=== PATIENT | male | born 1975 | race Caucasian/White ===

== ENCOUNTER 2017-12-11 18:09 | Emergency (ER) | payer MEDICAID, SELFPAY ==
[2017-12-11 18:10] VITALS: BP 136/102; PULSE 92; RESP 16; TEMP 36.3; O2SAT 98; BMI 28.3
--- NOTE | 2017-12-11 19:34 | ED.DCSUM_ITS ---
- ER Visit Summary Date of Service: 12/11/17 Chief Complaint: Back pain History of Present Illness: The patient is a 42 M with a history of chronic back pain. He has spinal stenosis. Patient states his pain is been well controlled at the last 3 days when it is flared up again. He was seen by his primary care physician yesterday and given a prescription for Percocet and an MRI was ordered. Patient states he was walking today and a spasm hit him. He complains of pain in the lower back that radiates down the back of his legs and around to the groin. He has no urinary symptoms. He denies any new back injury or fall. His last dose of Percocet was approximate 6 hours ago. Physical Examination: Vital signs are unremarkable. Patient is lying in the bed no acute distress. Heart is regular rate and rhythm. No lung sounds are clear. Abdomen is soft nontender. Back examination reveals tenderness to palpation in the bilateral lower lumbar paraspinal muscles. There is no midline tenderness. There is no overlying abrasion or ecchymosis. Lower external examination reveals strong distal pulses with good strength and sensation on testing. Test Results: [] Emergency Department Course and Treatment: Patient be given oxycodone, prednisone, and Flexeril here. He is given prescriptions for prednisone and Flexeril. He is to call his PCPs office tomorrow to ensure his MRI is being scheduled. Treatment Plan: [] Disposition: Discharge Impression: Acute on chronic back pain This note was generated with [employer] dictation software. It may contain incorrect words, spelling, and punctuation that were not noted in review of the chart prior to signing ED Disposition - Plan for ED Patient: Chief Complaint: Back Referrals: Jimbo Hill DO [Primary Care Provider] -
--- NOTE | 2017-12-11 19:34 | ED.DEP ---
ED Disposition - Plan for ED Patient: Disposition: Home or Assisted Living Chief Complaint: Back Instructions: ED Neck Back Pain General Prescriptions: Prednisone 10 mg PO DAILY #63 tablet Cyclobenzaprine [Flexeril] 10 mg PO TID PRN #20 tablet PRN Reason: Muscle Spasm Referrals: Jimbo Hill DO [Primary Care Provider] - As soon as possible Additional Instructions: Call tomorrow to ensure MRI is being scheduled.
[2017-12-11 19:48] VITALS: PULSE 88; RESP 16; O2SAT 98
[2017-12-11] MEDS: oxyCODONE 5 MG Tablet 10 MG PO (19:50)
[2017-12-11] MEDS: predniSONE 20 MG Tablet 60 MG PO (19:51)
== END 2017-12-11 19:54 | disposition home or self-care (01) ==
PROVIDERS: Emergency Provider Emergency Medicine; Family Provider Family Medicine; PCP Family Medicine
DX: M54.5 Low back pain (principal); G89.29 Other chronic pain; I10 Essential (primary) hypertension; J44.9 Chronic obstructive pulmonary disease, unspecified; K21.9 Gastro-esophageal reflux disease without esophagitis; Z79.891 Long term (current) use of opiate analgesic; Z79.899 Other long term (current) drug therapy; Z72.0 Tobacco use
CPT/HCPCS: 99283

== ENCOUNTER → 2019-09-29 10:18 | Outpatient (CLI) | payer MEDICAID, SELFPAY ==
[2019-09-29 12:38] LABS: Absolute Lymphocyte Count 2.87 X10^3/uL (0.83-4.51); Absolute Neutrophil Count 3.4 X10^3/uL (2.0-7.7); Basophil# 0.05 X10^3/uL; Basophil% 0.6 % (0-1); Hematocrit 44.2 % (40-54); Hemoglobin 14.8 g/dL (13.0-16.5); Lymphocyte # 2.87 X10^3/ul (4.0); Lymphocyte % 36.7 % (19-41); Mean Corp Hgb Conc 33.5 g/dL (32-36); Mean Corpuscular Hgb 31.2 pg (27.0-32.0); Mean Corpuscular Volume 93.1 fL (80-94); Mean Platelet Vol. 9.3 fl (6.2-12.0); Monocyte# 0.73 X10^3/uL; Monocyte% 9.3 % (0-10); NRBC Flagged by Analyzer 0 % (0-5); Neutrophil # 3.43 X10^3/uL (2.7-7.7); Platelet Count 587 K/mm3 (150-450); RBC Distribution Width CV 13.5 % (11.6-14.6); RBC Distribution Width SD 45.8 fl (35.1-43.9); Red Blood Count 4.75 M/mm3 (4.6-6.2); White Blood Count 7.8 K/mm3 (4.4-11.0)
[2019-09-29 13:16] LABS: ALB/GLOB Ratio 1.1 RATIO (0.9-2.4); AST(SGOT) 18 U/L (15-37); Alanine Aminotransfer ALT/SGPT 33 U/L (16-61); Albumin, Serum 3.9 g/dL (3.2-5.0); Alkaline Phosphatase 78 U/L (45-117); Anion Gap 7 (5-15); BUN 15 mg/dL (7-18); BUN/Creat Ratio 19.7 RATIO (10-20); Calcium,Total 9.2 mg/dL (8.5-10.1); Chloride 106 mmol/L (98-107); Cholesterol 186 mg/dL (200); Creatinine, Serum 0.76 mg/dL (0.70-1.30); EST Glomerular Filtration Rate 118 mL/min (>60); Est Glom Filt Rate - Afr Amer 142 mL/min (>60); Globulin 3.6 g/dL (2.2-4.2); Glucose 78 mg/dL (74-106); High Density Lipoprotein 37 mg/dL; Potassium 4.1 mmol/L (3.5-5.1); Protein, Total 7.5 g/dL (6.4-8.2); Sodium Level 138 mmol/L (136-145); Triglycerides 181 mg/dL; Very Low Density Lipoprotein 36 mg/dL (5-40)
[2019-09-29 13:58] LABS: HIV - WCH Non-Reactive (Nonreactive); Hepatitis C Antibody Non-Reactive (Nonreactive)
[2019-09-29 15:06] LABS: Chlamydia Trachomatis by PCR Negative (Negative); Neisserai gonorrhoeae by PCR Negative (Negative); Probe Check PASS; Sample Adequacy Control PASS; Specimen Processing Control PASS
[2019-10-01 02:00] LABS: Rapid Plasmin Reagin (RPR) NONREACTIVE (NONREACTIVE)
== END ==
PROVIDERS: PCP Family Medicine; Visit Provider Family Medicine
DX: Z00.00 Encounter for general adult medical examination without abnormal findings (principal); Z20.9 Contact with and (suspected) exposure to unspecified communicable disease; F19.10 Other psychoactive substance abuse, uncomplicated
CPT/HCPCS: 36415; 80053; 80061; 85025; 86592; 86703; 86803; 87491; 87591

== ENCOUNTER → 2019-10-13 07:36 | Outpatient (CLI) | payer MEDICAID, SELFPAY ==
--- NOTE | 2019-10-13 07:45 | MRI_ITS ---
STUDY: MRI LUMBAR SPINE WITHOUT CONTRAST REASON FOR EXAM: Male, 44 years old. LBP, left radiculopathy TECHNIQUE: Standardized fat and water weighted pulse sequences were obtained in the sagittal and axial planes. COMPARISON: 01/01/2014, x-ray 12/20/2014 FINDINGS: T12-L1: Normal endplates. Normal disc height, hydration and morphology. Normal bilateral facet joints. Normal central canal and bilateral lateral recesses. Normal bilateral intervertebral neural foramina. Normal lumbar lordosis. There is no substantial scoliosis. Normal conus medullaris that terminates at the L1. L1-2: Normal endplates. Normal disc height, hydration and morphology. Normal bilateral facet joints. Normal central canal and bilateral lateral recesses. Normal bilateral intervertebral neural foramina. L2-3: Normal endplates. Normal disc height, hydration and morphology. Normal bilateral facet joints. Normal central canal and bilateral lateral recesses. Normal bilateral intervertebral neural foramina. L3-4: Moderate-sized right foraminal protrusion produces moderate right neural foraminal stenosis with abutment of the right L3 nerve root laterally. No central spinal stenosis. L4-5: Moderate bilateral facet hypertrophy with fluid in the facet joints consistent with instability and moderate ligament flavum hypertrophy. No change in the 5 mm retrolisthesis of L4 and L5 with a moderate broad disc protrusion which produces moderate spinal stenosis with moderate bilateral lateral recess stenosis with abutment of the L5 nerve roots, mild left neural foraminal stenosis and moderate right neural foraminal stenosis with abutment of the right L4 nerve root laterally. L5-S1: Mild bilateral facet hypertrophy. Enlarging broad disc protrusion which is now moderate in size produces mild spinal stenosis but moderate bilateral neural foraminal stenosis with abutment of the exiting L5 nerve roots bilaterally. Normal visualized sacral ala. Normal visualized paraspinous soft tissue structures. MRI/Spine Lumbar (Routine) IMPRESSION: Worsening degenerative disc disease at L5/S1. Electronically Signed: Nathan Feldman MD at 8:58 EDT Tel , Service support ,
== END ==
PROVIDERS: PCP Family Medicine; Referring Provider Family Medicine; Visit Provider Family Medicine
DX: M51.17 Intervertebral disc disorders with radiculopathy, lumbosacral region (principal)
CPT/HCPCS: 72148

== ENCOUNTER → 2019-11-09 11:59 | Outpatient (CLI) | payer MEDICAID, SELFPAY ==
[2019-11-09 15:35] LABS: Amphetamine Urine VISTA NEGATIVE (<1000 ng/mL); Barbiturate Urine VISTA NEGATIVE (< 200 ng/mL); Benzodiazepine Urine VISTA NEGATIVE (< 200 ng/mL); Cocaine Urine VISTA NEGATIVE (< 300 ng/mL); Ecstacy Urine VISTA NEGATIVE (< 500 ng/mL); Methadone Urine VISTA NEGATIVE (< 300 ng/mL); PCP Urine VISTA NEGATIVE (< 25 ng/mL); THC Urine VISTA NEGATIVE (< 50 ng/mL); Vista UDS pH Range 6
== END ==
PROVIDERS: PCP Family Medicine; Visit Provider Family Medicine
DX: F19.11 Other psychoactive substance abuse, in remission (principal)
CPT/HCPCS: 80307

== ENCOUNTER → 2019-11-13 10:11 | Outpatient (CLI) | payer MEDICAID, SELFPAY ==
[2019-11-13 13:13] LABS: OXY Internal Control LINE = VALID (VALID); Oxycodone Drug Screen Positive (<100 ng/mL)
[2019-11-13 13:14] LABS: Amphetamine Urine VISTA NEGATIVE (<1000 ng/mL); Barbiturate Urine VISTA NEGATIVE (< 200 ng/mL); Benzodiazepine Urine VISTA NEGATIVE (< 200 ng/mL); Cocaine Urine VISTA NEGATIVE (< 300 ng/mL); Ecstacy Urine VISTA NEGATIVE (< 500 ng/mL); Methadone Urine VISTA NEGATIVE (< 300 ng/mL); PCP Urine VISTA NEGATIVE (< 25 ng/mL); THC Urine VISTA NEGATIVE (< 50 ng/mL); Vista UDS pH Range 7
== END ==
PROVIDERS: PCP Family Medicine; Visit Provider Family Medicine
DX: Z79.899 Other long term (current) drug therapy (principal)
CPT/HCPCS: 80307; 80320; 80365; G0431; G0480

== ENCOUNTER → 2019-11-20 09:52 | Outpatient (CLI) | payer MEDICAID, SELFPAY | PROVIDERS: PCP Family Medicine; Referring Provider Family Medicine; Visit Provider Family Medicine | DX: Z79.899 Other long term (current) drug therapy (principal) ==

== ENCOUNTER → 2019-11-26 11:04 | Outpatient (CLI) | payer MEDICAID, SELFPAY ==
[2019-11-26 13:20] LABS: OXY Internal Control LINE = VALID (VALID)
[2019-11-26 13:21] LABS: Oxycodone Drug Screen Positive (<100 ng/mL)
[2019-11-26 13:25] LABS: Amphetamine Urine VISTA NEGATIVE (<1000 ng/mL); Barbiturate Urine VISTA NEGATIVE (< 200 ng/mL); Benzodiazepine Urine VISTA NEGATIVE (< 200 ng/mL); Cocaine Urine VISTA NEGATIVE (< 300 ng/mL); Ecstacy Urine VISTA NEGATIVE (< 500 ng/mL); Methadone Urine VISTA NEGATIVE (< 300 ng/mL); PCP Urine VISTA NEGATIVE (< 25 ng/mL); THC Urine VISTA NEGATIVE (< 50 ng/mL); Vista UDS pH Range 6
== END ==
PROVIDERS: PCP Family Medicine; Visit Provider Family Medicine
DX: Z79.899 Other long term (current) drug therapy (principal)
CPT/HCPCS: 80307; 80365; G0480

== ENCOUNTER → 2019-12-03 09:25 | Outpatient (CLI) | payer MEDICAID, SELFPAY ==
[2019-12-03 12:42] LABS: Amphetamine Urine VISTA NEGATIVE (<1000 ng/mL); Barbiturate Urine VISTA NEGATIVE (< 200 ng/mL); Benzodiazepine Urine VISTA NEGATIVE (< 200 ng/mL); Cocaine Urine VISTA NEGATIVE (< 300 ng/mL); Ecstacy Urine VISTA NEGATIVE (< 500 ng/mL); Methadone Urine VISTA NEGATIVE (< 300 ng/mL); PCP Urine VISTA NEGATIVE (< 25 ng/mL); THC Urine VISTA NEGATIVE (< 50 ng/mL); Vista UDS pH Range 6
[2019-12-03 12:59] LABS: OXY Internal Control LINE = VALID (VALID); Oxycodone Drug Screen Positive (<100 ng/mL)
== END ==
PROVIDERS: PCP Family Medicine; Visit Provider Family Medicine
DX: Z79.899 Other long term (current) drug therapy (principal)
CPT/HCPCS: 80307; 80365; G0480

== ENCOUNTER → 2019-12-18 08:43 | Outpatient (CLI) | payer MEDICAID, SELFPAY ==
[2019-12-18 13:16] LABS: Amphetamine Urine VISTA NEGATIVE (<1000 ng/mL); Barbiturate Urine VISTA NEGATIVE (< 200 ng/mL); Benzodiazepine Urine VISTA NEGATIVE (< 200 ng/mL); Cocaine Urine VISTA NEGATIVE (< 300 ng/mL); Ecstacy Urine VISTA NEGATIVE (< 500 ng/mL); Methadone Urine VISTA NEGATIVE (< 300 ng/mL); PCP Urine VISTA NEGATIVE (< 25 ng/mL); THC Urine VISTA NEGATIVE (< 50 ng/mL); Vista UDS pH Range 7
== END ==
PROVIDERS: PCP Family Medicine; Visit Provider Family Medicine
DX: Z79.899 Other long term (current) drug therapy (principal)
CPT/HCPCS: 80307; 80365; G0480

== ENCOUNTER → 2020-01-01 09:38 | Outpatient (CLI) | payer MEDICAID, SELFPAY ==
[2020-01-01 12:25] LABS: Hemoglobin A1c 5.5 % (3.8-5.6)
[2020-01-01 12:27] LABS: Amphetamine Urine VISTA NEGATIVE (<1000 ng/mL); Barbiturate Urine VISTA NEGATIVE (< 200 ng/mL); Benzodiazepine Urine VISTA NEGATIVE (< 200 ng/mL); Cocaine Urine VISTA NEGATIVE (< 300 ng/mL); Ecstacy Urine VISTA NEGATIVE (< 500 ng/mL); Methadone Urine VISTA NEGATIVE (< 300 ng/mL); PCP Urine VISTA NEGATIVE (< 25 ng/mL); THC Urine VISTA NEGATIVE (< 50 ng/mL); Vista UDS pH Range 7
[2020-01-01 12:31] LABS: T4 Free Direct 0.94 ng/dL (0.76-1.46); Thyroid Stim Hormone (TSH) 2.96 uIU/mL (0.358-3.74)
== END ==
PROVIDERS: PCP Family Medicine; Visit Provider Family Medicine
DX: Z51.81 Encounter for therapeutic drug level monitoring (principal); Z79.899 Other long term (current) drug therapy; R53.83 Other fatigue; R73.01 Impaired fasting glucose
CPT/HCPCS: 36415; 80307; 83036; 84439; 84443

== ENCOUNTER → 2020-01-15 09:37 | Outpatient (CLI) | payer MEDICAID, SELFPAY ==
[2020-01-15 13:54] LABS: OXY Internal Control LINE = VALID (VALID); Oxycodone Drug Screen Positive (<100 ng/mL)
[2020-01-15 13:55] LABS: Amphetamine Urine VISTA NEGATIVE (<1000 ng/mL); Barbiturate Urine VISTA NEGATIVE (< 200 ng/mL); Benzodiazepine Urine VISTA NEGATIVE (< 200 ng/mL); Cocaine Urine VISTA NEGATIVE (< 300 ng/mL); Ecstacy Urine VISTA NEGATIVE (< 500 ng/mL); Methadone Urine VISTA NEGATIVE (< 300 ng/mL); PCP Urine VISTA NEGATIVE (< 25 ng/mL); THC Urine VISTA NEGATIVE (< 50 ng/mL); Vista UDS pH Range 7
== END ==
PROVIDERS: PCP Family Medicine; Visit Provider Family Medicine
DX: Z51.81 Encounter for therapeutic drug level monitoring (principal)
CPT/HCPCS: 80307; 80365; G0480

== ENCOUNTER 2020-01-18 17:02 | Emergency (ER) | payer MEDICAID, SELFPAY ==
[2020-01-18] VITALS (11 sets, daily range): BP systolic 105–157; BP diastolic 61–89; PULSE 76–91; RESP 18–25; TEMP 36.3–37.2; O2SAT 93–100; BMI 37.3
[2020-01-18] MEDS: Albuterol 2.5 MG/3 ML VIAL.NEB. INHALATION ×3 (17:51)
[2020-01-18] MEDS: Ipratropium/Albuterol Sulfate 3 ML AMPUL.NEB INHALATION (17:51)
[2020-01-18] MEDS: MethylPREDNISolone 125 MG/2 ML Vial IV (18:12)
--- NOTE | 2020-01-18 18:15 | RAD_ITS ---
STUDY: X-RAY CHEST REASON FOR EXAM: Male, 45 years old. Shortness of breath, Hx COPD TECHNIQUE: Single AP portable view of the chest. COMPARISON: 2016 FINDINGS: EKG leads overlie the chest There are interstitial changes of the lungs. There is no demonstrated pleural abnormality. Normal size heart. Normal mediastinum and iris. Normal visualized pulmonary arteries. Normal visualized aortic arch and descending thoracic aorta. Normal visualized thoracic spine. Normal visualized ribs, clavicles, and shoulders. There is no demonstrated abnormality of the visualized soft tissue structures of the upper abdomen. RAD/Chest 1 View (Portable) IMPRESSION: Chronic interstitial changes, no superimposed acute pulmonary process Electronically Signed: Franklyn Kaufman MD at 18:33 EDT , Service support ,
--- NOTE | 2020-01-18 18:17 | ED.DCSUM_ITS ---
History of Present Illness Chief Complaint: Shortness of Breath Onset: Weeks - Nick states he has been ill for weeks. He was placed on antibiotics for sinus infection. He states yesterday he had documented fever, cough, wheezing. States he does not feel well. Does complain of body aches. Context: Sudden Onset Timing: Continuous Quality: Upper respiratory Location: Upper respiratory and pulmonary Current Severity: Mild Maximum Severity: Severe Worsened by: Dyspnea on exertion Relieved by: Nothing Associated Symptoms: Upper respiratory symptoms, cough, wheezing, dyspnea on exertion Narrative: Patient is a 45-year-old male who presents with documented fever last evening and upper respiratory symptoms started several weeks ago. He was placed on antibiotic for sinus infection. He contacted his primary care physician because he is not improved. Since he had audible wheezing he was instructed to come to the emergency department. He does have history of COPD. He denies history of coronary disease. Denies history of PE or DVT. He does report stephanie sea without vomiting diarrhea. Denies urologic symptoms. He does complain of mild headache. He denies photophobia, neck pain or neck stiffness. He does report throat discomfort. Prior similar symptoms: Yes Recent Illness/Hospitalization: Yes - Past Medical History (1) COPD exacerbation Status: Acute (2) Alcohol abuse, in remission Status: Chronic (3) Chronic low back pain Status: Chronic (4) GERD (gastroesophageal reflux disease) Status: Chronic (5) History of diverticulitis of colon Status: Chronic (6) Hypertension Status: Chronic (7) Obesity (BMI 30-39.9) Status: Chronic (8) Tobacco abuse Status: Chronic Past Medical History - Allergies and Home Meds Allergies/Adverse Reactions: Allergies sulfamethoxazole [From Bactrim] Allergy (Verified 01/18/20 17:05) Other trimethoprim [From Bactrim] Allergy (Verified 01/18/20 17:05) Other Metronidazole HCl [From Flagyl] Adverse Reaction (Verified 01/18/20 17:05) Unknown taste buds got sore and hurt on PO Abx Primary Care Physician: Jimbo Hill DO [Primary Care Provider] - Prior records reviewed: Yes Surgical History: - - Right knee surgery, polyp removal. Lives: - - Patient is and lives alone. Smoking Status: Current every day smoker Alcohol: Rare Drugs: None - Family History Maternal Family History: Family History (Last Updated 04/13/17 @ 07:08 by Chacha Ibrahim) Mother CAD (coronary artery disease) Uncle CAD (coronary artery disease) Family History: Reports: - - Mother diagnosed with coronary artery disease and valvular heart disease at age 70. He had an uncle who was diagnosed with coronary artery disease at 47. No sudden in the family. Paternal Family History: Family History (Last Updated 04/13/17 @ 07:08 by Chacha Ibrahim) Mother CAD (coronary artery disease) Uncle CAD (coronary artery disease) Family History: Reports: Cancer, No pertinent history Review of Systems General: Reports: Chills, Fever, Malaise, Sweats. Denies: Subjective Eyes: Denies: Visual changes - bilaterally, Blurred Vision - bilaterally ENT: Reports: Rhinorrhea, Sore throat Cardiovascular: Reports: Chest pain, Palpitations. Denies: Heart racing Respiratory: Reports: Dyspnea, Cough, Sputum, Dyspnea on exertion. Denies: Orthopnea, Paroxysmal nocturnal dyspnea Gastrointestinal: Reports: Nausea. Denies: Abdominal pain, Vomiting, Diarrhea Genitourinary: Denies: Dysuria, Hematuria, Frequency Musculoskeletal: Reports: Myalgias, Arthralgias. Denies: Neck pain, Back pain, Swelling, Extremity Pain, -, - Skin: Denies: Rash, Wounds Neurological: Reports: Headache, Weakness. Denies: Parasthesia Endocrine: Denies: Polyuria, Polydipsia Hematologic: Denies: Easy bruising Physical Exam Vital Signs/Narrative: Vital Signs Temp Pulse Resp BP Pulse Ox 01/18/20 17:53 84 18 01/18/20 17:04 97.8 F 91 20 H 157/89 H 97 01/18/20 17:02 97.8 F 91 20 H 157/89 H 97 Inital Vital Signs reviewed: Yes General: Well nourished, Well developed, - - Does not appear well and appears in mild respiratory distress. Head: Normocephalic, Atraumatic Eyes: Perrl, EOMI. Negative for: Pale conjunctiva, Scleral icterus ENT: Moist mucous membranes, TM's clear, Nasal congestion, Sinus tenderness. Negative for: No rhinorrhea Neck: Supple, Nontender, No lymphadenopathy, No JVD Cardiovascular: Regular rate, Regular rhythm, No murmurs, Normal S1, Normal S2 Respiratory: Chest nontender, Wheezing, Diminished, Decreased Air Movement, - - Normal use of accessory muscles.. Negative for: No distress, CTA bilaterally Abdomen: Soft, Nontender, Nondistended, Normal bowel sounds, No masses Rectal: Deferred Back: Nontender, Normal Inspection Extremities: Nontender, No edema Skin: Normal color, No rash, No Trauma. Negative for: Cyanosis, Diaphoresis, Jaundice Neurological: Alert, Oriented x3, Cranial nerves II-XII grossly intact, Normal Strength, Normal Sensation Psychological: Normal affect, Normal Mood Diagnostic/Tx/Re-eval Chest X-Ray - ED: 1 View, Read by Radiologist, - - X-rays compared to March 02, 2017. The loop recorder is no longer present. There is no acute findings. Agree with radiology read. Impressions Chest X-Ray 01/18/20 18:15 IMPRESSION: Chronic interstitial changes, no superimposed acute pulmonary process Electronically Signed: Franklyn Kaufman MD at 18:33 EDT , Service support , 01/18/20 18:15 Chest 1 View (Portable) [RAD] Stat Laboratory Results 01/18/20 01/18/20 01/18/20 18:05 18:05 18:05 WBC 9.9 RBC 4.47 L Hgb 13.5 Hct 41.2 MCV 92.2 MCH 30.2 MCHC 32.8 RDW Std Deviation 49.1 H RDW Coeff of Rudolph 14.6 Plt Count 489 H MPV 9.0 Immature Gran % (Auto) 0.300 Neut % (Auto) 64.1 Lymph % (Auto) 22.8 [place] % (Auto) 7.1 Eos % (Auto) 5.0 Baso % (Auto) 0.7 Absolute Neuts (auto) 6.3 Absolute Lymphs (auto) 2.25 Nucleated RBC % 0 Sodium 139 Potassium 3.7 Chloride 111 H Carbon Dioxide 23.0 Anion Gap 5 BUN 12 Creatinine 0.82 Estim Creat Clear Calc 121.16 Est GFR (MDRD) Af Amer 131 Est GFR (MDRD) Non-Af 108 BUN/Creatinine Ratio 14.7 Glucose 107 H Lactic Acid 0.9 Calcium 8.5 Total Bilirubin 0.30 AST 19 ALT 26 Alkaline Phosphatase 73 Total Protein 6.8 Albumin 3.4 Globulin 3.4 Albumin/Globulin Ratio 1.0 COVID-19 test negative. Respiratory panel positive for rhinovirus. This would explain why he has not gotten better with antibiotics. Patient was informed he should stop smoking. - Medical Decision Making Diagnosis includes COPD, viral upper restaurant infection, pneumonia, COVID-19 infection. Chest x-ray, appropriate blood work and viral culture was obtained. He was treated with 125 million Solu-Medrol, DuoNeb and albuterol. Patient's oxygen level did not desaturate with activity. ED Disposition - Plan for ED Patient: Disposition: Home or Assisted Living Diagnosis: Asthma exacerbation in COPD, Disease due to rhinovirus Instructions: ED COPD Flare Prescriptions: Prednisone [Deltasone] 40 mg PO DAILY #10 tab Transmission Status: Pending to [facility]30 Referrals: Jimbo Hill DO [Primary Care Provider] - 1 Week if not improving
[2020-01-18 18:25] LABS: Absolute Lymphocyte Count 2.25 X10^3/uL (0.83-4.51); Absolute Neutrophil Count 6.3 X10^3/uL (2.0-7.7); Basophil# 0.07 X10^3/uL; Basophil% 0.7 % (0-1); Eosinophil# 0.49 X10^3/uL; Hematocrit 41.2 % (40-54); Hemoglobin 13.5 g/dL (13.0-16.5); Lymphocyte # 2.25 X10^3/ul (4.0); Lymphocyte % 22.8 % (19-41); Mean Corp Hgb Conc 32.8 g/dL (32-36); Mean Corpuscular Hgb 30.2 pg (27.0-32.0); Mean Corpuscular Volume 92.2 fL (80-94); Monocyte% 7.1 % (0-10); NRBC Flagged by Analyzer 0 % (0-5); Neutrophil # 6.33 X10^3/uL (2.7-7.7); Neutrophil % 64.1 % (47-70); Platelet Count 489 K/mm3 (150-450); RBC Distribution Width CV 14.6 % (11.6-14.6); RBC Distribution Width SD 49.1 fl (35.1-43.9); Red Blood Count 4.47 M/mm3 (4.6-6.2); White Blood Count 9.9 K/mm3 (4.4-11.0)
[2020-01-18 18:40] LABS: AST(SGOT) 19 U/L (15-37); Alanine Aminotransfer ALT/SGPT 26 U/L (16-61); Albumin, Serum 3.4 g/dL (3.2-5.0); Alkaline Phosphatase 73 U/L (45-117); Anion Gap 5 (5-15); BUN 12 mg/dL (7-18); BUN/Creat Ratio 14.7 RATIO (10-20); Calcium,Total 8.5 mg/dL (8.5-10.1); Chloride 111 mmol/L (98-107); Creatinine, Serum 0.82 mg/dL (0.70-1.30); EST Glomerular Filtration Rate 108 mL/min (>60); Est Glom Filt Rate - Afr Amer 131 mL/min (>60); Estimated Creatinine Clearance 121.16 ml/min; Globulin 3.4 g/dL (2.2-4.2); Glucose 107 mg/dL (74-106); Potassium 3.7 mmol/L (3.5-5.1); Protein, Total 6.8 g/dL (6.4-8.2); Sodium Level 139 mmol/L (136-145)
[2020-01-18 19:00] LABS: Lactic Acid 0.9 mmol/L (0.4-1.9)
== END 2020-01-18 21:29 | disposition home or self-care (01) ==
PROVIDERS: Emergency Provider Emergency Medicine; PCP Family Medicine
DX: J44.1 Chronic obstructive pulmonary disease with (acute) exacerbation (principal); B34.8 Other viral infections of unspecified site; I10 Essential (primary) hypertension; K21.9 Gastro-esophageal reflux disease without esophagitis; E66.9 Obesity, unspecified; F17.200 Nicotine dependence, unspecified, uncomplicated; Z88.1 Allergy status to other antibiotic agents; Z88.2 Allergy status to sulfonamides
CPT/HCPCS: 71045; 80053; 83605; 85025; 87040; 87633; 87635; 94640; 96374; 99251; 99281; 99285; A4216; G0463; U0003

== ENCOUNTER → 2020-01-29 09:23 | Outpatient (CLI) | payer MEDICAID, SELFPAY ==
[2020-01-18 17:02] VITALS: BMI 37.3
[2020-01-29 12:46] LABS: Amphetamine Urine VISTA NEGATIVE (<1000 ng/mL); Barbiturate Urine VISTA NEGATIVE (< 200 ng/mL); Benzodiazepine Urine VISTA NEGATIVE (< 200 ng/mL); Cocaine Urine VISTA NEGATIVE (< 300 ng/mL); Ecstacy Urine VISTA NEGATIVE (< 500 ng/mL); Methadone Urine VISTA NEGATIVE (< 300 ng/mL); PCP Urine VISTA NEGATIVE (< 25 ng/mL); THC Urine VISTA NEGATIVE (< 50 ng/mL); Vista UDS pH Range 7
== END ==
PROVIDERS: PCP Family Medicine; Visit Provider Family Medicine
DX: Z51.81 Encounter for therapeutic drug level monitoring (principal)
CPT/HCPCS: 80307

== ENCOUNTER 2020-03-01 10:16 | Day surgery (SDC) | payer MEDICAID, SELFPAY ==
[2020-02-05 13:48] VITALS: BMI 36.9
[2020-02-17 08:25] VITALS: BMI 36.9
--- NOTE | 2020-03-01 10:00 | HP_ITS ---
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 Is patient in pain?: No Allergies sulfamethoxazole [From Bactrim] Allergy (Verified 02/05/20 13:50) Other trimethoprim [From Bactrim] Allergy (Verified 02/05/20 13:50) Other Metronidazole HCl [From Flagyl] Adverse Reaction (Verified 02/05/20 13:50) Unknown Medications Lansoprazole [Prevacid] 30 mg PO DAILY 12/05/16 [History Confirmed 04/13/17] Aclidinium [place] [Tudorza Pressair] 400 mcg IH 03/02/17 [History Confirmed 04/13/17] Albuterol IH (ProAir) [Proair Hfa] 1 - 2 puff INHALATION Q4H PRN PRN 03/02/17 [History Confirmed 04/13/17] Fluticasone/Salmeterol [Advair 250-50 Diskus] 1 ea IH 03/02/17 [History Confirmed 04/13/17] Acetaminophen 500 mg PO Q4H #1 tab 03/04/17 [Rx Confirmed 04/13/17] Guaifenesin [Mucinex] 1,200 mg PO BID #10 tab 03/04/17 [Rx Confirmed 04/13/17] Ibuprofen [Motrin] 800 mg PO Q8H PRN PRN tab 03/04/17 [Rx Confirmed 04/13/17] Prednisone 10 mg PO DAILY #63 tab 12/11/17 [Rx] cycloBENZAPRine HCl [Flexeril] 10 mg PO TID PRN #20 tab 12/11/17 [Rx] ondansetron HCl 4 mg tablet 4 mg PO Q8H 02/05/20 [History Confirmed 02/05/20] oxycodone-acetaminophen 5 mg-325 mg tablet 1 tab PO Q8H PRN 02/05/20 [History Confirmed 02/05/20] topiramate 50 mg tablet 50 mg PO BID 02/05/20 [History Confirmed 02/05/20] PFSH Medical History Wheezing (Acute) Cough (Acute) Acute bronchitis (Acute) Chronic low back pain (Chronic) GERD (gastroesophageal reflux disease) (Chronic) Alcohol abuse, in remission (Chronic) Tobacco abuse (Chronic) History of diverticulitis of colon (Chronic) Obesity (BMI 30-39.9) (Chronic) Hypertension (Chronic) COPD (chronic obstructive pulmonary disease) (Chronic) COPD exacerbation (Acute) Chest pain (Acute) Surgical History History of right knee surgery (Resolved) Family History Mother CAD (coronary artery disease) Uncle CAD (coronary artery disease) Social History (Updated 02/05/20 @ 14:[address] Kg Correa MD) Smoking Status: Current every day smoker second hand exposure: Yes alcohol intake: current alcohol intake frequency: a few times a month substance use type: marijuana HPI HPI HPI: RAJAT FITCH, is a 45 M who presents to the office today for HPI HPI Surgical H&P: Yes HPI: RAJAT FITCH, is a 45 M who presents to the office today for Colonoscopy. The patient had his last colonoscopy about 6 years ago. The patient had a large 2 cm adenomatous polyp. He is not having any abdominal pain or blood in the stool. He was recommended to repeat in 5 years. ROS General General: No weight change or fatigue Cardio Cardiovascular: No murmur, pacemaker, heart disease, atrial fibrillation, high blood pressure, heart attack, heart stent, palpitations, shortness of breat with exertion or chest pain Psych Psychiatric: No depression or anxiety Resp Respiratory: No shortness of breath, No sleep apnea, No cough, No COPD, No asthma, No emphysema, No wheezing Gastro Gastrointestinal: No abdominal pain, No nausea or vomiting, No diarrhea, No constipation, No blood in stool, No acid reflux, No hemorrhoids, No ulcers, No gallbladder problem, No black,tarry stools John Hematologic: No blood thinners Exam Const General: cooperative Orientation: alert, oriented x3 Resp Effort & Inspection: normal respiratory effort Auscultation: clear to auscultation bilaterally Cardio Rate: regular rate Rhythm: regular rhythm Heart Sounds: no murmurs GI Inspection: non-distended Palpation: soft, nontender Assessment & Plan Problems 1. History of colon polyps Z86.010 Plan Patient has a history of a large adenomatous polyp of the colon found in 2013. The patient requires repeat colonoscopy for surveillance. He denies any blood in his stool or abdominal pain. I explained endoscopy in detail to the patient. I explained the risks including but not limited to stroke or heart attack with anesthesia, perforation of the GI tract, bleeding, infection. I explained that any of these could necessitate further emergency surgery. The patient understands and all questions were answered sufficiently. The patient wishes to proceed with procedure. We discussed the current risks associated with COVID-19. While it is understood that there is a community spread of COVID-19, the risk of molly COVID-19 while at [facility] ([facility]) is very low; however, the risk cannot be completely mitigated because of the community spread of the disease. We discussed in detail the risk of exposure to and/or potential harm posed by the COVID-19 virus with having a surgery/procedure at this time versus the risk of delaying the surgery/procedure. It is not possible to know either the risk of delaying the surgery or procedure or chance of getting an infection with perfect accuracy, but a joint decision was made to proceed at this time with the scheduled surgery/procedure as indicated on the consent form. Patient was notified that we will need to comply with any screening or testing [facility] wishes to perform or that surgery may be delayed for any positive results. Kg Correa MD Pager: [facility] [address] [place] [address], [address] [place] [address] Office: Orders Orders: Colonoscopy Today Z86.010 Coding Level of Care Code Off vis,new,level 3 Diagnoses History of colon polyps Z86.010 I have re-examined the patient. There are no clinical changes since date of exam.
[2020-03-01 10:39] VITALS: BP 127/87; PULSE 78; RESP 16; TEMP 36.6; O2SAT 96; BMI 36.7
[2020-03-01] MEDS: Lactated Ringers 1,000 ML 100 ML IV (10:53)
--- NOTE | 2020-03-01 12:06 | OP.COLON_ITS ---
Patient Name: Nick Barnes Procedure Date: 03/01/2020 11:41 AM Date of : 1975 Age: 45 Procedure: Colonoscopy Indications: High risk colon cancer surveillance: Personal history of adenoma (10 mm or greater in size) Providers: Kg Correa MD Referring MD: Jimbo Hill Medicines: Monitored Anesthesia Care Patient Profile: This is a 45 year old male. Refer to note in patient chart for documentation of history and physical. Last Colonoscopy: several years ago. Complications: No immediate complications. Procedure: Pre-Anesthesia Assessment: - Prior to the procedure, a History and Physical was performed, and patient medications and allergies were reviewed. The patient's tolerance of previous anesthesia was also reviewed. The risks and benefits of the procedure and the sedation options and risks were discussed with the patient. All questions were answered, and informed consent was obtained. Prior Anticoagulants: The patient has taken no previous anticoagulant or antiplatelet agents. After reviewing the risks and benefits, the patient was deemed in satisfactory condition to undergo the procedure. After I obtained informed consent, the scope was passed under direct vision. Throughout the procedure, the patient's blood pressure, pulse, and oxygen saturations were monitored continuously. The pediatric colonoscope was introduced through the anus and advanced to the cecum, identified by appendiceal orifice and ileocecal valve. The colonoscopy was performed without difficulty. The patient tolerated the procedure well. The quality of the bowel preparation was good. Scope In: 11:53:45 AM Scope Withdrawal Time 0 hours 6 minutes 2 seconds Scope Out: 12:04:02 PM Total Procedure Duration Time 0 hours 10 minutes 17 seconds Findings: The entire examined colon appeared normal on direct and retroflexion views. Impression: - The entire examined colon is normal on direct and retroflexion views. - No specimens collected. Recommendation: - Discharge patient to home. - Resume previous diet. - Continue present medications. - Repeat colonoscopy in 5 years for surveillance. Procedure Code(s): --- Professional --- 91834, Colonoscopy, flexible; diagnostic, including collection of specimen(s) by brushing or washing, when performed (separate procedure) Diagnosis Code(s): --- Professional --- Z86.010, Personal history of colonic polyps CPT copyright 2017 [employer]. All rights reserved. The codes documented in this report are preliminary and upon baker second review may be revised to meet current compliance requirements. Kg Correa MD 03/01/2020 12:05:56 PM This report has been signed electronically. Number of Addenda: 0 Note Initiated On: 03/01/2020 11:41 AM
--- NOTE | 2020-03-01 12:06 | OP.CCLET_ITS ---
03/01/2020 Jimbo Hill [address] [place] [address] Re : Colonoscopy procedure for Nick Barnes Dear Dr. Hill This procedure was performed on Sunday, March 01, 2020. My impressions and recommendations are as follows: Impressions : - The entire examined colon is normal on direct and retroflexion views. - No specimens collected. Recommendations : - Discharge patient to home. - Resume previous diet. - Continue present medications. - Repeat colonoscopy in 5 years for surveillance. My findings are described in the full procedure note, which is enclosed. If I can be of further assistance, please feel free to contact me at Doctor phone number(s): , Work: . Sincerely, Kg Correa MD 03/01/2020 12:05:56 PM This report has been signed electronically.
[2020-03-01 12:10] VITALS: BP 122/53; BP 127/87; PULSE 72; RESP 18; TEMP 36.6; O2SAT 98
[2020-03-01 12:15] VITALS: BP 104/76; BP 127/87; PULSE 72; RESP 16; O2SAT 96
[2020-03-01 12:20] VITALS: BP 109/80; BP 127/87; PULSE 68; RESP 14; O2SAT 98
[2020-03-01 12:25] VITALS: BP 116/81; BP 127/87; PULSE 65; RESP 14; TEMP 36.2; O2SAT 96
[2020-03-01 12:37] VITALS: BP 127/87
== END 2020-03-01 12:50 | disposition home or self-care (01) ==
LOC: EN 10:17 → AC 10:21
PROVIDERS: PCP Family Medicine; Referring Provider Family Medicine; Visit Provider Surgery
PROC: 0DJD8ZZ Inspection of Lower Intestinal Tract, Via Natural or Artificial Opening Endoscopic (ICD-10-PCS; CPT 45378; principal; 2020-03-01 11:25)
DX: Z86.010 Personal history of colon polyps (principal); F17.210 Nicotine dependence, cigarettes, uncomplicated; I10 Essential (primary) hypertension; J44.9 Chronic obstructive pulmonary disease, unspecified; M54.5 Low back pain; G89.29 Other chronic pain; E66.9 Obesity, unspecified; F12.90 Cannabis use, unspecified, uncomplicated; F10.11 Alcohol abuse, in remission; Z79.899 Other long term (current) drug therapy; Z20.828 Contact with and (suspected) exposure to other viral communicable diseases; Z79.1 Long term (current) use of non-steroidal anti-inflammatories (NSAID); Z79.51 Long term (current) use of inhaled steroids; Z87.19 Personal history of other diseases of the digestive system
CPT/HCPCS: 45378; 87426; C9803; J7120; J2405

== ENCOUNTER → 2020-03-02 09:40 | Outpatient (CLI) | payer MEDICAID, SELFPAY ==
[2020-03-01 10:39] VITALS: BMI 36.7
[2020-03-02 13:04] LABS: Amphetamine Urine VISTA NEGATIVE (<1000 ng/mL); Barbiturate Urine VISTA NEGATIVE (< 200 ng/mL); Benzodiazepine Urine VISTA POSITIVE (< 200 ng/mL); Cocaine Urine VISTA NEGATIVE (< 300 ng/mL); Ecstacy Urine VISTA NEGATIVE (< 500 ng/mL); Methadone Urine VISTA NEGATIVE (< 300 ng/mL); PCP Urine VISTA NEGATIVE (< 25 ng/mL); THC Urine VISTA NEGATIVE (< 50 ng/mL); Vista UDS pH Range 6
[2020-03-02 13:14] LABS: OXY Internal Control LINE = VALID (VALID); Oxycodone Drug Screen Positive (<100 ng/mL)
== END ==
PROVIDERS: PCP Family Medicine; Visit Provider Family Medicine
DX: Z51.81 Encounter for therapeutic drug level monitoring (principal)
CPT/HCPCS: 80307; 80365; G0480

== ENCOUNTER → 2020-03-24 09:36 | Outpatient (CLI) | payer MEDICAID, SELFPAY ==
[2020-03-24 09:36] VITALS: BMI 36.9
[2020-03-24 12:44] LABS: Amphetamine Urine VISTA NEGATIVE (<1000 ng/mL); Barbiturate Urine VISTA NEGATIVE (< 200 ng/mL); Benzodiazepine Urine VISTA NEGATIVE (< 200 ng/mL); Cocaine Urine VISTA NEGATIVE (< 300 ng/mL); Ecstacy Urine VISTA NEGATIVE (< 500 ng/mL); Methadone Urine VISTA NEGATIVE (< 300 ng/mL); PCP Urine VISTA NEGATIVE (< 25 ng/mL); THC Urine VISTA NEGATIVE (< 50 ng/mL); Vista UDS pH Range 6
[2020-03-24 12:55] LABS: OXY Internal Control LINE = VALID (VALID); Oxycodone Drug Screen Positive (<100 ng/mL)
== END ==
PROVIDERS: PCP Family Medicine; Visit Provider Family Medicine
DX: Z51.81 Encounter for therapeutic drug level monitoring (principal)
CPT/HCPCS: 80307; 80365; G0480

== ENCOUNTER → 2020-04-06 09:15 | Outpatient (CLI) | payer MEDICAID, SELFPAY ==
[2020-03-24 09:36] VITALS: BMI 36.9
[2020-04-06 13:15] LABS: ALB/GLOB Ratio 1.2 RATIO (0.9-2.4); AST(SGOT) 17 U/L (15-37); Alanine Aminotransfer ALT/SGPT 30 U/L (16-61); Albumin, Serum 3.8 g/dL (3.2-5.0); Alkaline Phosphatase 77 U/L (45-117); Anion Gap 5 (5-15); BUN 14 mg/dL (7-18); BUN/Creat Ratio 14.3 RATIO (10-20); Calcium,Total 9.1 mg/dL (8.5-10.1); Chloride 110 mmol/L (98-107); Creatinine, Serum 0.98 mg/dL (0.70-1.30); EST Glomerular Filtration Rate 88 mL/min (>60); Est Glom Filt Rate - Afr Amer 106 mL/min (>60); Globulin 3.2 g/dL (2.2-4.2); Glucose 94 mg/dL (74-106); Potassium 4.1 mmol/L (3.5-5.1); Sodium Level 137 mmol/L (136-145)
[2020-04-06 13:48] LABS: Basophil# 0.08 X10^3/uL; Basophil% 1.1 % (0-1); Eosinophil# 0.83 X10^3/uL; Eosinophils% 11.1 % (0-5); Hematocrit 44.4 % (40-54); Hemoglobin 14.4 g/dL (13.0-16.5); Lymphocyte % 40.2 % (19-41); Mean Corp Hgb Conc 32.4 g/dL (32-36); Mean Corpuscular Hgb 30.2 pg (27.0-32.0); Mean Corpuscular Volume 93.1 fL (80-94); Mean Platelet Vol. 9.9 fl (6.2-12.0); Monocyte# 0.56 X10^3/uL; Monocyte% 7.5 % (0-10); NRBC Flagged by Analyzer 0 % (0-5); Neutrophil # 2.97 X10^3/uL (2.7-7.7); Neutrophil % 39.8 % (47-70); Platelet Count 526 K/mm3 (150-450); RBC Distribution Width CV 14.1 % (11.6-14.6); Red Blood Count 4.77 M/mm3 (4.6-6.2); White Blood Count 7.5 K/mm3 (4.4-11.0)
== END ==
PROVIDERS: PCP Family Medicine; Visit Provider Family Medicine
DX: Z01.812 Encounter for preprocedural laboratory examination (principal)
CPT/HCPCS: 36415; 80053; 85025

== ENCOUNTER 2020-04-09 22:07 | Emergency (ER) | payer MEDICAID, SELFPAY ==
[2020-03-24 09:36] VITALS: BMI 36.9
[2020-04-09 22:08] VITALS: BP 158/94; PULSE 88; RESP 16; TEMP 36.4; O2SAT 98; BMI 36.9
--- NOTE | 2020-04-09 22:12 | ED.RN ---
Addendum entered by Mely Parekh 04/09/20 22:13: wifes name is dar Addendum entered by Mely Parekh 04/09/20 22:13: wifes phone number for updates Original Note: [id number]
--- NOTE | 2020-04-09 22:49 | EKG12_ITS ---
Test Reason : CP Blood Pressure : / mmHG Vent. Rate : 082 BPM Atrial Rate : 082 BPM P-R Int : 160 ms QRS Dur : 112 ms QT Int : 388 ms P-R-T Axes : 034 -04 056 degrees QTc Int : 453 ms Normal sinus rhythm Incomplete right bundle branch block Borderline ECG Confirmed by DONNIE LYNCH, NICOLE ([id number]), photo editor APOLINAR BOWIE ([id number]) on 04/11/2020 8:50:03 AM Referred By: LAVELLE Confirmed By:NICOLE FIELDS MD
--- NOTE | 2020-04-09 22:50 | RAD_ITS ---
HISTORY: CHEST PAIN WORSE WITH DEEP BREATHING EXAM: XR Chest 1 View: COMPARISON: January 18, 2020 FINDINGS: # of images incl. paperwork: 1 Lungs are clear. Heart is not enlarged. No acute osseous pathology perceived. Pulmonary vascularity is distinct. No effusions. RAD/Chest 1 View (Portable) IMPRESSION: No acute cardiopulmonary disease perceived. at [id number] Reported and signed by: Matt Chavez MD Electronically Signed: Matt Chavez MD at 23:08 EST Tel , Service support ,
--- NOTE | 2020-04-09 22:50 | ED.DCSUM_ITS ---
History of Present Illness Chief Complaint: Chest Pain Informant: Patient Onset: Hours - 1 Activity at onset: Rest - Lying on couch watching TV Timing: Continuous Quality: Pain, Sharp Location: Left Chest - Without radiation Current Severity: Severe Maximum Severity: Severe Worsened By: Nothing - No changes with exertion, lying supine versus sitting up, movement, palpation Relieved By: Nothing Associated Symptoms: Cough - Chronic nonproductive smoker's cough. Negative for: Nausea, Vomiting, Diaphoresis, Dyspnea, Fever, Lightheadedness, Acid Reflux, Palpitations Narrative: Patient has never had this pain before. It is sharp left-sided chest pain without radiation, started while he was lying down. No recent immobilization, hospitalization, surgery. No history of DVT or PE. No leg pain or swelling. He does not smoke marijuana and has never had a spontaneous pneumothorax. - Past Medical History (1) Spinal stenosis of lumbar region Status: Chronic (2) GERD (gastroesophageal reflux disease) Status: Chronic (3) Hypertension Status: Chronic (4) COPD (chronic obstructive pulmonary disease) Status: Chronic Past Medical History - Allergies and Home Meds Allergies/Adverse Reactions: Allergies sulfamethoxazole [From Bactrim] Allergy (Verified 02/25/20 14:17) Other trimethoprim [From Bactrim] Allergy (Verified 02/25/20 14:17) Other Metronidazole HCl [From Flagyl] Adverse Reaction (Verified 02/25/20 14:17) Unknown taste buds got sore and hurt on PO Abx Primary Care Physician: Jimbo Hill DO [Primary Care Provider] - 3-5 Days if not improving Surgical History: - - Right knee surgery, polyp removal. Lives: With Family Smoking Status: Current every day smoker - Family History Maternal Family History: Family History (Last Updated 02/17/20 @ 08:32 by Jennifer Mccarthy) Mother CAD (coronary artery disease) Uncle CAD (coronary artery disease) Father Cancer Family History: Reports: - - Mother diagnosed with coronary artery disease and valvular heart disease at age 70. He had an uncle who was diagnosed with coronary artery disease at 47. No sudden in the family. Paternal Family History: Family History (Last Updated 02/17/20 @ 08:32 by Jennifer Mccarthy) Mother CAD (coronary artery disease) Uncle CAD (coronary artery disease) Father Cancer Family History: Reports: Cancer, No pertinent history Review of Systems General: Denies: Chills, Fever, Sweats Eyes: Denies: Visual changes - bilaterally, Diplopia ENT: Denies: Rhinorrhea, Sore throat Cardiovascular: Reports: Chest pain. Denies: Palpitations Respiratory: Denies: Dyspnea, Cough, Dyspnea on exertion Gastrointestinal: Denies: Abdominal pain, Nausea, Vomiting, Diarrhea, Melena, Hematochezia Genitourinary: Denies: Dysuria, Hematuria, Frequency Musculoskeletal: Reports: Back pain - low, chronic, unchanged. Denies: Neck pain, Swelling, Extremity Pain Skin: Denies: Rash, Wounds Neurological: Denies: Headache, Weakness, Numbness Physical Exam Vital Signs/Narrative: Vital Signs Temp Pulse Resp BP Pulse Ox 04/09/20 22:08 97.6 F L 88 16 158/94 H 98 Inital Vital Signs reviewed: Yes General: Well nourished, Well developed, No Acute Distress Head: Normocephalic, Atraumatic Eyes: Perrl, EOMI ENT: Moist mucous membranes, No rhinorrhea Neck: Supple, Nontender, No lymphadenopathy, No JVD Cardiovascular: Regular rate, Regular rhythm, No murmurs, Normal S1, Normal S2. Negative for: Tachycardia Respiratory: No distress, Chest nontender - Area of left inframammary area is nontender, normal inspection, pain is not reproducible., Wheezing - slight end- expiratory bilat. Negative for: Rales, Rhonchi Abdomen: Soft, Nontender, Nondistended, Normal bowel sounds Back: Nontender, Normal Inspection Extremities: Nontender, No edema. Negative for: Calf Tenderness Skin: Normal color, No rash, No Trauma Neurological: Alert, Oriented x3, Cranial nerves II-XII grossly intact, Normal Strength, Normal Sensation Psychological: Normal affect, Normal Mood Diagnostic/Tx/Re-eval Clinical Impression(s) from Imaging Studies Chest X-Ray 04/09/20 22:50 IMPRESSION: No acute cardiopulmonary disease perceived. at 2309 Reported and signed by: Matt Chavez MD Electronically Signed: Matt Chavez MD at 23:08 EST Tel , Service support , Chest CTA 04/10/20 00:42 IMPRESSION: No pulmonary embolism, aortic aneurysm, or aortic dissection. Normal Individualized dose optimization techniques were used for this CT. at 0133 Reported and signed by: Matt Chavez MD Electronically Signed: Matt Chavez MD at 1:32 EST Tel , Service support , Laboratory Results 04/09/20 04/09/20 22:17 22:17 WBC 11.6 H RBC 4.83 Hgb 15.1 Hct 44.7 MCV 92.5 MCH 31.3 MCHC 33.8 RDW Std Deviation 47.3 H RDW Coeff of Rudolph 13.8 Plt Count 543 H MPV 9.5 Immature Gran % (Auto) 0.300 Neut % (Auto) 46.1 L Lymph % (Auto) 37.5 [place] % (Auto) 8.1 Eos % (Auto) 7.2 H Baso % (Auto) 0.8 Absolute Neuts (auto) 5.4 Absolute Lymphs (auto) 4.35 Nucleated RBC % 0 Sodium 142 Potassium 3.6 Chloride 110 H Carbon Dioxide 26.0 Anion Gap 6 BUN 13 Creatinine 1.12 Estim Creat Clear Calc 88.71 Est GFR (MDRD) Af Amer 91 Est GFR (MDRD) Non-Af 75 BUN/Creatinine Ratio 11.6 Glucose 85 Calcium 8.9 - Rhythm Strip Rhythm Strip: Sinus Rhythm Rate: 82 Ectopy: None - EKG Initial EKG Interpretation: Sinus Rhythm, No Acute Injury Pattern, - - RSR' in V1 Prior: Unchanged Treatment: Toradol IV, GI Cocktail JHOANA Risk: No Positive JHOANA Elements Score: 0 - Medical Decision Making Patient has a 0 PERC score, ruling out pulmonary embolus for cause of for these acute symptoms. His is EKG is normal. The rest of his initial work-up including basic labs, troponin, chest x-ray are also normal. He was treated with Toradol and considering the possibility of pleurisy as well as a GI lily ktail considering the possibility of esophageal etiologies, neither 1 of these helped his discomfort at all and he seemed uncomfortable. He states it seems more pleuritic than it was earlier. The pain is otherwise unchanged and does not radiate to his jaw, teeth, neck, back. Given all this, he was given a dose of morphine and CT angiography of the chest was obtained to rule out both pulmonary embolus although given the 0 PERC score above I think that is unlikely, and more so aortic dissection. As above, that CT returned normal and negative for pulmonary embolus, dissection, or other emergent phenomena. Patient is feeling much better, we will discharge him home with close outpatient follow-up I do not think he needs to be admitted to rule out unstable angina here. The symptoms are atypical for that. Pleurisy is in the differential, he will be diagnosed with that until proven otherwise and I recommend anti- inflammatories as needed. ED Disposition - Plan for ED Patient: Disposition: Home or Assisted Living Diagnosis: Pleurisy Instructions: ED Pleurisy Referrals: Jimbo Hill DO [Primary Care Provider] - 3-5 Days if not improving
[2020-04-09 22:59] LABS: Absolute Lymphocyte Count 4.35 X10^3/uL (0.83-4.51); Absolute Neutrophil Count 5.4 X10^3/uL (2.0-7.7); Basophil# 0.09 X10^3/uL; Basophil% 0.8 % (0-1); Eosinophil# 0.83 X10^3/uL; Eosinophils% 7.2 % (0-5); Hematocrit 44.7 % (40-54); Hemoglobin 15.1 g/dL (13.0-16.5); Lymphocyte # 4.35 X10^3/ul (4.0); Lymphocyte % 37.5 % (19-41); Mean Corp Hgb Conc 33.8 g/dL (32-36); Mean Corpuscular Hgb 31.3 pg (27.0-32.0); Mean Corpuscular Volume 92.5 fL (80-94); Mean Platelet Vol. 9.5 fl (6.2-12.0); Monocyte# 0.94 X10^3/uL; Monocyte% 8.1 % (0-10); NRBC Flagged by Analyzer 0 % (0-5); Neutrophil # 5.36 X10^3/uL (2.7-7.7); Neutrophil % 46.1 % (47-70); Platelet Count 543 K/mm3 (150-450); RBC Distribution Width CV 13.8 % (11.6-14.6); RBC Distribution Width SD 47.3 fl (35.1-43.9); Red Blood Count 4.83 M/mm3 (4.6-6.2); White Blood Count 11.6 K/mm3 (4.4-11.0)
[2020-04-09] MEDS: Mag Hydrox/Al Hydrox/Simeth 30 ML UDC PO (23:02)
[2020-04-09] MEDS: Ketorolac 30 MG/ML Syringe IV (23:03)
[2020-04-09 23:05] LABS: Anion Gap 6 (5-15); BUN 13 mg/dL (7-18); BUN/Creat Ratio 11.6 RATIO (10-20); Calcium,Total 8.9 mg/dL (8.5-10.1); Chloride 110 mmol/L (98-107); Creatinine, Serum 1.12 mg/dL (0.70-1.30); EST Glomerular Filtration Rate 75 mL/min (>60); Est Glom Filt Rate - Afr Amer 91 mL/min (>60); Estimated Creatinine Clearance 88.71 ml/min; Glucose 85 mg/dL (74-106); Potassium 3.6 mmol/L (3.5-5.1); Sodium Level 142 mmol/L (136-145)
[2020-04-09 23:06] VITALS: BP 166/101; PULSE 81; RESP 24; O2SAT 96
[2020-04-10] MEDS: Morphine 4 MG/ML Syringe IV (00:19)
--- NOTE | 2020-04-10 00:42 | CT_ITS ---
HISTORY: CHEST PAIN WITH SOB. HX OF HTN TECHNIQUE: Helically acquired images were obtained of the chest following the intravenous administration of 100 ML of Isovue-370 Iodinated contrast. as per pulmonary angiogram protocol with 2D , without 3-D MIP reconstructions. A radiation dose optimization technique was used for this scan. COMPARISON: Of the patient's 46 previous radiologic exams at this institution most recent chest x-ray is available from less than 2 hours earlier. The most recent CTA of the chest is from February 05, 2017. CTA of the chest before that is from August 13, 2016. CTA of the chest before that is from May 24, 2015. FINDINGS: # of images incl. paperwork: 1341 Lungs are hyperexpanded Lungs are clear but for minimal scarring within the lingula. No effusions. Within the thoracic spinebony alignment is normal. Vertebral body height is normal. Facets are well aligned. No rib lesions are perceived. Heart is not enlarged. Thoracic aorta is normal. No aneurysms, stenoses, dissections, nor occlusions. No axillary or mediastinal adenopathy. No pulmonary emboli. Visualized portions of the upper abdomen are without identified acute pathology. CT/CTA Chest W/WO Contrast IMPRESSION: No pulmonary embolism, aortic aneurysm, or aortic dissection. Normal Individualized dose optimization techniques were used for this CT. at 0133 Reported and signed by: Matt Chavez MD Electronically Signed: Matt Chavez MD at 1:32 EST Tel , Service support ,
[2020-04-10 01:59] VITALS: BP 127/3; PULSE 82; RESP 16; TEMP 36.1
== END 2020-04-10 01:59 | disposition home or self-care (01) ==
PROVIDERS: Emergency Provider Emergency Medicine; PCP Family Medicine
DX: R09.1 Pleurisy (principal); I10 Essential (primary) hypertension; K21.9 Gastro-esophageal reflux disease without esophagitis; J44.9 Chronic obstructive pulmonary disease, unspecified; F17.200 Nicotine dependence, unspecified, uncomplicated; Z82.49 Family history of ischemic heart disease and other diseases of the circulatory system
CPT/HCPCS: 71045; 71275; 80048; 85025; 93005; 96361; 96374; 96375; 99285; J7030; Q9967; A4216

== ENCOUNTER → 2020-04-13 06:17 | Outpatient (CLI) | payer MEDICAID, SELFPAY ==
[2020-04-09 22:08] VITALS: BMI 36.9
--- NOTE | 2020-04-13 13:03 | STRESSREP ---
Stress Test Report Pharmacologic myocardial perfusion stress test. Preoperative cardiac evaluation. Resting EKG demonstrates normal sinus rhythm with a rate of 62 bpm normal intervals are noted resting blood pressure is 144/98 mmHg. 0.4 mg of regadenoson was infused per usual protocol followed by rapid venous saline flush injection continuous EKG monitoring was performed. At rest there were no ST or T wave changes noted to suggest abnormal flow reserve at peak infusion nonspecific ST-T wave changes were noted. No clinical angina was noted. The resting blood pressure was 144/98 with a final blood pressure of the same. 14.8 mCi of technetium 99m sestamibi was injected at rest. 0.4 mg of regadenoson was infused per usual protocol peak infusion 44.3 mCi of technetium 99m sestamibi was injected stress images were obtained stress and rest images were reconstructed and compared in the short axis vertical long horizontal long axis. Gated images were also obtained Perfusion SPECT analysis: Review of the stress images demonstrate normal uptake of tracer noted in all areas of myocardium the resting images similar demonstrate normal uptake of tracer noted in all areas of myocardium. No reversibility is noted suggest ischemia no previous infarct is noted. Gated SPECT analysis: The gated ejection fraction is noted to be 69%. Conclusion: Normal pharmacologic myocardial perfusion stress test. Preserved ejection fraction.
== END ==
PROVIDERS: PCP Family Medicine; Referring Provider Family Medicine; Visit Provider Family Medicine
DX: Z01.810 Encounter for preprocedural cardiovascular examination (principal); R94.31 Abnormal electrocardiogram [ECG] [EKG]; I10 Essential (primary) hypertension; I25.2 Old myocardial infarction; F17.200 Nicotine dependence, unspecified, uncomplicated
CPT/HCPCS: 78452; 93017; A9500; A4216; J2785

== ENCOUNTER 2020-04-26 05:22 | Inpatient (IN) | payer MEDICAID, SELFPAY ==
[2020-03-24 09:36] VITALS: BMI 36.9
--- NOTE | 2020-04-18 11:59 | EKG12_ITS ---
Test Reason : Blood Pressure : / mmHG Vent. Rate : 074 BPM Atrial Rate : 074 BPM P-R Int : 146 ms QRS Dur : 104 ms QT Int : 362 ms P-R-T Axes : 056 023 053 degrees QTc Int : 401 ms Normal sinus rhythm Normal ECG Confirmed by DONNIE LYNCH, NICOLE ([id number]), fan mail editor CAROL BRANCH ([id number]) on 04/21/2020 11:22:22 AM Referred By: HERB Confirmed By:NICOLE FIELDS MD
[2020-04-18 13:16] LABS: Magnesium 2.2 mg/dL (1.6-2.6)
[2020-04-18 13:51] LABS: HIV - WCH Non-Reactive (Nonreactive)
[2020-04-19 05:07] LABS: HEPATITIS B SURFACE AG Negative (Negative); Hepatitis A AB, Total Negative (Negative); Hepatitis A IgM Antibody Negative (Negative); Hepatitis B Core AB IgM Negative (Negative); Hepatitis B Core Ab Total Negative (Negative); Hepatitis C Ab <0.1 s/co ratio (0.0-0.9)
[2020-04-19 16:31] LABS: Hep B Surface Antibodies Non Reactive (.)
[2020-04-26] VITALS (16 sets, daily range): BP systolic 139–191; BP diastolic 78–126; PULSE 74–99; RESP 16–20; TEMP 36.1–37.1; O2SAT 95–100; BMI 38.7
--- NOTE | 2020-04-26 05:00 | HP_ITS ---
Intake Intake Visit Reasons: lumbar spine Accompanied by: Self Is patient in pain?: Yes Pain scale (1-10): 8 Allergies sulfamethoxazole [From Bactrim] Allergy (Verified 04/18/20 10:06) Other trimethoprim [From Bactrim] Allergy (Verified 04/18/20 10:06) Other Metronidazole HCl [From Flagyl] Adverse Reaction (Verified 04/18/20 10:06) Unknown Medications Lansoprazole [Prevacid] 30 mg PO DAILY 12/05/16 [History Confirmed 04/18/20] Aclidinium [place] [Tudorza Pressair] 2 puff IH DAILY 03/02/17 [History Confirmed 04/12/20] Albuterol IH (ProAir) [Proair Hfa] 1 - 2 puff INHALATION Q4H PRN PRN 03/02/17 [History Confirmed 04/18/20] ondansetron HCl 4 mg tablet 4 mg PO Q8H PRN 02/05/20 [History Confirmed 04/18/20] topiramate 50 mg tablet 50 mg PO BID 02/05/20 [History Confirmed 04/18/20] ibuprofen 800 mg tablet 800 mg PO TID tab 02/17/20 [History Confirmed 04/18/20] tizanidine 4 mg tablet 4 mg PO Q6H PRN tab 02/17/20 [History Confirmed 04/18/20] traZODone [Desyrel] 50 mg PO QHS 04/09/20 [History Confirmed 04/18/20] Albuterol Aerosols [Ventolin Aerosols] 2.5 mg INHALATION Q4H PRN PRN 04/12/20 [History Confirmed 04/18/20] Oxycodone HCl [Oxycodone HCl ER] 15 mg PO 4X/DAY 04/12/20 [History Confirmed 04/18/20] gabapentin 800 mg tablet 800 mg PO TID PRN tab 04/18/20 [History Confirmed 04/18/20] prednisone 20 mg tablet ea PO 04/18/20 [History Confirmed 04/18/20] PFS Medical History (Updated 04/11/20 @ 00:00 by Background Daemon) Wheezing (Acute) Cough (Acute) Acute bronchitis (Acute) Chronic low back pain (Chronic) GERD (gastroesophageal reflux disease) (Chronic) Alcohol abuse, in remission (Chronic) Tobacco abuse (Chronic) History of diverticulitis of colon (Chronic) Obesity (BMI 30-39.9) (Chronic) Hypertension (Chronic) COPD (chronic obstructive pulmonary disease) (Chronic) COPD exacerbation (Acute) Chest pain (Acute) Surgical History History of right knee surgery (Resolved) Family History (Updated 02/17/20 @ 08:32 by Jennifer Mccarthy) Mother CAD (coronary artery disease) Uncle CAD (coronary artery disease) Father Cancer Social History (Updated 04/18/20 @ 10:[address] Deyvi Cortez DO) household members: spouse housing: house Smoking Status: Current every day smoker Tobacco: How many years used: 30 second hand exposure: Yes alcohol intake: former substance use type: does not use, marijuana do you feel safe at home: Yes HPI lumbar spine: Surgical H&P: Yes Details: Parts of this documentation were recorded by a scribe, this documentation accurately reflects the service provided and the decisions made by me, Dr. Deyvi Cortez DO 04/18/20 0958. NICK FITCH is a 45 year old M here today for his pre-op. Needs to sign consent, lumbar spine, DOS scheduled for: 04/26/2020. Pain has been ongoing for ten years. Pain is lumbar spine. Patient has previously tried physical therapy, TENS unit, and injections. Pain is rated: 8/10 from the pain scale. Patient has been taking Percocet for pain relief, which has no longer been providing relief. Patient has now been taking gabapentin 800mg additional to his Percocet. Patient was prescribed prednisone as of 04/15/2020. Nick returns for follow-up for his preop. I answered all his questions and he signed the operative permit. We also spoke of possible risks and complications associate with the surgery including possibility of , paralysis infection meningitis failed to relieve the symptoms blood clot legs blood clot in the lungs microinfarction stroke dural uncontrollable bleeding loss of lower limb among others. He understood all possible risks and complications he voluntarily signed the operative permit. I went over his films again we will do a 360 degree fusion at L4-5 and L5-S1. All the decompression will be done from the front. I will internally fixate him and fuse him at the back. I will see him again at surgery in 8 days. Assessment & Plan Problems 1. HNP (herniated nucleus pulposus), lumbar M51.26 Coding Level of Care Code Off vis,est,level 2 Diagnoses HNP (herniated nucleus pulposus), lumbar M51.26 Time Spent (min) 20
[2020-04-26 06:11] LABS: Bedside Glucose 101 mg/dL (70-110)
[2020-04-26] MEDS: Lactated Ringers 1,000 ML 100 ML IV ×3 (06:19→17:11)
[2020-04-26] MEDS: Acetaminophen 500 MG Tablet 1000 MG PO (06:21)
[2020-04-26] MEDS: Cefazolin 2 GM in 0.9% Normal Saline 100 ML IV (07:30)
--- NOTE | 2020-04-26 09:20 | RAD_ITS ---
STUDY: X-RAY - LUMBAR SPINE REASON FOR EXAM: Male, 45 years old. IMAGE 1 FUSION IN OR TECHNIQUE: Single intraoperative view(s) of the lumbar spine were obtained. COMPARISON: None FINDINGS: The metallic markers are seen along the anterior aspect of the L3-L4 and L5-S1 disc space RAD/Spine 1 View Any Level IMPRESSION: Markers are seen along the anterior aspect of the L3-L4 and L5-S1 disc space levels. Electronically Signed: George Garcia MD at 13:59 EST , Service support ,
[2020-04-26] MEDS: THROMBIN (RECOMBINANT) 20,000 UNIT VIAL 20000 UNIT TOPICAL (09:45)
[2020-04-26] MEDS: Heparin 10,000 UNITS/10 ML Vial 10000 UNITS (09:46)
--- NOTE | 2020-04-26 10:55 | RAD_ITS ---
STUDY: X-RAY - LUMBAR SPINE REASON FOR EXAM: Male, 45 years old. IMAGE 2 FUSION TECHNIQUE: Single lateral intraoperative view(s) of the lumbar spine were obtained. COMPARISON: None FINDINGS: Status post anterior fusion at L4-L5 level with disc placement. RAD/Spine 1 View Any Level IMPRESSION: Status post anterior fusion at the L4-L5 level with prosthetic disc. Electronically Signed: George Garcia MD at 14:00 EST , Service support ,
--- NOTE | 2020-04-26 11:37 | RAD_ITS ---
STUDY: X-RAY - LUMBAR SPINE REASON FOR EXAM: Male, 45 years old. IMAGE 3 FUSION TECHNIQUE: Single lateral intraoperative view(s) of the lumbar spine were obtained. COMPARISON: None FINDINGS: Anterior fusion at the L3-L4 and L4-L5 levels with prosthetic disc placement. RAD/Spine 1 View Any Level IMPRESSION: Anterior fusion at the L3-L4 and L4-L5 levels with prosthetic disc placement. Electronically Signed: George Garcia MD at 14:01 EST , Service support ,
--- NOTE | 2020-04-26 12:03 | PCM.OPRPT ---
Report of Operation Description of Surgical Findings:: Operative diagnosis: Degenerative disc disease L4-5 and L5-S1 Postoperative diagnoses: The same The procedure: #1 lumbar interbody fusion L5-S1 #2 insertion of cage L5-S1 #3 application of plate anteriorly L5-S1 #4 anterior lumbar interbody fusion L4-5 #5 insertion of cage at L4-5 #6 application of anterior spine plate at L4-5 and #7 bone marrow aspirate left iliac crest Cosurgeons: Dr. Cortez and Dr. Monk Carton Making Machinist: Eric from surgery Anesthesia: General endotracheal anesthesia administered by [facility] Estimated blood loss less than 100 cc Drains: None Complications: None Patient was taken to the OR where he was placed under general endotracheal anesthesia neuro monitoring applied there needles and monitoring wires and a Lisa catheter was inserted this was once he was on the supine position on the operating table the abdomen was then prepped and draped in standard fashion. The approach is described in Dr. Monk's operative summary. Note that throughout the procedure Dr. Monk was instrumental in applying screws punching with the all aligning the plates etc. Once we had good exposure first the L5-S1 I then remove the anterior annulus with a 10 blade and removed your nucleus from within the disc space with pituitary rongeurs. Removed the cartilage off the endplates with both bowl curettes and ring curettes. Also used a bur to open both sides of the disc space that were a bit narrower than the middle as expected. On this I then elevated the anterior longitudinal ligament and periosteum off of the anterior lip of L5 and the upper lip of S1. This allowed for the plate later. Once we took her measurements we decided to use a 12 mm cage. Using both a 10 mm and then a 12 mm broach the space was broached and the endplates became bleeding bone. Thorough irrigation was then carried out note that earlier than this I punched a small hole over the left ASIS I then tamped a CALE needle into place and we were able to obtain 60 cc of the patient's BMA. Was then handed off to the loader technician in the room this was then spun down the plasma red cells and stem cells and the stem cells collected and concentrated 8-10 times. Then used spongy bone allograft we filled the middle of the 12 mm cage with it and then soaked in the patient's own stem cells that were concentrated. I then tamped the cage into place and countersunk it slightly. A 3 mm plate was then used. It was a spot the special L5-S1 plate that was a bit more curved than the others once it was centered we then were able to punch holes to into L5 and then to into the top of S1. These were done 1 at a time first using the awl and then inserting 30 mm screws this was done at all 4 corners. Then activated the locking mechanism for the plates. This was seen on the AP and the lateral projection on the x-ray was sent found to be excellent. We then moved up to the L4-5 space after a good exposure by Dr. Monk we were then able to remove the anterior annulus with a 10 blade and then used pituitary rongeurs to remove the disc from within the disc space all the way back to near the posterior longitudinal ligament. Use bowl curettes and ring curettes again to remove all cartilage off both endplates and used a bur to bur both sides to make room for the cage. Thorough irrigation was carried out elevated the anterior longitudinal ligament off the bottom of L4 and the top of L5 using cautery this was to make room for the plate. Again broach the space first with a 10 then with a 12 mm broach this was after measuring up to a 12 mm trial. Used the second 12mm high cage. We then filled the cage with the spongy allograft bone we then soaked in the patient's stem cells. Then tamped the cage into place and countersunk it perhaps 2 to 3 mm. Another 23 mm anterior plate was then used it was centered in the first of 4 holes was punched using the awl noted Dr. Monk was instrumental in this part of the procedure punching holes with the awl and entering with the 30 mm screws we did this at all 4 corners that is 2 into the bottom of L4 and 2 into the top of L5. The locking mechanisms were then activated. We then placed amniotic membrane grafts directly over each of the 2 plates to prevent adhesions to the surrounding vessels. Patient was then described in Dr. Monk's operative summary.
--- NOTE | 2020-04-26 13:19 | PCM.OPRPT ---
Report of Operation Date of Procedure: 04/26/20 Pre-Operative Diagnosis: Degenerative disc disease Post-Operative Diagnosis: The same Surgery/Procedure Performed:: 1. Anterior lumbar interbody fusion with placement of cage and anterior plate and 4 screws of L5-S1. 2. Anterior lumbar interbody fusion with placement of cage and an anterior plate with 4 screws of L4-L5. Type of Anesthesia:: General Description of Procedure: Surgeon: Dr. Cortez co-surgeon: Dr. Amilcar Monk Operation: Patient was brought to the operating room. And undergone the appropriate timeout and consent. Appropriate antibiotics were given. Was underwent general anesthesia. Appropriate lines were all placed. He was prepped and draped in a sterile fashion. Did a semioblique incision in the left lower quadrant. Dissected down onto the fascia. With incised the anterior fascia sending all the way just past midline and out past the rectus into the obliques. We raised up the flap of the rectus inferiorly and superiorly. Lateral to the rectus we got into the retroperitoneal plane onto the psoas. We then placed the Omni retractor. Then using blunt dissection were able to free up the plane just above the vessels pulling the retroperitoneum and where we could see the ureter medially to the right. We then got onto the L5-S1 space and freed this up with blunt dissection. Several branches of the middle sacral were crossing were divided between clips. Other venous branches on the lateral aspect were also divided between clips. We confirm with x-ray we are at L5-S1. Patient underwent then the discectomy. Was dilated up in 12 mm with cage was placed. Filling the cage also with the some of the bone aspirate that was spun down. This was in good position. A plate was placed with 2 screws in L5 and 2 into S1. There is good hemostasis. We then went lateral to the vessels up 1 level pulling these medially and freeing up the space. There were several lumbar branches that were divided between clips. Is a little bit bleeding up into the stairs. Her aspect but was able to clip this. We confirmed this was L4-L5. Patient then had the discectomy at this level as well. Dilated up and placed another 12 mm cage. Plates were placed on top with 2 screws into L4 and 2 and L5. There is good hemostasis. Completion x-ray confirmed good position. We covered the plates with a little membrane. We then closed the fascia with strata fix and then above this with 2-0 Vicryl and 3-0 Vicryl with subdermal 3-0 Vicryl. 4-0 Monocryl and Dermabond for the skin. Patient will then get flipped over and then will undergo just the posterior aspect only with Dr. Cortez.
--- NOTE | 2020-04-26 13:20 | RAD_ITS ---
STUDY: X-RAY - LUMBAR SPINE REASON FOR EXAM: Male, 45 years old. IMAGE 4 FUSION TECHNIQUE: Single lateral intraoperative view(s) of the lumbar spine were obtained. COMPARISON: None FINDINGS: Status post anterior fusion at the L3-L4 and L4-L5 levels with a prosthetic disc placement. RAD/Spine 1 View Any Level IMPRESSION: Status post anterior fusion at the L3-L4 and L4-L5 levels with prosthetic disc placement. Electronically Signed: George Garcia MD at 14:09 EST , Service support ,
--- NOTE | 2020-04-26 14:46 | OP.PCM_ITS ---
Report of Operation Description of Surgical Findings:: Preoperative diagnosis: Degenerative disc disease L4-5 and L5-S1 intractable low back pain Postoperative diagnosis: The same The procedure: Posterior fusion L4-5 and L5-S1 with internal fixation segmental in nature at L4-5 and L5-S1 Surgeon: Dr. Cortez fast food sales assistant Vivek BARNES Anesthesia: General endotracheal anesthesia administered by [facility] EBL: Less than 30 cc Drains: None Complications: None Patient was already in the OR after having completed the anterior fusion we then placed the patient on the in the prone position on the [place] frame. After appropriate positioning with care to protect his bony prominences as ulnar nerves of both elbows his genitalia his neck and facial features the back was prepped and draped in standard fashion I then made a longitudinal incision centered over L4-5 and L5-S1. Subcutaneous tissues were incised length of the s kin incision. Working from the patient's right side so first elevated the paravertebral muscles open the lumbar fascia and elevated paravertebral muscles off the lamina of L4-L5 and S1 on the right side this was then packed I did the same on the opposite side we then took an intraoperative x-ray with a marker at the L4-5 level to confirm that we were indeed at that level which we were. Put the super slide retractors in place to give us good access thorough irrigation was carried out I then cauterized all soft tissues off the lamina 4 on both sides lamina 5 and the lamina of S1 on both sides. This I removed the interspinous ligament between L4 and L5 and L5 and S1. No room for a bone graft specifically at L5-S1 but the age graft was used at L4-5. Removed the interspinous ligament using cautery I then prepped the lamina on both edges using a bur. This was done we took her measurements for the graft we found that we needed a 14 mm H graft. It was then tamped into place I also used the DBM all the laminar surfaces on both sides. We then applied a first the 40 mm Walker device between the spinous processes of 4 and 5 it was pressed down on the H graft and the locking mechanisms were then employed. Then put a subsequent 36 mm L5-S1 device from the S1 to the L5 spinous process the activating locking mechanisms were then done walking it in place. Irrigation was carried out. We then began closure there was no need for a drain as the dura was not exposed. I then approximated the lumbar fascia using [id number] suture with #1 Vicryl for closure of the subcutaneous tissues with 2-0 Vicryl in interrupted fashion in layers and skin was approximated using skin clips sterile dressings were then applied the patient was then recovered in the OR he was moved to his hospital bed and taken to recovery in satisfactory condition.
[2020-04-26] MEDS: Cefazolin 1 GM/50 ML BAG IV ×2 (17:22→22:32)
--- NOTE | 2020-04-26 18:48 | PN_ITS ---
Reason for Visit: Consult for post-op medical management Subjective: 45-year-old male with past medical history of chronic back pain who comes in for elective back surgery. Patient has had history of chronic back pain and has failed outpatient treatment. He had 360 degrees fusion at L4-L5 and L5-S1. At the time of being seen, patient complains of severe back pain. Denied any chest pain or dizziness or palpitations or fever or chills Vitals/I&O's: Vital Signs Temp Pulse Resp BP Pulse Ox 97.8 F 84 16 149/89 H 97 04/26/20 17:59 04/26/20 18:26 04/26/20 17:59 04/26/20 17:59 04/26/20 17:59 Oxygen Flow Rate (L/min) 6 Oxygen Delivery Method Room Air Weight: 126 kg Body Mass Index (BMI) 38.7 Intake and Output for Last 24 Hours 04/24/20 04/25/20 04/26/20 23:59 23:59 23:59 Intake Total 3267 / 3267 Output Total 1550 / 1550 Balance 1717 / 1717 General: Alert, Oriented x3, Cooperative, - - In pain, obese HEENT: Atraumatic, PERRLA, EOMI, Normocephalic Oral: Moist Mucosa Neck: Supple Lungs: Clear to auscultation, Normal air movement Cardiovascular: Regular rate, Regular Rhythm, Normal S1, Normal S2, No murmurs Abdomen: Soft, Non Tender, Non-Distended, No Hepato-splenomegaly, Hypoactive Bowel Sounds Extremities: No edema Skin: No rashes Musculoskeletal: No Tenderness to Palpation of Joints or Extremities Lymphatic: No Cervical, Supraclavicular, or Inguinal Adenopathy Neurological: Cranial nerves II-XII grossly intact, Neuro grossly intact Psych/Mental Status: Normal Affect, Appropriate Microbiology Past 72 Hours 04/25/20 09:23 Interface Orders SARS-CoV-2 Antigen (Rapid) - Final Laboratory Results 04/26/20 06:05: POC Glucose 101 Current Medications Diazepam (Diazepam 5 Mg Tablet) 10 mg PO Q6H PRN PRN PRN Reason: Muscle Spasms Enteral Nutritional Formula (Ensure Surgery 237 Ml Liquid) 237 ml PO TIDCM [facility] Last Admin: 04/26/20 18:18 Dose: Not Given Documented by: Famotidine (Famotidine 20 Mg Tablet) 20 mg PO BID [facility] Lactated Ringer's () 1,000 mls @ 100 mls/hr IV .Q10H [facility] Last Admin: 04/26/20 17:11 Dose: 100 mls/hr Documented by: Cefazolin Sodium () 1 gm in 50 mls @ 100 mls/hr IV Q8H [facility] Stop: 04/26/20 23:59 Last Infusion: 04/26/20 17:52 Dose: Infused Documented by: Sodium Chloride () 250 mls @ 15 mls/hr IV .[id number] PRN PRN Reason: Saline Flush Morphine Sulfate (Morphine 4 Mg/Ml Syringe) 2 - 4 mg IV Q2H PRN PRN PRN Reason: Pain Score 6-10 Morphine Sulfate (Morphine 2 Mg/Ml Syringe) 2 - 4 mg IV Q2H PRN PRN PRN Reason: Pain Score 6-10 Ondansetron HCl (Ondansetron 4 Mg/2 Ml Vial) 4 mg IV Q8H PRN PRN PRN Reason: NAUSEA Senna/Docusate Sodium (Senna/Docusate Sodium 1 Tablet) 2 tablet PO BID [facility] Sodium Chloride (0.9% Saline Lock 10 Ml Syringe) 10 - 40 ml IV UD PRN PRN Reason: SALINE FLUSH Tramadol HCl (Tramadol 50 Mg Tablet) 50 - 100 mg PO Q6H PRN PRN PRN Reason: Pain Score 4-5 Zolpidem Tartrate (Zolpidem Tartrate 5 Mg Tablet) 5 mg PO QHS PRN PRN PRN Reason: INSOMNIA STROKE Vital Signs/Narrative: Vital Signs Temp Pulse Resp BP Pulse Ox 04/26/20 18:26 84 04/26/20 17:59 97.8 F 85 16 149/89 H 97 04/26/20 17:15 97.4 F L 81 18 142/93 H 95 04/26/20 17:00 81 18 143/97 H 100 04/26/20 16:45 86 18 154/96 H 100 04/26/20 16:30 81 18 189/96 H 99 04/26/20 16:15 75 18 177/96 H 100 04/26/20 16:00 84 18 191/101 H 99 04/26/20 15:45 81 18 182/103 H 99 04/26/20 15:30 77 18 164/103 H 98 04/26/20 15:20 84 18 175/90 H 99 04/26/20 15:05 97.0 F L 89 18 186/126 H 96 Medical Necessity - Tobacco Use Smoking Status: Current every day smoker Tobacco Use: Cigarettes Assessment/Plan All Active Problems (Last Reviewed 02/17/20 @ 08:31 by Jennifer Mccarthy) History of right knee surgery (Resolved) Wheezing (Acute) Cough (Acute) Acute bronchitis (Acute) COPD exacerbation (Acute) Chest pain (Acute) 1. Postop day #0 status post 360 degrees fusion surgery of L4-L5, L5-S1 Continue with pain control and postsurgical recommendation by primary team PT/OT to evaluate and treat. 2. COPD, not in acute exacerbation, continue with as needed pain medications 3. GERD, continue PPI 4. Obesity, BMI 38.7, lifestyle modification recommended 5. [facility] E[facility]: 11752 Subs Hosp L2
[2020-04-26] MEDS: diazePAM 5 MG Tablet 10 MG PO (19:47)
[2020-04-26] MEDS: Morphine 4 MG/ML Syringe IV ×2 (19:47→22:12)
[2020-04-26] MEDS: Senna/Docusate Sodium 1 Tablet 2 TABLET PO (22:11)
[2020-04-26] MEDS: traZODone 50 MG Tablet PO (22:11)
[2020-04-26] MEDS: Famotidine 20 MG Tablet PO (22:11)
[2020-04-27] VITALS (9 sets, daily range): BP systolic 127–155; BP diastolic 68–92; PULSE 95–106; RESP 18–22; TEMP 36.9–38.1; O2SAT 93–97
[2020-04-27] MEDS: Morphine 4 MG/ML Syringe IV ×4 (02:25→20:51)
[2020-04-27] MEDS: diazePAM 5 MG Tablet 10 MG PO ×2 (02:25→10:03)
[2020-04-27] MEDS: traMADol 50 MG Tablet PO (03:33)
--- NOTE | 2020-04-27 06:48 | NURSING ---
Pt's called in to check on her . I got an update from Olimpia DOMINGO who was the pt's primary nurse and then conveyed the information to the . I explained that he has been quite painful and has been given several doses of morphine. The voiced concerns about the narcotic use. She states he has been addicted to drugs in the past but has been doing really well for about the past year. She further states that her has a very low pain tolerance. This information was conveyed to Olimpia DOMINGO.
[2020-04-27] MEDS: Ipratropium 0.5 MG/2.5 ML SOLUTION INHALATION ×2 (07:11→13:40)
[2020-04-27] MEDS: 0.9% Saline Lock 10 ML Syringe IV ×5 (08:06→20:50)
[2020-04-27] MEDS: Morphine 2 MG/ML Syringe IV ×3 (08:07→13:31)
[2020-04-27] MEDS: Ensure Surgery 237 ML LIQUID PO ×3 (08:16→17:57)
[2020-04-27] MEDS: Pantoprazole Sodium 40 MG Tablet PO (10:03)
[2020-04-27] MEDS: Famotidine 20 MG Tablet PO ×2 (10:03→20:56)
[2020-04-27] MEDS: Senna/Docusate Sodium 1 Tablet 2 TABLET PO ×2 (10:03→20:56)
--- NOTE | 2020-04-27 10:19 | PCM.PN.HOSP ---
Subjective: Still complaining of significant back pain that he thinks at this time is related surgery. Otherwise denies any chest pain shortness of breath Vitals/I&O's: Vital Signs Temp Pulse Resp BP Pulse Ox 98.5 F 95 18 134/76 H 96 04/27/20 08:05 04/27/20 08:05 04/27/20 08:05 04/27/20 08:05 04/27/20 08:05 Oxygen Flow Rate (L/min) 6 Oxygen Delivery Method Room Air Weight: 277 lb 12.519 oz Body Mass Index (BMI) 38.7 Intake and Output for Last 24 Hours 04/25/20 04/26/20 04/27/20 23:59 23:59 23:59 Intake Total 3852 / 3852 465 / 465 Output Total 5000 / 5000 1875 / 1875 Balance -1148 / -1148 -1410 / -1410 General: Alert, Oriented x3, Cooperative, - - And pain HEENT: Atraumatic, PERRLA, EOMI, Normocephalic Neck: Supple, No JVD Lungs: Clear to auscultation, Normal air movement, No rhonchi, No wheeze, No rales Cardiovascular: Regular rate, Regular Rhythm, Normal S1, Normal S2, No murmurs Abdomen: Soft, Non Tender, Non-Distended, No Hepato-splenomegaly, Obese Extremities: No edema, Capillary Refill Less than 3 Seconds Skin: No rashes, No breakdown Neurological: Neuro grossly intact, Sensory exam intact to light touch and pain Psych/Mental Status: Restless - From pain Microbiology Past 72 Hours 04/25/20 09:23 Interface Orders SARS-CoV-2 Antigen (Rapid) - Final Current Medications Albuterol Sulfate (Albuterol 2.5 Mg/3 Ml Vial.Neb.) 2.5 mg INHALATION Q4H PRN PRN PRN Reason: SOB &/OR WHEEZING Diazepam (Diazepam 5 Mg Tablet) 10 mg PO Q6H PRN PRN PRN Reason: Muscle Spasms Last Admin: 04/27/20 10:03 Dose: 10 mg Documented by: Enteral Nutritional Formula (Ensure Surgery 237 Ml Liquid) 237 ml PO TIDCM [facility] Last Admin: 04/27/20 08:16 Dose: 237 ml Documented by: Famotidine (Famotidine 20 Mg Tablet) 20 mg PO BID [facility] Last Admin: 04/27/20 10:03 Dose: 20 mg Documented by: Sodium Chloride () 250 mls @ 15 mls/hr IV .[id number] PRN PRN Reason: Saline Flush Ipratropium [place] (Ipratropium 0.5 Mg/2.5 Ml Solution) 0.5 mg INHALATION Q6HWA.RT [facility] Last Admin: 04/27/20 07:11 Dose: 0.5 mg Documented by: Morphine Sulfate (Morphine 4 Mg/Ml Syringe) 2 - 4 mg IV Q2H PRN PRN PRN Reason: Pain Score 6-10 Last Admin: 04/27/20 05:58 Dose: 4 mg Documented by: Morphine Sulfate (Morphine 2 Mg/Ml Syringe) 2 - 4 mg IV Q2H PRN PRN PRN Reason: Pain Score 6-10 Last Admin: 04/27/20 10:06 Dose: 4 mg Documented by: Ondansetron HCl (Ondansetron 4 Mg/2 Ml Vial) 4 mg IV Q8H PRN PRN PRN Reason: NAUSEA Pantoprazole Sodium (Pantoprazole Sodium 40 Mg Tablet) 40 mg PO DAILY [facility] Last Admin: 04/27/20 10:03 Dose: 40 mg Documented by: Senna/Docusate Sodium (Senna/Docusate Sodium 1 Tablet) 2 tablet PO BID [facility] Last Admin: 04/27/20 10:03 Dose: 2 tablet Documented by: Sodium Chloride (0.9% Saline Lock 10 Ml Syringe) 10 - 40 ml IV UD PRN PRN Reason: SALINE FLUSH Last Admin: 04/27/20 10:07 Dose: 10 ml Documented by: Tramadol HCl (Tramadol 50 Mg Tablet) 50 - 100 mg PO Q6H PRN PRN PRN Reason: Pain Score 4-5 Last Admin: 04/27/20 03:33 Dose: 100 mg Documented by: Trazodone HCl (Trazodone 50 Mg Tablet) 50 mg PO QHS [facility] Last Admin: 04/26/20 22:11 Dose: 50 mg Documented by: Zolpidem Tartrate (Zolpidem Tartrate 5 Mg Tablet) 5 mg PO QHS PRN PRN PRN Reason: INSOMNIA STROKE Vital Signs/Narrative: Vital Signs Temp Pulse Resp BP Pulse Ox 04/27/20 08:05 98.5 F 95 18 134/76 H 96 04/27/20 07:13 96 22 H 94 Medical Necessity - Tobacco Use Smoking Status: Former smoker Tobacco Use: Cigarettes Assessment/Plan All Active Problems (Last Reviewed 02/17/20 @ 08:31 by Jennifer Mccarthy) History of right knee surgery (Resolved) Wheezing (Acute) Cough (Acute) Acute bronchitis (Acute) COPD exacerbation (Acute) Chest pain (Acute) 1. 360 degree fusion surgery of L4-L5 and L5-S1 on 04/26/2020/morbid obesity chronic pain -Continue with PT/OT -We will add oxycodone to help control the pain better, it does appear that he was on 15 mg of oxycodone p.o. 4 times a day will increase if necessary -Last 38, he will need to lose weight to help assist with back pain -Continue with trazodone and Topamax 2. COPD -Not currently in exacerbation -Continue with his home inhalers 3. GERD -Stable -Continue with PPI DVT: SCDs Inpatient E&M: 81097 Subs Hosp L2
[2020-04-27] MEDS: oxyCODONE 5 MG Tablet PO (11:06)
--- NOTE | 2020-04-27 11:45 | CASEMGMT ---
RN MAGAN Face to Face with patient for initial transition planning/care coordination assessment. RN CM introduced self and role at [facility]. Patient lying in bed, alert and oriented. Patient willing to participate in assessment and is able to answer all questions appropriately. Care providers, pharmacy, and demographics verified. Patient wishes to discharge home, denies need for home health at this time. Patient states he has no further needs or concerns at this time. CM to follow for discharge planning needs that may arise. PCP: Liz Specialists: Neel Cortez Pharmacy: [facility] Insurance: [employer] Prescription Benefit: yes Living Will/HPOA: none LNOK: Living Arrangements: Patient states he lives with in a 1st floor apartment with no steps to enter the home. Patient states he was independent at home prior to surgery Transportation: DME/HHC: Patient denies DME or previous HHC. Will monitor for need for walker at discharge. Disposition Plan: Patient to discharge home with family support and follow-up plans in place. Mely FRANK, RN, CM
--- NOTE | 2020-04-27 13:43 | NURSING ---
significant other at bedside, discussed pain control and activity. pt repositioned higher in bed. pain meds given. fresh ice water given. denies all further needs. refuses ice on back at this time. call light within reach
--- NOTE | 2020-04-27 17:11 | NURSING ---
called to room by patients , she verbalized concern with patients behavior. pt restless and rolling around in the bed back and forth c/o pain 01/15. pt a&ox3. no change noted to abd or back. no change in bs, -flatus. pt states pain is in the back. discussed pain medication with . discussed with her that pt noted to sleep, close his eyes and quiet then wakes up restless. discussed activity and have tried up in chair. discussed MAR and medications patient has recieved. verbalized has had morphine and valium. agreed with patient's statement that he takes percocet 15's- 1 tablet 4 times a day. while assessing patients abd and back showed me her cell phone in which she had typed a message stating he is a recovering drug addict please watch what you give him discussed temp of 100.5 with patient and . reinforced fluid intake as well as incentive spirometer, pt demonstrated. charge nurse Laurence Oleary notified of above and Dr. Silverio sent a text message including pt's request for physician to see pt. charge nurse placed patient on camera.
--- NOTE | 2020-04-27 18:02 | NURSING ---
discussed POC and new orders/ discussion with Dr. Silverio with patient and pt's . discussed waiting return call from Dr. Cortez. discussed possible withdrawl. pt's verbalized that she would like to see her actually take much less percocet than was taking preop by time of discharge, verbalized that if patient was to have withdrawl from the percocet she would like him to do it while in the hospital. discussed poc and goal for hospitalization. discussed use of morphine and goal of weaning back morphine and changing to oral medication by time of discharge. discussed goal of patient being able to fuction, participate in ADLs, therapy, and pain control by time of discharge. discussed patient's history of alcohol abuse. patient and patient's agreeable to plan of care this time.
[2020-04-27] MEDS: oxyCODONE 5 MG Tablet 10 MG PO (18:42)
--- NOTE | 2020-04-27 19:36 | CPS ---
PT i n alot of pain
[2020-04-27] MEDS: traZODone 50 MG Tablet PO (20:55)
[2020-04-27] MEDS: Topiramate 50 MG Tablet PO (21:01)
[2020-04-28] VITALS (7 sets, daily range): BP systolic 113–155; BP diastolic 83–87; PULSE 80–110; RESP 18–20; TEMP 36.3–37.2; O2SAT 93–95
[2020-04-28] MEDS: traMADol 50 MG Tablet PO ×2 (00:11→07:01)
[2020-04-28] MEDS: oxyCODONE 5 MG Tablet 10 MG PO (03:34)
[2020-04-28] MEDS: Morphine 4 MG/ML Syringe IV (04:58)
[2020-04-28] MEDS: 0.9% Saline Lock 10 ML Syringe IV ×2 (05:02→19:56)
[2020-04-28] MEDS: Ensure Surgery 237 ML LIQUID PO (08:19)
[2020-04-28] MEDS: Senna/Docusate Sodium 1 Tablet 2 TABLET PO ×2 (09:28→20:01)
[2020-04-28] MEDS: oxyCODONE 5 MG Tablet 15 MG PO ×2 (09:28→17:04)
[2020-04-28] MEDS: Pantoprazole Sodium 40 MG Tablet PO (09:29)
[2020-04-28] MEDS: Famotidine 20 MG Tablet PO ×2 (09:29→20:01)
[2020-04-28] MEDS: Topiramate 50 MG Tablet PO ×2 (09:29→20:01)
--- NOTE | 2020-04-28 11:14 | PCM.PN.HOSP ---
Subjective: Still in significant pain, oxycodone increased from 10 mg to 15 mg 4 times daily since it is his home dosing. Vitals/I&O's: Vital Signs Temp Pulse Resp BP Pulse Ox 98.9 F 94 18 128/87 H 95 04/28/20 09:30 04/28/20 09:30 04/28/20 09:30 04/28/20 09:30 04/28/20 09:30 Oxygen Flow Rate (L/min) 6 Oxygen Delivery Method Room Air Weight: 277 lb 12.519 oz Body Mass Index (BMI) 38.7 Intake and Output for Last 24 Hours 04/26/20 04/27/20 04/28/20 23:59 23:59 23:59 Intake Total 3852 / 3852 1814 800 / 800 Output Total 5000 / 5000 4225 / 5075 1750 / 1750 Balance -1148 / -1148 -2410 / -3060 -950 / -950 General: Alert, Oriented x3, Cooperative, - - And pain HEENT: Atraumatic, PERRLA, EOMI, Normocephalic Neck: Supple, No JVD Lungs: Clear to auscultation, Normal air movement, No rhonchi, No wheeze, No rales Cardiovascular: Regular rate, Regular Rhythm, Normal S1, Normal S2, No murmurs Abdomen: Soft, Non Tender, Non-Distended, No Hepato-splenomegaly, Obese Extremities: No edema, Capillary Refill Less than 3 Seconds Skin: No rashes, No breakdown Neurological: Neuro grossly intact, Sensory exam intact to light touch and pain Psych/Mental Status: Restless - From pain Microbiology Past 72 Hours 04/25/20 09:23 Interface Orders SARS-CoV-2 Antigen (Rapid) - Final Current Medications Albuterol Sulfate (Albuterol 2.5 Mg/3 Ml Vial.Neb.) 2.5 mg INHALATION Q4H PRN PRN PRN Reason: SOB &/OR WHEEZING Diazepam (Diazepam 5 Mg Tablet) 10 mg PO Q6H PRN PRN PRN Reason: Muscle Spasms Last Admin: 04/27/20 10:03 Dose: 10 mg Documented by: Enteral Nutritional Formula (Ensure Surgery 237 Ml Liquid) 237 ml PO TIDCM [facility] Last Admin: 04/28/20 08:19 Dose: 237 ml Documented by: Famotidine (Famotidine 20 Mg Tablet) 20 mg PO BID [facility] Last Admin: 04/28/20 09:29 Dose: 20 mg Documented by: Sodium Chloride () 250 mls @ 15 mls/hr IV .[id number] PRN PRN Reason: Saline Flush Ipratropium [place] (Ipratropium 0.5 Mg/2.5 Ml Solution) 0.5 mg INHALATION Q6HWA.RT [facility] Last Admin: 04/27/20 13:40 Dose: 0.5 mg Documented by: Morphine Sulfate (Morphine 2 Mg/Ml Syringe) 2 - 4 mg IV Q2H PRN PRN PRN Reason: Pain Score 6-10 Last Admin: 04/27/20 13:31 Dose: 4 mg Documented by: Ondansetron HCl (Ondansetron 4 Mg/2 Ml Vial) 4 mg IV Q8H PRN PRN PRN Reason: NAUSEA Oxycodone HCl (Oxycodone 5 Mg Tablet) 15 mg PO Q6H PRN PRN PRN Reason: Pain Score 4-10 Last Admin: 04/28/20 09:28 Dose: 15 mg Documented by: Pantoprazole Sodium (Pantoprazole Sodium 40 Mg Tablet) 40 mg PO DAILY [facility] Last Admin: 04/28/20 09:29 Dose: 40 mg Documented by: Senna/Docusate Sodium (Senna/Docusate Sodium 1 Tablet) 2 tablet PO BID [facility] Last Admin: 04/28/20 09:28 Dose: 2 tablet Documented by: Sodium Chloride (0.9% Saline Lock 10 Ml Syringe) 10 - 40 ml IV UD PRN PRN Reason: SALINE FLUSH Last Admin: 04/28/20 05:02 Dose: 10 ml Documented by: Topiramate (Topiramate 50 Mg Tablet) 50 mg PO BID [facility] Last Admin: 04/28/20 09:29 Dose: 50 mg Documented by: Tramadol HCl (Tramadol 50 Mg Tablet) 50 - 100 mg PO Q6H PRN PRN PRN Reason: Pain Score 4-5 Last Admin: 04/28/20 07:01 Dose: 100 mg Documented by: Trazodone HCl (Trazodone 50 Mg Tablet) 50 mg PO QHS [facility] Last Admin: 04/27/20 20:55 Dose: 50 mg Documented by: Zolpidem Tartrate (Zolpidem Tartrate 5 Mg Tablet) 5 mg PO QHS PRN PRN PRN Reason: INSOMNIA STROKE Vital Signs/Narrative: Vital Signs Temp Pulse Resp BP Pulse Ox 04/28/20 09:30 98.9 F 94 18 128/87 H 95 04/28/20 07:30 93 Medical Necessity - Tobacco Use Smoking Status: Former smoker Tobacco Use: Cigarettes Assessment/Plan All Active Problems (Last Reviewed 02/17/20 @ 08:31 by Jennifer Mccarthy) History of right knee surgery (Resolved) Wheezing (Acute) Cough (Acute) Acute bronchitis (Acute) COPD exacerbation (Acute) Chest pain (Acute) 1. 360 degree fusion surgery of L4-L5 and L5-S1 on 04/26/2020/morbid obesity chronic pain -Continue with PT/OT -Continue with his home oxycodone dose, and will adjust his morphine dosing -BMI 38, he will need to lose weight to help assist with back pain -Continue with trazodone and Topamax 2. COPD -Not currently in exacerbation -Continue with his home inhalers 3. GERD -Stable -Continue with PPI DVT: SCDs Inpatient E&M: 35931 Subs Hosp L2
--- NOTE | 2020-04-28 12:06 | PCM.PN.BLA ---
Progress Note Postop day #2. Being up and doing better than yesterday. He states that his pain is better than it was in the pain that he had before surgery and his back is gone he has a totally different pain now. Logically he is intact in both lower extremities. Dressings are dry. This is with his nurse and he does have some bowel sounds but I do not feel that he has enough yet to start feeding him. Thus we will continue on clear liquids for now. Progress is satisfactory. STROKE Vital Signs/Narrative: Vital Signs Temp Pulse Resp BP Pulse Ox 04/28/20 09:30 98.9 F 94 18 128/87 H 95
[2020-04-28] MEDS: Ipratropium 0.5 MG/2.5 ML SOLUTION INHALATION ×2 (17:08→19:21)
[2020-04-28] MEDS: Morphine 2 MG/ML Syringe IV (19:56)
[2020-04-28] MEDS: traZODone 50 MG Tablet PO (20:01)
[2020-04-29] MEDS: oxyCODONE 5 MG Tablet 15 MG PO ×3 (03:03→15:49)
[2020-04-29 03:29] VITALS: BP 118/78; PULSE 77; RESP 20; TEMP 36.8; O2SAT 92
[2020-04-29 06:40] LABS: Absolute Lymphocyte Count 2.21 X10^3/uL (0.83-4.51); Basophil# 0.06 X10^3/uL; Basophil% 0.3 % (0-1); Eosinophil# 0.15 X10^3/uL; Eosinophils% 0.8 % (0-5); Hematocrit 43.1 % (40-54); Hemoglobin 13.8 g/dL (13.0-16.5); Lymphocyte # 2.21 X10^3/ul (4.0); Lymphocyte % 11.7 % (19-41); Mean Corpuscular Hgb 29.9 pg (27.0-32.0); Mean Corpuscular Volume 93.3 fL (80-94); Mean Platelet Vol. 9.9 fl (6.2-12.0); Monocyte# 1.33 X10^3/uL; NRBC Flagged by Analyzer 0 % (0-5); Neutrophil # 15.01 X10^3/uL (2.7-7.7); Neutrophil % 79.5 % (47-70); Platelet Count 409 K/mm3 (150-450); RBC Distribution Width CV 13.5 % (11.6-14.6); RBC Distribution Width SD 46.5 fl (35.1-43.9); Red Blood Count 4.62 M/mm3 (4.6-6.2); White Blood Count 18.9 K/mm3 (4.4-11.0)
[2020-04-29] MEDS: Morphine 2 MG/ML Syringe IV (07:01)
[2020-04-29 07:07] LABS: Anion Gap 8 (5-15); BUN 17 mg/dL (7-18); BUN/Creat Ratio 16.5 RATIO (10-20); Chloride 101 mmol/L (98-107); Creatinine, Serum 1.03 mg/dL (0.70-1.30); EST Glomerular Filtration Rate 83 mL/min (>60); Est Glom Filt Rate - Afr Amer 100 mL/min (>60); Estimated Creatinine Clearance 96.46 ml/min; Glucose 97 mg/dL (74-106); Potassium 3.5 mmol/L (3.5-5.1); Sodium Level 135 mmol/L (136-145)
[2020-04-29 07:30] VITALS: BP 120/66; PULSE 74; RESP 18; TEMP 36.8; O2SAT 94
[2020-04-29] MEDS: Pantoprazole Sodium 40 MG Tablet PO (09:25)
[2020-04-29] MEDS: Senna/Docusate Sodium 1 Tablet 2 TABLET PO (09:25)
[2020-04-29] MEDS: Topiramate 50 MG Tablet PO (09:25)
[2020-04-29] MEDS: Famotidine 20 MG Tablet PO (09:25)
[2020-04-29 10:15] VITALS: O2SAT 94
--- NOTE | 2020-04-29 13:57 | PN_ITS ---
Subjective: Pain is much improved now that he is on the 15 mg of oxycodone 4 times daily. He is having flatus so we will leave it up to surgery to advance his diet Vitals/I&O's: Vital Signs Temp Pulse Resp BP Pulse Ox 98.2 F 77 20 H 118/78 94 04/29/20 03:29 04/29/20 03:29 04/29/20 03:29 04/29/20 03:29 04/29/20 10:15 Oxygen Flow Rate (L/min) 6 Oxygen Delivery Method Room Air Weight: 277 lb 12.519 oz Body Mass Index (BMI) 38.7 Intake and Output for Last 24 Hours 04/27/20 04/28/20 04/29/20 23:59 23:59 23:59 Intake Total 1814 1550 / 1550 1200 / 1200 Output Total 4225 / 5075 2750 / 3550 800 / 800 Balance -2410 / -3060 -1200 / -2000 400 / 400 General: Alert, Oriented x3, Cooperative, no acute distress HEENT: Atraumatic, PERRLA, EOMI, Normocephalic Neck: Supple, No JVD Lungs: Clear to auscultation, Normal air movement, No rhonchi, No wheeze, No rales Cardiovascular: Regular rate, Regular Rhythm, Normal S1, Normal S2, No murmurs Abdomen: Soft, Non Tender, Non-Distended, No Hepato-splenomegaly, Obese Extremities: No edema, Capillary Refill Less than 3 Seconds Skin: No rashes, No breakdown Neurological: Neuro grossly intact, Sensory exam intact to light touch and pain Psych/Mental Status: Normal affect, appropriate Laboratory Results 04/29/20 05:40: WBC 18.9 H, RBC 4.62, Hgb 13.8, Hct 43.1, MCV 93.3, MCH 29.9, MCHC 32.0, RDW Std Deviation 46.5 H, RDW Coeff of Rudolph 13.5, Plt Count 409, MPV 9.9, Immature Gran % (Auto) 0.700, Neut % (Auto) 79.5 H, Lymph % (Auto) 11.7 L, [place] % (Auto) 7.0, Eos % (Auto) 0.8, Baso % (Auto) 0.3, Absolute Neuts (auto) 15.0 H, Absolute Lymphs (auto) 2.21, Nucleated RBC % 0 04/29/20 05:40: Sodium 135 L, Potassium 3.5, Chloride 101, Carbon Dioxide 26.0, Anion Gap 8, BUN 17, Creatinine 1.03, Estim Creat Clear Calc 96.46, Est GFR (MDRD) Af Amer 100, Est GFR (MDRD) Non-Af 83, BUN/Creatinine Ratio 16.5, Glucose 97, Calcium 9.0 Current Medications Albuterol Sulfate (Albuterol 2.5 Mg/3 Ml Vial.Neb.) 2.5 mg INHALATION Q4H PRN PRN PRN Reason: SOB &/OR WHEEZING Diazepam (Diazepam 5 Mg Tablet) 10 mg PO Q6H PRN PRN PRN Reason: Muscle Spasms Last Admin: 04/27/20 10:03 Dose: 10 mg Documented by: Enteral Nutritional Formula (Ensure Surgery 237 Ml Liquid) 237 ml PO TIDCM [facility] Last Admin: 04/29/20 13:02 Dose: Not Given Documented by: Famotidine (Famotidine 20 Mg Tablet) 20 mg PO BID [facility] Last Admin: 04/29/20 09:25 Dose: 20 mg Documented by: Sodium Chloride () 250 mls @ 15 mls/hr IV .[id number] PRN PRN Reason: Saline Flush Ipratropium [place] (Ipratropium 0.5 Mg/2.5 Ml Solution) 0.5 mg INHALATION Q6HWA.RT [facility] Last Admin: 04/28/20 19:21 Dose: 0.5 mg Documented by: Morphine Sulfate (Morphine 2 Mg/Ml Syringe) 2 - 4 mg IV Q2H PRN PRN PRN Reason: Pain Score 6-10 Last Admin: 04/29/20 07:01 Dose: 2 mg Documented by: Ondansetron HCl (Ondansetron 4 Mg/2 Ml Vial) 4 mg IV Q8H PRN PRN PRN Reason: NAUSEA Oxycodone HCl (Oxycodone 5 Mg Tablet) 15 mg PO Q6H PRN PRN PRN Reason: Pain Score 4-10 Last Admin: 04/29/20 09:23 Dose: 15 mg Documented by: Pantoprazole Sodium (Pantoprazole Sodium 40 Mg Tablet) 40 mg PO DAILY [facility] Last Admin: 04/29/20 09:25 Dose: 40 mg Documented by: Senna/Docusate Sodium (Senna/Docusate Sodium 1 Tablet) 2 tablet PO BID [facility] Last Admin: 04/29/20 09:25 Dose: 2 tablet Documented by: Sodium Chloride (0.9% Saline Lock 10 Ml Syringe) 10 - 40 ml IV UD PRN PRN Reason: SALINE FLUSH Last Admin: 04/28/20 19:56 Dose: 10 ml Documented by: Topiramate (Topiramate 50 Mg Tablet) 50 mg PO BID [facility] Last Admin: 04/29/20 09:25 Dose: 50 mg Documented by: Tramadol HCl (Tramadol 50 Mg Tablet) 50 - 100 mg PO Q6H PRN PRN PRN Reason: Pain Score 4-5 Last Admin: 04/28/20 07:01 Dose: 100 mg Documented by: Trazodone HCl (Trazodone 50 Mg Tablet) 50 mg PO QHS [facility] Last Admin: 04/28/20 20:01 Dose: 50 mg Documented by: Zolpidem Tartrate (Zolpidem Tartrate 5 Mg Tablet) 5 mg PO QHS PRN PRN PRN Reason: INSOMNIA STROKE Vital Signs/Narrative: Vital Signs Pulse Ox 04/29/20 10:15 94 Medical Necessity - Tobacco Use Smoking Status: Former smoker Tobacco Use: Cigarettes Assessment/Plan All Active Problems (Last Reviewed 02/17/20 @ 08:31 by Jennifer Mccarthy) History of right knee surgery (Resolved) Wheezing (Acute) Cough (Acute) Acute bronchitis (Acute) COPD exacerbation (Acute) Chest pain (Acute) 1. 360 degree fusion surgery of L4-L5 and L5-S1 on 04/26/2020/morbid obesity/chronic pain/reactive leukocytosis -Continue with PT/OT -Continue with his home oxycodone dose, his last dose of morphine was at 7 AM, 2 mg -BMI 38, he will need to lose weight to help assist with back pain -Continue with trazodone and Topamax -From medical standpoint he is okay for discharge. I did recommend to him that he can take either 2 to 400 mg of ibuprofen in between his oxycodones or he can take an extra 5 mg of oxycodone as needed in between his scheduled 15 mg of oxycodone -White blood cell count is 18, he is afebrile and this is likely reactive, no need for antibiotics at this time -Thank you for let me take care of this patient, will continue to follow peripherally 2. COPD -Not currently in exacerbation -Continue with his home inhalers 3. GERD -Stable -Continue with PPI DVT: SCDs Inpatient E&M: 60965 Subs Hosp L2
[2020-04-29 14:11] VITALS: BP 124/94; PULSE 87; RESP 18; TEMP 37; O2SAT 93
--- NOTE | 2020-04-29 14:53 | CASEMGMT ---
JOSE L CARRERO NOTE; Pt would like a walker @ d/c. JOSE L CARRERO to room to talk w/pt. He was provided w/list of local DME companies. Pt has no preference and agreeable to [facility]. Script obtained from Dr Silverio, faxed to [facility], and walker has been delivered to pt's room. Pt denied having any other discharge needs. Harjinder FRANK RN, CM
--- NOTE | 2020-04-29 16:47 | PCM.DC.SUM ---
Discharge Date and Diagnosis Date of Admission: 10/24/20 Date of Discharge: 04/29/20 - Secondary Discharge Diagnosis Chronic Problems: Chronic Problems (Last Reviewed 02/17/20 @ 08:31 by Jennifer Mccarthy) Spinal stenosis of lumbar region (Chronic) Chronic low back pain (Chronic) GERD (gastroesophageal reflux disease) (Chronic) Alcohol abuse, in remission (Chronic) Tobacco abuse (Chronic) History of diverticulitis of colon (Chronic) Obesity (BMI 30-39.9) (Chronic) Hypertension (Chronic) COPD (chronic obstructive pulmonary disease) (Chronic) Hospital Course and Treatment Operations: None Summary of Care Provided: The patient is a 45 year old M [] - Physical Exam Vitals/I&O's: Vital Signs Temp Pulse Resp BP Pulse Ox 98.6 F 87 18 124/94 H 93 04/29/20 14:11 04/29/20 14:11 04/29/20 14:11 04/29/20 14:11 04/29/20 14:11 Oxygen Flow Rate (L/min) 6 Oxygen Delivery Method Room Air Weight: 277 lb 12.519 oz Body Mass Index (BMI) 38.7 Intake and Output for Last 24 Hours 04/27/20 04/28/20 04/29/20 23:59 23:59 23:59 Intake Total 1814 / 2014 1550 / 1550 1200 / 1200 Output Total 4225 / 5075 2750 / 3550 800 / 800 Balance -2410 / -3060 -1200 / -2000 400 / 400 Laboratory Results 04/29/20 05:40: WBC 18.9 H, RBC 4.62, Hgb 13.8, Hct 43.1, MCV 93.3, MCH 29.9, MCHC 32.0, RDW Std Deviation 46.5 H, RDW Coeff of Rudolph 13.5, Plt Count 409, MPV 9.9, Immature Gran % (Auto) 0.700, Neut % (Auto) 79.5 H, Lymph % (Auto) 11.7 L, [place] % (Auto) 7.0, Eos % (Auto) 0.8, Baso % (Auto) 0.3, Absolute Neuts (auto) 15.0 H, Absolute Lymphs (auto) 2.21, Nucleated RBC % 0 04/29/20 05:40: Sodium 135 L, Potassium 3.5, Chloride 101, Carbon Dioxide 26.0, Anion Gap 8, BUN 17, Creatinine 1.03, Estim Creat Clear Calc 96.46, Est GFR (MDRD) Af Amer 100, Est GFR (MDRD) Non-Af 83, BUN/Creatinine Ratio 16.5, Glucose 97, Calcium 9.0 Current Medications Albuterol Sulfate (Albuterol 2.5 Mg/3 Ml Vial.Neb.) 2.5 mg INHALATION Q4H PRN PRN PRN Reason: SOB &/OR WHEEZING Diazepam (Diazepam 5 Mg Tablet) 10 mg PO Q6H PRN PRN PRN Reason: Muscle Spasms Last Admin: 04/27/20 10:03 Dose: 10 mg Documented by: Enteral Nutritional Formula (Ensure Surgery 237 Ml Liquid) 237 ml PO TIDCM [facility] Last Admin: 04/29/20 13:02 Dose: Not Given Documented by: Famotidine (Famotidine 20 Mg Tablet) 20 mg PO BID [facility] Last Admin: 04/29/20 09:25 Dose: 20 mg Documented by: Sodium Chloride () 250 mls @ 15 mls/hr IV .[id number] PRN PRN Reason: Saline Flush Ipratropium [place] (Ipratropium 0.5 Mg/2.5 Ml Solution) 0.5 mg INHALATION Q6HWA.RT [facility] Last Admin: 04/28/20 19:21 Dose: 0.5 mg Documented by: Morphine Sulfate (Morphine 2 Mg/Ml Syringe) 2 - 4 mg IV Q2H PRN PRN PRN Reason: Pain Score 6-10 Last Admin: 04/29/20 07:01 Dose: 2 mg Documented by: Ondansetron HCl (Ondansetron 4 Mg/2 Ml Vial) 4 mg IV Q8H PRN PRN PRN Reason: NAUSEA Oxycodone HCl (Oxycodone 5 Mg Tablet) 15 mg PO Q6H PRN PRN PRN Reason: Pain Score 4-10 Last Admin: 04/29/20 15:49 Dose: 15 mg Documented by: Pantoprazole Sodium (Pantoprazole Sodium 40 Mg Tablet) 40 mg PO DAILY [facility] Last Admin: 04/29/20 09:25 Dose: 40 mg Documented by: Senna/Docusate Sodium (Senna/Docusate Sodium 1 Tablet) 2 tablet PO BID [facility] Last Admin: 04/29/20 09:25 Dose: 2 tablet Documented by: Sodium Chloride (0.9% Saline Lock 10 Ml Syringe) 10 - 40 ml IV UD PRN PRN Reason: SALINE FLUSH Last Admin: 04/28/20 19:56 Dose: 10 ml Documented by: Topiramate (Topiramate 50 Mg Tablet) 50 mg PO BID [facility] Last Admin: 04/29/20 09:25 Dose: 50 mg Documented by: Tramadol HCl (Tramadol 50 Mg Tablet) 50 - 100 mg PO Q6H PRN PRN PRN Reason: Pain Score 4-5 Last Admin: 04/28/20 07:01 Dose: 100 mg Documented by: Trazodone HCl (Trazodone 50 Mg Tablet) 50 mg PO QHS [facility] Last Admin: 04/28/20 20:01 Dose: 50 mg Documented by: Zolpidem Tartrate (Zolpidem Tartrate 5 Mg Tablet) 5 mg PO QHS PRN PRN PRN Reason: INSOMNIA Home Medications: Medications to take at Discharge Lansoprazole [Prevacid] 30 mg PO DAILY 12/05/16 Aclidinium [place] [Tudorza Pressair] 2 puff IH DAILY 03/02/17 Albuterol IH (ProAir) [Proair Hfa] 1 - 2 puff INHALATION Q4H PRN PRN 03/02/17 ondansetron HCl 4 mg tablet 4 mg PO Q8H PRN 02/05/20 topiramate 50 mg tablet 50 mg PO BID 02/05/20 tizanidine 4 mg tablet 4 mg PO Q6H PRN tab 02/17/20 traZODone [Desyrel] 50 mg PO QHS 04/09/20 Albuterol Aerosols [Ventolin Aerosols] 2.5 mg INHALATION Q4H PRN PRN 04/12/20 Oxycodone HCl [Oxycodone HCl ER] 15 mg PO 4X/DAY 04/12/20 gabapentin 800 mg tablet 800 mg PO TID PRN tab 04/18/20 Primary Care Physician: Jimbo Hill DO [Primary Care Provider] - Medical Necessity - Tobacco Use Smoking Status: Former smoker Tobacco Use: Cigarettes Meaningful Use Info Meaningful Use Diagnoses (Choose all that apply): None applicable
--- NOTE | 2020-04-29 17:03 | DCINST_ITS ---
You will use the following diet at home:: No restrictions Your food should be the consistency of: Regular Your liquids should be the consistency of: Regular/Thin Discharge Activity: May Not Drive, May not drive while taking narcotic pain medications., May Shower Call your doctor if your incision/area has: Continuous Slow Oozing, Increased Redness Change Dressing in (Days):: 4 Cleanse incision/area with: Soap & Water Allergies/Adverse Reactions: Allergies sulfamethoxazole [From Bactrim] Allergy (Verified 04/26/20 06:09) Other trimethoprim [From Bactrim] Allergy (Verified 04/26/20 06:09) Other Metronidazole HCl [From Flagyl] Adverse Reaction (Verified 04/26/20 06:09) Unknown taste buds got sore and hurt on PO Abx Medications to take at Discharge Lansoprazole [Prevacid] 30 mg PO DAILY 12/05/16 Aclidinium [place] [Tudorza Pressair] 2 puff IH DAILY 03/02/17 Albuterol IH (ProAir) [Proair Hfa] 1 - 2 puff INHALATION Q4H PRN PRN 03/02/17 ondansetron HCl 4 mg tablet 4 mg PO Q8H PRN 02/05/20 topiramate 50 mg tablet 50 mg PO BID 02/05/20 tizanidine 4 mg tablet 4 mg PO Q6H PRN tab 02/17/20 traZODone [Desyrel] 50 mg PO QHS 04/09/20 Albuterol Aerosols [Ventolin Aerosols] 2.5 mg INHALATION Q4H PRN PRN 04/12/20 Oxycodone HCl [Oxycodone HCl ER] 15 mg PO 4X/DAY 04/12/20 gabapentin 800 mg tablet 800 mg PO TID PRN tab 04/18/20 Primary Care Physician: Jimbo Hill DO [Primary Care Provider] - Test Results: Test results from this visit will be discussed in further detail at your follow- up appointment, if applicable. Please Follow Up With: Deyvi Cortez DO - scheduled
[2020-04-29 17:47] VITALS: BP 114/81; PULSE 87; RESP 18; TEMP 36.9; O2SAT 97
== END 2020-04-29 19:00 | disposition home or self-care (01) | DRG 304 ==
LOC: ACINP 05:23 → MS3 04-27 07:07
PROVIDERS: Anesthesiology; Admitting Provider Orthopaedic Surgery; PCP Family Medicine; Visit Provider Family Medicine
PROC: 0SG00A0 Fusion of Lumbar Vertebral Joint with Interbody Fusion Device, Anterior Approach, Anterior Column, Open Approach (ICD-10-PCS; principal; 2020-04-26 07:00)
DX: M51.36 Other intervertebral disc degeneration, lumbar region (principal); M51.26 Other intervertebral disc displacement, lumbar region; K21.9 Gastro-esophageal reflux disease without esophagitis; I10 Essential (primary) hypertension; E66.01 Morbid (severe) obesity due to excess calories; Z68.38 Body mass index [BMI] 38.0-38.9, adult; J44.9 Chronic obstructive pulmonary disease, unspecified; F17.210 Nicotine dependence, cigarettes, uncomplicated; G89.29 Other chronic pain; D72.828 Other elevated white blood cell count; Z79.51 Long term (current) use of inhaled steroids; Z79.52 Long term (current) use of systemic steroids; Z79.899 Other long term (current) drug therapy
CPT/HCPCS: 36415; 72020; 80048; 82962; 83735; 85025; 86703; 86704; 86705; 86706; 86708; 86709; 86803; 87081; 87340; 87426; 93005; 94640; 97110; 97116; 97162; 97530; 99406; C9803; J7120; A4216; J2405; J3490

== ENCOUNTER 2020-05-02 21:25 | Observation (INO) | payer MEDICAID, SELFPAY ==
[2020-04-26 18:02] VITALS: BMI 38.7
[2020-05-02 21:26] VITALS: BP 130/93; PULSE 89; RESP 18; TEMP 37.3; O2SAT 98; BMI 38.9
--- NOTE | 2020-05-02 21:37 | CT_ITS ---
STUDY: CT ABDOMEN AND PELVIS WITH CONTRAST REASON FOR EXAM: Male, 45 years old. Abdominal pain below the level of back incision. History of lumbar fusion April 26, 2020. RADIATION DOSAGE (If Supplied By Facility): CTDIvol = ( 22.83 ) mGy, DLP = ( 1772.65 ) mGycm TECHNIQUE: Transaxial images were obtained from the dome of the diaphragm to the symphysis pubis with oral contrast. Gastrografin and Isovue 370 100ml was administered. Sagittal and coronal images were reconstructed. Individualized dose optimization techniques were used for this CT. COMPARISON: Lumbar spine April 26, 2020 at 1:12 PM. MRI lumbar spine October 13, 2019. FINDINGS: The visualized lung bases are unremarkable. The visualized portions of the heart are within normal limits. Normal liver. Normal gallbladder and extrahepatic biliary system. Normal spleen. Normal pancreas. Normal bilateral adrenal glands. Normal right kidney. Tiny nonobstructing renal calculus left renal pelvis. Normal visualized stomach. Normal small intestine. Scattered diverticulosis involving the distal descending and sigmoid colon. The appendix is visualized and appears normal. Nonatherosclerotic calcification of the distal abdominal aorta and common iliac arteries. Normal inferior vena cava. Normal retroperitoneum. No intra-abdominal free air. Normal urinary bladder. Normal visualized prostate gland. Mild enlargement of the left rectus muscle which may represent edema related to recent surgery. Anterior and posterior lumbar fusion L4-L5 and L5-S1 with prosthetic discs. Ill-defined soft tissue attenuation 31 Hounsfield units measuring 2.9 x 2.2 cm left parasagittal anterior to the sacrum and surgical clips, probably representing postoperative change axial image 80 series 2 and sagittal image 104 series 602. This may represent a small hematoma. Possible minimal fluid in the dependent posterior pelvis. Subcutaneous edema posterior back and left lateral pelvis. Subcutaneous soft tissue stranding left anterior lower pelvis. Small collection of air posterior to the spinous processes at L3 and posterior elements L4. Posterior skin sutures at L2-L4. CT/Abdomen/Pelvis WITH Contrast IMPRESSION: Tiny nonobstructing left renal calculus. Mild diverticulosis left colon. Postoperative changes of anterior and posterior fusion L4-5 and L5-S1. Surgical hardware appears intact. Possible small hematoma posterior left hemipelvis. Subcutaneous edema posterior back and left lateral pelvis. Soft tissue stranding left anterior lower pelvis. These findings are probably related to recent surgery. Correlate clinically to exclude cellulitis particularly left lateral and anterior. Mild enlargement left rectus muscle which may represent edema related to recent surgery. A hematoma is a consideration. Small collections of air posterior to the surgical site, probably postoperative findings. Electronically Signed: Kaleb Mckeon MD at 0:10 EST , Service support ,
--- NOTE | 2020-05-02 21:39 | ED.DCSUM_ITS ---
History of Present Illness Chief Complaint: Abd Pain Informant: Patient Onset: Days Context: Gradual Onset Timing: Waxes and wanes Current Severity: Moderate Maximum Severity: Moderate Narrative: Patient present secondary to lower abdominal pain. Patient had lumbar fusion surgery on April [address] Cortez. Anterior approach was undertaken. Patient points to the area inferior to his incisions and describing the area of pain that is occurred over the past 2 to 3 days. He denies fever or chills. Normal bowel movements and normal urination. He states his back pain is improving and he has been able to get up and around without his walker. He has been exercising daily. - Past Medical History (1) COPD (chronic obstructive pulmonary disease) Status: Chronic (2) Chronic low back pain Status: Chronic (3) GERD (gastroesophageal reflux disease) Status: Chronic (4) Hypertension Status: Chronic Past Medical History - Allergies and Home Meds Allergies/Adverse Reactions: Allergies sulfamethoxazole [From Bactrim] Allergy (Verified 05/02/20 21:31) Other trimethoprim [From Bactrim] Allergy (Verified 05/02/20 21:31) Other Metronidazole HCl [From Flagyl] Adverse Reaction (Verified 05/02/20 21:31) Unknown taste buds got sore and hurt on PO Abx Primary Care Physician: Jimbo Hill DO [Primary Care Provider] - Surgical History: - - Right knee surgery, polyp removal. Smoking Status: Current every day smoker - Family History Maternal Family History: Family History (Last Updated 02/17/20 @ 08:32 by Jennifer Mccarthy) Mother CAD (coronary artery disease) Uncle CAD (coronary artery disease) Father Cancer Family History: Reports: - - Mother diagnosed with coronary artery disease and valvular heart disease at age 70. He had an uncle who was diagnosed with coronary artery disease at 47. No sudden in the family. Paternal Family History: Family History (Last Updated 02/17/20 @ 08:32 by Jennifer Mccarthy) Mother CAD (coronary artery disease) Uncle CAD (coronary artery disease) Father Cancer Family History: Reports: Cancer, No pertinent history Review of Systems General: Denies: Chills, Fever Eyes: Denies: Visual changes - bilaterally ENT: Denies: Bilateral ear pain Cardiovascular: Denies: Chest pain Respiratory: Denies: Dyspnea, Cough Gastrointestinal: Reports: Abdominal pain. Denies: Vomiting, Diarrhea Genitourinary: Denies: Dysuria Musculoskeletal: Denies: Extremity Pain Neurological: Denies: Headache Hematologic: Denies: Easy bruising, Easy bleeding Allergy: Denies: Uticaria Physical Exam Vital Signs/Narrative: Vital Signs Temp Pulse Resp BP Pulse Ox 05/02/20 21:26 99.1 F 89 18 130/93 H 98 Diagnostic/Tx/Re-eval Impressions Abdomen/Pelvis CT 05/02/20 21:37 IMPRESSION: Tiny nonobstructing left renal calculus. Mild diverticulosis left colon. Postoperative changes of anterior and posterior fusion L4-5 and L5-S1. Surgical hardware appears intact. Possible small hematoma posterior left hemipelvis. Subcutaneous edema posterior back and left lateral pelvis. Soft tissue stranding left anterior lower pelvis. These findings are probably related to recent surgery. Correlate clinically to exclude cellulitis particularly left lateral and anterior. Mild enlargement left rectus muscle which may represent edema related to recent surgery. A hematoma is a consideration. Small collections of air posterior to the surgical site, probably postoperative findings. Electronically Signed: Kaleb Mckeon MD at 0:10 EST , Service support , 05/02/20 21:37 Abdomen/Pelvis WITH Contrast [CT] Stat Laboratory Results 05/02/20 05/02/20 05/02/20 21:45 21:50 21:50 WBC 12.6 H RBC 3.80 L Hgb 11.7 L Hct 35.8 L MCV 94.2 H MCH 30.8 MCHC 32.7 RDW Std Deviation 45.0 H RDW Coeff of Rudolph 13.1 Plt Count 601 H MPV 9.2 Immature Gran % (Auto) 0.800 Neut % (Auto) 57.1 Lymph % (Auto) 29.9 [place] % (Auto) 5.3 Eos % (Auto) 6.3 H Baso % (Auto) 0.6 Absolute Neuts (auto) 7.2 Absolute Lymphs (auto) 3.75 Nucleated RBC % 0 Sodium 141 Potassium 3.3 L Chloride 107 Carbon Dioxide 28.0 Anion Gap 6 BUN 9 Creatinine 0.83 Estim Creat Clear Calc 119.70 Est GFR (MDRD) Af Amer 129 Est GFR (MDRD) Non-Af 106 BUN/Creatinine Ratio 10.8 Glucose 91 Calcium 8.6 Urine Color Yellow Urine Clarity Clear Urine pH 7.0 Ur Specific [place] 1.010 Urine Protein Negative Urine Glucose (UA) Normal Urine Ketones Negative Urine Occult Blood Negative Urine Nitrite Negative Urine Bilirubin Negative Urine Urobilinogen Normal Ur Leukocyte Esterase Negative Urine RBC 0 SEEN Urine WBC 0 SEEN Ur Squamous Epith Cells 0 SEEN Urine Bacteria 0 SEEN Urine Mucus 0 SEEN - Medical Decision Making Patient had 2 small doses of Dilaudid for pain control. Blood work is compared to prior labs obtained on the . White count is improved. Hemoglobin has dropped 2 g in the last 3 days. Patient denies any obvious source of blood loss. CT scan is obtained. Surgical hardware appears to be intact. There is a possible small hematoma posterior left hemipelvis. There is also mild enlargement of the left rectus muscle which may represent edema related to surgery or hematoma. There is subcutaneous edema over the posterior back and left lateral pelvis. No external signs of cellulitis are noted on examination of this area. Patient does feel he requires admission for pain control as he is already on 15 mg oxycodone 4 times a day at home. I think this is reasonable for pain control tonight and recheck labs in the morning to further trend his hemoglobin count. ED Disposition - Plan for ED Patient: Disposition: Acute Care Hospital [facility] Diagnosis: Postoperative abdominal pain Referrals: Jimbo Hill DO [Primary Care Provider] -
[2020-05-02] MEDS: HYDROmorphone 1 MG/ML Syringe 0.5 MG IV (21:49)
[2020-05-02] MEDS: Ondansetron 4 MG/2 ML Vial IV (21:49)
[2020-05-02] MEDS: 0.9% Normal Saline 1,000 ML 150 ML IV (21:49)
[2020-05-02 22:05] LABS: Bacteria 0 SEEN /hpf (None Seen); Color, Urine Yellow (Yellow); Glucose, Dipstick Normal (Normal); Ketone-Dipstick Negative (Negative); Leukocyte Esterase-Dipstick Negative /ul (Negative); Mucous, Urine 0 SEEN /hpf (<or=2+); Nitrite-Dipstick Negative (Negative); Occult Blood-Urine Negative /ul (Negative); Protein-Dipstick Negative (Negative); Red Blood Cells-Urine 0 SEEN /hpf (0-5); Squamous Epithelial Cells - UA 0 SEEN /hpf (0-5); Urine Bilirubin Dipstick Negative (Negative); Urine Clarity Clear (Clear); Urine Urobilinogen Normal (Normal); White Blood Cells 0 SEEN /hpf (0-5)
[2020-05-02 22:06] LABS: Absolute Lymphocyte Count 3.75 X10^3/uL (0.83-4.51); Absolute Neutrophil Count 7.2 X10^3/uL (2.0-7.7); Basophil# 0.08 X10^3/uL; Basophil% 0.6 % (0-1); Eosinophil# 0.79 X10^3/uL; Eosinophils% 6.3 % (0-5); Hematocrit 35.8 % (40-54); Hemoglobin 11.7 g/dL (13.0-16.5); Lymphocyte # 3.75 X10^3/ul (4.0); Lymphocyte % 29.9 % (19-41); Mean Corp Hgb Conc 32.7 g/dL (32-36); Mean Corpuscular Hgb 30.8 pg (27.0-32.0); Mean Corpuscular Volume 94.2 fL (80-94); Mean Platelet Vol. 9.2 fl (6.2-12.0); Monocyte# 0.67 X10^3/uL; Monocyte% 5.3 % (0-10); NRBC Flagged by Analyzer 0 % (0-5); Neutrophil # 7.17 X10^3/uL (2.7-7.7); Neutrophil % 57.1 % (47-70); Platelet Count 601 K/mm3 (150-450); RBC Distribution Width CV 13.1 % (11.6-14.6); White Blood Count 12.6 K/mm3 (4.4-11.0)
[2020-05-02 22:37] LABS: Anion Gap 6 (5-15); BUN 9 mg/dL (7-18); BUN/Creat Ratio 10.8 RATIO (10-20); Calcium,Total 8.6 mg/dL (8.5-10.1); Chloride 107 mmol/L (98-107); Creatinine, Serum 0.83 mg/dL (0.70-1.30); EST Glomerular Filtration Rate 106 mL/min (>60); Est Glom Filt Rate - Afr Amer 129 mL/min (>60); Glucose 91 mg/dL (74-106); Potassium 3.3 mmol/L (3.5-5.1); Sodium Level 141 mmol/L (136-145)
[2020-05-02] MEDS: HYDROmorphone 0.5 MG/0.5 ML SYRINGE IV (22:51)
[2020-05-02 22:58] VITALS: BP 118/65; PULSE 79; RESP 16; O2SAT 96
[2020-05-03] VITALS (10 sets, daily range): BP systolic 108–139; BP diastolic 59–87; PULSE 71–93; RESP 16–24; TEMP 36.6–37.7; O2SAT 92–97; BMI 37.4
--- NOTE | 2020-05-03 00:32 | PCM.HP.STD ---
Problem List (1) Spinal stenosis of lumbar region Status: Chronic (2) Postoperative abdominal pain Status: Acute (3) GERD (gastroesophageal reflux disease) Status: Chronic Qualifiers: Esophagitis presence: esophagitis presence not specified Qualified Code(s): K21.9 - Gastro-esophageal reflux disease without esophagitis (4) Alcohol abuse, in remission Status: Chronic (5) Tobacco abuse Status: Chronic (6) History of diverticulitis of colon Status: Chronic (7) Obesity (BMI 30-39.9) Status: Chronic Qualifiers: Obesity type: due to excess calories Obesity classification: adult class 2 (BMI 35 - 39.9) (8) Hypertension Status: Chronic Qualifiers: Hypertension type: essential hypertension Qualified Code(s): I10 - Essential (primary) hypertension (9) COPD (chronic obstructive pulmonary disease) Status: Chronic Qualifiers: COPD type: unspecified COPD Qualified Code(s): J44.9 - Chronic obstructive pulmonary disease, unspecified History of Present Illness Date of Admission: 05/03/20 Chief Complaint: abdominal pain The patient is a 45 year old patient status post lumbar fusion of L4-5 and S1 on April 26, 2020 presents to the emergency room with abdominal pain. Patient states over the last 2 to 3 days his abdominal pain has become increasingly worse over his abdominal scars from the anterior approach portion of his procedure. The patient has had normal appetite and been able to move his bowels and urinate without difficulty. Currently states the pain is 7 out of 10 despite having received pain medication in the emergency room. CT scan reveals postoperative changes consistent with the surgery that he had but no acute findings other than that. White blood cell count and platelet count are both elevated consistent with stress from surgery. The patient denies chest pain shortness of breath fever or chills at this time. Due to the significant amount of pain the patient appears to be in he will be admitted for pain control and consult to his surgeon in the morning. Past Medical History Past Medical History (Chronic Problems): Chronic Problems (Last Reviewed 02/17/20 @ 08:31 by Jennifer Mccarthy) Spinal stenosis of lumbar region (Chronic) Chronic low back pain (Chronic) GERD (gastroesophageal reflux disease) (Chronic) Alcohol abuse, in remission (Chronic) Tobacco abuse (Chronic) History of diverticulitis of colon (Chronic) Obesity (BMI 30-39.9) (Chronic) Hypertension (Chronic) COPD (chronic obstructive pulmonary disease) (Chronic) Medical History: Medical History (Last Reviewed 02/17/20 @ 08:31 by Jennifer Mccarthy) Wheezing (Acute) R06.2 Cough (Acute) R05 Acute bronchitis (Acute) J20.9 Chronic low back pain (Chronic) M54.5, G89.29 GERD (gastroesophageal reflux disease) (Chronic) K21.9 Alcohol abuse, in remission (Chronic) F10.10 Tobacco abuse (Chronic) Z72.0 History of diverticulitis of colon (Chronic) Z87.19 Obesity (BMI 30-39.9) (Chronic) E66.9 Hypertension (Chronic) I10 COPD (chronic obstructive pulmonary disease) (Chronic) J44.9 COPD exacerbation (Acute) J44.1 Chest pain (Acute) R07.9 Allergies sulfamethoxazole [From Bactrim] Allergy (Verified 05/02/20 21:31) Other trimethoprim [From Bactrim] Allergy (Verified 05/02/20 21:31) Other Metronidazole HCl [From Flagyl] Adverse Reaction (Verified 05/02/20 21:31) Unknown taste buds got sore and hurt on PO Abx Home Medications: Ambulatory Orders Medication Instructions Recorded Lansoprazole [Prevacid] 30 mg PO DAILY 12/05/16 Aclidinium [place] [Tudorza 2 puff IH DAILY 03/02/17 Pressair] Albuterol IH (ProAir) [Proair Hfa] 1 - 2 puff INHALATION Q4H PRN PRN 03/02/17 ondansetron HCl 4 mg tablet 4 mg PO Q8H PRN 02/05/20 topiramate 50 mg tablet 50 mg PO BID 02/05/20 traZODone [Desyrel] 50 mg PO QHS 04/09/20 Albuterol Aerosols [Ventolin 2.5 mg INHALATION Q4H PRN PRN 04/12/20 Aerosols] Oxycodone HCl [Oxycodone HCl ER] 15 mg PO 4X/DAY 04/12/20 Surgical History: Surgical History (Last Reviewed 02/17/20 @ 08:31 by Jennifer Mccarthy) History of right knee surgery (Resolved) Z98.890 Surgical History: - - Right knee surgery, polyp removal. Psychiatric History: No pertinent psych hx Smoking Status: Current every day smoker Tobacco Use: Cigarettes - *Family History Maternal Family History: Family History (Last Updated 02/17/20 @ 08:32 by Jennifer Mccarthy) Mother CAD (coronary artery disease) Uncle CAD (coronary artery disease) Father Cancer History Items: - - Mother diagnosed with coronary artery disease and valvular heart disease at age 70. He had an uncle who was diagnosed with coronary artery disease at 47. No sudden in the family. Paternal Family History: Family History (Last Updated 02/17/20 @ 08:32 by Jennifer Mccarthy) Mother CAD (coronary artery disease) Uncle CAD (coronary artery disease) Father Cancer History Items: Cancer, No pertinent history Review of Systems Constitutional: Denies: Chills, Fever, Weight Change HEENT: Denies: Head Aches, Sinus Congestion, Sinus Drainage Cardiovascular: Denies: Chest Pain, Palpitations Respiratory: Denies: Cough, Shortness of breath at rest, Sputum production Gastrointestinal: Reports: Abdominal Pain. Denies: Nausea, Vomiting Genitourinary: Denies: Dysuria Musculoskeletal: Denies: Joint Pain, Joint Tenderness Skin: Denies: Rash, Wounds Neurological: Denies: Numbness, Tingling, Focal weakness Psychiatric: Denies: Anxiety, Depression, Homicidal Ideations, Suicidal Ideations Hematologic/ Lymphatic: Denies: Easy Bruising, Easy Bleeding VTE Information - Inpt Only VTE Present on Admission: No VTE Mechan Device Prophylaxis: None VTE Pharm Prophylaxis ordered?: Yes Patient Problems: Active and Suspected Problems (Last Reviewed 02/17/20 @ 08:31 by Jennifer Mccarthy) Postoperative abdominal pain (Acute) - Physical Exam Vitals/I&O's: Vital Signs Temp Pulse Resp BP Pulse Ox 98 F 80 17 119/65 96 05/03/20 00:30 05/03/20 00:30 05/03/20 00:30 05/03/20 00:30 05/03/20 00:30 Oxygen Delivery Method Room Air Weight: 278 lb 14.156 oz Body Mass Index (BMI) 38.9 General: Alert, Oriented x3, Cooperative HEENT: Atraumatic, Normocephalic Neck: Supple Lungs: Clear to auscultation, Normal air movement Cardiovascular: Regular rate, Normal S1, Normal S2, No murmurs Abdomen: Bowel Sounds Present, Distended, Obese, Tender - incisional Extremities: No edema, Capillary Refill Less than 3 Seconds Skin: No rashes Musculoskeletal: No Tenderness to Palpation of Joints or Extremities Neurological: Neuro grossly intact Psych/Mental Status: Normal Affect, Appropriate Laboratory Results 05/02/20 21:45: Urine Color Yellow, Urine Clarity Clear, Urine pH 7.0, Ur Specific [place] 1.010, Urine Protein Negative, Urine Glucose (UA) Normal, Urine Ketones Negative, Urine Occult Blood Negative, Urine Nitrite Negative, Urine Bilirubin Negative, Urine Urobilinogen Normal, Ur Leukocyte Esterase Negative, Urine RBC 0 SEEN, Urine WBC 0 SEEN, Ur Squamous Epith Cells 0 SEEN, Urine Bacteria 0 SEEN, Urine Mucus 0 SEEN 05/02/20 21:50: WBC 12.6 H, RBC 3.80 L, Hgb 11.7 L, Hct 35.8 L, MCV 94.2 H, MCH 30.8, MCHC 32.7, RDW Std Deviation 45.0 H, RDW Coeff of Rudolph 13.1, Plt Count 601 H, MPV 9.2, Immature Gran % (Auto) 0.800, Neut % (Auto) 57.1, Lymph % (Auto) 29.9, [place] % (Auto) 5.3, Eos % (Auto) 6.3 H, Baso % (Auto) 0.6, Absolute Neuts (auto) 7.2, Absolute Lymphs (auto) 3.75, Nucleated RBC % 0 05/02/20 21:50: Sodium 141, Potassium 3.3 L, Chloride 107, Carbon Dioxide 28.0, Anion Gap 6, BUN 9, Creatinine 0.83, Estim Creat Clear Calc 119.70, Est GFR (MDRD) Af Amer 129, Est GFR (MDRD) Non-Af 106, BUN/Creatinine Ratio 10.8, Glucose 91, Calcium 8.6 Current Medications Sodium Chloride () 1,000 mls @ 150 mls/hr IV .Q6H40M [facility] Last Admin: 05/02/20 21:49 Dose: 150 mls/hr Documented by: Assessment/Plan All Active Problems (Last Reviewed 02/17/20 @ 08:31 by Jennifer Mccarthy) Postoperative abdominal pain (Acute) History of right knee surgery (Resolved) Wheezing (Acute) Cough (Acute) Acute bronchitis (Acute) COPD exacerbation (Acute) Chest pain (Acute) Chronic Problems (Last Reviewed 02/17/20 @ 08:31 by Jennifer Mccarthy) Spinal stenosis of lumbar region (Chronic) Chronic low back pain (Chronic) GERD (gastroesophageal reflux disease) (Chronic) Alcohol abuse, in remission (Chronic) Tobacco abuse (Chronic) History of diverticulitis of colon (Chronic) Obesity (BMI 30-39.9) (Chronic) Hypertension (Chronic) COPD (chronic obstructive pulmonary disease) (Chronic) Plan 1. Abdominal pain status post lumbar fusion surgery?admit to general medical floor Dilaudid 1 mg IV every [address] Cortez his surgeon to evaluate in the morning. Repeat CBC BMP for a.m. labs 2. Acid reflux disease?continue proton pump inhibitor 3. Hypertension?continue home medications 4. DVT prophylaxis?low molecular weight heparin
--- NOTE | 2020-05-03 01:16 | PCS.PANDOC ---
PANDEMIC DOCUMENTATION INITIATED: Date: 05/03/20 Time: 0100
[2020-05-03] MEDS: 0.9% Saline Lock 10 ML Syringe IV ×3 (01:35→22:17)
[2020-05-03] MEDS: 0.9% Normal Saline 1,000 ML 150 ML IV ×2 (01:35→07:50)
[2020-05-03] MEDS: HYDROmorphone 1 MG/ML Syringe IV ×6 (01:36→22:17)
[2020-05-03 06:49] LABS: Absolute Lymphocyte Count 3.17 X10^3/uL (0.83-4.51); Absolute Neutrophil Count 7.1 X10^3/uL (2.0-7.7); Basophil# 0.06 X10^3/uL; Basophil% 0.5 % (0-1); Eosinophil# 0.81 X10^3/uL; Eosinophils% 6.7 % (0-5); Hematocrit 32.9 % (40-54); Hemoglobin 10.9 g/dL (13.0-16.5); Lymphocyte # 3.17 X10^3/ul (4.0); Lymphocyte % 26.4 % (19-41); Mean Corp Hgb Conc 33.1 g/dL (32-36); Mean Corpuscular Volume 93.5 fL (80-94); Mean Platelet Vol. 9.1 fl (6.2-12.0); Monocyte# 0.82 X10^3/uL; Monocyte% 6.8 % (0-10); NRBC Flagged by Analyzer 0 % (0-5); Neutrophil # 7.09 X10^3/uL (2.7-7.7); Neutrophil % 58.9 % (47-70); Platelet Count 566 K/mm3 (150-450); RBC Distribution Width CV 13.2 % (11.6-14.6); RBC Distribution Width SD 45.1 fl (35.1-43.9); Red Blood Count 3.52 M/mm3 (4.6-6.2)
[2020-05-03] MEDS: Ipratropium 0.5 MG/2.5 ML SOLUTION INHALATION ×2 (07:06→13:20)
[2020-05-03 07:12] LABS: Anion Gap 5 (5-15); BUN 8 mg/dL (7-18); BUN/Creat Ratio 12.1 RATIO (10-20); Calcium,Total 8.2 mg/dL (8.5-10.1); Chloride 111 mmol/L (98-107); Creatinine, Serum 0.66 mg/dL (0.70-1.30); EST Glomerular Filtration Rate 138 mL/min (>60); Est Glom Filt Rate - Afr Amer 167 mL/min (>60); Estimated Creatinine Clearance 150.54 ml/min; Glucose 99 mg/dL (74-106); Potassium 4.1 mmol/L (3.5-5.1); Sodium Level 140 mmol/L (136-145)
--- NOTE | 2020-05-03 09:39 | NURSING ---
Per Dr. Cortez's office he is in the OR today, message left with OR staff to notify him of the consult.
[2020-05-03] MEDS: Pantoprazole Sodium 40 MG Tablet PO (10:18)
[2020-05-03] MEDS: Topiramate 50 MG Tablet PO ×2 (10:18→22:16)
--- NOTE | 2020-05-03 11:14 | PCM.CONS.B ---
- Consult Date of Consult: 05/03/20 - Reason for Consult This is Dr. Deyvi Cortez dictating consultation on Nick Barnes. This was at the request of the hospitalist. Apparently the patient came in yesterday because of abdominal pain below his abdominal incision. A CT scan was done of the pelvis and abdomen. The CT scan was reviewed by me and Dr. Monk. The likely reason for increased pain is that #1 he has been quite active at home walking and #2 he is addicted to opioids. Has been passing gas however and has had bowel movements. Stated to me that part of the reason he came in was anxiety. He was afraid that perhaps we had to take him surgery again however that is not the case. The abdomen is soft to palpation. Move the posterior dressing the incision is dry and healing well. The small amount of air that was seen on the CT scan posteriorly is sometimes found posteriorly with these large incisions. There is no evidence of infection and there is no drainage whatsoever from his wound. Dr. Monk will see the patient tomorrow morning I just to be sure everything is good however I suspect patient will be able to go home tomorrow afternoon.
--- NOTE | 2020-05-03 11:24 | PCM.PN.HOSP ---
Patient Problems: Active and Suspected Problems (Last Reviewed 02/17/20 @ 08:31 by Jennifer Mccarthy) Postoperative abdominal pain (Acute) Subjective: Patient seen and examined. He was admitted with a complaint of abdominal pain. He had lumbar spinal fusion of L4-5 and S1 on April 26, 2020. Patient had surgery for anterior approach and says he has been getting increasingly severe pain over the site of surgery on the abdomen. CT of the abdomen showed postoperative changes consistent with surgery but no acute findings. He was admitted for pain control. Patient still: Planes of significant pain and states is rated at 8 out of 10 today. For his surgeon, it appears that patient has a history of heavy use of opiates on outpatient basis and after patient had surgery, he was actually in withdrawal from opiates. Was however not detoxed at that point as he needed the pain medication to help him combat the pain from the surgery. He has remained hemodynamically stable. Vitals/I&O's: Vital Signs Temp Pulse Resp BP Pulse Ox 99.9 F H 77 16 129/87 H 94 05/03/20 10:30 05/03/20 10:30 05/03/20 10:30 05/03/20 10:30 05/03/20 10:30 Oxygen Delivery Method Room Air Weight: 268 lb 4.841 oz Body Mass Index (BMI) 37.4 Intake and Output for Last 24 Hours 05/01/20 05/02/20 05/03/20 23:59 23:59 23:59 Intake Total 1385.0 / 1385.0 Balance 1385.0 / 1385.0 General: Alert, Oriented x3, Cooperative HEENT: Atraumatic, PERRLA, EOMI, Normocephalic Oral: Dry Mucosa Neck: Supple, No JVD, Negative Carotid Bruits Lungs: Clear to auscultation, Normal air movement, No rhonchi, No wheeze Cardiovascular: Regular rate, Regular Rhythm, Normal S1, Normal S2, No murmurs Abdomen: Bowel Sounds Present, Soft, - - dressing over surgical site; mild tenderness over surgical site on lower abdomen. no guarding or rebound tenderness. Extremities: No clubbing, No cyanosis, No edema, Capillary Refill Less than 3 Seconds Skin: No rashes, No breakdown Musculoskeletal: No Tenderness to Palpation of Joints or Extremities Lymphatic: No Cervical, Supraclavicular, or Inguinal Adenopathy Neurological: Cranial nerves II-XII grossly intact, Neuro grossly intact, Motor Exam 5/5 strength throughout Psych/Mental Status: Normal Affect, Appropriate, Alert and oriented to time, place, person, mood and affect Laboratory Results 05/02/20 21:45: Urine Color Yellow, Urine Clarity Clear, Urine pH 7.0, Ur Specific [place] 1.010, Urine Protein Negative, Urine Glucose (UA) Normal, Urine Ketones Negative, Urine Occult Blood Negative, Urine Nitrite Negative, Urine Bilirubin Negative, Urine Urobilinogen Normal, Ur Leukocyte Esterase Negative, Urine RBC 0 SEEN, Urine WBC 0 SEEN, Ur Squamous Epith Cells 0 SEEN, Urine Bacteria 0 SEEN, Urine Mucus 0 SEEN 05/02/20 21:50: WBC 12.6 H, RBC 3.80 L, Hgb 11.7 L, Hct 35.8 L, MCV 94.2 H, MCH 30.8, MCHC 32.7, RDW Std Deviation 45.0 H, RDW Coeff of Rudolph 13.1, Plt Count 601 H, MPV 9.2, Immature Gran % (Auto) 0.800, Neut % (Auto) 57.1, Lymph % (Auto) 29.9, [place] % (Auto) 5.3, Eos % (Auto) 6.3 H, Baso % (Auto) 0.6, Absolute Neuts (auto) 7.2, Absolute Lymphs (auto) 3.75, Nucleated RBC % 0 05/02/20 21:50: Sodium 141, Potassium 3.3 L, Chloride 107, Carbon Dioxide 28.0, Anion Gap 6, BUN 9, Creatinine 0.83, Estim Creat Clear Calc 119.70, Est GFR (MDRD) Af Amer 129, Est GFR (MDRD) Non-Af 106, BUN/Creatinine Ratio 10.8, Glucose 91, Calcium 8.6 05/03/20 06:40: WBC 12.0 H, RBC 3.52 L, Hgb 10.9 L, Hct 32.9 L, MCV 93.5, MCH 31.0, MCHC 33.1, RDW Std Deviation 45.1 H, RDW Coeff of Rudolph 13.2, Plt Count 566 H, MPV 9.1, Immature Gran % (Auto) 0.700, Neut % (Auto) 58.9, Lymph % (Auto) 26.4, [place] % (Auto) 6.8, Eos % (Auto) 6.7 H, Baso % (Auto) 0.5, Absolute Neuts (auto) 7.1, Absolute Lymphs (auto) 3.17, Nucleated RBC % 0 05/03/20 06:40: Sodium 140, Potassium 4.1, Chloride 111 H, Carbon Dioxide 24.0, Anion Gap 5, BUN 8, Creatinine 0.66 L, Estim Creat Clear Calc 150.54, Est GFR (MDRD) Af Amer 167, Est GFR (MDRD) Non-Af 138, BUN/Creatinine Ratio 12.1, Glucose 99, Calcium 8.2 L Diagnostic Data Abdomen/Pelvis CT 05/02/20 21:37 IMPRESSION: Tiny nonobstructing left renal calculus. Mild diverticulosis left colon. Postoperative changes of anterior and posterior fusion L4-5 and L5-S1. Surgical hardware appears intact. Possible small hematoma posterior left hemipelvis. Subcutaneous edema posterior back and left lateral pelvis. Soft tissue stranding left anterior lower pelvis. These findings are probably related to recent surgery. Correlate clinically to exclude cellulitis particularly left lateral and anterior. Mild enlargement left rectus muscle which may represent edema related to recent surgery. A hematoma is a consideration. Small collections of air posterior to the surgical site, probably postoperative findings. Electronically Signed: Kaleb Mckeon MD at 0:10 EST , Service support , Current Medications Hydromorphone HCl (Hydromorphone 1 Mg/Ml Syringe) 1 mg IV Q4H PRN PRN PRN Reason: Pain Score 6-10 Last Admin: 05/03/20 10:13 Dose: 1 mg Documented by: Sodium Chloride () 1,000 mls @ 150 mls/hr IV .Q6H40M [facility] Last Admin: 05/03/20 07:50 Dose: 150 mls/hr Documented by: Ipratropium [place] (Ipratropium 0.5 Mg/2.5 Ml Solution) 0.5 mg INHALATION Q6HWA.RT [facility] Last Admin: 05/03/20 07:06 Dose: 0.5 mg Documented by: Ondansetron HCl (Ondansetron Odt 4 Mg Tablet) 4 mg PO Q8H PRN PRN PRN Reason: NAUSEA Ondansetron HCl (Ondansetron 4 Mg/2 Ml Vial) 4 mg IV Q8H PRN PRN PRN Reason: NAUSEA/VOMITING Pantoprazole Sodium (Pantoprazole Sodium 40 Mg Tablet) 40 mg PO DAILY [facility] Last Admin: 05/03/20 10:18 Dose: 40 mg Documented by: Sodium Chloride (0.9% Saline Lock 10 Ml Syringe) 10 - 40 ml IV UD PRN PRN Reason: SALINE FLUSH Last Admin: 05/03/20 01:35 Dose: 10 ml Documented by: Topiramate (Topiramate 50 Mg Tablet) 50 mg PO BID [facility] Last Admin: 05/03/20 10:18 Dose: 50 mg Documented by: Trazodone HCl (Trazodone 50 Mg Tablet) 50 mg PO QHS [facility] STROKE Vital Signs/Narrative: Vital Signs Temp Pulse Resp BP Pulse Ox 05/03/20 10:30 99.9 F H 77 16 129/87 H 94 Medical Necessity - Tobacco Use Smoking Status: Current every day smoker Tobacco Use: Cigarettes Assessment/Plan All Active Problems (Last Reviewed 02/17/20 @ 08:31 by Jennifer Mccarthy) Postoperative abdominal pain (Acute) History of right knee surgery (Resolved) Wheezing (Acute) Cough (Acute) Acute bronchitis (Acute) COPD exacerbation (Acute) Chest pain (Acute) # Intractable abdominal pain post lumbar fusion surgery via anterior approach still rates pain at 8/10 this morning patient was apparently taking heavy amounts of pain pills prior to having the surgery. Currently on IV morphine. Will start on p.o. 5/325mg [place] 2 tablets every 4-6 hours as needed. spine surgery on board PT/OT on board # GERD; on PPI #hypertension: not on any home meds. BP well controlled. #COPD: not in exacerbation. on breathing treatment with bronchodilators. DVT prophylaxis: SCDs. OBSV E&M: [id number] Subsequent observation care L2
[2020-05-03] MEDS: HYDROcodone Bitartrate/Apap 5/325 Tablet PO ×3 (12:28→20:30)
[2020-05-03] MEDS: traZODone 50 MG Tablet PO (22:16)
[2020-05-04] MEDS: HYDROcodone Bitartrate/Apap 5/325 Tablet PO ×3 (02:21→12:46)
[2020-05-04 02:22] VITALS: BP 117/64; PULSE 70; RESP 18; TEMP 36.7; O2SAT 95
[2020-05-04] MEDS: HYDROmorphone 1 MG/ML Syringe IV ×2 (06:34→10:15)
[2020-05-04] MEDS: 0.9% Saline Lock 10 ML Syringe IV ×2 (06:34→10:15)
[2020-05-04 06:55] LABS: Absolute Lymphocyte Count 3.51 X10^3/uL (0.83-4.51); Absolute Neutrophil Count 6.1 X10^3/uL (2.0-7.7); Basophil# 0.06 X10^3/uL; Basophil% 0.5 % (0-1); Eosinophils% 6.2 % (0-5); Hematocrit 35.5 % (40-54); Hemoglobin 11.4 g/dL (13.0-16.5); Lymphocyte # 3.51 X10^3/ul (4.0); Lymphocyte % 30.9 % (19-41); Mean Corp Hgb Conc 32.1 g/dL (32-36); Mean Corpuscular Hgb 30.3 pg (27.0-32.0); Mean Corpuscular Volume 94.4 fL (80-94); Mean Platelet Vol. 9.1 fl (6.2-12.0); Monocyte# 0.88 X10^3/uL; Monocyte% 7.7 % (0-10); NRBC Flagged by Analyzer 0 % (0-5); Neutrophil # 6.14 X10^3/uL (2.7-7.7); Platelet Count 646 K/mm3 (150-450); RBC Distribution Width CV 13.3 % (11.6-14.6); RBC Distribution Width SD 46.5 fl (35.1-43.9); Red Blood Count 3.76 M/mm3 (4.6-6.2); White Blood Count 11.4 K/mm3 (4.4-11.0)
[2020-05-04 07:00] VITALS: O2SAT 93
[2020-05-04 07:20] LABS: Anion Gap 4 (5-15); BUN 8 mg/dL (7-18); BUN/Creat Ratio 12.1 RATIO (10-20); Calcium,Total 8.8 mg/dL (8.5-10.1); Chloride 111 mmol/L (98-107); Creatinine, Serum 0.66 mg/dL (0.70-1.30); EST Glomerular Filtration Rate 138 mL/min (>60); Est Glom Filt Rate - Afr Amer 167 mL/min (>60); Estimated Creatinine Clearance 150.54 ml/min; Glucose 93 mg/dL (74-106); Sodium Level 139 mmol/L (136-145)
[2020-05-04 07:52] VITALS: BP 121/87; PULSE 74; RESP 14; TEMP 36.6; O2SAT 98
[2020-05-04] MEDS: Topiramate 50 MG Tablet PO (07:59)
[2020-05-04] MEDS: Pantoprazole Sodium 40 MG Tablet PO (07:59)
--- NOTE | 2020-05-04 10:44 | PN_ITS ---
Patient Problems: Active and Suspected Problems (Last Reviewed 02/17/20 @ 08:31 by Jennifer Mccarthy) Postoperative abdominal pain (Acute) Subjective: Saw patient for follow-up with some abdominal pain. He is feeling a little bit better. Some still little bit discomfort below the area of his incision down into the groin. Reviewed the CAT scan and no significant hematoma. No obvious signs of infection on the CT or clinically on exam. Moving around well. Tolerating a diet. Bowels are working. Patient okay to be discharged from a vascular surgery standpoint Objective: Patient awake alert oriented No apparent distress Afebrile vital signs stable Abdomen soft, slightly distended Nontender Incision well-healed, no erythema no drainage - Physical Exam Vitals/I&O's: Vital Signs Temp Pulse Resp BP Pulse Ox 97.8 F 74 14 121/87 H 98 05/04/20 07:52 05/04/20 07:52 05/04/20 07:52 05/04/20 07:52 05/04/20 07:52 Oxygen Delivery Method Room Air Weight: 268 lb 4.841 oz Body Mass Index (BMI) 37.4 Intake and Output for Last 24 Hours 05/02/20 05/03/20 05/04/20 23:59 23:59 23:59 Intake Total 2585.0 / 2585.0 Balance 2585.0 / 2585.0 Comment: Patient is status post 2 level 360 fusion. Patient with some abdominal dis Laboratory Results 05/04/20 06:34: WBC 11.4 H, RBC 3.76 L, Hgb 11.4 L, Hct 35.5 L, MCV 94.4 H, MCH 30.3, MCHC 32.1, RDW Std Deviation 46.5 H, RDW Coeff of Rudolph 13.3, Plt Count 646 H, MPV 9.1, Immature Gran % (Auto) 0.700, Neut % (Auto) 54.0, Lymph % (Auto) 30.9, [place] % (Auto) 7.7, Eos % (Auto) 6.2 H, Baso % (Auto) 0.5, Absolute Neuts (auto) 6.1, Absolute Lymphs (auto) 3.51, Nucleated RBC % 0 05/04/20 06:34: Sodium 139, Potassium 4.0, Chloride 111 H, Carbon Dioxide 24.0, Anion Gap 4 L, BUN 8, Creatinine 0.66 L, Estim Creat Clear Calc 150.54, Est GFR (MDRD) Af Amer 167, Est GFR (MDRD) Non-Af 138, BUN/Creatinine Ratio 12.1, Glucose 93, Calcium 8.8 Current Medications Hydrocodone Bitart/Acetaminophen (Hydrocodone Bitartrate/Apap 5/325 Tablet) 2 tablet PO Q4H PRN PRN PRN Reason: Pain Score 4-10 Last Admin: 05/04/20 08:00 Dose: 2 tablet Documented by: Hydromorphone HCl (Hydromorphone 1 Mg/Ml Syringe) 1 mg IV Q4H PRN PRN PRN Reason: Pain Score 6-10 Last Admin: 05/04/20 10:15 Dose: 1 mg Documented by: Ipratropium [place] (Ipratropium 0.5 Mg/2.5 Ml Solution) 0.5 mg INHALATION Q6HWA.RT [facility] Last Admin: 05/03/20 13:20 Dose: 0.5 mg Documented by: Ondansetron HCl (Ondansetron Odt 4 Mg Tablet) 4 mg PO Q8H PRN PRN PRN Reason: NAUSEA Ondansetron HCl (Ondansetron 4 Mg/2 Ml Vial) 4 mg IV Q8H PRN PRN PRN Reason: NAUSEA/VOMITING Pantoprazole Sodium (Pantoprazole Sodium 40 Mg Tablet) 40 mg PO DAILY [facility] Last Admin: 05/04/20 07:59 Dose: 40 mg Documented by: Sodium Chloride (0.9% Saline Lock 10 Ml Syringe) 10 - 40 ml IV UD PRN PRN Reason: SALINE FLUSH Last Admin: 05/04/20 10:15 Dose: 10 ml Documented by: Topiramate (Topiramate 50 Mg Tablet) 50 mg PO BID [facility] Last Admin: 05/04/20 07:59 Dose: 50 mg Documented by: Trazodone HCl (Trazodone 50 Mg Tablet) 50 mg PO QHS [facility] Last Admin: 05/03/20 22:16 Dose: 50 mg Documented by: Medical Necessity - Tobacco Use Smoking Status: Current every day smoker Tobacco Use: Cigarettes Assessment/Plan All Active Problems (Last Reviewed 02/17/20 @ 08:31 by Jennifer Mccarthy) Postoperative abdominal pain (Acute) History of right knee surgery (Resolved) Wheezing (Acute) Cough (Acute) Acute bronchitis (Acute) COPD exacerbation (Acute) Chest pain (Acute)
--- NOTE | 2020-05-04 11:12 | PCM.DC.SUM ---
Discharge Date and Diagnosis - Problem List Patient Problems: Active and Suspected Problems (Last Reviewed 02/17/20 @ 08:31 by Jennifer Mccarthy) Postoperative abdominal pain (Acute) Date of Admission: 05/03/20 Date of Discharge: 05/04/20 - Primary Discharge Diagnosis Acute Problems: Active Problems (Last Reviewed 02/17/20 @ 08:31 by Jennifer Mccarthy) Postoperative abdominal pain (Acute) - Secondary Discharge Diagnosis Chronic Problems: Chronic Problems (Last Reviewed 02/17/20 @ 08:31 by Jennifer Mccarthy) Spinal stenosis of lumbar region (Chronic) Chronic low back pain (Chronic) GERD (gastroesophageal reflux disease) (Chronic) Alcohol abuse, in remission (Chronic) Tobacco abuse (Chronic) History of diverticulitis of colon (Chronic) Obesity (BMI 30-39.9) (Chronic) Hypertension (Chronic) COPD (chronic obstructive pulmonary disease) (Chronic) Hospital Course and Treatment Imaging Results: Diagnostic Data Abdomen/Pelvis CT 05/02/20 21:37 IMPRESSION: Tiny nonobstructing left renal calculus. Mild diverticulosis left colon. Postoperative changes of anterior and posterior fusion L4-5 and L5-S1. Surgical hardware appears intact. Possible small hematoma posterior left hemipelvis. Subcutaneous edema posterior back and left lateral pelvis. Soft tissue stranding left anterior lower pelvis. These findings are probably related to recent surgery. Correlate clinically to exclude cellulitis particularly left lateral and anterior. Mild enlargement left rectus muscle which may represent edema related to recent surgery. A hematoma is a consideration. Small collections of air posterior to the surgical site, probably postoperative findings. Electronically Signed: Kaleb Mckeon MD at 0:10 EST , Service support , spine surgery- Dr Cortez vascular surgery- Dr Monk Operations: None Procedures: None Summary of Care Provided: The patient is a 45 year old M with past medical history as outlined who recently had L4-L5 and S1 lumbar fusion in April 26, 2020. He was admitted through the ED on 05/03/2020 with a complaint of abdominal pain which has been going on for about 2 to 3 days prior to admission and was mainly over his abdominal scars from the anterior approach done for his surgery. He denied any fever chills or any nausea vomiting and had been having regular bowel movements and urinating without difficulty. CT of the abdomen done was consistent with postoperative changes expected with the surgery but no other acute findings. His W BC and his platelets were also elevated though there was no clear sign of infection. He was admitted for pain management and spine surgery was consulted. Put on IV Dilaudid as well as oral opiates for pain. Spine surgery reviewed him and felt that the likely reason for his increased pain was because he had been quite active at home and he was addicted to opioids. Patient apparently had a history of chronic opioid use for chronic back pain. Last surgery also reviewed patient and did not think there was any sign of infection on the CT of clinically is recommended that patient could be discharged home. Patient was discharged home on 05/04/2020. He said he got his pain pills from his PCP and preferred to continue getting it from him. He is to follow-up with his primary care doctor and spine surgery. Patient seen and examined prior to discharge. He had no complaints. Pain control was much better. Review systems otherwise negative. Labs and vitals reviewed. Home medication reviewed and reconciled. O/E: Vital Signs Temp Pulse Resp BP Pulse Ox 97.6 F L 71 14 115/76 98 05/04/20 12:44 05/04/20 12:44 05/04/20 12:44 05/04/20 12:44 05/04/20 12:44 [] General: Alert, Oriented x3, Cooperative HEENT: Atraumatic, PERRLA, EOMI, Normocephalic Oral: Dry Mucosa Neck: Supple, No JVD, Negative Carotid Bruits Lungs: Clear to auscultation, Normal air movement, No rhonchi, No wheeze Cardiovascular: Regular rate, Regular Rhythm, Normal S1, Normal S2, No murmurs Abdomen: Bowel Sounds Present, Soft, - - dressing over surgical site; minimal tenderness over surgical site on lower abdomen. no guarding or rebound tenderness. Extremities: No clubbing, No cyanosis, No edema, Capillary Refill Less than 3 Seconds Skin: No rashes, No breakdown Musculoskeletal: No Tenderness to Palpation of Joints or Extremities Lymphatic: No Cervical, Supraclavicular, or Inguinal Adenopathy Neurological: Cranial nerves II-XII grossly intact, Neuro grossly intact, Motor Exam 5/5 strength throughout Psych/Mental Status: Normal Affect, Appropriate, Alert and oriented to time, place, person, mood and affect Plan is for discharge home today Patient Problems: Active and Suspected Problems (Last Reviewed 02/17/20 @ 08:31 by Jennifer Mccarthy) Postoperative abdominal pain (Acute) - Physical Exam Vitals/I&O's: Vital Signs Temp Pulse Resp BP Pulse Ox 97.8 F 74 14 121/87 H 98 05/04/20 07:52 05/04/20 07:52 05/04/20 07:52 05/04/20 07:52 05/04/20 07:52 Oxygen Delivery Method Room Air Weight: 268 lb 4.841 oz Body Mass Index (BMI) 37.4 Intake and Output for Last 24 Hours 05/02/20 05/03/20 05/04/20 23:59 23:59 23:59 Intake Total 2585.0 / 2585.0 Balance 2585.0 / 2585.0 Laboratory Results 05/04/20 06:34: WBC 11.4 H, RBC 3.76 L, Hgb 11.4 L, Hct 35.5 L, MCV 94.4 H, MCH 30.3, MCHC 32.1, RDW Std Deviation 46.5 H, RDW Coeff of Rudolph 13.3, Plt Count 646 H, MPV 9.1, Immature Gran % (Auto) 0.700, Neut % (Auto) 54.0, Lymph % (Auto) 30.9, [place] % (Auto) 7.7, Eos % (Auto) 6.2 H, Baso % (Auto) 0.5, Absolute Neuts (auto) 6.1, Absolute Lymphs (auto) 3.51, Nucleated RBC % 0 05/04/20 06:34: Sodium 139, Potassium 4.0, Chloride 111 H, Carbon Dioxide 24.0, Anion Gap 4 L, BUN 8, Creatinine 0.66 L, Estim Creat Clear Calc 150.54, Est GFR (MDRD) Af Amer 167, Est GFR (MDRD) Non-Af 138, BUN/Creatinine Ratio 12.1, Glucose 93, Calcium 8.8 Current Medications Hydrocodone Bitart/Acetaminophen (Hydrocodone Bitartrate/Apap 5/325 Tablet) 2 tablet PO Q4H PRN PRN PRN Reason: Pain Score 4-10 Last Admin: 05/04/20 08:00 Dose: 2 tablet Documented by: Hydromorphone HCl (Hydromorphone 1 Mg/Ml Syringe) 1 mg IV Q4H PRN PRN PRN Reason: Pain Score 6-10 Last Admin: 05/04/20 10:15 Dose: 1 mg Documented by: Ipratropium [place] (Ipratropium 0.5 Mg/2.5 Ml Solution) 0.5 mg INHALATION Q6HWA.RT [facility] Last Admin: 05/03/20 13:20 Dose: 0.5 mg Documented by: Ondansetron HCl (Ondansetron Odt 4 Mg Tablet) 4 mg PO Q8H PRN PRN PRN Reason: NAUSEA Ondansetron HCl (Ondansetron 4 Mg/2 Ml Vial) 4 mg IV Q8H PRN PRN PRN Reason: NAUSEA/VOMITING Pantoprazole Sodium (Pantoprazole Sodium 40 Mg Tablet) 40 mg PO DAILY [facility] Last Admin: 05/04/20 07:59 Dose: 40 mg Documented by: Sodium Chloride (0.9% Saline Lock 10 Ml Syringe) 10 - 40 ml IV UD PRN PRN Reason: SALINE FLUSH Last Admin: 05/04/20 10:15 Dose: 10 ml Documented by: Topiramate (Topiramate 50 Mg Tablet) 50 mg PO BID [facility] Last Admin: 05/04/20 07:59 Dose: 50 mg Documented by: Trazodone HCl (Trazodone 50 Mg Tablet) 50 mg PO QHS [facility] Last Admin: 05/03/20 22:16 Dose: 50 mg Documented by: Discharge Diet: Low fat/ Low Cholesterol Discharge Activity: Return to Normal Activity Weight Bearing Status: Weight bearing as tolerated Call your doctor if your incision/area has: Continuous Slow Oozing, Increased Pain/ Swelling, Increased Redness, Foul Smelling Discharge, Swelling at the incision site Call your doctor if you observe: Fever of 101 or Higher, Shortness of breath, Dizziness, Swelling in the ankles, Increased palpitations (irregular heartbeat), Uncontrolled pain Home Medications: Medications to take at Discharge Lansoprazole [Prevacid] 30 mg PO DAILY 12/05/16 Aclidinium [place] [Tudorza Pressair] 2 puff IH DAILY 03/02/17 Albuterol IH (ProAir) [Proair Hfa] 1 - 2 puff INHALATION Q4H PRN PRN 03/02/17 ondansetron HCl 4 mg tablet 4 mg PO Q8H PRN 02/05/20 topiramate 50 mg tablet 50 mg PO BID 02/05/20 traZODone [Desyrel] 50 mg PO QHS 04/09/20 Albuterol Aerosols [Ventolin Aerosols] 2.5 mg INHALATION Q4H PRN PRN 04/12/20 Oxycodone HCl [Oxycodone HCl ER] 15 mg PO 4X/DAY 04/12/20 Primary Care Physician: Jimbo Hill DO [Primary Care Provider] - Please follow up with your Primary Care Physician in: 1-2 weeks Please Follow Up With: Deyvi Cortez DO When: 1-2 weeks Patient Instructions: ED Pain, Acute, Uncertain Cause Disposition: Home Minutes spent on discharge:: 35 Patient Condition:: Stable Medical Necessity - Tobacco Use Smoking Status: Current every day smoker Tobacco Use: Cigarettes Meaningful Use Info Meaningful Use Diagnoses (Choose all that apply): None applicable Inpatient E&M: [id number] [facility]
--- NOTE | 2020-05-04 11:13 | PCM.DC ---
- Discharge Diagnoses Current Active Problems: Current Active and Chronic Problems (Last Reviewed 02/17/20 @ 08:31 by Jennifer Mccarthy) Spinal stenosis of lumbar region (Chronic) Postoperative abdominal pain (Acute) Chronic low back pain (Chronic) GERD (gastroesophageal reflux disease) (Chronic) Alcohol abuse, in remission (Chronic) Tobacco abuse (Chronic) History of diverticulitis of colon (Chronic) Obesity (BMI 30-39.9) (Chronic) Hypertension (Chronic) COPD (chronic obstructive pulmonary disease) (Chronic) You will use the following diet at home:: Cardiac Your food should be the consistency of: Regular Your liquids should be the consistency of: Regular/Thin Discharge Activity: Return to Normal Activity Weight Bearing Status: Weight bearing as tolerated Call your doctor if you observe: Fever of 101 or Higher, Uncontrolled pain Instructions: ED Pain, Acute, Uncertain Cause Allergies/Adverse Reactions: Allergies sulfamethoxazole [From Bactrim] Allergy (Verified 05/02/20 21:31) Other trimethoprim [From Bactrim] Allergy (Verified 05/02/20 21:31) Other Metronidazole HCl [From Flagyl] Adverse Reaction (Verified 05/02/20 21:31) Unknown taste buds got sore and hurt on PO Abx Medications to take at Discharge Lansoprazole [Prevacid] 30 mg PO DAILY 12/05/16 Aclidinium [place] [Tudorza Pressair] 2 puff IH DAILY 03/02/17 Albuterol IH (ProAir) [Proair Hfa] 1 - 2 puff INHALATION Q4H PRN PRN 03/02/17 ondansetron HCl 4 mg tablet 4 mg PO Q8H PRN 02/05/20 topiramate 50 mg tablet 50 mg PO BID 02/05/20 traZODone [Desyrel] 50 mg PO QHS 04/09/20 Albuterol Aerosols [Ventolin Aerosols] 2.5 mg INHALATION Q4H PRN PRN 04/12/20 Oxycodone HCl [Oxycodone HCl ER] 15 mg PO 4X/DAY 04/12/20 Primary Care Physician: Jimbo Hill DO [Primary Care Provider] - Please follow up with your Primary Care Physician in: 1-2 weeks Test Results: Test results from this visit will be discussed in further detail at your follow-up appointment, if applicable. Please Follow Up With: Deyvi Cortez DO When: 2-3 weeks Please Follow Up With: Amilcar Monk MD When: 2-3 weeks Proposed Discharge Date: 05/04/20
[2020-05-04 12:44] VITALS: BP 115/76; PULSE 71; RESP 14; TEMP 36.4; O2SAT 98
== END 2020-05-04 13:02 | disposition home or self-care (01) ==
LOC: ED 05-03 00:19 → MS3 05-03 00:46
PROVIDERS: Admitting Provider Family Medicine; Emergency Provider Emergency Medicine; PCP Family Medicine; Visit Provider Student in an Organized Health Care Education/Training Program
DX: G89.18 Other acute postprocedural pain (principal); G89.29 Other chronic pain; K21.9 Gastro-esophageal reflux disease without esophagitis; I10 Essential (primary) hypertension; F17.210 Nicotine dependence, cigarettes, uncomplicated; Z98.1 Arthrodesis status; F10.11 Alcohol abuse, in remission; J44.1 Chronic obstructive pulmonary disease with (acute) exacerbation; E66.9 Obesity, unspecified; Z68.38 Body mass index [BMI] 38.0-38.9, adult; Z79.899 Other long term (current) drug therapy; F11.20 Opioid dependence, uncomplicated
CPT/HCPCS: 36415; 74177; 80048; 81001; 85025; 94640; 96361; 96374; 96375; 96376; 99218; 99285; 99406; J7030; Q9967; A4216; G0378; J2405

== ENCOUNTER → 2020-05-17 09:52 | Outpatient (CLI) | payer MEDICAID, SELFPAY ==
[2020-05-09 09:59] VITALS: BMI 36.9
[2020-05-17 14:02] LABS: Amphetamine Urine VISTA NEGATIVE (<1000 ng/mL); Barbiturate Urine VISTA NEGATIVE (< 200 ng/mL); Benzodiazepine Urine VISTA NEGATIVE (< 200 ng/mL); Cocaine Urine VISTA NEGATIVE (< 300 ng/mL); Ecstacy Urine VISTA POSITIVE (< 500 ng/mL); Methadone Urine VISTA NEGATIVE (< 300 ng/mL); PCP Urine VISTA NEGATIVE (< 25 ng/mL); THC Urine VISTA NEGATIVE (< 50 ng/mL); Vista UDS pH Range 6
== END ==
PROVIDERS: PCP Family Medicine; Visit Provider Family Medicine
DX: Z51.81 Encounter for therapeutic drug level monitoring (principal)
CPT/HCPCS: 80307

== ENCOUNTER → 2020-05-17 13:45 | Outpatient (CLI) | payer MEDICAID, SELFPAY ==
[2020-05-09 09:59] VITALS: BMI 36.9
--- NOTE | 2020-05-17 13:50 | VDLE_ITS ---
Reason For Study: Pain Procedure LEFT This is a venous duplex using B-mode, color GSV is normal. flow and spectral Doppler. CFV is compressible, spontaneous, phasic, Exam performed in department. competent, and demonstrates normal A preliminary report was called and/or faxed augmentation. to Liz. FV is compressible, spontaneous, phasic, competent and demonstrates normal augmentation. POP V is compressible, spontaneous, phasic, competent and demonstrates normal augmentation. T/P Trunk is compressible. PTV is compressible. LT PerV is compressible. Interpretation Summary Deep veins of the left lower extremity are patent and compressible segmentally. There is no evidence of left lower extremity deep vein thrombosis. Valvular competence appears intact within the proximal deep venous system on the left . The left great saphenous vein appears patent and compressible segmentally. Ordering Physician: Jimbo Hill Referring Physician: Jimbo Hill Performed By: Mely Clinton RVT
== END ==
PROVIDERS: PCP Family Medicine; Referring Provider Family Medicine; Visit Provider Family Medicine
DX: M79.605 Pain in left leg (principal); Z51.81 Encounter for therapeutic drug level monitoring
CPT/HCPCS: 80307; 93971

== ENCOUNTER → 2020-06-07 | Outpatient (CLI) | payer MEDICAID, SELFPAY ==
[2020-06-07 12:42] LABS: Amphetamine Urine VISTA NEGATIVE (<1000 ng/mL); Barbiturate Urine VISTA NEGATIVE (< 200 ng/mL); Benzodiazepine Urine VISTA NEGATIVE (< 200 ng/mL); Cocaine Urine VISTA NEGATIVE (< 300 ng/mL); Ecstacy Urine VISTA POSITIVE (< 500 ng/mL); Methadone Urine VISTA NEGATIVE (< 300 ng/mL); PCP Urine VISTA NEGATIVE (< 25 ng/mL); THC Urine VISTA NEGATIVE (< 50 ng/mL); Vista UDS pH Range 5
== END | disposition home or self-care (01) ==
LOC: LABSPEC 11:33
PROVIDERS: PCP Family Medicine; Visit Provider Family Medicine
DX: Z79.899 Other long term (current) drug therapy (principal)
CPT/HCPCS: 80307

== ENCOUNTER 2020-08-06 20:22 | Emergency (ER) | payer MEDICAID, SELFPAY ==
[2020-08-06 20:23] VITALS: BP 143/84; PULSE 76; RESP 16; TEMP 36.6; O2SAT 94; BMI 37.3
--- NOTE | 2020-08-06 20:40 | RAD_ITS ---
HISTORY: injury and pain ADDITIONAL HISTORY: LOWER BACK PAIN. BACK SURGERY OF L4-S1 IN APR 2020. EXAMINATION/TECHNIQUE: XR Spine Lumbar 2 or 3 Views Number of images including paperwork: 3 COMPARISON: 07/18/2020 FINDINGS: VERTEBRAE: No acute fracture. VERTEBRAL ALIGNMENT: No traumatic subluxation. DISKS AND JOINTS: Postoperative changes at L4-5 and L5-S1, similar to previous. No radiographic evidence of hardware loosening or crepitation. SOFT TISSUES: Vascular calcifications. RAD/Lumbar Spine 2 or 3 Views IMPRESSION: No acute findings. Postoperative changes. at 2104 Reported and signed by: Sabrina Mittal MD Electronically Signed: Sabrina Mittal MD at 21:04 EDT Tel , Service support ,
--- NOTE | 2020-08-06 20:45 | EDS_ITS ---
HPI History of Present Illness Chief Complaint: Back Narrative Narrative: 45-year-old male states that in April he had a lumbar fusion by Dr. Cortez here at the hospital. He states that he has been recovering. He is currently on gabapentin and hydromorphone. He states that today he was walking and stepped in a hole and started to fall down. States he heard about 5 pops in his back. He took his home pain medication with no relief and came to the hospital. He wonders if he pulled the screws out of the surgical hardware. He denies any bowel or bladder dysfunction. No radicular symptoms that are different from his normal leg pain. [facility] Medical History (Updated 08/06/20 @ 22:[address] Janes French, DO) Acute bronchitis Alcohol abuse, in remission Chest pain Chronic low back pain COPD (chronic obstructive pulmonary disease) COPD exacerbation Cough Fusion of lumbar spine GERD (gastroesophageal reflux disease) History of diverticulitis of colon Hypertension Obesity (BMI 30-39.9) Tobacco abuse Wheezing Home Medications lansoprazole 30 mg PO DAILY 12/05/16 [History Last Taken 05/02/20] aclidinium bromide 2 puff IH DAILY 03/02/17 [History Last Taken Unknown] albuterol sulfate 1 - 2 puff INHALATION Q4H PRN PRN 03/02/17 [History Last Taken Unknown] ondansetron HCl 4 mg tablet 4 mg PO Q8H PRN 02/05/20 [History Last Taken Unknown] trazodone 50 mg PO QHS 04/09/20 [History Last Taken 05/01/20] albuterol sulfate 2.5 mg INHALATION Q4H PRN PRN 04/12/20 [History Last Taken Unknown] gabapentin 800 mg tablet 800 mg PO TID tab 06/06/20 [History Last Taken Unknown] hydroxyzine HCl 50 mg tablet 50 mg PO ONCE PRN tab 06/06/20 [History Last Taken Unknown] lubiprostone 24 mcg capsule cap PO 06/06/20 [History Last Taken Unknown] topiramate 25 mg tablet tab PO 06/06/20 [History Last Taken Unknown] hydromorphone 8 mg tablet 8 mg PO 4X/DAY tablet 07/18/20 [History Last Taken Unknown] tizanidine 4 mg tablet tablet PO 07/18/20 [History Last Taken Unknown] diazepam 5 mg PO Q8 PRN #15 tab 08/06/20 [Rx Last Taken Unknown] Allergy/AdvReac Type Severity Reaction Status Date / Time sulfamethoxazole Allergy Other Verified 08/06/20 20:25 [From Bactrim] trimethoprim [From Bactrim] Allergy Other Verified 08/06/20 20:25 Metronidazole HCl AdvReac Unknown Verified 08/06/20 20:25 [From Flagyl] Family History (Updated 02/17/20 @ 08:32 by Jennifer Mccarthy) Mother CAD (coronary artery disease) Uncle CAD (coronary artery disease) Father Cancer Surgical History History of right knee surgery Social History (Updated 07/18/20 @ 10:[address] Deyvi Cortez DO) household members: spouse housing: house Smoking Status: Current every day smoker alcohol intake: former substance use type: does not use and marijuana do you feel safe at home: Yes ROS ROS ED Constitutional Constitutional ED: Denies chills or weight loss Eyes Eyes: Denies change in vision or diplopia ENT ENT ED: Denies ear pain, rhinorrhea or sore throat Cardiovascular Cardiovascular: Denies chest pain, orthopnea, palpitations or racing heartbeat Respiratory/Chest Respiratory/Chest: Denies cough, dyspnea or orthopnea Gastrointestinal Gastrointestinal: Denies abdominal pain, diarrhea, nausea or vomiting Genitourinary Genitourinary ED: Denies dysuria, hematuria or urinary frequency Musculoskeletal Musculoskeletal: Reports back pain; Denies arthralgias or myalgias Integumentary Denies abscess or rash Neurologic Neurologic: Denies headache(s) or weakness Psychiatric Psychiatric: Denies anxiety, depression, suicidal ideation or suicidal thoughts Endocrine Endocrinology: Denies polydipsia, polyphagia or polyuria Allergic/Immunologic Allergic/Immunologic ED: Denies mouth swelling, tongue swelling or urticaria EXAM Physical Exam Const Vital Signs: 08/06/20 20:23 Temperature 97.8 F Temperature Source Temporal Pulse Rate 76 Respiratory Rate 16 Blood Pressure 143/84 H Blood Pressure Mean 103 Pulse Ox 94 Oxygen Delivery Method Room Air Positive well nourished and well developed General Appearance ED: well developed HEENT Reports normocephalic, head/scalp atraumatic and moist mucous membranes Eyes PERRL and EOMs intact bilaterally Neck no lymphadenopathy, supple and no JVD Resp normal respiratory effort and clear to auscultation bilaterally Cardio regular rate, regular rhythm and no murmurs GI normal to inspection, nondistended, normoactive bowel sounds and non-tender GI Narrative: There is a well-healed abdominal incision which she states is from the lumbar fusion Palpation: soft Back/Spine no CVA tenderness and normal ROM Back/Spine Narrative: There is a well-healed midline lumbar incision. There are no tissue texture changes to suggest underlying abscess. He has painful range of motion. Thoracic Spine / Upper Back: paraspinal muscle tenderness Extremity normal to inspection General Extremety ED: Negative for edema General Extremity: Negative for edema Neuro oriented x3 and CN's II-XII intact bilaterally Sensorium / Orientation: alert Motor Exam: strength 5/5 throughout Psych mental status grossly normal Mood & Affect: Negative for depressed or tearful Skin no rashes or lesions noted and no wounds MDM MDM MDM Narrative Medical decision making narrative: My interpretation of the plain films of the lumbar spine is no acute process. Radiology confers. I do not see any loosening of the hardware bend of the hardware. Patient received a intramuscular dose of Dilaudid as well as p.o. dose of Valium. I did ask him to hold his tizanidine and I will add in Valium. I did advise him that I really do not have anything oral prescription corona that will compete with his already 8 mg tablets of Dilaudid. He notes understanding. I recommend follow-up with his surgeon and primary care doctor if not improving Radiography Diagnostic Testing: Radiology Impression Lumbar Spine X-Ray 08/06/20 20:40 IMPRESSION: No acute findings. Postoperative changes. at 2104 Reported and signed by: Sabrina Mittal MD Electronically Signed: Sabrina Mittal MD at 21:04 EDT Tel , Service support , Discharge Plan Triage Chief Complaint: Back ED Provider: Janes French Dx/Rx/DC Orders Clinical Impression: Acute lumbar myofascial strain Instructions: ED Back Sprain/Strain Prescriptions: New diazepam [diazepam] 5 MG tablet 5 mg PO Q8 PRN (Reason: Muscle Spasm) Qty: 15 RF: 0 No Action ondansetron HCl [Zofran] 4 mg tablet 4 mg PO Q8H PRN (Reason: Nausea) RF: 0 topiramate 25 mg tablet PO RF: 0 gabapentin 800 mg tablet 800 mg PO TID RF: 0 lubiprostone 24 mcg capsule PO RF: 0 hydroxyzine HCl 50 mg tablet 50 mg PO ONCE PRNRF: 0 hydromorphone 8 mg tablet 8 mg PO 4X/DAY RF: 0 tizanidine 4 mg tablet PO RF: 0 lansoprazole 30 MG capsule 30 mg PO DAILY RF: 0 albuterol sulfate 1 PUFF inhaler 1 - 2 puff INHALATION Q4H PRN PRN (Reason: Cough) RF: 0 aclidinium bromide 400 MCG aerosol powdr breath activated 2 puff IH DAILY RF: 0 albuterol sulfate 2.5 MG/3 ML solution for nebulization 2.5 mg INHALATION Q4H PRN PRN (Reason: Sob &/Or Wheezing) RF: 0 trazodone 50 MG tablet 50 mg PO QHS RF: 0 Primary Care Provider: Jimbo Hill Referrals: Deyvi Cortez DO [STAFF PHYSICIAN] - 1 Week if not improving Jimbo Hill DO [Primary Care Provider] - 1 Week Disposition Disposition: Home, self care
[2020-08-06] MEDS: HYDROmorphone 1 MG/ML Syringe IM (20:49)
[2020-08-06] MEDS: diazePAM 5 MG Tablet PO (20:49)
[2020-08-06 22:14] VITALS: BP 128/64; PULSE 76; RESP 16; O2SAT 96
== END 2020-08-06 22:15 | disposition home or self-care (01) ==
PROVIDERS: Emergency Provider Emergency Medicine; PCP Family Medicine
DX: S39.012A Strain of muscle, fascia and tendon of lower back, initial encounter (principal); W18.39XA Other fall on same level, initial encounter; Y93.01 Activity, walking, marching and hiking; Y92.9 Unspecified place or not applicable; Y99.8 Other external cause status; G89.29 Other chronic pain; J44.9 Chronic obstructive pulmonary disease, unspecified; K21.9 Gastro-esophageal reflux disease without esophagitis; I10 Essential (primary) hypertension; E66.9 Obesity, unspecified; Z68.37 Body mass index [BMI] 37.0-37.9, adult; F17.200 Nicotine dependence, unspecified, uncomplicated; Z79.899 Other long term (current) drug therapy
CPT/HCPCS: 72100; 96372; 99284

== ENCOUNTER 2020-08-10 12:00 | Outpatient (RCR) | payer MEDICAID, SELFPAY ==
--- NOTE | 2020-07-27 12:07 | HP.PTEVAL ---
Patient's Visit Information RAJAT PADGETT is a 45 year old M referred to Physical Therapy by Dr. Deyvi Cortez DO with a diagnosis of DDD LUMBAR. Date of Evaluation: 07/27/20 Physical Therapist: Pantera Barrientos, PT, Cert MDT, OCS - Visit Plan Frequency: 2-3x /Week Duration: 4 Weeks Plan: s/p LUMBAR FUSION 04/16/20. PT INTERVENTIONS POSTURAL EX'S,LE FLEXABLITY,DLS ABD/BACK ,LE STRENGTHNEING AND ENDURANCE PROGRAM - Subjective This 45 y/o male presents to physical therapy with s/p posterior fusion L4-5,L5-S1 on Apr 26 at [facility] done by DR Cortez. Patient had many years ,tried PT in past prior PT . Patient had MRI showed protruding/HNP disc and DDD/stenosis. Pateint tried pain pain management in past several epidural injections.Patient seen DR on 07/18/20 had x-rays. Recommended PT. Patient on diladid,gabepetin,muscle relaxer. Patint has symmtrical lumbar pain and bilateral lateral hip pain. Denies parathesia/tingling. Bowel/bladder -. Coughing/seezing -. Patient symptoms affects sleeping. Aggraveting factors sitting, and standing ,difficulty with bending. Allevaiting factors MEDS. Patient contion affects QOL and function. VOCATION: unemployed. SOCAIL: single - Pain Bilateral Back Pain Intensity (Out of 10): 8 Pain Intensity Range: 10 Bilateral Hip Pain Intensity (Out of 10): 8 Pain Intensity Range: 10 - Objective POSTURE:mild foward posture. GAIT: antalgic gait mild foward posture reciprocal pattern. NEURO: denies parathesia/tingling ,reflexes L3-4,L4-5,L5-S1 1/. FLEXABLITY: hams mod tight. LUMBAR ROM: flexion mod loss,extension severe loss,side glides mod loss pain. MMT: quads 3+/5,hams 4-/5,hip flexion 3+/5 ,ankle 4-/5 - Goals Goal 1:: I with HEP Goal Time Frame: 4-6 Weeks Goal 2:: Patient to improve posture for IADLS Goal Time Frame: 4-6 Weeks Goal 3:: Patient to decrease lumbar pain by 50% or > to improve function Goal Time Frame: 4-6 Weeks Goal 4:: Patient to increase lumbar ROM for functioN of recovery Goal Time Frame: 4-6 Weeks Goal 5:: Patient to increase strength BLE to 4/5 to improvefunction Goal Time Frame: 4-6 Weeks Goal 6:: Patient to improve back owestry score by 5 points or > to improve QOL. Goal Time Frame: 4-6 Weeks - Rehabilitation Potential Physical Therapy Diagnosis: Patient underwent s/p lumbar fusion with impairments with weakness in legs ,pain,decrease lumbar ROM ,gait and function thus anayeli florentino from skilled PT Rehabilitation Potential: Good - Anticipated Interventions Patient/Client Instruction: Educate patient on: Condition, Plan of Care For the Purpose of:: To decrease pain, To increase ROM, To improve muscle performance and motor function, To improve ability to perform ADL's, To increase tolerance to activity/condition/position, To improve ability of physical actions for home/community/work/leisure, To improve health of tissue, To decrease soft tissue restriction, To increase flexibility/ROM, To reduce risk of recurrence Therapeutic Exercise to Include: Strength training, Endurance training, Body mechanics, Postural training, Flexibilty training, Dynamic Lumbar Stabilization For the Purpose of:: To decrease pain, To increase ROM, To improve muscle performance and motor function, To improve ability to perform ADL's, To increase tolerance to activity/condition/position, To improve performance and independence with ADL's, To improve ability of physical actions for home/community/work/leisure, To improve health of tissue, To decrease soft tissue restriction, To increase flexibility/ROM, To improve ability to perform tasks related to life management TENS: Yes IF ES: Yes Cryotherapy (ice pack, ice massage): Yes Thermo therapy (hot pack): Yes For the Purpose of:: To decrease pain, To improve health of tissue, To decrease soft tissue restriction Thank you for the opportunity to evaluate your patient. For Medicare and Medicare HMO plans, please review the plan of care and approve it. It will need to be FAXED BACK to us at [phone] for Medicare purposes. For Medicare only, by signing this I certify the plan of care. Please let me know if there are questions or concerns regarding this plan of care. Physician Signature: Date:
--- NOTE | 2021-01-10 07:38 | HP.PT.NRP ---
RAJAT FITCH was seen in my office for initial evaluation on 07/27/20. The following Plan of Care was established for this patient: Initial Frequency: 2-3x /Week Initial Duration: 4 Weeks Patient/Client Instruction: Educate patient on: Condition, Plan of Care For the Purpose of:: To decrease pain, To increase ROM, To improve muscle performance and motor function, To improve ability to perform ADL's, To increase tolerance to activity/condition/position, To improve ability of physical actions for home/community/work/leisure, To improve health of tissue, To decrease soft tissue restriction, To increase flexibility/ROM, To reduce risk of recurrence Therapeutic Exercise to Include: Strength training, Endurance training, Body mechanics, Postural training, Flexibilty training, Dynamic Lumbar Stabilization For the Purpose of:: To decrease pain, To increase ROM, To improve muscle performance and motor function, To improve ability to perform ADL's, To increase tolerance to activity/condition/position, To improve performance and independence with ADL's, To improve ability of physical actions for home/community/work/leisure, To improve health of tissue, To decrease soft tissue restriction, To increase flexibility/ROM, To improve ability to perform tasks related to life management TENS: Yes IF ES: Yes Cryotherapy (ice pack, ice massage): Yes Thermo therapy (hot pack): Yes For the Purpose of:: To decrease pain, To improve health of tissue, To decrease soft tissue restriction This patient was last seen in our office . Pertinent comments regarding their Physical therapy will appear below: Patient underwent s/p lumbar fusion with treatment focusing on DLS ,postural ex's and HEP At this point I will be discontinuing this patient from physical therapy. I would be happy to see this patient again in the future if found appropriate by the physician. Thank you! Pantera Barrientos, PT, Cert MDT, OCS Balance/Gait/Functional tests - Balance/Special Test Scores Oswestry Low Back Score: 6
== END 2020-08-10 19:00 | disposition home or self-care (01) ==
LOC: PT 12:00
PROVIDERS: PCP Family Medicine; Referring Provider Orthopaedic Surgery; Visit Provider Orthopaedic Surgery
DX: M51.36 Other intervertebral disc degeneration, lumbar region (principal)
CPT/HCPCS: 97110; 97162

== ENCOUNTER 2020-12-22 07:16 | Emergency (ER) | payer MEDICAID, SELFPAY ==
[2020-12-22 07:16] VITALS: BP 137/95; PULSE 76; RESP 18; TEMP 36.6; O2SAT 95; BMI 34.8
--- NOTE | 2020-12-22 07:31 | CT_ITS ---
STUDY: CT ABDOMEN AND PELVIS WITH CONTRAST REASON FOR EXAM: Male, 45 years old. LLQ pain. History of prior diverticulitis. -- IV PO Contrast RADIATION DOSAGE (If Supplied By Facility): CTDIvol = ( 21.16 ) mGy, DLP = ( 1783.43 ) mGycm TECHNIQUE: Transaxial images were obtained from the dome of the diaphragm to the symphysis pubis with oral contrast. Oral and amp;amp; IV Gastrografin and amp;amp; 100mL Isovue-370 was administered. Sagittal and coronal images were reconstructed. Individualized dose optimization techniques were used for this CT. COMPARISON: Comparison is made with prior study dated 10/30/2020. FINDINGS: The visualized lung bases are unremarkable. The visualized portions of the heart are within normal limits. There is decreased attenuation of the liver consistent with steatosis. Normal gallbladder and extrahepatic biliary system. Normal spleen. Normal pancreas. Normal bilateral adrenal glands. Normal right kidney. Normal left kidney. Normal visualized stomach. Normal small intestine. There are scattered colonic diverticula consistent with diverticulosis. The appendix is visualized and appears normal. There is scattered atherosclerotic calcification of the abdominal aorta, without a demonstrated aneurysm. Normal inferior vena cava. Normal retroperitoneum. Distended urinary bladder. Normal abdominal wall. Prior to 20 cc degree fusion at the L4-L5 and L5-S1 level. The previously seen soft tissue density along the left side of the anterior sacrum has resolved. CT/Abdomen/Pelvis WITH Contrast IMPRESSION: Distended urinary bladder. Scattered sigmoid diverticula. Fatty infiltration of the liver. Electronically Signed: George Garcia MD at 9:36 EDT , Service support ,
--- NOTE | 2020-12-22 07:33 | EX.ED.DYSGE1 ---
HPI History of Present Illness Chief Complaint: Abd Pain Informant: patient Onset/Context/Timing Onset: Yesterday Current Severity: Mild Maximum Severity: Moderate Narrative Narrative: Patient presents secondary to left lower quadrant abdominal pain. He states he noticed a painful lump in that area yesterday. In April of this year he had back surgery with an anterior approach. He is concerned because the surgery site correlates with the area of his pain. He denies fever or chills but states he has had some hot flashes the last couple days. He denies shortness of breath or cough. No diarrhea or constipation. Normal urination. [facility] Medical History Acute bronchitis Alcohol abuse, in remission Chest pain Chronic low back pain COPD (chronic obstructive pulmonary disease) COPD exacerbation Cough Fusion of lumbar spine GERD (gastroesophageal reflux disease) History of diverticulitis of colon Hypertension Obesity (BMI 30-39.9) Tobacco abuse Wheezing Home Medications lansoprazole 30 mg PO DAILY 12/05/16 [History Last Taken 05/02/20] aclidinium bromide 2 puff IH DAILY 03/02/17 [History Last Taken Unknown] albuterol sulfate 1 - 2 puff INHALATION Q4H PRN PRN 03/02/17 [History Last Taken Unknown] ondansetron HCl 4 mg tablet 4 mg PO Q8H PRN 02/05/20 [History Last Taken Unknown] trazodone 50 mg PO QHS 04/09/20 [History Last Taken 05/01/20] albuterol sulfate 2.5 mg INHALATION Q4H PRN PRN 04/12/20 [History Last Taken Unknown] lubiprostone 24 mcg capsule cap PO 06/06/20 [History Last Taken Unknown] topiramate 25 mg tablet tab PO 06/06/20 [History Last Taken Unknown] tizanidine 4 mg tablet tablet PO 07/18/20 [History Last Taken Unknown] diazepam 5 mg PO Q8 PRN #15 tab 08/06/20 [Rx Last Taken Unknown] hydromorphone 8 mg tablet 8 mg PO TID tab 11/04/20 [History Last Taken Unknown] ketorolac 10 mg PO Q6H PRN 3 Days #14 tab 12/22/20 [Rx Last Taken Unknown] Allergy/AdvReac Type Severity Reaction Status Date / Time sulfamethoxazole Allergy Other Verified 12/22/20 07:19 [From Bactrim] trimethoprim [From Bactrim] Allergy Other Verified 12/22/20 07:19 Metronidazole HCl AdvReac Unknown Verified 12/22/20 07:19 [From Flagyl] Family History Mother CAD (coronary artery disease) Uncle CAD (coronary artery disease) Father Cancer Surgical History History of right knee surgery Social History household members: spouse housing: house Smoking Status: Current every day smoker tobacco type: cigarettes alcohol intake: former substance use type: does not use and marijuana do you feel safe at home: Yes ROS ROS ED Constitutional Constitutional ED: Denies chills or fever(s) Eyes Eyes: Denies change in vision ENT ENT ED: Denies sore throat Cardiovascular Cardiovascular: Denies chest pain Respiratory/Chest Respiratory/Chest: Denies cough or dyspnea Gastrointestinal Gastrointestinal: Reports abdominal pain; Denies diarrhea, nausea or vomiting Genitourinary Genitourinary ED: Denies dysuria Musculoskeletal Musculoskeletal: Denies back pain Integumentary Denies rash Neurologic Neurologic: Denies headache(s) or weakness Allergic/Immunologic Allergic/Immunologic ED: Denies urticaria EXAM Physical Exam Const Vital Signs: 12/22/20 07:16 12/22/20 09:42 Temperature 97.8 F Temperature Source Temporal Pulse Rate 76 65 Respiratory Rate 18 16 Blood Pressure 137/95 H 152/97 H Blood Pressure Mean 109 115 Pulse Ox 95 97 Oxygen Delivery Method Room Air Room Air Positive well nourished and well developed General Appearance ED: well developed HEENT Reports normocephalic and head/scalp atraumatic Eyes PERRL and EOMs intact bilaterally Neck supple Chest Wall inspection of chest normal and palpation of chest normal Resp normal respiratory effort and clear to auscultation bilaterally Cardio regular rate and regular rhythm GI normal to inspection, nondistended, normoactive bowel sounds GI Narrative: Transverse lower abdominal incision well-healed. No palpable masses or hernias at this time. Palpation: soft Extremity normal to inspection Neuro oriented x3 and no sensory deficits noted Sensorium / Orientation: alert Motor Exam: strength 5/5 throughout Psych mental status grossly normal Skin no rashes or lesions noted MDM MDM MDM Narrative Medical decision making narrative: Patient was given morphine and Zofran for pain. Lab work and CT scan abdomen pelvis ordered. Lab Data Attestation: I reviewed the patient's lab results. Labs: Laboratory Results - last 24 hr 12/22/20 12/22/20 07:35 07:35 WBC 8.3 RBC 4.68 Hgb 14.0 Hct 43.2 MCV 92.3 MCH 29.9 MCHC 32.4 RDW Std Deviation 48.2 H RDW Coeff of Rudolph 14.2 Plt Count 493 H MPV 9.1 Immature Gran % (Auto) 0.400 Neut % (Auto) 52.4 Lymph % (Auto) 30.5 [place] % (Auto) 8.3 Eos % (Auto) 7.6 H Baso % (Auto) 0.8 Absolute Neuts (auto) 4.4 Absolute Lymphs (auto) 2.54 Nucleated RBC % 0 Sodium 137 Potassium 4.2 Chloride 107 Carbon Dioxide 25.0 Anion Gap 5 BUN 15 Creatinine 0.85 Estim Creat Clear Calc 116.89 Est GFR (MDRD) Af Amer 126 Est GFR (MDRD) Non-Af 104 BUN/Creatinine Ratio 17.7 Glucose 98 Calcium 9.0 Radiography Diagnostic Testing: Radiology Impression Abdomen/Pelvis CT 12/22/20 07:31 IMPRESSION: Distended urinary bladder. Scattered sigmoid diverticula. Fatty infiltration of the liver. Electronically Signed: George Garcia MD at 9:36 EDT , Service support , Treatment and Re-Evaluation Comments:: Lab work is unremarkable. CT scan reveals evidence of diverticula but no diverticulitis. Bladder is distended. On my review of imaging there does appear to be some inflammatory changes in the soft tissue of the anterior abdominal wall, may be secondary to scar tissue from his prior surgical incision. At this time I do not see evidence of hernia, but patient certain describes what sounds like incisional hernia. He will be given prescription for Toradol to help with pain at home and will be referred to Dr. Correa for follow-up whom he has seen in the past. Discharge Plan Triage Chief Complaint: Abd Pain ED Provider: Giovanna Galeana Dx/Rx/DC Orders Clinical Impression: Hernia, incisional Instructions: ED Hernia (Adult) Prescriptions: New ketorolac 10 mg tablet 10 mg PO Q6H PRN (Reason: pain) 3 Days Qty: 14 RF: 0 No Action ondansetron HCl [Zofran] 4 mg tablet 4 mg PO Q8H PRN (Reason: Nausea) RF: 0 topiramate 25 mg tablet PO RF: 0 lubiprostone 24 mcg capsule PO RF: 0 tizanidine 4 mg tablet PO RF: 0 hydromorphone 8 mg tablet 8 mg PO TID RF: 0 lansoprazole 30 MG capsule 30 mg PO DAILY RF: 0 albuterol sulfate 1 PUFF inhaler 1 - 2 puff INHALATION Q4H PRN PRN (Reason: Cough) RF: 0 aclidinium bromide 400 MCG aerosol powdr breath activated 2 puff IH DAILY RF: 0 albuterol sulfate 2.5 MG/3 ML solution for nebulization 2.5 mg INHALATION Q4H PRN PRN (Reason: Sob &/Or Wheezing) RF: 0 trazodone 50 MG tablet 50 mg PO QHS RF: 0 diazepam [diazepam] 5 MG tablet 5 mg PO Q8 PRN (Reason: Muscle Spasm) Qty: 15 RF: 0 Primary Care Provider: Jimbo Hill Referrals: Kg Correa MD [STAFF PHYSICIAN] - 1 Week Jimbo Hill DO [Primary Care Provider] - Disposition Disposition: Home, Self Care
[2020-12-22 07:45] LABS: Absolute Lymphocyte Count 2.54 X10^3/uL (0.83-4.51); Absolute Neutrophil Count 4.4 X10^3/uL (2.0-7.7); Basophil# 0.07 X10^3/uL; Basophil% 0.8 % (0-1); Eosinophil# 0.63 X10^3/uL; Eosinophils% 7.6 % (0-5); Hematocrit 43.2 % (40-54); Lymphocyte # 2.54 X10^3/ul (0.83-4.51); Lymphocyte % 30.5 % (19-41); Mean Corp Hgb Conc 32.4 g/dL (32-36); Mean Corpuscular Hgb 29.9 pg (27.0-32.0); Mean Corpuscular Volume 92.3 fL (80-94); Mean Platelet Vol. 9.1 fl (6.2-12.0); Monocyte# 0.69 X10^3/uL; Monocyte% 8.3 % (0-10); NRBC Flagged by Analyzer 0 % (0-5); Neutrophil # 4.38 X10^3/uL (2.7-7.7); Neutrophil % 52.4 % (47-70); Platelet Count 493 K/mm3 (150-450); RBC Distribution Width CV 14.2 % (11.6-14.6); RBC Distribution Width SD 48.2 fl (35.1-43.9); Red Blood Count 4.68 M/mm3 (4.6-6.2); White Blood Count 8.3 K/mm3 (4.4-11.0)
[2020-12-22] MEDS: Morphine 4 MG/ML Syringe IV (07:53)
[2020-12-22] MEDS: 0.9% Normal Saline 1,000 ML 150 ML IV (07:53)
[2020-12-22] MEDS: Ondansetron 4 MG/2 ML Vial IV (07:53)
[2020-12-22 07:59] LABS: Anion Gap 5 (5-15); BUN 15 mg/dL (7-18); BUN/Creat Ratio 17.7 RATIO (10-20); Chloride 107 mmol/L (98-107); Creatinine, Serum 0.85 mg/dL (0.70-1.30); EST Glomerular Filtration Rate 104 mL/min (>60); Est Glom Filt Rate - Afr Amer 126 mL/min (>60); Estimated Creatinine Clearance 116.89 ml/min; Glucose 98 mg/dL (74-106); Potassium 4.2 mmol/L (3.5-5.1); Sodium Level 137 mmol/L (136-145)
[2020-12-22 09:42] VITALS: BP 152/97; PULSE 65; RESP 16; O2SAT 97
[2020-12-22] MEDS: Ketorolac 30 MG/ML Syringe IV (09:45)
== END 2020-12-22 10:03 | disposition home or self-care (01) ==
PROVIDERS: Emergency Provider Emergency Medicine; PCP Family Medicine
DX: K43.2 Incisional hernia without obstruction or gangrene (principal); K76.0 Fatty (change of) liver, not elsewhere classified; K57.30 Diverticulosis of large intestine without perforation or abscess without bleeding; I10 Essential (primary) hypertension; J44.9 Chronic obstructive pulmonary disease, unspecified; K21.9 Gastro-esophageal reflux disease without esophagitis; E66.9 Obesity, unspecified; Z68.34 Body mass index [BMI] 34.0-34.9, adult; F10.11 Alcohol abuse, in remission; F17.210 Nicotine dependence, cigarettes, uncomplicated; Z79.899 Other long term (current) drug therapy
CPT/HCPCS: 74177; 80048; 85025; 96361; 96374; 96375; 99283; J7030; Q9967; A4216; J2405

== ENCOUNTER 2021-01-03 06:02 | Day surgery (SDC) | payer MEDICAID, SELFPAY ==
[2021-01-03] VITALS (14 sets, daily range): BP systolic 105–159; BP diastolic 55–106; PULSE 71–87; RESP 12–20; TEMP 35.9–36.6; O2SAT 89–96; BMI 36.6
[2021-01-03] MEDS: Lactated Ringers 1,000 ML 100 ML IV (06:46)
--- NOTE | 2021-01-03 06:50 | HP.PCM_ITS ---
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 Is patient in pain?: No Allergies sulfamethoxazole [From Bactrim] Allergy (Verified 12/28/20 14:45) Other trimethoprim [From Bactrim] Allergy (Verified 12/28/20 14:45) Other Metronidazole HCl [From Flagyl] Adverse Reaction (Verified 12/28/20 14:45) Unknown Medications lansoprazole 30 mg PO DAILY 12/05/16 [History Confirmed 12/28/20] aclidinium bromide 2 puff IH DAILY 03/02/17 [History Confirmed 12/28/20] albuterol sulfate 1 - 2 puff INHALATION Q4H PRN PRN 03/02/17 [History Confirmed 12/28/20] ondansetron HCl 4 mg tablet 4 mg PO Q8H PRN 02/05/20 [History Confirmed 12/28/20] trazodone 50 mg PO QHS 04/09/20 [History Confirmed 12/28/20] albuterol sulfate 2.5 mg INHALATION Q4H PRN PRN 04/12/20 [History Confirmed 12/28/20] lubiprostone 24 mcg capsule cap PO 06/06/20 [History Confirmed 12/28/20] topiramate 25 mg tablet tab PO 06/06/20 [History Confirmed 12/28/20] tizanidine 4 mg tablet tablet PO 07/18/20 [History Confirmed 12/28/20] diazepam 5 mg PO Q8 PRN #15 tab 08/06/20 [Rx Confirmed 12/28/20] hydromorphone 8 mg tablet 8 mg PO TID tab 11/04/20 [History Confirmed 12/28/20] ketorolac 10 mg PO Q6H PRN 3 Days #14 tab 12/22/20 [Rx Confirmed 12/28/20] PFSH Medical History Acute bronchitis Alcohol abuse, in remission Chest pain Chronic low back pain COPD (chronic obstructive pulmonary disease) COPD exacerbation Cough Fusion of lumbar spine GERD (gastroesophageal reflux disease) History of diverticulitis of colon Hypertension Obesity (BMI 30-39.9) Tobacco abuse Wheezing Surgical History History of right knee surgery Previous back surgery Family History Mother CAD (coronary artery disease) Uncle CAD (coronary artery disease) Father Cancer Social History household members: spouse housing: house Smoking Status: Current every day smoker tobacco type: cigarettes alcohol intake: former substance use type: does not use and marijuana do you feel safe at home: Yes HPI HPI HPI: RAJAT FITCH, is a 45 M who presents to the office today for left lower abdominal pain and bulging. The patient reports that he is feeling bulging and pain in the area of his prior incision. Patient had anterior approach spine surgery in October of this year. He denies any nausea or vomiting or fevers or chills. ROS General General: Yes fatigue; No weight change, appetite, colon cancer, breast cancer or weakness HEENT HEENT: No difficulty swallowing, eye injury, eye surgery, swollen glands or hoarseness Endo Endocrine: No thyroid disease, diabetes mellitus, thyroid cancer, Hair loss, heat intolerance or cold intolerance Skin Skin: No rash or changing moles Breast Breast: No left breast lump, right breast lump, nipple discharge, breast pain, abnormal mammogram, abnormal US or breast enlargement Musc Musculoskeletal: Yes back problems and arthritis; No rheumatoid arthritis, gout or joint pain Cardio Cardiovascular: No murmur, pacemaker, heart disease, atrial fibrillation, high blood pressure, heart attack, heart stent, palpitations, shortness of breat with exertion or chest pain Psych Psychiatric: No depression, anxiety or hearing voices Resp Respiratory: No shortness of breath, No sleep apnea, No cough, Yes COPD, Yes asthma, No emphysema and No wheezing Gastro Gastrointestinal: Yes abdominal pain, Yes nausea or vomiting, No diarrhea, No constipation, No blood in stool, Yes acid reflux, No hemorrhoids, No ulcers, No gallbladder problem and No black,tarry stools John Hematologic: No blood thinners, No blood disorders, No bleeding, No anemia and No blood clots Neuro Neurologic: No system reviewed and no additional complaints, except as documented, No as per HPI, No abnormal gait, No abnormal hearing, No abnormal movements, No abnormal speech, No behavioral changes, No burning sensations, No confusion, No convulsions, No disequilibrium, No dizziness, No localized weakness, No frequent falls, No headache(s), No lack of coordination, No loss of vision, No memory loss, Yes numbness, No other visual disturbances, No radicular pain, No restless legs, No sensory deficit, No syncope, Yes tingling, No t remor(s), No weakness and No other Exam Const General: cooperative Orientation: alert and oriented x3 HENMT Head: normal to inspection Neck Neck: normal visual inspection and full ROM Chest Chest palpation & inspection: normal inspection of the chest Resp Effort & Inspection: normal respiratory effort Auscultation: clear to auscultation bilaterally Cardio Rate: regular rate Rhythm: regular rhythm GI Inspection: non-distended Palpation: soft, hernia (Left lower quadrant reducible hernia) and nontender Skin General: no rashes or lesions noted Neuro General: patient alert and patient oriented x3 Extrem General: full ROM Psych Appearance: grossly normal Mental Status: mental status grossly normal Assessment and Plan Assessment and Plan (1) Ventral hernia: Status: Acute Qualifiers: Obstruction and gangrene presence: without obstruction or gangrene Qualified Code(s): K43.9 - Ventral hernia without obstruction or gangrene Plan - Dr. Kg Correa MD: The patient had CT scan recently which shows subgaleal hernia of the left lower quadrant at the incision from his prior surgery. I discussed laparoscopic ventral hernia repair with mesh with the patient in detail. I discussed the risks include not limited to bleeding, infection, injury to underlying organs and having to remove scar tissue from under the prior incision. I explained mesh closure of the spigelian hernia. Patient understands all the risks and will decide if he would like to proceed with surgery. Kg Correa MD Pager: [facility] [address] [place] [address], [address] [place] [address] Office: I have re-examined the patient. There are no clinical changes since date of exam.
[2021-01-03] MEDS: Cefazolin 2 GM in 0.9% Normal Saline 100 ML IV (07:40)
[2021-01-03] MEDS: Bupivacaine 0.25% 30 ML Vial (08:07)
--- NOTE | 2021-01-03 08:32 | OP.PCM_ITS ---
Problems Associated Problem List Diagnoses (1) Ventral hernia: Report of Operation Date of Procedure: 01/03/21 Pre-Operative Diagnosis: Incisional ventral hernia Post-Operative Diagnosis: Same Surgery/Procedure Performed:: Laparoscopic ventral hernia repair with mesh Description of Procedure: Patient was brought back the operating room and general anesthesia was induced. The abdomen was prepped and draped in usual sterile fashion. Midline incision was made superior to the umbilicus and deepened to the fascia. Fascia was elevated and incised. Port was placed into the abdomen and the abdomen was insufflated to 15 mmHg. The abdomen was inspected and the patient was placed in Trendelenburg. The patient had a hernia defect in the left lower quadrant. A right sided 5 mm ports placed under direct visualization. A small steven in the skin was made in the left lower quadrant and using a Randall Peng needle 0 Nurolon sutures were used to reapproximate the hernia defect. Next an 11 cm round ventral light ST mesh with echo positioning device was placed through the 12 mm port and the tail of this was grasped with a Randall Peng and brought through the hernia defect and the balloon was inflated. Four-quadrant tacks were placed with secure strap tacks. The balloon was removed and it was inspected to be complete with no damage. Next circumferential tacks were placed in 2 rows. There is good coverage of the hernia defect. The air was then allowed to desufflate from the abdomen and the 12 mm port fascia was closed with [id number] 0 Vicryl suture. Skin in cisions were injected with local anesthetic and closed with interrupted 4-0 Monocryl suture. Patient was then awoken and taken to PACU in stable condition and tolerated procedure well. Grafts/Implants Used: [address] mesh Admit VTE Documentation VTE Mechan Device Prophylaxis: SCD's
--- NOTE | 2021-01-03 08:38 | EX.PCM.DISCH ---
Discharge Instructions Procedure Hernia Diet Discharge Diet: Light diet - advance as tolerated Activity Discharge Activity: May Not Drive (for 2-3 days or while taking narcotic pain meds.) and May Shower (with the bandage in place 1-2 days after surgery.) Lifting Restrictions: 20 pounds for 6 weeks. Additional Activity Instructions:: Climbing stairs is fine, walking is encouraged. Sitting in bed may be uncomfortable. Sitting up using your lateral muscles (sitting up sideways) is usually more comfortable. Do not drive, work heavy equipment of sign legal documents for 24 hours. Pain medications may cause nausea, you should typically eat light foods as you take your pain medications. Pain medications may also cause constipation. If you have difficulty with this, discuss with your doctor. Dressing / Incision Call your doctor if your incision/area has: Continuous Slow Oozing, Sudden Increased Bleeding, Increased Pain/ Swelling, Increased Redness and Foul Smelling Discharge Call your doctor if you observe: Fever of 101 or Higher Suture Line Care: Avoid Pulling/Pushing and Avoid Pinching/Bending Remove Dressing in: 2 days (Remove Steri-Strips in 7 to 10 days) Cleanse incision/area with: Soap & Water Follow Up Care Please Follow Up With: Kg Correa MD When: Please call to schedule 2 week follow up appointment. [phone] Test Results: Test results from this visit will be discussed in further detail at your follow-up appointment, if applicable. Discharge Plan Admission Attending Provider: Kg Correa Primary Care Provider: Jimbo Hill Discharge Orders/Prescriptions Prescriptions: New oxycodone 5 mg tablet 10 mg PO Q4H PRN (Reason: pain) 5 Days Qty: 20 RF: 0 No Action ondansetron HCl [Zofran] 4 mg tablet 4 mg PO Q8H PRN (Reason: Nausea) RF: 0 topiramate 25 mg tablet 25 mg PO PRN PRN (Reason: MIGRAINES) RF: 0 tizanidine 4 mg tablet 4 mg PO 4X/DAY RF: 0 lansoprazole 30 MG capsule 30 mg PO DAILY RF: 0 albuterol sulfate 1 PUFF inhaler 1 - 2 puff INHALATION Q4H PRN PRN (Reason: Cough) RF: 0 aclidinium bromide 400 MCG aerosol powdr breath activated 2 puff IH DAILY RF: 0 albuterol sulfate 2.5 MG/3 ML solution for nebulization 2.5 mg INHALATION Q4H PRN PRN (Reason: Sob &/Or Wheezing) RF: 0 trazodone 50 MG tablet 50 mg PO QHS RF: 0 hydroxyzine HCl 50 mg Tablet 50 mg PO BID RF: 0 oxycodone-acetaminophen [Percocet] 10-325 mg Tablet 1 tab PO Q4H RF: 0 gabapentin 800 mg Tablet 800 mg PO TID RF: 0 Referrals / Follow Up: Jimbo Hill DO [Primary Care Provider] - Disposition Disposition (needs filled in before D/C Order can be placed): Home, Self Care
[2021-01-03] MEDS: Ipratropium/Albuterol Sulfate 3 ML AMPUL.NEB INHALATION (09:35)
--- NOTE | 2021-01-03 10:13 | SUR.PHASEI ---
THIS NURSE CALLED OUT TO [employer] TO HAVE HER LET S.O. KNOW THAT WE ARE TRYING TO GET HIS PAIN UNDER CONTROL, AND GET HIM WEENED OFF OF O2.
--- NOTE | 2021-01-03 10:30 | SUR.PHASEI ---
THIS NURSE TALKED TO HIS AND SHE STATED THAT HE HAS A HISTORY OF DRUG ABUSE. SHE WAS CONCERNED ABOUT GIVING HIM MORE NARCOTICS. DR. GIBBONS HAPPENED TO BE IN THE ROOM, SO I GAVE THE PHONE TO HIS SO SHE COULD UPDATE HIM
--- NOTE | 2021-01-03 10:46 | SUR.PHASEI ---
PATIENT IS CURRENTLY SLEEPING AND SATING 91-92% ON ROOM AIR. [facility] NURSE ASKED DR. RAMOS IF HE FEELS COMFORTABLE SENDING HIM BACK OVER TO PACU AND HE SAID YES. NO MORE IV PAIN MEDICATION TO BE GIVEN CURRENTLY.
[2021-01-03] MEDS: Acetaminophen 500 MG Tablet 1000 MG PO (11:29)
== END 2021-01-03 12:00 | disposition home or self-care (01) ==
LOC: SDC 06:02 → AC 06:03
PROVIDERS: PCP Family Medicine; Referring Provider Surgery; Visit Provider Surgery
PROC: 0WQF4ZZ Repair Abdominal Wall, Percutaneous Endoscopic Approach (ICD-10-PCS; CPT 49654; principal; 2021-01-03 07:10)
DX: K43.2 Incisional hernia without obstruction or gangrene (principal); I10 Essential (primary) hypertension; K21.9 Gastro-esophageal reflux disease without esophagitis; J44.9 Chronic obstructive pulmonary disease, unspecified; F17.210 Nicotine dependence, cigarettes, uncomplicated; E66.9 Obesity, unspecified; Z68.34 Body mass index [BMI] 34.0-34.9, adult; Z79.899 Other long term (current) drug therapy; Z20.822 Contact with and (suspected) exposure to COVID-19
CPT/HCPCS: 49654; 87426; C9803; J7120; J2405

== ENCOUNTER 2021-01-06 12:24 | Emergency (ER) | payer MEDICAID, SELFPAY ==
[2021-01-06 12:25] VITALS: BP 128/74; PULSE 91; RESP 16; TEMP 37.1; O2SAT 93; BMI 35.5
[2021-01-06 14:14] LABS: Absolute Lymphocyte Count 2.83 X10^3/uL (0.83-4.51); Absolute Neutrophil Count 6.7 X10^3/uL (2.0-7.7); Basophil# 0.07 X10^3/uL; Basophil% 0.6 % (0-1); Eosinophil# 0.62 X10^3/uL; Eosinophils% 5.7 % (0-5); Hematocrit 43.4 % (40-54); Hemoglobin 14.2 g/dL (13.0-16.5); Lymphocyte # 2.83 X10^3/ul (0.83-4.51); Lymphocyte % 25.9 % (19-41); Mean Corp Hgb Conc 32.7 g/dL (32-36); Mean Corpuscular Hgb 29.8 pg (27.0-32.0); Mean Platelet Vol. 9.2 fl (6.2-12.0); Monocyte# 0.72 X10^3/uL; Monocyte% 6.6 % (0-10); NRBC Flagged by Analyzer 0 % (0-5); Neutrophil # 6.65 X10^3/uL (2.7-7.7); Neutrophil % 60.8 % (47-70); Platelet Count 535 K/mm3 (150-450); RBC Distribution Width CV 13.9 % (11.6-14.6); RBC Distribution Width SD 46.8 fl (35.1-43.9); Red Blood Count 4.77 M/mm3 (4.6-6.2); White Blood Count 10.9 K/mm3 (4.4-11.0)
--- NOTE | 2021-01-06 14:16 | CT_ITS ---
STUDY: CT ABDOMEN AND PELVIS WITH CONTRAST REASON FOR EXAM: Male, 45 years old. LLQ pain -- IV PO Contrast. Recent hernia repair RADIATION DOSAGE (If Supplied By Facility): CTDIvol = ( 22.96 ) mGy, DLP = ( 1836.33 ) mGycm TECHNIQUE: Transaxial images were obtained from the dome of the diaphragm to the symphysis pubis without oral contrast. Oral and amp; IV Gastrografin and amp; 100mL Isovue-370 was administered. Sagittal and coronal images were reconstructed. Individualized dose optimization techniques were used for this CT. COMPARISON: 12/22/2020. FINDINGS: The visualized lung bases are unremarkable. The visualized portions of the heart are within normal limits. Normal liver. Normal gallbladder and extrahepatic biliary system. Normal spleen. Normal pancreas. Normal bilateral adrenal glands. Normal right kidney. Normal left kidney. Normal visualized stomach. Normal small intestine. Diverticulosis of the colon. Mild wall thickening and adjacent mesenteric stranding involving the proximal sigmoid/distal descending colon. The appendix is visualized and appears normal. Calcified abdominal aorta. Normal inferior vena cava. Normal retroperitoneum. Normal urinary bladder. Possible small collection measuring 2.4 x 1 cm in the left lateral abdominal wall. Post surgical changes from L4 through S1. CT/Abdomen/Pelvis WITH Contrast IMPRESSION: Diverticulosis of the colon. Mild wall thickening and adjacent mesenteric stranding involving the proximal sigmoid/distal descending colon. Possible small collection in the left lateral abdominal wall. Electronically Signed: Zuhair Anguiano DO at 16:28 EDT Tel [phone], Service support ,
--- NOTE | 2021-01-06 14:16 | EX.ED.DYSGE1 ---
HPI History of Present Illness Chief Complaint: Abd Pain Informant: patient Onset/Context/Timing Onset: Days Context: Gradual Onset Current Severity: Moderate Maximum Severity: Moderate Narrative Narrative: Patient present secondary to postop abdominal pain. He had a hernia repair Saturday with Dr. Correa. He states he felt well yesterday, , but today woke up with increased left lower quadrant pain. He did have a bowel movement today and stated there was flesh colored material in his stool. He states he has not eaten since 2 PM yesterday afternoon but still feels very full and bloated. He has felt warm but did not measure a fever. [facility] Medical History Acute bronchitis Alcohol abuse, in remission Anxiety Chest pain Chronic low back pain COPD (chronic obstructive pulmonary disease) COPD exacerbation Cough Fusion of lumbar spine GERD (gastroesophageal reflux disease) History of diverticulitis of colon History of stress test Hypertension Obesity (BMI 30-39.9) Restless legs Tobacco abuse Wears contact lenses Wears dentures Wheezing Home Medications lansoprazole 30 mg PO DAILY 12/05/16 [History Last Taken 01/03/21] aclidinium bromide 2 puff IH DAILY 03/02/17 [History Last Taken Unknown] albuterol sulfate 1 - 2 puff INHALATION Q4H PRN PRN 03/02/17 [History Last Taken 01/03/21] ondansetron HCl 4 mg tablet 4 mg PO Q8H PRN 02/05/20 [History Last Taken Unknown] trazodone 50 mg PO QHS 04/09/20 [History Last Taken 05/01/20] albuterol sulfate 2.5 mg INHALATION Q4H PRN PRN 04/12/20 [History Last Taken Unknown] topiramate 25 mg tablet 25 mg PO PRN PRN 06/06/20 [History Last Taken Unknown] tizanidine 4 mg tablet 4 mg PO 4X/DAY 07/18/20 [History Last Taken Unknown] gabapentin 800 mg PO TID 01/02/21 [History Last Taken Unknown] hydroxyzine HCl 50 mg PO BID 01/02/21 [History Last Taken 01/03/21] oxycodone-acetaminophen [Percocet] 1 tab PO Q4H 01/02/21 [History Last Taken Unknown] oxycodone 10 mg PO Q4H PRN 5 Days #20 tab 01/03/21 [Rx Last Taken Unknown] amoxicillin-pot clavulanate [Augmentin] 1 tab PO BID #20 tab 01/06/21 [Rx Last Taken Unknown] Allergy/AdvReac Type Severity Reaction Status Date / Time sulfamethoxazole Allergy Other Verified 01/06/21 12:28 [From Bactrim] trimethoprim [From Bactrim] Allergy Other Verified 01/06/21 12:28 Metronidazole HCl AdvReac Unknown Verified 01/06/21 12:28 [From Flagyl] Family History Mother CAD (coronary artery disease) Uncle CAD (coronary artery disease) Father Cancer Surgical History History of right knee surgery Previous back surgery Social History household members: spouse housing: house Smoking Status: Current every day smoker tobacco type: cigarettes alcohol intake: former substance use type: does not use and marijuana do you feel safe at home: Yes ROS ROS ED Constitutional Constitutional ED: Denies chills or fever(s) Eyes Eyes: Denies change in vision ENT ENT ED: Denies sore throat Cardiovascular Cardiovascular: Denies chest pain Respiratory/Chest Respiratory/Chest: Reports dyspnea; Denies cough Gastrointestinal Gastrointestinal: Reports abdominal pain; Denies diarrhea, nausea or vomiting Genitourinary Genitourinary ED: Denies dysuria Musculoskeletal Musculoskeletal: Denies back pain Integumentary Denies rash Neurologic Neurologic: Denies headache(s) or weakness Allergic/Immunologic Allergic/Immunologic ED: Denies urticaria EXAM Physical Exam Const Vital Signs: 01/06/21 12:25 01/06/21 14:35 01/06/21 16:39 Temperature 98.8 F Temperature Source Oral Pulse Rate 91 62 Respiratory Rate 16 24 H 15 Respiratory Pattern Tachypnea Blood Pressure 128/74 H 142/77 H Blood Pressure Mean 92 98 Pulse Ox 93 96 Oxygen Delivery Method Room Air Room Air Positive well nourished and well developed General Appearance ED: well developed HEENT Reports normocephalic and head/scalp atraumatic Eyes PERRL and EOMs intact bilaterally Neck supple Chest Wall inspection of chest normal and palpation of chest normal Resp normal respiratory effort Auscultation: wheezes expiratory wheezes and throughout Cardio regular rate and regular rhythm GI GI Narrative: Appropriate postop tenderness. Wounds are clean and dry. No guarding or rebound. Hypoactive but present bowel sounds. Palpation: soft Extremity normal to inspection Neuro oriented x3 and no sensory deficits noted Sensorium / Orientation: alert Motor Exam: strength 5/5 throughout Psych mental status grossly normal Skin no rashes or lesions noted [facility] Lab Data Attestation: I reviewed the patient's lab results. Labs: Laboratory Results - last 24 hr 01/06/21 01/06/21 13:35 13:35 WBC 10.9 RBC 4.77 Hgb 14.2 Hct 43.4 MCV 91.0 MCH 29.8 MCHC 32.7 RDW Std Deviation 46.8 H RDW Coeff of Rudolph 13.9 Plt Count 535 H MPV 9.2 Immature Gran % (Auto) 0.400 Neut % (Auto) 60.8 Lymph % (Auto) 25.9 [place] % (Auto) 6.6 Eos % (Auto) 5.7 H Baso % (Auto) 0.6 Absolute Neuts (auto) 6.7 Absolute Lymphs (auto) 2.83 Nucleated RBC % 0 Sodium 139 Potassium 4.7 Chloride 109 H Carbon Dioxide 25.0 Anion Gap 5 BUN 11 Creatinine 0.81 Estim Creat Clear Calc 122.66 Est GFR (MDRD) Af Amer 132 Est GFR (MDRD) Non-Af 109 BUN/Creatinine Ratio 13.5 Glucose 107 H Calcium 9.3 Total Bilirubin 0.20 AST 16 ALT 19 Alkaline Phosphatase 80 Total Protein 7.4 Albumin 3.4 Globulin 4.0 Albumin/Globulin Ratio 0.8 L Radiography Diagnostic Testing: Radiology Impression Abdomen/Pelvis CT 01/06/21 14:16 IMPRESSION: Diverticulosis of the colon. Mild wall thickening and adjacent mesenteric stranding involving the proximal sigmoid/distal descending colon. Possible small collection in the left lateral abdominal wall. Electronically Signed: Zuhair Anguiano DO at 16:28 EDT Tel [phone], Service support , Treatment and Re-Evaluation Comments:: Lab work is unremarkable. CT scan does show mild wall thickening and mesenteric stranding of the sigmoid colon with diverticula. This is just beneath the area where he had his hernia repair. No fluid collection or sign of abscess. Patient be treated with a course of Augmentin. He has Percocet at home to take for pain. Return instructions provided. Discharge Plan Triage Chief Complaint: Abd Pain ED Provider: Giovanna Galeana Dx/Rx/DC Orders Clinical Impression: Diverticulitis Instructions: ED Diverticulitis Prescriptions: New amoxicillin-pot clavulanate [Augmentin] 875-125 mg tablet 1 tab PO BID Qty: 20 RF: 0 No Action ondansetron HCl [Zofran] 4 mg tablet 4 mg PO Q8H PRN (Reason: Nausea) RF: 0 topiramate 25 mg tablet 25 mg PO PRN PRN (Reason: MIGRAINES) RF: 0 tizanidine 4 mg tablet 4 mg PO 4X/DAY RF: 0 lansoprazole 30 MG capsule 30 mg PO DAILY RF: 0 albuterol sulfate 1 PUFF inhaler 1 - 2 puff INHALATION Q4H PRN PRN (Reason: Cough) RF: 0 aclidinium bromide 400 MCG aerosol powdr breath activated 2 puff IH DAILY RF: 0 albuterol sulfate 2.5 MG/3 ML solution for nebulization 2.5 mg INHALATION Q4H PRN PRN (Reason: Sob &/Or Wheezing) RF: 0 trazodone 50 MG tablet 50 mg PO QHS RF: 0 hydroxyzine HCl 50 mg Tablet 50 mg PO BID RF: 0 oxycodone-acetaminophen [Percocet] 10-325 mg Tablet 1 tab PO Q4H RF: 0 gabapentin 800 mg Tablet 800 mg PO TID RF: 0 oxycodone 5 mg tablet 10 mg PO Q4H PRN (Reason: pain) 5 Days Qty: 20 RF: 0 Primary Care Provider: Jimbo Hill Referrals: Kg Correa MD [STAFF PHYSICIAN] - 1 Week Jimbo Hill DO [Primary Care Provider] - Disposition Disposition: Home, Self Care
[2021-01-06 14:27] LABS: ALB/GLOB Ratio 0.8 RATIO (0.9-2.4); AST(SGOT) 16 U/L (15-37); Alanine Aminotransfer ALT/SGPT 19 U/L (16-61); Albumin, Serum 3.4 g/dL (3.2-5.0); Alkaline Phosphatase 80 U/L (45-117); Anion Gap 5 (5-15); BUN 11 mg/dL (7-18); BUN/Creat Ratio 13.5 RATIO (10-20); Calcium,Total 9.3 mg/dL (8.5-10.1); Chloride 109 mmol/L (98-107); Creatinine, Serum 0.81 mg/dL (0.70-1.30); EST Glomerular Filtration Rate 109 mL/min (>60); Est Glom Filt Rate - Afr Amer 132 mL/min (>60); Estimated Creatinine Clearance 122.66 ml/min; Glucose 107 mg/dL (74-106); Potassium 4.7 mmol/L (3.5-5.1); Protein, Total 7.4 g/dL (6.4-8.2); Sodium Level 139 mmol/L (136-145)
[2021-01-06] MEDS: Morphine 4 MG/ML Syringe IV ×2 (14:27→17:08)
[2021-01-06] MEDS: 0.9% Normal Saline 1,000 ML 150 ML IV (14:28)
[2021-01-06] MEDS: Ondansetron 4 MG/2 ML Vial IV (14:28)
[2021-01-06] MEDS: Ipratropium/Albuterol Sulfate 3 ML AMPUL.NEB INHALATION (14:33)
[2021-01-06 14:35] VITALS: RESP 24
[2021-01-06 16:39] VITALS: BP 142/77; PULSE 62; RESP 15; O2SAT 96
[2021-01-06] MEDS: Amox/Clavulanate 875 MG Tablet PO (17:08)
[2021-01-06 17:09] VITALS: BP 146/75; PULSE 59; RESP 15; O2SAT 96
== END 2021-01-06 17:11 | disposition home or self-care (01) ==
PROVIDERS: Emergency Provider Emergency Medicine; PCP Family Medicine
DX: K57.30 Diverticulosis of large intestine without perforation or abscess without bleeding (principal); F17.210 Nicotine dependence, cigarettes, uncomplicated; J44.9 Chronic obstructive pulmonary disease, unspecified; K21.9 Gastro-esophageal reflux disease without esophagitis; F41.9 Anxiety disorder, unspecified; Z79.899 Other long term (current) drug therapy
CPT/HCPCS: 74177; 80053; 85025; 94640; 96374; 96375; 96376; 99285; J7030; Q9967; A4216; J2405

== ENCOUNTER 2021-01-08 20:59 | Inpatient (IN) | payer MEDICAID, SELFPAY ==
[2021-01-08 21:01] VITALS: BP 125/78; PULSE 85; RESP 16; TEMP 35.8; O2SAT 92; BMI 37.5
--- NOTE | 2021-01-08 21:30 | CT_ITS ---
STUDY: CT ABDOMEN AND PELVIS WITHOUT CONTRAST REASON FOR EXAM: Male, 46 years old. Pain RADIATION DOSAGE (If Supplied By Facility): CTDIvol = ( 28.57 ) mGy, DLP = ( 1420.25 ) mGycm TECHNIQUE: Transaxial images were obtained from the dome of the diaphragm to the symphysis pubis without oral contrast, and without intravenous contrast. Sagittal and coronal images were reconstructed. Individualized dose optimization techniques were used for this CT. COMPARISON: 01/06/2021 FINDINGS: The visualized lung bases are unremarkable. The visualized portions of the heart are within normal limits. Normal liver. Normal gallbladder and extrahepatic biliary system. Normal spleen. Normal pancreas. Normal bilateral adrenal glands. Normal right kidney. Normal left kidney. There is a small hiatal hernia. Normal small intestine. As compared to prior exam, there appears to be stable diverticulitis in the junction of the sigmoid colon and the descending colon with some surrounding mesenteric edema and inflammation. Remainder of the large bowel is within normal limits Normal abdominal aorta. Normal inferior vena cava. Normal retroperitoneum. No evidence of abscess collection Normal urinary bladder. Normal abdominal wall. Normal osseous structures. CT/Abdomen/Pelvis without Cont IMPRESSION: Grossly unchanged as compared to exam from 2 days prior. Stable diverticulitis involving the descending and sigmoid colon junction. No evidence of abscess. Electronically Signed: Tristen Schumacher DO at 22:32 EDT Tel , Service support ,
--- NOTE | 2021-01-08 21:30 | EDS_ITS ---
HPI History of Present Illness Chief Complaint: Other, Pain/Inj Detail of Chief Complaint: Abdominal pain Informant: patient Onset/Context/Timing Current Severity: Severe Narrative Narrative: Patient presents to the emergency department complaining of abdominal pain. Patient states that he had a hernia repair 5 days ago. Patient states that he felt well the following day but then started having increasing abdominal pain. Patient was seen in the emergency department 2 days ago and had a CT scan of his abdomen and pelvis that showed acute diverticulitis. Patient was started on Augmentin and discharged home. Patient states that he feels like the pain is worse. Patient's had nausea but no vomiting. He denies any blood in stool or black tarry stools. He denies any documented fever although he felt like he may have had one this morning. Prior similar symptoms: No PFSH PFSH Medical History Acute bronchitis Alcohol abuse, in remission Anxiety Chest pain Chronic low back pain COPD (chronic obstructive pulmonary disease) COPD exacerbation Cough Fusion of lumbar spine GERD (gastroesophageal reflux disease) History of diverticulitis of colon History of stress test Hypertension Obesity (BMI 30-39.9) Restless legs Tobacco abuse Wears contact lenses Wears dentures Wheezing Home Medications lansoprazole 30 mg PO DAILY 12/05/16 [History Last Taken 01/03/21] aclidinium bromide 2 puff IH DAILY 03/02/17 [History Last Taken Unknown] albuterol sulfate 1 - 2 puff INHALATION Q4H PRN PRN 03/02/17 [History Last Taken 01/03/21] ondansetron HCl 4 mg tablet 4 mg PO Q8H PRN 02/05/20 [History Last Taken Unknown] trazodone 50 mg PO QHS 04/09/20 [History Last Taken 05/01/20] albuterol sulfate 2.5 mg INHALATION Q4H PRN PRN 04/12/20 [History Last Taken Unknown] topiramate 25 mg tablet 25 mg PO PRN PRN 06/06/20 [History Last Taken Unknown] tizanidine 4 mg tablet 4 mg PO 4X/DAY 07/18/20 [History Last Taken Unknown] gabapentin 800 mg PO TID 01/02/21 [History Last Taken Unknown] hydroxyzine HCl 50 mg PO BID 01/02/21 [History Last Taken 01/03/21] oxycodone-acetaminophen [Percocet] 1 tab PO Q4H 01/02/21 [History Last Taken Unknown] oxycodone 10 mg PO Q4H PRN 5 Days #20 tab 01/03/21 [Rx Last Taken Unknown] amoxicillin-pot clavulanate [Augmentin] 1 tab PO BID #20 tab 01/06/21 [Rx Last Taken Unknown] Allergy/AdvReac Type Severity Reaction Status Date / Time sulfamethoxazole Allergy Other Verified 01/08/21 21:00 [From Bactrim] trimethoprim [From Bactrim] Allergy Other Verified 01/08/21 21:00 Metronidazole HCl AdvReac Unknown Verified 01/08/21 21:00 [From Flagyl] Family History Mother CAD (coronary artery disease) Uncle CAD (coronary artery disease) Father Cancer Surgical History History of right knee surgery Previous back surgery Social History household members: spouse housing: house Smoking Status: Current every day smoker tobacco type: cigarettes alcohol intake: former substance use type: does not use and marijuana do you feel safe at home: Yes ROS ROS ED Constitutional Constitutional ED: Reports systems reviewed and no addt'l complaints, except as documented; Denies body ache(s), change in weight or chills Eyes Eyes: Denies acute decrease in peripheral vision, change in vision, double vision or loss of vision ENT ENT ED: Reports none; Denies ear pain, lip swelling, loss taste/smell, neck pain, otalgia or sore throat Cardiovascular Cardiovascular: Reports none; Denies abdominal pain, chest pain with activity, leg edema, lightheadedness, palpitations, rapid heart rate or syncope Respiratory/Chest Respiratory/Chest: Reports none; Denies change in mental status, dry cough, dyspnea, hemoptysis, shortness of breath at rest or shortness of breath with exertion Gastrointestinal Gastrointestinal: Reports none, abdominal pain and nausea; Denies change in stool character, diarrhea, hematemesis, hematochezia, melena, rectal bleeding or vomiting Genitourinary Genitourinary ED: Reports none; Denies abdominal discomfort, anuria, dysuria, genital pain or polyuria Musculoskeletal Musculoskeletal: Reports none; Denies arthralgias, back pain, difficulty walking, extremity pain, muscle weakness or myalgias Integumentary Reports none; Denies abscess or rash Neurologic Neurologic: Reports none; Denies abnormal gait, confusion, focal weakness, frequent falls, headache(s), loss of vision, numbness, paresthesias, radicular pain, vertigo or weakness Psychiatric Psychiatric: Reports systems reviewed and no addt'l complaints, except as documented and none; Denies behavioral changes, confusion, difficulty concentrating, hallucinations, suicidal ideation, tactile hallucinations or visual hallucinations Endocrine Endocrinology: Denies none, cold intolerance, excessive sweating, fatigue or heat intolerance Hematologic/Lymphatic Hematologic/Lymphatic: Reports none; Denies anemia, easy bleeding or easy bruising Allergic/Immunologic Allergic/Immunologic ED: Denies as per HPI, none, lip swelling, mouth swelling, throat swelling, tongue swelling or hives EXAM Physical Exam Const Vital Signs: 01/08/21 21:01 01/08/21 21:24 Temperature 96.5 F L Temperature Source Temporal Pulse Rate 85 Respiratory Rate 16 Respiratory Effort Normal Respiratory Pattern Normal Blood Pressure 125/78 H Blood Pressure Mean 93 Pulse Ox 92 Oxygen Delivery Method Room Air Positive well nourished and well developed General Appearance ED: well developed and NAD HEENT Reports TM's clear and moist mucous membranes normocephalic and atraumatic; Negative for trauma or tenderness Tympanic Membrane ED: Yes TM's clear Eyes PERRL and EOMs intact bilaterally General Eye ED: Negative for pale conjunctiva or scleral icterus Neck no lymphadenopathy, supple and no JVD General: Negative for tenderness Chest Wall inspection of chest normal and palpation of chest normal Chest: Negative for tenderness Resp normal respiratory effort and clear to auscultation bilaterally Effort and Inspection: Negative for respiratory distress or pain with movement Auscultation: Negative for rhonchi, wheezes or diminished lung sounds Cardio regular rate, regular rhythm, S1 normal heart sound, S2 normal heart sound and no murmurs Peripheral Pulses: pulses 2+ throughout GI normal to inspection, nondistended, normoactive bowel sounds, soft to palpation, non-tender, non-distended and no masses GI Narrative: Patient has diffuse tenderness to palpation especially over the left lower quadrant. There is no rebound, rigidity, or perineal signs. He does have some guarding. The port sites from prior surgery without evidence of infection or cellulitis. Back/Spine no CVA tenderness and no thoracic nor lumbar tenderness Extremity normal to inspection General Extremety ED: Negative for edema General Extremity: Negative for edema Neuro oriented x3, CN's II-XII intact bilaterally, no sensory deficits noted and gait normal Sensorium / Orientation: awake, alert, oriented to person, oriented to place and oriented to time Motor Exam: strength 5/5 throughout and strength abnormal Psych mental status grossly normal Skin no rashes or lesions noted and no wounds MDM MDM MDM Narrative Medical decision making narrative: IV line established on arrival. Patient was medicated with morphine and Zofran. Case discussed with general surgeon on-call Dr. Gricelda Mario. CT scan of the abdomen pelvis was unchanged however he now has an elevated white blood cell count despite antibiotic treatment. Patient will be admitted for pain control and IV antibiotics. Lab Data Attestation: I reviewed the patient's lab results. Labs: Laboratory Results - last 24 hr 01/08/21 01/08/21 01/08/21 21:40 21:40 21:40 WBC 13.8 H RBC 4.49 L Hgb 13.8 Hct 40.7 MCV 90.6 MCH 30.7 MCHC 33.9 RDW Std Deviation 46.5 H RDW Coeff of Rudolph 13.9 Plt Count 522 H MPV 8.8 Immature Gran % (Auto) 0.400 Neut % (Auto) 70.5 H Lymph % (Auto) 20.3 [place] % (Auto) 4.5 Eos % (Auto) 3.6 Baso % (Auto) 0.7 Absolute Neuts (auto) 9.7 H Absolute Lymphs (auto) 2.80 Nucleated RBC % 0 Sodium 139 Potassium 4.7 Chloride 108 H Carbon Dioxide 25.0 Anion Gap 6 BUN 15 Creatinine 1.25 Estim Creat Clear Calc 78.65 Est GFR (MDRD) Af Amer 80 Est GFR (MDRD) Non-Af 66 BUN/Creatinine Ratio 12.0 Glucose 99 Lactic Acid 0.5 Calcium 9.1 Radiography Diagnostic Testing: Radiology Impression Abdomen/Pelvis CT 01/08/21 21:30 IMPRESSION: Grossly unchanged as compared to exam from 2 days prior. Stable diverticulitis involving the descending and sigmoid colon junction. No evidence of abscess. Electronically Signed: Tristen Schumacher DO at 22:32 EDT Tel , Service support , Discharge Plan Triage Chief Complaint: Other, Pain/Inj ED Provider: Luiz Cameron Dx/Rx/DC Orders Clinical Impression: Abdominal pain, Diverticulitis Prescriptions: No Action ondansetron HCl [Zofran] 4 mg tablet 4 mg PO Q8H PRN (Reason: Nausea) RF: 0 topiramate 25 mg tablet 25 mg PO PRN PRN (Reason: MIGRAINES) RF: 0 tizanidine 4 mg tablet 4 mg PO 4X/DAY RF: 0 lansoprazole 30 MG capsule 30 mg PO DAILY RF: 0 albuterol sulfate 1 PUFF inhaler 1 - 2 puff INHALATION Q4H PRN PRN (Reason: Cough) RF: 0 aclidinium bromide 400 MCG aerosol powdr breath activated 2 puff IH DAILY RF: 0 albuterol sulfate 2.5 MG/3 ML solution for nebulization 2.5 mg INHALATION Q4H PRN PRN (Reason: Sob &/Or Wheezing) RF: 0 trazodone 50 MG tablet 50 mg PO QHS RF: 0 hydroxyzine HCl 50 mg Tablet 50 mg PO BID RF: 0 oxycodone-acetaminophen [Percocet] 10-325 mg Tablet 1 tab PO Q4H RF: 0 gabapentin 800 mg Tablet 800 mg PO TID RF: 0 oxycodone 5 mg tablet 10 mg PO Q4H PRN (Reason: pain) 5 Days Qty: 20 RF: 0 amoxicillin-pot clavulanate [Augmentin] 875-125 mg tablet 1 tab PO BID Qty: 20 RF: 0 Primary Care Provider: Jimbo Hill Referrals: Jimbo Hill DO [Primary Care Provider] - Disposition Disposition: Acute Care Hospital [facility]
[2021-01-08] MEDS: Morphine 4 MG/ML Syringe IV ×2 (21:40→23:33)
[2021-01-08] MEDS: Ondansetron 4 MG/2 ML Vial IV (21:40)
[2021-01-08 21:48] LABS: Absolute Neutrophil Count 9.7 X10^3/uL (2.0-7.7); Basophil# 0.09 X10^3/uL; Basophil% 0.7 % (0-1); Eosinophils% 3.6 % (0-5); Hematocrit 40.7 % (40-54); Hemoglobin 13.8 g/dL (13.0-16.5); Lymphocyte % 20.3 % (19-41); Mean Corp Hgb Conc 33.9 g/dL (32-36); Mean Corpuscular Hgb 30.7 pg (27.0-32.0); Mean Corpuscular Volume 90.6 fL (80-94); Mean Platelet Vol. 8.8 fl (6.2-12.0); Monocyte# 0.62 X10^3/uL; Monocyte% 4.5 % (0-10); NRBC Flagged by Analyzer 0 % (0-5); Neutrophil % 70.5 % (47-70); Platelet Count 522 K/mm3 (150-450); RBC Distribution Width CV 13.9 % (11.6-14.6); RBC Distribution Width SD 46.5 fl (35.1-43.9); Red Blood Count 4.49 M/mm3 (4.6-6.2); White Blood Count 13.8 K/mm3 (4.4-11.0)
[2021-01-08 22:02] LABS: Anion Gap 6 (5-15); BUN 15 mg/dL (7-18); Calcium,Total 9.1 mg/dL (8.5-10.1); Chloride 108 mmol/L (98-107); Creatinine, Serum 1.25 mg/dL (0.70-1.30); EST Glomerular Filtration Rate 66 mL/min (>60); Est Glom Filt Rate - Afr Amer 80 mL/min (>60); Estimated Creatinine Clearance 78.65 ml/min; Glucose 99 mg/dL (74-106); Potassium 4.7 mmol/L (3.5-5.1); Sodium Level 139 mmol/L (136-145)
[2021-01-08] MEDS: 0.9% Normal Saline 1,000 ML 125 ML IV (22:15)
[2021-01-08 22:18] LABS: Lactic Acid 0.5 mmol/L (0.4-1.9)
[2021-01-08 23:34] VITALS: BP 109/73; PULSE 75; RESP 16; O2SAT 98
[2021-01-09] VITALS (7 sets, daily range): BP systolic 113–147; BP diastolic 76–104; PULSE 62–79; RESP 16–20; TEMP 36.6–37.7; O2SAT 94–99; BMI 37.3
[2021-01-09 01:07] LABS: Mucous, Urine 0 SEEN /hpf (<or=2+)
[2021-01-09 01:10] LABS: Color, Urine Yellow (Yellow); Glucose, Dipstick Normal (Normal); Ketone-Dipstick Negative (Negative); Leukocyte Esterase-Dipstick 500 /ul (Negative); Nitrite-Dipstick Negative (Negative); Occult Blood-Urine 25 /ul (Negative); Protein-Dipstick Negative (Negative); Specific Gravity, Urine 1.005 (1.002-1.030); Urine Bilirubin Dipstick Negative (Negative); Urine Clarity Clear (Clear); Urine Urobilinogen Normal (Normal)
[2021-01-09 01:54] LABS: Bacteria 1+ /hpf (None Seen); Red Blood Cells-Urine 0-5 SEEN /hpf (0-5); Squamous Epithelial Cells - UA 0-5 SEEN /hpf (0-5); White Blood Cells 10-25 SEEN /hpf (0-5)
[2021-01-09] MEDS: Morphine 4 MG/ML Syringe IV ×8 (03:27→22:44)
--- NOTE | 2021-01-09 04:52 | PCS.PANDOC ---
PANDEMIC DOCUMENTATION INITIATED: Date: 11/21/2020 Time: 190
[2021-01-09] MEDS: 0.9% Normal Saline 1,000 ML 100 ML IV ×2 (05:14→15:20)
--- NOTE | 2021-01-09 07:58 | PCM.HP.STD ---
HPI - General General Date of Admission: 01/09/21 HPI Narrative RAJAT FITCH, is a 46 M who presents with left lower quadrant abdominal pain. He states that it began around Jan 05Jan 06 He states that he had similar episode of diverticulitis for which he was admitted to the hospital for about 4 days, 6-7 years ago. He notes nausea, but denies emesis. He states that his pain was 9 out of 10 on presentation to the ED, presently it is 8 out of 10. He was seen at [facility] ED on 01/06, CT scan at that time revealed wall thickening and mesenteric inflammatory changes around sigmoid colon. No elevated WBC at the time. He was discharged on po antibiotics. He presented to [facility] ED again last night with complaint of worsening pain. WBC was 13.8K with positive left shift. CT scan revealed sigmoid diverticulitis. Patient admitted to hospital for IV antibiotics. [facility] Medical History Acute bronchitis Alcohol abuse, in remission Anxiety Chest pain Chronic low back pain COPD (chronic obstructive pulmonary disease) COPD exacerbation Cough Fusion of lumbar spine GERD (gastroesophageal reflux disease) History of diverticulitis of colon History of stress test Hypertension Obesity (BMI 30-39.9) Restless legs Tobacco abuse Wears contact lenses Wears dentures Wheezing Home Medications lansoprazole 30 mg PO DAILY 12/05/16 [History Last Taken 01/03/21] aclidinium bromide 2 puff IH DAILY 03/02/17 [History Last Taken Unknown] albuterol sulfate 1 - 2 puff INHALATION Q4H PRN PRN 03/02/17 [History Last Taken 01/03/21] ondansetron HCl 4 mg tablet 4 mg PO Q8H PRN 02/05/20 [History Last Taken Unknown] trazodone 50 mg PO QHS 04/09/20 [History Last Taken 05/01/20] albuterol sulfate 2.5 mg INHALATION Q4H PRN PRN 04/12/20 [History Last Taken Unknown] topiramate 25 mg tablet 25 mg PO PRN PRN 06/06/20 [History Last Taken Unknown] tizanidine 4 mg tablet 4 mg PO 4X/DAY 07/18/20 [History Last Taken Unknown] gabapentin 800 mg PO TID 01/02/21 [History Last Taken Unknown] hydroxyzine HCl 50 mg PO BID 01/02/21 [History Last Taken 01/03/21] oxycodone 10 mg PO Q4H PRN 5 Days #20 tab 01/03/21 [Rx Last Taken Unknown] amoxicillin-pot clavulanate [Augmentin] 1 tab PO BID #20 tab 01/06/21 [Rx Last Taken Unknown] Allergy/AdvReac Type Severity Reaction Status Date / Time sulfamethoxazole Allergy Other Verified 01/08/21 21:00 [From Bactrim] trimethoprim [From Bactrim] Allergy Other Verified 01/08/21 21:00 Metronidazole HCl AdvReac Unknown Verified 01/08/21 21:00 [From Flagyl] Family History Mother CAD (coronary artery disease) Uncle CAD (coronary artery disease) Father Cancer Surgical History History of right knee surgery Previous back surgery Social History household members: spouse housing: house Smoking Status: Current every day smoker tobacco type: cigarettes alcohol intake: former substance use type: does not use and marijuana do you feel safe at home: Yes ROS Constitutional Constitutional: Denies fever(s) Respiratory/Chest Respiratory/Chest: Denies productive cough or shortness of breath at rest Gastrointestinal Gastrointestinal: Reports other Details: see HPI Genitourinary Genitourinary: Reports other Details: positive 1+ bacti on UA ; Denies hematuria or urinary incontinence Musculoskeletal Musculoskeletal: Reports systems reviewed and no addt'l complaints, except as documented Integumentary Integumentary: Reports systems reviewed and no addt'l complaints, except as documented Neurologic Neurologic: Reports systems reviewed and no addt'l complaints, except as documented Psychiatric Psychiatric: Reports systems reviewed and no addt'l complaints, except as documented Vital Signs Vital Signs Vital Signs: 01/08/21 21:01 01/08/21 21:24 01/08/21 23:34 Temperature 96.5 F L Temperature Source Temporal Pulse Rate 85 75 Respiratory Rate 16 16 Respiratory Effort Normal Respiratory Depth Respiratory Pattern Normal Blood Pressure 125/78 H 109/73 Blood Pressure Mean 93 85 Blood Pressure Source Blood Pressure Position Blood Pressure Location Pulse Ox 92 98 Oxygen Delivery Method Room Air Room Air 01/09/21 01:20 01/09/21 03:28 01/09/21 04:05 Temperature 98.4 F 97.9 F Temperature Source Temporal Oral Pulse Rate 62 74 Respiratory Rate 18 18 Respiratory Effort Respiratory Depth Respiratory Pattern Blood Pressure 113/77 119/81 H 147/94 H Blood Pressure Mean 89 93 111 Blood Pressure Source Monitor Blood Pressure Position Semi-Fowlers Blood Pressure Location Right Arm Pulse Ox 95 99 Oxygen Delivery Method Room Air Room Air 01/09/21 04:34 Temperature Temperature Source Pulse Rate Respiratory Rate 18 Respiratory Effort Normal Respiratory Depth Normal Respiratory Pattern Normal Blood Pressure Blood Pressure Mean Blood Pressure Source Blood Pressure Position Blood Pressure Location Pulse Ox Oxygen Delivery Method Room Air Weight Weight: 121.4 kg Body Mass Index (BMI) 37.3 Physical Exam Const oriented x3 Resp normal respiratory effort Cardio regular rate GI GI Narrative: abdomen is soft and protuberant - tender lower abdomen and LLQ, no peritoneal signs noted Extremity no clubbing, cyanosis or edema Results Lab / Micro Data Result Diagrams: 01/08/21 21:40 01/08/21 21:40 Labs: Laboratory Results - last 24 hr 01/08/21 21:40: WBC 13.8 H, RBC 4.49 L, Hgb 13.8, Hct 40.7, MCV 90.6, MCH 30.7, MCHC 33.9, RDW Std Deviation 46.5 H, RDW Coeff of Rudolph 13.9, Plt Count 522 H, MPV 8.8, Immature Gran % (Auto) 0.400, Neut % (Auto) 70.5 H, Lymph % (Auto) 20.3, [place] % (Auto) 4.5, Eos % (Auto) 3.6, Baso % (Auto) 0.7, Absolute Neuts (auto) 9.7 H, Absolute Lymphs (auto) 2.80, Nucleated RBC % 0 01/08/21 21:40: Sodium 139, Potassium 4.7, Chloride 108 H, Carbon Dioxide 25.0, Anion Gap 6, BUN 15, Creatinine 1.25, Estim Creat Clear Calc 78.65, Est GFR (MDRD) Af Amer 80, Est GFR (MDRD) Non-Af 66, BUN/Creatinine Ratio 12.0, Glucose 99, Calcium 9.1 01/08/21 21:40: Lactic Acid 0.5 01/09/21 00:45: Urine Color Yellow, Urine Clarity Clear, Urine pH 7.0, Ur Specific [place] 1.005, Urine Protein Negative, Urine Glucose (UA) Normal, Urine Ketones Negative, Urine Occult Blood 25 H, Urine Nitrite Negative, Urine Bilirubin Negative, Urine Urobilinogen Normal, Ur Leukocyte Esterase 500 H, Urine RBC 0-5 SEEN, Urine WBC 10-25 SEEN, Ur Squamous Epith Cells 0-5 SEEN, Urine Bacteria 1+, Urine Mucus 0 SEEN Radiology Impression Abdomen/Pelvis CT 01/08/21 21:30 IMPRESSION: Grossly unchanged as compared to exam from 2 days prior. Stable diverticulitis involving the descending and sigmoid colon junction. No evidence of abscess. Electronically Signed: Tristen Schumacher DO at 22:32 EDT Tel , Service support , Assessment & Plan Assessment/Plan (1) Diverticulitis: PLAN: IV antibiotics Clear liquid diet IV hydration Suspect that this will probably resolve as patient's last episode of acute diverticulitis Dr. Correa will be taking over patient's care
[2021-01-09] MEDS: 0.9% Saline Lock 10 ML Syringe IV ×2 (08:02→13:56)
--- NOTE | 2021-01-09 11:55 | CASEMGMT ---
JOSE L CARRERO assessment: Face to Face with patient for initial transition planning/care coordination assessment. JOSE L CARRERO introduced self and role at [facility], pt voices understanding and consents to assessment. Pt is lying in bed in no distress on room air with sig other at bedside. Pt is A/Ox4 and answers all questions appropriately. Care providers, pharmacy, and demographics verified. Presentation: Pt c/o abd pain Admitting dx: Diverticulitis PCP: Liz Specialists: Pt states no current specialists. Preferred Pharmacy: [facility] Insurance: [employer] Prescription Benefit: [employer] Living Will/HPOA: Pt states does not have LW/HPOA and declines AD info. LNOK: Jacque Green, sig other Living Arrangements: Pt states lives with sig other in 1 story apartment and states no concerns at home. Pt is independent with ADL's. Transportation: Pt states sig other drives and states no transportation concerns. DME/HHC: Pt states no current DME or need for any further DME. Pt states no hx of HHC or SNF. Pt states no concerns with going home at time of discharge. 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 Pt states smokes 1/2 pack cigarettes daily but does not drink ETOH. Pt states no further concerns/needs. CM to follow for any further discharge planning/needs. Advised pt to ask for CM if any further questions/concerns/needs arise, voices understanding. Pt Goal: Home [place] JOSE L CARRERO
[2021-01-09] MEDS: Gabapentin 800 MG Tablet PO ×2 (14:09→21:28)
--- NOTE | 2021-01-09 14:11 | CHAPLAIN ---
Type of Pastoral Visit _x__ Initial Visit ___ Follow-up Visit ___ On-call Visit ___ General Patient Visit ___ Spiritual Assessment ___ Family Conference ___ Bereavement ___ Rapid Response ___ Code Blue ___ Other (describe below) Pastoral Care Referral From _x__ Patient ___ Family ___ Nurse ___ Physician ___ Radio Antenna Installer ___ Engraving Plate Maker ___ Other (describe below) Sacrament/Intervention _x__ Active listening ___ Anointing ___ Confucianist ___ Bereavement ___ Communion ___ Norma exploration ___ ___ Life review _x__ Prayer ___ Reconciliation ___ Sacrament of Sick _x__ Supportive presence ___ Wedding ___ Other (describe below) Pastoral Comments patient has pain; pt states that prayer is the best thing
--- NOTE | 2021-01-09 14:50 | NURSING ---
This RN reviewed all SN charting and was with SN during all med passes.
[2021-01-09] MEDS: Topiramate 25 MG Tablet PO (20:34)
[2021-01-09] MEDS: traZODone 50 MG Tablet PO (21:28)
[2021-01-10] MEDS: 0.9% Normal Saline 1,000 ML 100 ML IV ×2 (01:33→15:48)
[2021-01-10] MEDS: Morphine 4 MG/ML Syringe IV ×2 (01:36→06:01)
[2021-01-10 01:50] VITALS: BP 151/83; PULSE 75; RESP 18; TEMP 36.9; O2SAT 94
[2021-01-10] MEDS: Gabapentin 800 MG Tablet PO ×3 (05:15→22:06)
[2021-01-10] MEDS: 0.9% Saline Lock 10 ML Syringe IV (06:03)
--- NOTE | 2021-01-10 06:30 | PN.SURG_ITS ---
Subjective Subjective Patient reports his pain is improved but still present in the left lower quadrant. No fevers or chills or nausea or vomiting. Objective Data Objective Data Vital Signs: Vital Signs Temp Pulse Resp BP Pulse Ox 98.5 F 75 18 151/83 H 94 01/10/21 01:50 01/10/21 01:50 01/10/21 01:50 01/10/21 01:50 01/10/21 01:50 Oxygen Delivery Method Room Air Weight: 267 lb 10.259 oz Body Mass Index (BMI) 37.3 Intake & Output: Intake and Output for Last 24 Hours 01/08/21 01/09/21 01/10/21 23:59 23:59 23:59 Intake Total 1050 / 1050 Balance 1050 / 1050 Lab / Micro Data Result Diagrams: 01/08/21 21:40 01/08/21 21:40 Physical Exam Const oriented x3 and no apparent distress Resp normal respiratory effort Cardio regular rate GI soft to palpation Palpation: tender LLQ Assessment & Plan Assessment/Plan (1) Diverticulitis: PLAN: The patient had ventral hernia repaired last week and subsequently developed acute diverticulitis. Patient has still having some left lower quadrant pain. Labs are pending. Continue clears and fluids and IV antibiotics. Patient does have a history of narcotic abuse and so I added Toradol and Tylenol and try to minimize the morphine. Kg Correa MD Pager: [facility] [address] [place] [address], [address] [place] [address] Office:
[2021-01-10] MEDS: Ketorolac 15 MG/ML Vial IV ×3 (06:50→22:06)
[2021-01-10 07:09] LABS: Absolute Lymphocyte Count 2.31 X10^3/uL (0.83-4.51); Absolute Neutrophil Count 7.4 X10^3/uL (2.0-7.7); Basophil# 0.06 X10^3/uL; Basophil% 0.5 % (0-1); Eosinophil# 0.57 X10^3/uL; Hematocrit 42.6 % (40-54); Hemoglobin 14.5 g/dL (13.0-16.5); Lymphocyte # 2.31 X10^3/ul (0.83-4.51); Lymphocyte % 20.4 % (19-41); Mean Corpuscular Hgb 29.9 pg (27.0-32.0); Mean Corpuscular Volume 87.8 fL (80-94); Mean Platelet Vol. 8.9 fl (6.2-12.0); Monocyte# 0.94 X10^3/uL; Monocyte% 8.3 % (0-10); NRBC Flagged by Analyzer 0 % (0-5); Neutrophil # 7.41 X10^3/uL (2.7-7.7); Neutrophil % 65.3 % (47-70); Platelet Count 592 K/mm3 (150-450); RBC Distribution Width CV 13.5 % (11.6-14.6); Red Blood Count 4.85 M/mm3 (4.6-6.2); White Blood Count 11.4 K/mm3 (4.4-11.0)
[2021-01-10 07:51] LABS: Anion Gap 11 (5-15); BUN 12 mg/dL (7-18); BUN/Creat Ratio 16.3 RATIO (10-20); Calcium,Total 8.9 mg/dL (8.5-10.1); Chloride 107 mmol/L (98-107); Creatinine, Serum 0.74 mg/dL (0.70-1.30); EST Glomerular Filtration Rate 121 mL/min (>60); Est Glom Filt Rate - Afr Amer 147 mL/min (>60); Estimated Creatinine Clearance 132.85 ml/min; Glucose 86 mg/dL (74-106); Potassium 3.8 mmol/L (3.5-5.1); Sodium Level 138 mmol/L (136-145)
[2021-01-10 08:00] VITALS: BP 147/79; PULSE 64; RESP 18; TEMP 36.8; O2SAT 95
[2021-01-10] MEDS: Pantoprazole Sodium 40 MG Tablet PO (09:47)
[2021-01-10 14:00] VITALS: BP 140/72; PULSE 72; RESP 18; TEMP 36.7; O2SAT 96
[2021-01-10] MEDS: traZODone 50 MG Tablet PO (22:06)
[2021-01-10 22:10] VITALS: BP 143/97; PULSE 82; RESP 16; TEMP 36.8; O2SAT 95
[2021-01-10] MEDS: Acetaminophen 325 MG Tablet 650 MG PO (22:22)
[2021-01-10] MEDS: Topiramate 25 MG Tablet PO (23:51)
[2021-01-11] MEDS: 0.9% Normal Saline 1,000 ML 100 ML IV (01:55)
[2021-01-11 04:10] VITALS: BP 159/97; PULSE 68; RESP 16; TEMP 36.4; O2SAT 95
[2021-01-11] MEDS: Ketorolac 15 MG/ML Vial IV (05:10)
[2021-01-11] MEDS: Gabapentin 800 MG Tablet PO (05:10)
[2021-01-11 06:14] LABS: Absolute Lymphocyte Count 2.85 X10^3/uL (0.83-4.51); Absolute Neutrophil Count 8.2 X10^3/uL (2.0-7.7); Basophil# 0.06 X10^3/uL; Basophil% 0.5 % (0-1); Eosinophil# 0.55 X10^3/uL; Eosinophils% 4.3 % (0-5); Hematocrit 39.8 % (40-54); Hemoglobin 13.8 g/dL (13.0-16.5); Lymphocyte # 2.85 X10^3/ul (0.83-4.51); Lymphocyte % 22.5 % (19-41); Mean Corp Hgb Conc 34.7 g/dL (32-36); Mean Corpuscular Volume 86.5 fL (80-94); Mean Platelet Vol. 8.7 fl (6.2-12.0); Monocyte# 0.96 X10^3/uL; Monocyte% 7.6 % (0-10); NRBC Flagged by Analyzer 0 % (0-5); Neutrophil # 8.19 X10^3/uL (2.7-7.7); Neutrophil % 64.7 % (47-70); Platelet Count 588 K/mm3 (150-450); RBC Distribution Width CV 13.3 % (11.6-14.6); RBC Distribution Width SD 41.6 fl (35.1-43.9); White Blood Count 12.7 K/mm3 (4.4-11.0)
--- NOTE | 2021-01-11 06:42 | PCM.PN.SRG ---
Subjective Subjective Patient reports no pain this morning Objective Data Objective Data Vital Signs: Vital Signs Temp Pulse Resp BP Pulse Ox 97.6 F L 68 16 159/97 H 95 01/11/21 04:10 01/11/21 04:10 01/11/21 04:10 01/11/21 04:10 01/11/21 04:10 Oxygen Delivery Method Room Air Weight: 267 lb 10.259 oz Body Mass Index (BMI) 37.3 Intake & Output: Intake and Output for Last 24 Hours 01/09/21 01/10/21 01/11/21 23:59 23:59 23:59 Intake Total 2149 175 / 1749 Balance 2149 Lab / Micro Data Result Diagrams: 01/11/21 05:40 01/10/21 06:40 Labs: Laboratory Results - last 24 hr 01/10/21 06:40: WBC 11.4 H, RBC 4.85, Hgb 14.5, Hct 42.6, MCV 87.8, MCH 29.9, MCHC 34.0, RDW Std Deviation 44.0 H, RDW Coeff of Rudolph 13.5, Plt Count 592 H, MPV 8.9, Immature Gran % (Auto) 0.500, Neut % (Auto) 65.3, Lymph % (Auto) 20.4, [place] % (Auto) 8.3, Eos % (Auto) 5.0, Baso % (Auto) 0.5, Absolute Neuts (auto) 7.4, Absolute Lymphs (auto) 2.31, Nucleated RBC % 0 01/10/21 06:40: Sodium 138, Potassium 3.8, Chloride 107, Carbon Dioxide 20.0 L, Anion Gap 11, BUN 12, Creatinine 0.74, Estim Creat Clear Calc 132.85, Est GFR (MDRD) Af Amer 147, Est GFR (MDRD) Non-Af 121, BUN/Creatinine Ratio 16.3, Glucose 86, Calcium 8.9 01/11/21 05:40: WBC 12.7 H, RBC 4.60, Hgb 13.8, Hct 39.8 L, MCV 86.5, MCH 30.0, MCHC 34.7, RDW Std Deviation 41.6, RDW Coeff of Rudolph 13.3, Plt Count 588 H, MPV 8.7, Immature Gran % (Auto) 0.400, Neut % (Auto) 64.7, Lymph % (Auto) 22.5, [place] % (Auto) 7.6, Eos % (Auto) 4.3, Baso % (Auto) 0.5, Absolute Neuts (auto) 8.2 H, Absolute Lymphs (auto) 2.85, Nucleated RBC % 0 Physical Exam Const oriented x3 and no apparent distress Resp normal respiratory effort Cardio regular rate and regular rhythm GI soft to palpation and non-tender Assessment & Plan Assessment/Plan (1) Diverticulitis: PLAN: Patient reports pain is resolved. I will DC him home on oral antibiotics. Kg Correa MD Pager: [facility] [address] [place] [address], [address] [place] [phone] Office:
[2021-01-11 06:46] LABS: Anion Gap 7 (5-15); BUN 12 mg/dL (7-18); BUN/Creat Ratio 16.7 RATIO (10-20); Chloride 112 mmol/L (98-107); Creatinine, Serum 0.72 mg/dL (0.70-1.30); EST Glomerular Filtration Rate 125 mL/min (>60); Est Glom Filt Rate - Afr Amer 152 mL/min (>60); Estimated Creatinine Clearance 136.54 ml/min; Glucose 92 mg/dL (74-106); Potassium 3.3 mmol/L (3.5-5.1); Sodium Level 140 mmol/L (136-145)
--- NOTE | 2021-01-11 06:46 | PCM.DC.SUM ---
Providers Date of Admission: 01/09/21 Primary Care Physician: Dr. Jimbo Hill DO Reason For Visit: DIVERTICULITIS Diagnosis Discharge Diagnosis (1) Diverticulitis: Status: Acute Code(s): K57.92 - Diverticulitis of intestine, part unspecified, without perforation or abscess without bleeding Medications at Discharge Home Medications lansoprazole 30 mg PO DAILY 12/05/16 aclidinium bromide 2 puff IH DAILY 03/02/17 albuterol sulfate 1 - 2 puff INHALATION Q4H PRN PRN 03/02/17 ondansetron HCl 4 mg tablet 4 mg PO Q8H PRN 02/05/20 trazodone 50 mg PO QHS PRN 04/09/20 albuterol sulfate 2.5 mg INHALATION Q4H PRN PRN 04/12/20 topiramate 25 mg tablet 25 mg PO PRN PRN 06/06/20 tizanidine 4 mg tablet 4 mg PO 4X/DAY 07/18/20 gabapentin 800 mg PO TID 01/02/21 hydroxyzine HCl 50 - 100 mg PO BID PRN 01/02/21 oxycodone 10 mg PO Q4H PRN 5 Days #20 tab 01/03/21 oxycodone-acetaminophen 1 tab PO Q4H PRN PRN 01/09/21 ciprofloxacin HCl [Cipro] 500 mg PO BID #14 tab 01/11/21 Hospital Course Summary of Care Provided Hospital Course: Patient was admitted with acute diverticulitis. He was started on antibiotics and kept on clears. On his third hospitalization day patient was having no pain and his diet was advanced. Once he is tolerating this he was discharged home. Weight / BMI Weight Weight: 267 lb 10.259 oz Body Mass Index (BMI) 37.3 ABG / Lab / Microbiology Data Result Diagrams: 01/11/21 05:40 01/10/21 06:40 Laboratory: Laboratory Results - last 24 hr 01/10/21 06:40: WBC 11.4 H, RBC 4.85, Hgb 14.5, Hct 42.6, MCV 87.8, MCH 29.9, MCHC 34.0, RDW Std Deviation 44.0 H, RDW Coeff of Rudolph 13.5, Plt Count 592 H, MPV 8.9, Immature Gran % (Auto) 0.500, Neut % (Auto) 65.3, Lymph % (Auto) 20.4, [place] % (Auto) 8.3, Eos % (Auto) 5.0, Baso % (Auto) 0.5, Absolute Neuts (auto) 7.4, Absolute Lymphs (auto) 2.31, Nucleated RBC % 0 01/10/21 06:40: Sodium 138, Potassium 3.8, Chloride 107, Carbon Dioxide 20.0 L, Anion Gap 11, BUN 12, Creatinine 0.74, Estim Creat Clear Calc 132.85, Est GFR (MDRD) Af Amer 147, Est GFR (MDRD) Non-Af 121, BUN/Creatinine Ratio 16.3, Glucose 86, Calcium 8.9 01/11/21 05:40: WBC 12.7 H, RBC 4.60, Hgb 13.8, Hct 39.8 L, MCV 86.5, MCH 30.0, MCHC 34.7, RDW Std Deviation 41.6, RDW Coeff of Rudolph 13.3, Plt Count 588 H, MPV 8.7, Immature Gran % (Auto) 0.400, Neut % (Auto) 64.7, Lymph % (Auto) 22.5, [place] % (Auto) 7.6, Eos % (Auto) 4.3, Baso % (Auto) 0.5, Absolute Neuts (auto) 8.2 H, Absolute Lymphs (auto) 2.85, Nucleated RBC % 0 D/C Instructions Discharge Diet: Light diet - advance as tolerated Discharge Activity: May Shower Call your doctor if your incision/area has: Increased Pain/ Swelling Call your doctor if you observe: Fever of 101 or Higher and Inability to have a bowel movement Cleanse incision/area with: Soap & Water Please Follow Up With: Kg Correa MD When: Please call to schedule 2 week follow up appointment. [phone] Meaningful Use Info Meaningful Use Diagnoses (Choose all that apply): None applicable Discharge Plan Admission Admit Date/Time: 01/09/21 07:58 Attending Provider: Kg Correa Primary Care Provider: Jimbo Hill Discharge Orders/Prescriptions Prescriptions: New ciprofloxacin HCl [Cipro] 500 mg tablet 500 mg PO BID Qty: 14 RF: 0 Continued ondansetron HCl [Zofran] 4 mg tablet 4 mg PO Q8H PRN (Reason: Nausea) RF: 0 topiramate 25 mg tablet 25 mg PO PRN PRN (Reason: Appetite supprasant) RF: 0 tizanidine 4 mg tablet 4 mg PO 4X/DAY RF: 0 lansoprazole 30 MG capsule 30 mg PO DAILY RF: 0 albuterol sulfate 1 PUFF inhaler 1 - 2 puff INHALATION Q4H PRN PRN (Reason: Cough) RF: 0 aclidinium bromide 400 MCG aerosol powdr breath activated 2 puff IH DAILY RF: 0 albuterol sulfate 2.5 MG/3 ML solution for nebulization 2.5 mg INHALATION Q4H PRN PRN (Reason: Sob &/Or Wheezing) RF: 0 trazodone 50 MG tablet 50 mg PO QHS PRN (Reason: Sleep) RF: 0 hydroxyzine HCl 50 mg Tablet 50 - 100 mg PO BID PRN (Reason: Anxiety) RF: 0 gabapentin 800 mg Tablet 800 mg PO TID RF: 0 oxycodone 5 mg tablet 10 mg PO Q4H PRN (Reason: pain) 5 Days Qty: 20 RF: 0 oxycodone-acetaminophen 10-325 mg tablet 1 tab PO Q4H PRN PRN (Reason: Back Pain) RF: 0 Discontinued amoxicillin-pot clavulanate [Augmentin] 875-125 mg tablet 1 tab PO BID Qty: 20 RF: 0 Referrals / Follow Up: Jimbo Hill DO [Primary Care Provider] - Disposition Disposition (needs filled in before D/C Order can be placed): Home, Self Care
[2021-01-11 08:31] VITALS: BP 124/83; PULSE 70; RESP 16; TEMP 36.6; O2SAT 96
[2021-01-11] MEDS: Acetaminophen 325 MG Tablet 650 MG PO (08:38)
[2021-01-11] MEDS: Pantoprazole Sodium 40 MG Tablet PO (08:39)
--- NOTE | 2021-01-12 16:36 | CASEMGMT ---
JOSE L CARRERO Discharge F/U Phone Call LACE: 13 Strata: 3 Discharge date: 01/11/21 Call date: 01/12/21 Call time: [id number] Admission dx: Diverticulitis Pt states is doing 'much better'. Pt states no questions with discharge instructions/medications. Pt states plans to schedule f/u appt with PCP and states no suggestions for [facility] at this time. Pt voices no further questions/concerns/needs. Pt thanked this RN MAGAN for the call. SStabhi DOMINGO CM
== END 2021-01-11 10:29 | disposition home or self-care (01) | DRG 244 ==
LOC: ED 22:45 → PCU 01-09 08:58
PROVIDERS: Admitting Provider Surgery; Emergency Provider Emergency Medicine; PCP Family Medicine; Visit Provider Surgery
DX: K57.32 Diverticulitis of large intestine without perforation or abscess without bleeding (principal); K21.9 Gastro-esophageal reflux disease without esophagitis; E66.9 Obesity, unspecified; F17.210 Nicotine dependence, cigarettes, uncomplicated; F10.11 Alcohol abuse, in remission; Y90.9 Presence of alcohol in blood, level not specified; Z68.37 Body mass index [BMI] 37.0-37.9, adult; Z79.899 Other long term (current) drug therapy
CPT/HCPCS: 36415; 74176; 74177; 80048; 80053; 81001; 83605; 85025; 94640; 96374; 96375; 96376; 99284; 99285; 99406; J7030; Q9967; A4216; J2405

== ENCOUNTER 2021-01-20 10:57 | Emergency (ER) | payer MEDICAID, SELFPAY ==
[2021-01-20 10:58] VITALS: BP 143/103; PULSE 86; RESP 14; TEMP 36.4; O2SAT 97; BMI 35.8
--- NOTE | 2021-01-20 12:41 | CT_ITS ---
STUDY: CT ABDOMEN AND PELVIS WITH CONTRAST REASON FOR EXAM: Male, 46 years old. Left lower quadrant pain. Recent hernia surgery and diverticulitis. RADIATION DOSAGE (If Supplied By Facility): CTDIvol = ( 18.10 ) mGy, DLP = ( 1162.35 ) mGycm TECHNIQUE: Transaxial images were obtained from the dome of the diaphragm to the symphysis pubis with oral contrast. 100 ml of ISOVUE-370 contrast was administered. Sagittal and coronal images were reconstructed. Individualized dose optimization techniques were used for this CT. COMPARISON: 01/08/21 FINDINGS: The visualized lung bases are clear. The visualized portions of the heart and pericardium are within normal limits. There are no calcified gallstones present. The liver is within normal limits. There are no suspicious hepatic lesions. The spleen is normal in size. The pancreas is within normal limits. The adrenal glands are within normal limits. There are no renal or ureteral stones. There is no hydronephrosis. There are no focal renal lesions. Normal visualized stomach. There is no bowel obstruction. The appendix is normal. There are mild inflammatory changes in the left lower quadrant adjacent to the distal descending colon and proximal sigmoid colon. This is consistent with diverticulitis and is improved when compared with the prior exam. There are postsurgical changes noted from prior hernia repair. There is no recurrent hernia. The aorta is normal in caliber. There is no abdominal or pelvic free air, free fluid, fluid collection or lymphadenopathy. There are no destructive osseous lesions. There are stable postsurgical changes from fusion of L4-S1. CT/Abdomen/Pelvis WITH Contrast IMPRESSION: Redemonstration of diverticulitis in the distal descending colon/proximal sigmoid colon which is improved when compared with 01/08/21. No bowel obstruction. Normal appendix. Post surgical changes from recent hernia repair. No recurrent hernia. No free air, free fluid or collection. Electronically Signed: Price Mckinney MD at 15:29 EDT Tel , Service support ,
--- NOTE | 2021-01-20 12:42 | EDS_ITS ---
HPI History of Present Illness Chief Complaint: Abd Pain Informant: patient Narrative Narrative: 42-year-old male presenting with left lower quadrant abdominal pain. Patient has history of recent hernia surgery. He had diverticulitis following surgery. He has completed his antibiotics although he states he did not take them as directed and has some pills left over. He went back to work on Saturday and has had worsening left lower quadrant abdominal pain. He was seen by Dr. Correa today and was sent to the ED for CT scan and further evaluation. Prior similar symptoms: Yes Recent Illness/Hospitalization: Yes PFSH PFS Medical History (Updated 01/20/21 @ 15:[address] Leah Burns MD) Acute bronchitis Alcohol abuse, in remission Anxiety Chest pain Chronic low back pain COPD (chronic obstructive pulmonary disease) COPD exacerbation Cough Diverticulitis Fusion of lumbar spine GERD (gastroesophageal reflux disease) History of diverticulitis of colon History of stress test Hypertension Obesity (BMI 30-39.9) Postoperative abdominal pain Restless legs Spinal stenosis of lumbar region Tobacco abuse Ventral hernia Wears contact lenses Wears dentures Wheezing Home Medications lansoprazole 30 mg PO DAILY 12/05/16 [History Last Taken 01/08/21] aclidinium bromide 2 puff IH DAILY 03/02/17 [History Last Taken Unknown] albuterol sulfate 1 - 2 puff INHALATION Q4H PRN PRN 03/02/17 [History Last Taken 01/03/21] ondansetron HCl 4 mg tablet 4 mg PO Q8H PRN 02/05/20 [History Last Taken Unknown] trazodone 50 mg PO QHS PRN 04/09/20 [History Last Taken 05/01/20] albuterol sulfate 2.5 mg INHALATION Q4H PRN PRN 04/12/20 [History Last Taken Unknown] topiramate 25 mg tablet 25 mg PO PRN PRN 06/06/20 [History Last Taken Unknown] tizanidine 4 mg tablet 4 mg PO 4X/DAY 07/18/20 [History Last Taken 01/08/21] gabapentin 800 mg PO TID 01/02/21 [History Last Taken 01/08/21] hydroxyzine HCl 50 - 100 mg PO BID PRN 01/02/21 [History Last Taken 01/08/21] oxycodone 10 mg PO Q4H PRN 5 Days #20 tab 01/03/21 [Rx Last Taken Unknown] amoxicillin-pot clavulanate [Augmentin] 1 tab PO BID 7 Days #14 tab 01/20/21 [Rx Last Taken Unknown] Allergy/AdvReac Type Severity Reaction Status Date / Time sulfamethoxazole Allergy Other Verified 01/20/21 10:57 [From Bactrim] trimethoprim [From Bactrim] Allergy Other Verified 01/20/21 10:57 Metronidazole HCl AdvReac Unknown Verified 01/20/21 10:57 [From Flagyl] Family History Mother CAD (coronary artery disease) Uncle CAD (coronary artery disease) Father Cancer Surgical History History of right knee surgery History of ventral hernia repair Previous back surgery S/P parathyroidectomy Social History household members: spouse housing: house Smoking Status: Current every day smoker tobacco type: cigarettes alcohol intake: former substance use type: does not use and marijuana do you feel safe at home: Yes ROS ROS ED Constitutional Constitutional ED: Denies fever(s) Eyes Eyes: Denies change in vision ENT ENT ED: Denies rhinorrhea or sore throat Cardiovascular Cardiovascular: Denies chest pain or palpitations Respiratory/Chest Respiratory/Chest: Denies cough or dyspnea Gastrointestinal Gastrointestinal: Reports abdominal pain; Denies diarrhea, nausea or vomiting Genitourinary Genitourinary ED: Denies dysuria Musculoskeletal Musculoskeletal: Denies myalgias Integumentary Denies rash Neurologic Neurologic: Denies headache(s) Psychiatric Psychiatric: Denies suicidal thoughts EXAM Physical Exam Const Vital Signs: 01/20/21 10:58 01/20/21 13:29 01/20/21 15:53 Temperature 97.6 F L Temperature Source Temporal Pulse Rate 86 72 76 Respiratory Rate 14 16 14 Blood Pressure 143/103 H 131/78 H 138/86 H Blood Pressure Mean 116 95 103 Pulse Ox 97 97 99 Oxygen Delivery Method Room Air Room Air Room Air Positive well nourished and well developed General Appearance ED: well developed HEENT Reports normocephalic and head/scalp atraumatic Eyes PERRL and EOMs intact bilaterally Neck supple General: Negative for tenderness Chest Wall inspection of chest normal Resp normal respiratory effort and clear to auscultation bilaterally Cardio regular rate and regular rhythm GI non-distended GI Narrative: Incisions clean dry and intact Palpation: soft and tender LLQ; Negative for guarding or rebound tenderness present no CVA tenderness Extremity normal to inspection Neuro oriented x3 Sensorium / Orientation: alert Psych mental status grossly normal MDM MDM MDM Narrative Medical decision making narrative: Patient was given morphine, Zofran IV. CBC shows white count 11.3, platelet 654. Chemistries are unremarkable. Urinalysis is normal. CT abdomen pelvis shows redemonstration of diverticulitis in the distal descending colon/proximal sigmoid colon which is improved when compared to 01/08/2021. Postsurgical changes from recent hernia repair. No recurrent hernia. Discussed with Dr. Correa. Patient has had adverse reaction to Flagyl in the past. He was started on Augmentin. Advised to follow-up with Dr. Correa. Advised return to ED for worsening complaints. Lab Data Attestation: I reviewed the patient's lab results. Labs: Laboratory Results - last 24 hr 01/20/21 01/20/21 01/20/21 12:44 12:44 13:02 WBC 11.3 H RBC 4.85 Hgb 14.8 Hct 43.4 MCV 89.5 MCH 30.5 MCHC 34.1 RDW Std Deviation 45.2 H RDW Coeff of Rudolph 13.9 Plt Count 654 H MPV 8.7 Immature Gran % (Auto) 0.300 Neut % (Auto) 46.0 L Lymph % (Auto) 37.8 [place] % (Auto) 7.5 Eos % (Auto) 7.4 H Baso % (Auto) 1.0 Absolute Neuts (auto) 5.2 Absolute Lymphs (auto) 4.26 Nucleated RBC % 0 Sodium 140 Potassium 4.2 Chloride 110 H Carbon Dioxide 26.0 Anion Gap 4 L BUN 13 Creatinine 0.77 Estim Creat Clear Calc 127.67 Est GFR (MDRD) Af Amer 139 Est GFR (MDRD) Non-Af 115 BUN/Creatinine Ratio 16.8 Glucose 98 Calcium 9.2 Total Bilirubin 0.10 L AST 14 L ALT 19 Alkaline Phosphatase 93 Total Protein 7.3 Albumin 3.6 Globulin 3.7 Albumin/Globulin Ratio 1.0 Urine Color Yellow Urine Clarity Clear Urine pH 7.0 Ur Specific [place] 1.010 Urine Protein Negative Urine Glucose (UA) Normal Urine Ketones Negative Urine Occult Blood Negative Urine Nitrite Negative Urine Bilirubin Negative Urine Urobilinogen Normal Ur Leukocyte Esterase Negative Urine RBC 0 SEEN Urine WBC 0 SEEN Ur Squamous Epith Cells 0 SEEN Urine Bacteria 0 SEEN Urine Mucus 0 SEEN Radiography Diagnostic Testing: Clinical Impression(s) from Imaging Studies Abdomen/Pelvis CT 01/20/21 12:41 IMPRESSION: Redemonstration of diverticulitis in the distal descending colon/proximal sigmoid colon which is improved when compared with 01/08/21. No bowel obstruction. Normal appendix. Post surgical changes from recent hernia repair. No recurrent hernia. No free air, free fluid or collection. Electronically Signed: Price Mckinney MD at 15:29 EDT Tel , Service support , Discharge Plan Triage Chief Complaint: Abd Pain ED Provider: Leah Burns Dx/Rx/DC Orders Clinical Impression: Diverticulitis Instructions: ED Diverticulitis Prescriptions: New amoxicillin-pot clavulanate [Augmentin] 875-125 mg tablet 1 tab PO BID 7 Days Qty: 14 RF: 0 No Action ondansetron HCl [Zofran] 4 mg tablet 4 mg PO Q8H PRN (Reason: Nausea) RF: 0 topiramate 25 mg tablet 25 mg PO PRN PRN (Reason: Appetite supprasant) RF: 0 tizanidine 4 mg tablet 4 mg PO 4X/DAY RF: 0 lansoprazole 30 MG capsule 30 mg PO DAILY RF: 0 albuterol sulfate 1 PUFF inhaler 1 - 2 puff INHALATION Q4H PRN PRN (Reason: Cough) RF: 0 aclidinium bromide 400 MCG aerosol powdr breath activated 2 puff IH DAILY RF: 0 albuterol sulfate 2.5 MG/3 ML solution for nebulization 2.5 mg INHALATION Q4H PRN PRN (Reason: Sob &/Or Wheezing) RF: 0 trazodone 50 MG tablet 50 mg PO QHS PRN (Reason: Sleep) RF: 0 hydroxyzine HCl 50 mg Tablet 50 - 100 mg PO BID PRN (Reason: Anxiety) RF: 0 gabapentin 800 mg Tablet 800 mg PO TID RF: 0 oxycodone 5 mg tablet 10 mg PO Q4H PRN (Reason: pain) 5 Days Qty: 20 RF: 0 Primary Care Provider: Jimbo Hill Referrals: Kg Correa MD [STAFF PHYSICIAN] - Jimbo Hill DO [Primary Care Provider] - Disposition Disposition: Home, Self Care
[2021-01-20] MEDS: Morphine 4 MG/ML Syringe IV (12:50)
[2021-01-20] MEDS: 0.9% Normal Saline 1,000 ML 1000 ML IV (12:50)
[2021-01-20] MEDS: Ondansetron 4 MG/2 ML Vial IV (12:50)
[2021-01-20 12:54] LABS: Absolute Lymphocyte Count 4.26 X10^3/uL (0.83-4.51); Absolute Neutrophil Count 5.2 X10^3/uL (2.0-7.7); Basophil# 0.11 X10^3/uL; Eosinophil# 0.84 X10^3/uL; Eosinophils% 7.4 % (0-5); Hematocrit 43.4 % (40-54); Hemoglobin 14.8 g/dL (13.0-16.5); Lymphocyte # 4.26 X10^3/ul (0.83-4.51); Lymphocyte % 37.8 % (19-41); Mean Corp Hgb Conc 34.1 g/dL (32-36); Mean Corpuscular Hgb 30.5 pg (27.0-32.0); Mean Corpuscular Volume 89.5 fL (80-94); Mean Platelet Vol. 8.7 fl (6.2-12.0); Monocyte# 0.85 X10^3/uL; Monocyte% 7.5 % (0-10); NRBC Flagged by Analyzer 0 % (0-5); Neutrophil # 5.19 X10^3/uL (2.7-7.7); Platelet Count 654 K/mm3 (150-450); RBC Distribution Width CV 13.9 % (11.6-14.6); RBC Distribution Width SD 45.2 fl (35.1-43.9); Red Blood Count 4.85 M/mm3 (4.6-6.2); White Blood Count 11.3 K/mm3 (4.4-11.0)
[2021-01-20 13:07] LABS: Bacteria 0 SEEN /hpf (None Seen); Mucous, Urine 0 SEEN /hpf (<or=2+); Red Blood Cells-Urine 0 SEEN /hpf (0-5); Squamous Epithelial Cells - UA 0 SEEN /hpf (0-5); White Blood Cells 0 SEEN /hpf (0-5)
[2021-01-20 13:16] LABS: AST(SGOT) 14 U/L (15-37); Alanine Aminotransfer ALT/SGPT 19 U/L (16-61); Albumin, Serum 3.6 g/dL (3.2-5.0); Alkaline Phosphatase 93 U/L (45-117); Anion Gap 4 (5-15); BUN 13 mg/dL (7-18); BUN/Creat Ratio 16.8 RATIO (10-20); Calcium,Total 9.2 mg/dL (8.5-10.1); Chloride 110 mmol/L (98-107); Creatinine, Serum 0.77 mg/dL (0.70-1.30); EST Glomerular Filtration Rate 115 mL/min (>60); Est Glom Filt Rate - Afr Amer 139 mL/min (>60); Estimated Creatinine Clearance 127.67 ml/min; Globulin 3.7 g/dL (2.2-4.2); Glucose 98 mg/dL (74-106); Potassium 4.2 mmol/L (3.5-5.1); Protein, Total 7.3 g/dL (6.4-8.2); Sodium Level 140 mmol/L (136-145)
[2021-01-20 13:19] LABS: Color, Urine Yellow (Yellow); Glucose, Dipstick Normal (Normal); Ketone-Dipstick Negative (Negative); Leukocyte Esterase-Dipstick Negative /ul (Negative); Nitrite-Dipstick Negative (Negative); Occult Blood-Urine Negative /ul (Negative); Protein-Dipstick Negative (Negative); Urine Bilirubin Dipstick Negative (Negative); Urine Clarity Clear (Clear); Urine Urobilinogen Normal (Normal)
[2021-01-20 13:29] VITALS: BP 131/78; PULSE 72; RESP 16; O2SAT 97
--- NOTE | 2021-01-20 15:48 | ED.RN ---
Pt. reports that they are allergic to flagyl, due to getting blisters in their mouth. Dr. updated. Patel returned to accudose.
[2021-01-20 15:53] VITALS: BP 138/86; PULSE 76; RESP 14; O2SAT 99
[2021-01-20] MEDS: Amox/Clavulanate 875 MG Tablet PO (16:03)
== END 2021-01-20 16:08 | disposition home or self-care (01) ==
PROVIDERS: Emergency Provider Emergency Medicine; PCP Family Medicine
DX: K57.32 Diverticulitis of large intestine without perforation or abscess without bleeding (principal); I10 Essential (primary) hypertension; J44.9 Chronic obstructive pulmonary disease, unspecified; K21.9 Gastro-esophageal reflux disease without esophagitis; E66.9 Obesity, unspecified; F41.9 Anxiety disorder, unspecified; F17.210 Nicotine dependence, cigarettes, uncomplicated; Z68.35 Body mass index [BMI] 35.0-35.9, adult; Z79.899 Other long term (current) drug therapy
CPT/HCPCS: 74177; 80053; 81001; 85025; 96361; 96374; 96375; 99284; J7030; Q9967; A4216; J2405

== ENCOUNTER 2021-02-06 10:49 | Emergency (ER) | payer MEDICAID, SELFPAY ==
[2021-02-06 10:50] VITALS: BP 154/99; PULSE 93; RESP 18; TEMP 36.6; O2SAT 98; BMI 36.2
--- NOTE | 2021-02-06 12:16 | CT_ITS ---
STUDY: CT ABDOMEN AND PELVIS WITH CONTRAST REASON FOR EXAM: Male, 46 years old. Abdominal pain. Recent hernia repair and diverticulitis. RADIATION DOSAGE (If Supplied By Facility): CTDIvol = ( 16.88 ) mGy, DLP = ( 1223.88 ) mGycm TECHNIQUE: Transaxial images were obtained from the dome of the diaphragm to the symphysis pubis without oral contrast. IV 100mL Isovue-370 was administered. Sagittal and coronal images were reconstructed. Individualized dose optimization techniques were used for this CT. COMPARISON: Comparison is made with prior examination dated 01/20/2021. FINDINGS: The visualized lung bases are unremarkable. The visualized portions of the heart are within normal limits. There is decreased attenuation of the liver consistent with steatosis. Normal gallbladder and extrahepatic biliary system. Normal spleen. Normal pancreas. Normal bilateral adrenal glands. Normal right kidney. Normal left kidney. Normal visualized stomach. Normal small intestine. There are scattered colonic diverticula consistent with diverticulosis. Minimal residual increased markings in the surrounding peritoneal fat suggesting mild residual diverticulitis. The appendix is visualized and appears normal. There is scattered atherosclerotic calcification of the abdominal aorta, without a demonstrated aneurysm. Normal inferior vena cava. Normal retroperitoneum. Normal urinary bladder. Post surgical changes in the pelvic region most likely secondary to prior hernia repair. The patient is status post anterior and posterior fusion and prosthetic disc placement at the L5-S1 level. CT/Abdomen/Pelvis W IV Cont ONLY IMPRESSION: Scattered sigmoid diverticula. Mild residual diverticulitis. Electronically Signed: George Garcia MD at 13:35 EDT , Service support ,
--- NOTE | 2021-02-06 12:17 | EDS_ITS ---
HPI HPI - GI History of Present Illness Chief Complaint: Abd Pain Informant: patient Narrative Narrative: Patient presents with left lower quadrant abdominal pain. Patient had ventral hernia repair at the end of December. He was doing well from that. About a week later he developed diverticulitis. He was on unknown antibiotics. It was getting better but not resolving. He was seen a little over 2 weeks ago. He was then placed on Augmentin. He has been off antibiotics for approximately a week he thinks. He did go back to work last week. 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 It is located in the left lower quadrant. Moving definitely worsens it. Rest does make it a little better but it does not go away. He has not had nausea vomiting. He is eating well. He is moving his bowels and not having diarrhea or blood in the stool. No fevers. No troubles urinating. [facility] Medical History Acute bronchitis Alcohol abuse, in remission Anxiety Chest pain Chronic low back pain COPD (chronic obstructive pulmonary disease) COPD exacerbation Cough Diverticulitis Fusion of lumbar spine GERD (gastroesophageal reflux disease) History of diverticulitis of colon History of stress test Hypertension Obesity (BMI 30-39.9) Postoperative abdominal pain Restless legs Spinal stenosis of lumbar region Tobacco abuse Ventral hernia Wears contact lenses Wears dentures Wheezing Home Medications lansoprazole 30 mg PO DAILY 12/05/16 [History Last Taken 01/08/21] albuterol sulfate 1 - 2 puff INHALATION Q4H PRN PRN 03/02/17 [History Last Taken 01/03/21] ondansetron HCl 4 mg tablet 4 mg PO Q8H PRN 02/05/20 [History Last Taken Unknown] trazodone 100 mg PO QHS PRN 04/09/20 [History Last Taken 05/01/20] albuterol sulfate 2.5 mg INHALATION Q4H PRN PRN 04/12/20 [History Last Taken Unknown] topiramate 25 mg tablet 25 mg PO BID 06/06/20 [History Last Taken Unknown] tizanidine 4 mg tablet 4 mg PO 4X/DAY 07/18/20 [History Last Taken 01/08/21] gabapentin 800 mg PO TID 01/02/21 [History Last Taken 01/08/21] hydroxyzine HCl 50 - 100 mg PO BID PRN 01/02/21 [History Last Taken 01/08/21] oxycodone 10 mg PO Q4H PRN 5 Days #20 tab 01/03/21 [Rx Last Taken Unknown] dicyclomine 20 mg PO BID #14 tab 02/06/21 [Rx Last Taken Unknown] Allergy/AdvReac Type Severity Reaction Status Date / Time sulfamethoxazole Allergy Other Verified 01/20/21 10:57 [From Bactrim] trimethoprim [From Bactrim] Allergy Other Verified 01/20/21 10:57 Metronidazole HCl AdvReac Unknown Verified 01/20/21 10:57 [From Flagyl] Family History Mother CAD (coronary artery disease) Uncle CAD (coronary artery disease) Father Cancer Surgical History History of right knee surgery History of ventral hernia repair Previous back surgery S/P parathyroidectomy Social History household members: spouse housing: house Smoking Status: Current every day smoker tobacco type: cigarettes alcohol intake: former substance use type: does not use and marijuana do you feel safe at home: Yes ROS ROS ED Constitutional Constitutional ED: Denies fever(s) ENT ENT ED: Denies rhinorrhea Cardiovascular Cardiovascular: Denies chest pain or palpitations Respiratory/Chest Respiratory/Chest: Denies cough or dyspnea Gastrointestinal Gastrointestinal: Reports abdominal pain; Denies constipation, diarrhea, melena, nausea or vomiting Genitourinary Genitourinary ED: Denies dysuria or hematuria Musculoskeletal Musculoskeletal: Denies back pain Integumentary Denies rash Neurologic Neurologic: Denies headache(s), paresthesias or weakness Endocrine Endocrinology: Denies polydipsia or polyuria Hematologic/Lymphatic Hematologic/Lymphatic: Denies easy bruising Allergic/Immunologic Allergic/Immunologic ED: Denies urticaria EXAM Physical Exam Const Vital Signs: 02/06/21 10:50 02/06/21 14:00 Temperature 98 F Temperature Source Temporal Pulse Rate 93 89 Respiratory Rate 18 18 Blood Pressure 154/99 H 135/100 H Blood Pressure Mean 117 111 Pulse Ox 98 97 Oxygen Delivery Method Room Air Room Air Positive well nourished and well developed General Appearance ED: well developed and NAD HEENT Reports moist mucous membranes Eyes General Eye ED: Negative for pale conjunctiva or scleral icterus Neck no JVD Resp normal respiratory effort and clear to auscultation bilaterally Auscultation: Negative for rales, rhonchi or wheezes Cardio regular rate and regular rhythm GI no masses GI Narrative: Port sites are well-healed. I feel no ventral hernia. I had him sit up and strain. This does cause some discomfort but I do not feel any herniation. There is some diffuse tenderness toward the left lower quadrant but he states he had his hernia on the left side. He denies the area where his hernia was done and the diverticulitis were evidently the same area. Certainly no rebound or guarding. Auscultation: normoactive bowel sounds Palpation: soft Back/Spine no CVA tenderness Neuro Sensorium / Orientation: alert and oriented to person Psych mental status grossly normal Skin Lesions: no lesions Rashes: no rashes MDM MDM MDM Narrative Medical decision making narrative: Patient's blood work is normal. Electrolytes show no marked abnormalities. LFTs are normal. White count is normal. CT scan shows mild residual diverticulitis. I discussed the case with Dr. Finley who knows this patient well. Patient has been eating a very normal diet. He did not go on to clear liquids. At this point we will switch him to clear liquid diet and hold off on further antibiotics. He will follow up with Dr. Finley this week. Patient is on regular oxycodone prescribed chronically. I will write for some Bentyl to see if this will provide some benefit. Lab Data Attestation: I reviewed the patient's lab results. Labs: Laboratory Results - last 24 hr 02/06/21 02/06/21 12:25 12:25 WBC 7.9 RBC 4.76 Hgb 14.2 Hct 42.8 MCV 89.9 MCH 29.8 MCHC 33.2 RDW Std Deviation 48.0 H RDW Coeff of Rudolph 14.5 Plt Count 484 H MPV 8.8 Immature Gran % (Auto) 0.500 Neut % (Auto) 58.4 Lymph % (Auto) 30.8 [place] % (Auto) 4.8 Eos % (Auto) 4.7 Baso % (Auto) 0.8 Absolute Neuts (auto) 4.6 Absolute Lymphs (auto) 2.44 Nucleated RBC % 0 Sodium 141 Potassium 3.7 Chloride 110 H Carbon Dioxide 26.0 Anion Gap 5 BUN 9 Creatinine 0.86 Estim Creat Clear Calc 114.31 Est GFR (MDRD) Af Amer 124 Est GFR (MDRD) Non-Af 102 BUN/Creatinine Ratio 10.5 Glucose 103 Calcium 9.0 Total Bilirubin 0.30 AST 15 ALT 21 Alkaline Phosphatase 75 Total Protein 7.0 Albumin 3.6 Globulin 3.4 Albumin/Globulin Ratio 1.1 Radiography Diagnostic Testing: Clinical Impression(s) from Imaging Studies Abdomen/Pelvis CT 02/06/21 12:16 IMPRESSION: Scattered sigmoid diverticula. Mild residual diverticulitis. Electronically Signed: George Garcia MD at 13:35 EDT , Service support , Discharge Plan Triage Chief Complaint: Abd Pain ED Provider: Fabian Severino Dx/Rx/DC Orders Clinical Impression: Abdominal pain, Diverticulitis Instructions: Abdominal Pain, ED Diverticulitis Prescriptions: New dicyclomine 20 mg tablet 20 mg PO BID Qty: 14 RF: 0 No Action ondansetron HCl [Zofran] 4 mg tablet 4 mg PO Q8H PRN (Reason: Nausea) RF: 0 topiramate 25 mg tablet 25 mg PO BID RF: 0 tizanidine 4 mg tablet 4 mg PO 4X/DAY RF: 0 lansoprazole 30 MG capsule 30 mg PO DAILY RF: 0 albuterol sulfate 1 PUFF inhaler 1 - 2 puff INHALATION Q4H PRN PRN (Reason: Cough) RF: 0 albuterol sulfate 2.5 MG/3 ML solution for nebulization 2.5 mg INHALATION Q4H PRN PRN (Reason: Sob &/Or Wheezing) RF: 0 trazodone 50 MG tablet 100 mg PO QHS PRN (Reason: Sleep) RF: 0 hydroxyzine HCl 50 mg Tablet 50 - 100 mg PO BID PRN (Reason: Anxiety) RF: 0 gabapentin 800 mg Tablet 800 mg PO TID RF: 0 oxycodone 5 mg tablet 10 mg PO Q4H PRN (Reason: pain) 5 Days Qty: 20 RF: 0 Primary Care Provider: Jimbo Hill Referrals: Kg Correa MD [STAFF PHYSICIAN] - As soon as possible (Call tomorrow morning for an appointment as soon as possible.) Jimbo Hill DO [Primary Care Provider] - Disposition Disposition: Home, Self Care
[2021-02-06] MEDS: Morphine 4 MG/ML Syringe IV ×3 (12:25→16:02)
[2021-02-06] MEDS: 0.9% Normal Saline 1,000 ML 1000 ML IV (12:25)
[2021-02-06 12:40] LABS: Absolute Lymphocyte Count 2.44 X10^3/uL (0.83-4.51); Absolute Neutrophil Count 4.6 X10^3/uL (2.0-7.7); Basophil# 0.06 X10^3/uL; Basophil% 0.8 % (0-1); Eosinophil# 0.37 X10^3/uL; Eosinophils% 4.7 % (0-5); Hematocrit 42.8 % (40-54); Hemoglobin 14.2 g/dL (13.0-16.5); Lymphocyte # 2.44 X10^3/ul (0.83-4.51); Lymphocyte % 30.8 % (19-41); Mean Corp Hgb Conc 33.2 g/dL (32-36); Mean Corpuscular Hgb 29.8 pg (27.0-32.0); Mean Corpuscular Volume 89.9 fL (80-94); Mean Platelet Vol. 8.8 fl (6.2-12.0); Monocyte# 0.38 X10^3/uL; Monocyte% 4.8 % (0-10); NRBC Flagged by Analyzer 0 % (0-5); Neutrophil # 4.64 X10^3/uL (2.7-7.7); Neutrophil % 58.4 % (47-70); Platelet Count 484 K/mm3 (150-450); RBC Distribution Width CV 14.5 % (11.6-14.6); Red Blood Count 4.76 M/mm3 (4.6-6.2); White Blood Count 7.9 K/mm3 (4.4-11.0)
[2021-02-06 12:55] LABS: ALB/GLOB Ratio 1.1 RATIO (0.9-2.4); AST(SGOT) 15 U/L (15-37); Alanine Aminotransfer ALT/SGPT 21 U/L (16-61); Albumin, Serum 3.6 g/dL (3.2-5.0); Alkaline Phosphatase 75 U/L (45-117); Anion Gap 5 (5-15); BUN 9 mg/dL (7-18); BUN/Creat Ratio 10.5 RATIO (10-20); Chloride 110 mmol/L (98-107); Creatinine, Serum 0.86 mg/dL (0.70-1.30); EST Glomerular Filtration Rate 102 mL/min (>60); Est Glom Filt Rate - Afr Amer 124 mL/min (>60); Estimated Creatinine Clearance 114.31 ml/min; Globulin 3.4 g/dL (2.2-4.2); Glucose 103 mg/dL (74-106); Potassium 3.7 mmol/L (3.5-5.1); Sodium Level 141 mmol/L (136-145)
[2021-02-06 14:00] VITALS: BP 135/100; PULSE 89; RESP 18; O2SAT 97
[2021-02-06] MEDS: Contrast Allergy Safety Check IV (15:48)
[2021-02-06 15:51] VITALS: BP 136/91; PULSE 78; RESP 16
== END 2021-02-06 16:16 | disposition home or self-care (01) ==
PROVIDERS: Emergency Provider Emergency Medicine; PCP Family Medicine
DX: K57.32 Diverticulitis of large intestine without perforation or abscess without bleeding (principal); I10 Essential (primary) hypertension; J44.9 Chronic obstructive pulmonary disease, unspecified; K21.9 Gastro-esophageal reflux disease without esophagitis; F41.9 Anxiety disorder, unspecified; F17.210 Nicotine dependence, cigarettes, uncomplicated; E66.9 Obesity, unspecified; Z79.899 Other long term (current) drug therapy
CPT/HCPCS: 74177; 80053; 85025; 96361; 96374; 96376; 99283; J7030; Q9967; A4216

== ENCOUNTER 2021-02-20 15:34 | Outpatient (CLI) | payer MEDICAID, SELFPAY ==
[2021-02-20 15:39] VITALS: BP 130/81; PULSE 73; RESP 18; TEMP 36.8; O2SAT 97; BMI 35.5
[2021-02-20] MEDS: 0.9% Saline Lock 10 ML Syringe IV (15:48)
[2021-02-20 16:43] VITALS: BP 131/83; PULSE 51; RESP 16; TEMP 36.6; O2SAT 98
[2021-02-20 17:40] VITALS: BP 131/90; PULSE 51; RESP 16; TEMP 36.6; O2SAT 97
== END 2021-02-20 17:48 | disposition home or self-care (01) ==
LOC: MS3OUT 15:34 → MS3 16:03
PROVIDERS: PCP Family Medicine; Referring Provider Nurse Practitioner Adult Health; Visit Provider Nurse Practitioner Adult Health
DX: U07.1 COVID-19 (principal)
CPT/HCPCS: M0245; Q0245

== ENCOUNTER 2021-02-25 17:44 | Inpatient (IN) | payer MEDICAID, SELFPAY ==
[2021-02-25 17:44] VITALS: BP 151/88; PULSE 81; RESP 19; TEMP 37; O2SAT 96; BMI 34.8
--- NOTE | 2021-02-25 18:13 | CT_ITS ---
STUDY: CT ABDOMEN AND PELVIS WITHOUT CONTRAST REASON FOR EXAM: Male, 46 years old. LLQ PAIN,RECENT DIVERTICULITIS,WAS SCHEDULED FOR COLON SURGERY BUT GOT COVID PRIOR HERNIA REPAIR,LUMBAR FUSION RADIATION DOSAGE (If Supplied By Facility): CTDIvol = ( 19.74 ) mGy, DLP = ( 1030.81 ) mGycm TECHNIQUE: Transaxial images were obtained from the dome of the diaphragm to the symphysis pubis without oral contrast, and without intravenous contrast. Sagittal and coronal images were reconstructed. Individualized dose optimization techniques were used for this CT. COMPARISON: None. FINDINGS: The visualized lung bases are unremarkable. The visualized portions of the heart are within normal limits. Normal liver. Normal gallbladder and extrahepatic biliary system. Normal spleen. Normal pancreas. Normal bilateral adrenal glands. No hydronephrosis. Punctate calcification left kidney on image 66 of series 2 is likely vascular. No ureteral calculi. Normal visualized stomach. Normal small intestine. There is diverticulosis, with thickening of the colon wall (image 60 series 601), and pericolonic inflammation changes (image 115 series 2) consistent with acute diverticulitis. The appendix is visualized and appears normal. Normal abdominal aorta. Normal inferior vena cava. Normal retroperitoneum. Normal urinary bladder. Normal abdominal wall. Degenerative and operative changes of the lumbar spine. CT/Abdomen/Pelvis without Cont IMPRESSION: Mild proximal sigmoid diverticulitis. No abscess or pneumoperitoneum. Electronically Signed: Zhen Matias MD ([place]) at 18:57 EST , Service support ,
--- NOTE | 2021-02-25 18:14 | ED.VIS.GI ---
HPI HPI - GI History of Present Illness Chief Complaint: Abd Pain Detail of Chief Complaint: Abdominal pain Informant: patient Narrative Narrative: Patient presents to the emergency department complaint of abdominal pain that started being severe today. Patient was diagnosed with diverticulitis about 2 months ago and was on antibiotics but does not feel like he got altogether better. Patient started having more severe pain today. Patient had been scheduled to have a partial colectomy with Dr. Correa but he ended up developing Covid so the surgery was canceled. Patient denies any fevers. He denies vomiting. He denies blood in stool or black tarry stools. Patient states the pain is severe. Prior similar symptoms: Yes PFSH PFSH Medical History (Updated 02/25/21 @ 19:[address] Luiz Cameron, DO) Acute bronchitis Alcohol abuse, in remission Alcohol use Anxiety Chest pain Chronic low back pain COPD (chronic obstructive pulmonary disease) COPD exacerbation Cough Diverticulitis Fusion of lumbar spine GERD (gastroesophageal reflux disease) History of diverticulitis of colon History of diverticulitis of colon History of stress test Hypertension Obesity (BMI 30-39.9) Postoperative abdominal pain Restless legs Spinal stenosis of lumbar region Substance use Suture of skin wound Tobacco abuse Ventral hernia Wears contact lenses Wears dentures Wheezing Home Medications lansoprazole 30 mg PO DAILY 12/05/16 [History Last Taken 01/08/21] albuterol sulfate 1 - 2 puff INHALATION Q4H PRN PRN 03/02/17 [History Last Taken 01/03/21] trazodone 100 mg PO QHS PRN 04/09/20 [History Last Taken 05/01/20] albuterol sulfate 2.5 mg INHALATION Q4H PRN PRN 04/12/20 [History Last Taken Unknown] topiramate 25 mg tablet 50 mg PO BID 06/06/20 [History Last Taken Unknown] tizanidine 4 mg tablet 4 mg PO 4X/DAY 07/18/20 [History Last Taken 01/08/21] gabapentin 800 mg PO TID 01/02/21 [History Last Taken 01/08/21] hydroxyzine HCl 50 - 100 mg PO BID PRN 01/02/21 [History Last Taken 01/08/21] oxycodone 10 mg PO Q4H PRN 5 Days #20 tab 01/03/21 [Rx Last Taken Unknown] neomycin 500 mg tablet 500 mg PO .COMPLEX #6 tab 02/08/21 [Rx Last Taken Unknown] Allergy/AdvReac Type Severity Reaction Status Date / Time sulfamethoxazole Allergy Other Verified 02/25/21 17:46 [From Bactrim] trimethoprim [From Bactrim] Allergy Other Verified 02/25/21 17:46 Metronidazole HCl AdvReac Unknown Verified 02/25/21 17:46 [From Flagyl] Family History Mother CAD (coronary artery disease) Uncle CAD (coronary artery disease) Father Cancer Surgical History (Updated 02/25/21 @ 18:02 by Vivek Perez) History of right knee surgery History of ventral hernia repair Previous back surgery Social History household members: spouse housing: house Smoking Status: Current every day smoker tobacco type: cigarettes alcohol intake: former substance use type: does not use and marijuana do you feel safe at home: Yes ROS ROS ED Constitutional Constitutional ED: Reports systems reviewed and no addt'l complaints, except as documented; Denies body ache(s), change in weight or chills Eyes Eyes: Denies acute decrease in peripheral vision, change in vision, double vision or loss of vision ENT ENT ED: Reports none; Denies ear pain, lip swelling, loss taste/smell, neck pain, otalgia or sore throat Cardiovascular Cardiovascular: Reports none; Denies abdominal pain, chest pain with activity, leg edema, lightheadedness, palpitations, rapid heart rate or syncope Respiratory/Chest Respiratory/Chest: Reports none; Denies change in mental status, dry cough, dyspnea, hemoptysis, shortness of breath at rest or shortness of breath with exertion Gastrointestinal Gastrointestinal: Reports none and abdominal pain; Denies change in stool character, diarrhea, hematemesis, hematochezia, melena, rectal bleeding or vomiting Genitourinary Genitourinary ED: Reports none; Denies abdominal discomfort, anuria, dysuria, genital pain or polyuria Musculoskeletal Musculoskeletal: Reports none; Denies arthralgias, back pain, difficulty walking, extremity pain, muscle weakness or myalgias Integumentary Reports none; Denies abscess or rash Neurologic Neurologic: Reports none; Denies abnormal gait, confusion, focal weakness, frequent falls, headache(s), loss of vision, numbness, paresthesias, radicular pain, vertigo or weakness Psychiatric Psychiatric: Reports systems reviewed and no addt'l complaints, except as documented and none; Denies behavioral changes, confusion, difficulty concentrating, hallucinations, suicidal ideation, tactile hallucinations or visual hallucinations Endocrine Endocrinology: Denies none, cold intolerance, excessive sweating, fatigue or heat intolerance Hematologic/Lymphatic Hematologic/Lymphatic: Reports none; Denies anemia, easy bleeding or easy bruising Allergic/Immunologic Allergic/Immunologic ED: Denies as per HPI, none, lip swelling, mouth swelling, throat swelling, tongue swelling or hives EXAM Physical Exam Const Vital Signs: 02/25/21 17:44 Temperature 98.6 F Temperature Source Temporal Pulse Rate 81 Respiratory Rate 19 H Blood Pressure 151/88 H Blood Pressure Mean 109 Pulse Ox 96 Oxygen Delivery Method Room Air Positive well nourished and well developed General Appearance ED: well developed and NAD HEENT Reports TM's clear and moist mucous membranes normocephalic and atraumatic; Negative for trauma or tenderness Tympanic Membrane ED: Yes TM's clear Eyes PERRL and EOMs intact bilaterally General Eye ED: Negative for pale conjunctiva or scleral icterus Neck no lymphadenopathy, supple and no JVD General: Negative for tenderness Chest Wall inspection of chest normal and palpation of chest normal Chest: Negative for tenderness Resp normal respiratory effort and clear to auscultation bilaterally Effort and Inspection: Negative for respiratory distress or pain with movement Auscultation: Negative for rhonchi, wheezes or diminished lung sounds Cardio regular rate, regular rhythm, S1 normal heart sound, S2 normal heart sound and no murmurs Peripheral Pulses: pulses 2+ throughout GI normal to inspection, nondistended, normoactive bowel sounds, soft to palpation, non-distended and no masses GI Narrative: Patient has tenderness to palpation over the left lower quadrant with some guarding. There is no rebound, rigidity, or peritoneal signs. Palpation: tender Back/Spine no CVA tenderness and no thoracic nor lumbar tenderness Extremity normal to inspection General Extremety ED: Negative for edema General Extremity: Negative for edema Neuro oriented x3, CN's II-XII intact bilaterally, no sensory deficits noted and gait normal Sensorium / Orientation: awake, alert, oriented to person, oriented to place and oriented to time Motor Exam: strength 5/5 throughout and strength abnormal Psych mental status grossly normal Skin no rashes or lesions noted and no wounds MDM MDM MDM Narrative Medical decision making narrative: IV line established on arrival. Patient was medicated with Dilaudid and Zofran. Patient continued to have significant pain and was given a second dose of Dilaudid. On CT he is noted to have acute diverticulitis without evidence of abscess or perforation. Patient continues to complain of significant pain therefore Case will be discussed with hospitalist to evaluate patient for admission. Patient started on Zosyn 4.5 g IV. Lab Data Attestation: I reviewed the patient's lab results. Labs: Laboratory Results - last 24 hr 02/25/21 02/25/21 02/25/21 18:06 18:06 18:06 WBC 12.3 H RBC 4.31 L Hgb 13.1 Hct 38.1 L MCV 88.4 MCH 30.4 MCHC 34.4 RDW Std Deviation 46.0 H RDW Coeff of Rudolph 14.2 Plt Count 561 H MPV 9.2 Immature Gran % (Auto) 0.500 Neut % (Auto) 49.4 Lymph % (Auto) 36.5 [place] % (Auto) 9.3 Eos % (Auto) 4.0 Baso % (Auto) 0.3 Absolute Neuts (auto) 6.1 Absolute Lymphs (auto) 4.49 Nucleated RBC % 0 Sodium 141 Potassium 4.4 Chloride 111 H Carbon Dioxide 27.0 Anion Gap 3 L BUN 12 Creatinine 0.76 Estim Creat Clear Calc 129.35 Est GFR (MDRD) Af Amer 142 Est GFR (MDRD) Non-Af 117 BUN/Creatinine Ratio 15.7 Glucose 110 H Lactic Acid 1.3 Calcium 8.5 Urine Color Urine Clarity Urine pH Ur Specific [place] Urine Protein Urine Glucose (UA) Urine Ketones Urine Occult Blood Urine Nitrite Urine Bilirubin Urine Urobilinogen Ur Leukocyte Esterase Urine RBC Urine WBC Ur Squamous Epith Cells Urine Bacteria Urine Mucus 02/25/21 19:20 WBC RBC Hgb Hct MCV MCH MCHC RDW Std Deviation RDW Coeff of Rudolph Plt Count MPV Immature Gran % (Auto) Neut % (Auto) Lymph % (Auto) [place] % (Auto) Eos % (Auto) Baso % (Auto) Absolute Neuts (auto) Absolute Lymphs (auto) Nucleated RBC % Sodium Potassium Chloride Carbon Dioxide Anion Gap BUN Creatinine Estim Creat Clear Calc Est GFR (MDRD) Af Amer Est GFR (MDRD) Non-Af BUN/Creatinine Ratio Glucose Lactic Acid Calcium Urine Color Yellow Urine Clarity Clear Urine pH 6.0 Ur Specific [place] 1.020 Urine Protein Negative Urine Glucose (UA) Normal Urine Ketones Negative Urine Occult Blood Negative Urine Nitrite Negative Urine Bilirubin Negative Urine Urobilinogen Normal Ur Leukocyte Esterase Negative Urine RBC 0 SEEN Urine WBC 0 SEEN Ur Squamous Epith Cells 0-5 SEEN Urine Bacteria 0 SEEN Urine Mucus 0 SEEN Radiography Diagnostic Testing: Clinical Impression(s) from Imaging Studies Abdomen/Pelvis CT 02/25/21 18:13 IMPRESSION: Mild proximal sigmoid diverticulitis. No abscess or pneumoperitoneum. Electronically Signed: Zhen Matias MD ([place]) at 18:57 EST , Service support , Discharge Plan Triage Chief Complaint: Abd Pain ED Provider: Luiz Cameron Dx/Rx/DC Orders Clinical Impression: Acute diverticulitis, Intractable abdominal pain Prescriptions: No Action topiramate 25 mg tablet 50 mg PO BID RF: 0 tizanidine 4 mg tablet 4 mg PO 4X/DAY RF: 0 neomycin 500 mg tablet 500 mg PO .COMPLEX Qty: 6 RF: 0 lansoprazole 30 MG capsule 30 mg PO DAILY RF: 0 albuterol sulfate 1 PUFF inhaler 1 - 2 puff INHALATION Q4H PRN PRN (Reason: Cough) RF: 0 albuterol sulfate 2.5 MG/3 ML solution for nebulization 2.5 mg INHALATION Q4H PRN PRN (Reason: Sob &/Or Wheezing) RF: 0 trazodone 50 MG tablet 100 mg PO QHS PRN (Reason: Sleep) RF: 0 hydroxyzine HCl 50 mg Tablet 50 - 100 mg PO BID PRN (Reason: Anxiety) RF: 0 gabapentin 800 mg Tablet 800 mg PO TID RF: 0 oxycodone 5 mg tablet 10 mg PO Q4H PRN (Reason: pain) 5 Days Qty: 20 RF: 0 Primary Care Provider: Jimbo Hill Referrals: Jimbo Hill DO [Primary Care Provider] - Disposition Disposition: Acute Care Hospital [facility]
[2021-02-25] MEDS: Ondansetron 4 MG/2 ML Vial IV ×2 (18:19→19:31)
[2021-02-25] MEDS: HYDROmorphone 1 MG/ML Syringe IV ×3 (18:21→20:34)
[2021-02-25 18:31] LABS: Absolute Lymphocyte Count 4.49 X10^3/uL (0.83-4.51); Absolute Neutrophil Count 6.1 X10^3/uL (2.0-7.7); Basophil# 0.04 X10^3/uL; Basophil% 0.3 % (0-1); Eosinophil# 0.49 X10^3/uL; Hematocrit 38.1 % (40-54); Hemoglobin 13.1 g/dL (13.0-16.5); Lymphocyte # 4.49 X10^3/ul (0.83-4.51); Lymphocyte % 36.5 % (19-41); Mean Corp Hgb Conc 34.4 g/dL (32-36); Mean Corpuscular Hgb 30.4 pg (27.0-32.0); Mean Corpuscular Volume 88.4 fL (80-94); Mean Platelet Vol. 9.2 fl (6.2-12.0); Monocyte# 1.15 X10^3/uL; Monocyte% 9.3 % (0-10); NRBC Flagged by Analyzer 0 % (0-5); Neutrophil # 6.07 X10^3/uL (2.7-7.7); Neutrophil % 49.4 % (47-70); Platelet Count 561 K/mm3 (150-450); RBC Distribution Width CV 14.2 % (11.6-14.6); Red Blood Count 4.31 M/mm3 (4.6-6.2); White Blood Count 12.3 K/mm3 (4.4-11.0)
[2021-02-25 18:45] LABS: Anion Gap 3 (5-15); BUN 12 mg/dL (7-18); BUN/Creat Ratio 15.7 RATIO (10-20); Calcium,Total 8.5 mg/dL (8.5-10.1); Chloride 111 mmol/L (98-107); Creatinine, Serum 0.76 mg/dL (0.70-1.30); EST Glomerular Filtration Rate 117 mL/min (>60); Est Glom Filt Rate - Afr Amer 142 mL/min (>60); Estimated Creatinine Clearance 129.35 ml/min; Glucose 110 mg/dL (74-106); Potassium 4.4 mmol/L (3.5-5.1); Sodium Level 141 mmol/L (136-145)
[2021-02-25 18:56] LABS: Lactic Acid 1.3 mmol/L (0.4-1.9)
[2021-02-25 19:23] LABS: Bacteria 0 SEEN /hpf (None Seen); Mucous, Urine 0 SEEN /hpf (<or=2+); Red Blood Cells-Urine 0 SEEN /hpf (0-5); White Blood Cells 0 SEEN /hpf (0-5)
[2021-02-25] MEDS: 0.9% Normal Saline 1,000 ML 125 ML IV ×2 (19:23→21:44)
[2021-02-25 19:24] LABS: Color, Urine Yellow (Yellow); Glucose, Dipstick Normal (Normal); Ketone-Dipstick Negative (Negative); Leukocyte Esterase-Dipstick Negative /ul (Negative); Nitrite-Dipstick Negative (Negative); Occult Blood-Urine Negative /ul (Negative); Protein-Dipstick Negative (Negative); Urine Bilirubin Dipstick Negative (Negative); Urine Clarity Clear (Clear); Urine Urobilinogen Normal (Normal)
[2021-02-25 19:31] LABS: Squamous Epithelial Cells - UA 0-5 SEEN /hpf (0-5)
--- NOTE | 2021-02-25 19:38 | HP.PCM.HOS_ITS ---
HPI - General General Date of Admission: 02/25/21 Date of Service: 02/25/21 Chief Complaint: Abdominal pain HPI Narrative The patient is a 46 y/o M w/ PMHx: Anxiety and Depression, Obesity, Tobacco use, EtOH abuse history, GERD, Chronic COPD, RLS, history of recurrent diverticulitis with most recent evaluation with Dr. Correa on 02/08/21 with planned sigmoid diverticulitis; however, patient had onset of COVID type symptoms starting 02/12/21 with positive COVID testing on 02/14/21 with evaluation for monoclonal antibody treatment therefore surgery was cancelled and deferred at that time who now presents to the [facility] ED on 02/25/21 with history of recurrent abdominal pain, severe, LLQ similar to prior with nausea without emesis and no fever or chills but similar to his prior episodes. He notes that his Covid symptoms included fever, nausea without emesis, diarrhea, headache, body aches, cough and dyspnea but these have been improving. He describes his abdominal pain as sharp and cramping, 10 out of 10 currently. Work-up in the ED included T 97 8, heart rate 81, BP 131/90, respiratory rate 18, 97% room air, CBC with WC 12.3, hemoglobin 13.1, platelet 561 without marked shift, BMP not marked appearing, lactic acid 1.3, urinalysis unremarkable, CT abdomen and pelvis with recurrent evidence of mild proximal sigmoid diverticulitis with no evidence of abscess or pneumoperitoneum. In the ED patient ministered Zosyn, Zofran as well as Dilaudid and normal saline. [facility] Medical History (Updated 02/25/21 @ 19:[address] Luiz Cameron, DO) Acute bronchitis Alcohol abuse, in remission Alcohol use Anxiety Chest pain Chronic low back pain COPD (chronic obstructive pulmonary disease) COPD exacerbation Cough Diverticulitis Fusion of lumbar spine GERD (gastroesophageal reflux disease) History of diverticulitis of colon History of diverticulitis of colon History of stress test Hypertension Obesity (BMI 30-39.9) Postoperative abdominal pain Restless legs Spinal stenosis of lumbar region Substance use Suture of skin wound Tobacco abuse Ventral hernia Wears contact lenses Wears dentures Wheezing Home Medications lansoprazole 30 mg PO DAILY 12/05/16 [History Last Taken 01/08/21] albuterol sulfate 1 - 2 puff INHALATION Q4H PRN PRN 03/02/17 [History Last Taken 01/03/21] trazodone 100 mg PO QHS PRN 04/09/20 [History Last Taken 05/01/20] albuterol sulfate 2.5 mg INHALATION Q4H PRN PRN 04/12/20 [History Last Taken Unknown] topiramate 25 mg tablet 50 mg PO BID 06/06/20 [History Last Taken Unknown] tizanidine 4 mg tablet 4 mg PO 4X/DAY 07/18/20 [History Last Taken 01/08/21] gabapentin 800 mg PO TID 01/02/21 [History Last Taken 01/08/21] hydroxyzine HCl 50 - 100 mg PO BID PRN 01/02/21 [History Last Taken 01/08/21] oxycodone 10 mg PO Q4H PRN 5 Days #20 tab 01/03/21 [Rx Last Taken Unknown] neomycin 500 mg tablet 500 mg PO .COMPLEX #6 tab 02/08/21 [Rx Last Taken Unknown] Allergy/AdvReac Type Severity Reaction Status Date / Time sulfamethoxazole Allergy Other Verified 02/25/21 17:46 [From Bactrim] trimethoprim [From Bactrim] Allergy Other Verified 02/25/21 17:46 Metronidazole HCl AdvReac Unknown Verified 02/25/21 17:46 [From Flagyl] Family History Mother CAD (coronary artery disease) Uncle CAD (coronary artery disease) Father Cancer Surgical History (Updated 02/25/21 @ 18:02 by Vivek Perez) History of right knee surgery History of ventral hernia repair Previous back surgery Social History (Updated 02/25/21 @ 20:[address] Tammy Steinberg MD) household members: spouse housing: house Smoking Status: Current every day smoker tobacco type: cigarettes Smoking packs per day: 1 Smoking cigarettes per day: 20.0 alcohol intake: former substance use type: does not use and marijuana do you feel safe at home: Yes ROS ROS Narrative Admission Review of Systems: CONSTITUTIONAL: No weight loss, + fever, chills, weakness or fatigue with recent COVID illness, resolved, denies any recently. HEENT: + Recent KERR. Eyes: No visual loss, blurred vision, double vision or yellow sclerae. Ears, Nose, Throat: No hearing loss, sneezing, congestion, runny nose or sore throat. SKIN: No rash or itching, lesions, wounds. CARDIOVASCULAR: No chest pain, chest pressure or chest discomfort, palpitations, edema, orthopnea, syncopal events. RESPIRATORY: + Recent cough, dyspnea, No increased sputum, wheezing, hemoptysis. GASTROINTESTINAL: + anorexia, abdominal pain, nausea, No vomiting, diarrhea, melena, BRBPR. GENITOURINARY: No dysuria, frequency, urgency or retention. NEUROLOGICAL: No headache, dizziness, syncope, paralysis, ataxia, numbness or tingling in the extremities, focal weakness, change in bowel or bladder control, seizure. MUSCULOSKELETAL: + muscle, back pain, joint pain or stiffness. HEMATOLOGIC: No anemia, bleeding or bruising. LYMPHATICS: No enlarged nodes. No history of splenectomy. PSYCHIATRIC: No history of depression or anxiety. ENDOCRINOLOGIC: No reports of sweating, cold or heat intolerance. No polyuria or polydipsia. ALLERGIES: + history of asthma, hives, eczema or rhinitis. Vital Signs Vital Signs Vital Signs: 02/25/21 17:44 Temperature 98.6 F Temperature Source Temporal Pulse Rate 81 Respiratory Rate 19 H Blood Pressure 151/88 H Blood Pressure Mean 109 Pulse Ox 96 Oxygen Delivery Method Room Air Weight Weight: 250 lb Body Mass Index (BMI) 34.8 Physical Exam Narrative Physical Examination: General: Awake, alert, oriented x 3 and cooperative, laying in the ED bed, uncomfortable and fatigued appearing. Skin: Normal color, normal turgor, no icterus, no cyanosis. HEENT: AT/NC, EOMI, PERRLA, mildly dry MM, no carotid bruits or JVD noted. Lungs: Diminished, greater bases, appropriate effort, no rales, ronchi or wheezing. Heart: Regular rate and rhythm; no gallop, rub audible. Abdomen: Soft, obese, generalized discomfort especially bilateral lower quadrant, left greater than right, mild distention, mildly hyperactive bowel guerda nds, difficult assess HSM secondary to pain. Extremities: No cyanosis, clubbing, or edema. Neurological: Patient awake, alert, oriented as noted, cognitive function intact; pupils equally reactive to light and accommodation, cranial nerves II- XII grossly normal, moving all 4 extremities, no focal deficits, strength moderately globally decreased secondary to acute presentation with significant pain. Psychiatric: Affect appears fatigued, uncomfortable, no acute evidence of depressive or anxiety feelings. Results Lab / Micro Data Result Diagrams: 02/25/21 18:06 02/25/21 18:06 Labs: Laboratory Results - last 24 hr 02/25/21 18:06: WBC 12.3 H, RBC 4.31 L, Hgb 13.1, Hct 38.1 L, MCV 88.4, MCH 30.4, MCHC 34.4, RDW Std Deviation 46.0 H, RDW Coeff of Rudolph 14.2, Plt Count 561 H, MPV 9.2, Immature Gran % (Auto) 0.500, Neut % (Auto) 49.4, Lymph % (Auto) 36.5, [place] % (Auto) 9.3, Eos % (Auto) 4.0, Baso % (Auto) 0.3, Absolute Neuts (auto) 6.1, Absolute Lymphs (auto) 4.49, Nucleated RBC % 0 02/25/21 18:06: Sodium 141, Potassium 4.4, Chloride 111 H, Carbon Dioxide 27.0, Anion Gap 3 L, BUN 12, Creatinine 0.76, Estim Creat Clear Calc 129.35, Est GFR (MDRD) Af Amer 142, Est GFR (MDRD) Non-Af 117, BUN/Creatinine Ratio 15.7, Glucose 110 H, Calcium 8.5 02/25/21 18:06: Lactic Acid 1.3 02/25/21 19:20: Urine Color Yellow, Urine Clarity Clear, Urine pH 6.0, Ur Specific [place] 1.020, Urine Protein Negative, Urine Glucose (UA) Normal, Urine Ketones Negative, Urine Occult Blood Negative, Urine Nitrite Negative, Urine Bilirubin Negative, Urine Urobilinogen Normal, Ur Leukocyte Esterase Negative, Urine RBC 0 SEEN, Urine WBC 0 SEEN, Ur Squamous Epith Cells 0-5 SEEN, Urine Bacteria 0 SEEN, Urine Mucus 0 SEEN Radiology Impression Abdomen/Pelvis CT 02/25/21 18:13 IMPRESSION: Mild proximal sigmoid diverticulitis. No abscess or pneumoperitoneum. Electronically Signed: Zhen Matias MD (Bro[place]) at 18:57 EST , Service support , Assessment & Plan Assessment/Plan (1) COVID-19: (2) Acute diverticulitis: PLAN: The patient is a 46 y/o M w/ PMHx: Anxiety and Depression, Obesity, Tobacco use, EtOH abuse history, GERD, Chronic COPD, RLS, history of recurrent diverticulitis with most recent evaluation with Dr. Correa on 02/08/21 with planned sigmoid diverticulitis; however, patient had onset of COVID type symptoms starting 02/12/21 with positive COVID testing on 02/14/21 with evaluation for monoclonal antibody treatment therefore surgery was cancelled and deferred at that time who now presents to the [facility] ED on 02/25/21 with history of recurre nt abdominal pain, severe, LLQ similar to prior with nausea without emesis and no fever or chills but similar to his prior episodes. #1. Acute Sigmoid Diverticulitis, failed outpatient management (had been on oral regimen per surgery outpatient): CT A/P w/ evidence of recurrent sigmoid diverticulitis. Will admit to medical surgical floor, maintain on aggressive hydration, monitor I&Os, maintain NPO status w/ bowel rest, treat with zosyn regimen, IV PPI, anti-emetics, pain regimen PRN. Consider diet advancement to clears in AM if clinically improved. Will request general surgery involvement as they have been following this patient outpatient and had plan to do sigmoid colectomy until he became ill with Covid. #2. Recent Acute Viral Syndrome, COVID-19: Patient is unvaccinated. Patient with recent Covid illness, out of quarantine timeline given not hypoxic, evaluated for monoclonal antibody outpatient, to be cautious will obtain sputum cultures, respiratory viral panel and urine antigens, will obtain D-dimer, procalcitonin, CRP, CPK, Ferritin, LDH, trop and BNP, liver profile, continue supportive care including q 2 hour turning including prone given no prone bed availability and j udicious hydration, closely monitor for worsening status for ARDS and multiorgan failure. #3. Chronic pain syndrome, neuropathy: We will continue patient home gabapentin and tizanidine regimen. #4. Chronic COPD: Not on routine regimen, will maintain on ATC duonebs, PRN albuterol, HOB, IS parameters. #5. Hypertension: Noted in history, not on any hypertensive regimen, will closely monitor and if appropriate will initiate oral regimen, as needed IV hydralazine in interim. #6. Tobacco Abuse: Encouraged cessation, inpatient consultation per RT, NR if desired. #7. Former alcohol abuse: Encouraged continued sobriety. #8. Restless leg syndrome: Not on any Requip however patient does have nightly trazodone, will continue. #9. GERD: We will maintain on PPI. #10. DVT prophylaxis: SCDs, Lovenox. Charges/Coding Visit Charges Inpatient E&M: 71980 Init Hosp L3
[2021-02-25 20:19] VITALS: BP 120/81; PULSE 74; RESP 18; TEMP 36.8; O2SAT 98
[2021-02-25 20:27] LABS: BNP,B-Type NATRIURETIC PEPTIDE 53.4 pg/mL (0-100)
[2021-02-25 20:28] LABS: AST(SGOT) 10 U/L (15-37); Alanine Aminotransfer ALT/SGPT 23 U/L (16-61); Albumin, Serum 3.1 g/dL (3.2-5.0); Alkaline Phosphatase 77 U/L (45-117); Bilirubin, Direct < 0.05 mg/dL (0.00-0.30); CRP 7.61 mg/L (0.0-3.0); Ferritin 77 ng/mL (26-388); Globulin 3.2 g/dL (2.2-4.2); LDH 162 U/L (87-241); Protein, Total 6.3 g/dL (6.4-8.2); Troponin-I HS 8 pg/mL (3.0-78.0)
[2021-02-25 20:36] LABS: Procalcitonin < 0.04 ng/mL (0.00-0.09)
[2021-02-25 20:46] VITALS: BMI 36.8
[2021-02-25 21:01] VITALS: BP 124/82; PULSE 59; RESP 16; TEMP 36.5; O2SAT 97
[2021-02-25] MEDS: Acetaminophen 325 MG Tablet 650 MG PO (21:45)
[2021-02-25] MEDS: oxyCODONE 5 MG Tablet 10 MG PO (21:45)
[2021-02-25] MEDS: 0.9% Saline Lock 10 ML Syringe IV (21:45)
[2021-02-25] MEDS: Enoxaparin 30 MG/0.3 ML Syringe SC (21:46)
[2021-02-25] MEDS: tiZANidine HCl 2 MG Tablet 4 MG PO (21:47)
[2021-02-25] MEDS: traZODone 100 MG Tablet PO (22:10)
[2021-02-25] MEDS: Gabapentin 800 MG Tablet PO (22:10)
--- NOTE | 2021-02-25 22:39 | PCS.PANDOC ---
PANDEMIC DOCUMENTATION INITIATED: Date: 02/25/2021 Time: 2045
[2021-02-26] VITALS (9 sets, daily range): BP systolic 115–155; BP diastolic 75–93; PULSE 58–88; RESP 16–18; TEMP 35.9–36.9; O2SAT 96–99
[2021-02-26] MEDS: oxyCODONE 5 MG Tablet 10 MG PO ×5 (02:45→22:08)
[2021-02-26] MEDS: HYDROmorphone 1 MG/ML Syringe IV ×7 (02:49→19:51)
[2021-02-26 04:51] LABS: Absolute Lymphocyte Count 3.96 X10^3/uL (0.83-4.51); Basophil# 0.03 X10^3/uL; Basophil% 0.4 % (0-1); Eosinophil# 0.49 X10^3/uL; Hemoglobin 12.4 g/dL (13.0-16.5); Lymphocyte # 3.96 X10^3/ul (0.83-4.51); Lymphocyte % 48.6 % (19-41); Mean Corp Hgb Conc 32.6 g/dL (32-36); Mean Corpuscular Hgb 29.7 pg (27.0-32.0); Mean Corpuscular Volume 91.1 fL (80-94); Monocyte# 0.65 X10^3/uL; NRBC Flagged by Analyzer 0 % (0-5); Neutrophil # 2.97 X10^3/uL (2.7-7.7); Neutrophil % 36.4 % (47-70); Platelet Count 538 K/mm3 (150-450); RBC Distribution Width CV 14.5 % (11.6-14.6); RBC Distribution Width SD 48.1 fl (35.1-43.9); Red Blood Count 4.17 M/mm3 (4.6-6.2); White Blood Count 8.2 K/mm3 (4.4-11.0)
[2021-02-26 05:18] LABS: ALB/GLOB Ratio 0.9 RATIO (0.9-2.4); AST(SGOT) 8 U/L (15-37); Alanine Aminotransfer ALT/SGPT 19 U/L (16-61); Albumin, Serum 2.6 g/dL (3.2-5.0); Alkaline Phosphatase 69 U/L (45-117); Anion Gap 3 (5-15); BUN 8 mg/dL (7-18); BUN/Creat Ratio 12.7 RATIO (10-20); Chloride 112 mmol/L (98-107); Creatinine, Serum 0.63 mg/dL (0.70-1.30); EST Glomerular Filtration Rate 146 mL/min (>60); Est Glom Filt Rate - Afr Amer 176 mL/min (>60); Estimated Creatinine Clearance 151.28 ml/min; Globulin 2.9 g/dL (2.2-4.2); Glucose 108 mg/dL (74-106); Potassium 3.8 mmol/L (3.5-5.1); Protein, Total 5.5 g/dL (6.4-8.2); Sodium Level 143 mmol/L (136-145)
[2021-02-26] MEDS: Gabapentin 800 MG Tablet PO ×3 (06:15→22:10)
[2021-02-26] MEDS: 0.9% Normal Saline 1,000 ML 125 ML IV ×3 (06:15→22:09)
[2021-02-26] MEDS: Acetaminophen 325 MG Tablet 650 MG PO (06:15)
[2021-02-26] MEDS: Ipratropium/Albuterol Sulfate 3 ML AMPUL.NEB INHALATION ×3 (07:00→18:29)
--- NOTE | 2021-02-26 08:17 | CON.PCM.SX_ITS ---
Assessment & Plan Assessment/Plan (1) Acute diverticulitis: (2) COVID-19: PLAN: Patient had Covid symptoms starting on 02/12 he did get the monoclonal antibiotics however he is only 14 days out from his Covid infection. Discussed with patient that he would be at very high risk for surgery due to recent Covid infection. Okay for some clears and will change his Dilaudid to every [address] Correa will see tomorrow but I do think it is unlikely that he would get surgery this hospitalization. Loretta High M.D. Pager: [phone] [facility] [address] [place] [address], [facility], [address] [place] [id number] Office: [phone] HPI Consult Data Date of Consult: 02/26/21 HPI Narrative HPI Narrative: RAJAT FITCH, is a 46 M who presents to the ER due to increasing left lower quadrant pain. Patient does have a history of recurrent sigmoid diverticulitis. CT abdomen pelvis was consistent with diverticulitis. Patient was placed on IV Zosyn. Patient also recently was diagnosed with Covid 02/12 and he did get the monoclonal antibody. Patient was initially to have a sigmoidectomy with Dr. Correa however this was pushed out due to his recent Covid infection. Patient states his pain was typically a 4/10 but yesterday did increase to 10/10 prior to coming in. Patient denies any nausea or vomiting. [facility] Medical History (Updated 02/25/21 @ 21:15 by Gayle Hensley) Acute bronchitis Alcohol abuse, in remission Alcohol use Anxiety Chest pain Chronic low back pain COPD (chronic obstructive pulmonary disease) COPD exacerbation Cough Diverticulitis Fusion of lumbar spine GERD (gastroesophageal reflux disease) History of diverticulitis of colon History of diverticulitis of colon History of stress test Hypertension Migraines Obesity (BMI 30-39.9) Postoperative abdominal pain Restless legs Smoker Spinal stenosis of lumbar region Substance use Suture of skin wound Tobacco abuse Ventral hernia Wears contact lenses Wears dentures Wheezing Home Medications lansoprazole 30 mg PO DAILY 12/05/16 [History Last Taken 01/08/21] albuterol sulfate 1 - 2 puff INHALATION Q4H PRN PRN 03/02/17 [History Last Taken 01/03/21] trazodone 100 mg PO QHS PRN 04/09/20 [History Last Taken 05/01/20] albuterol sulfate 2.5 mg INHALATION Q4H PRN PRN 04/12/20 [History Last Taken Unknown] topiramate 25 mg tablet 50 mg PO BID 06/06/20 [History Last Taken Unknown] tizanidine 4 mg tablet 4 mg PO 4X/DAY 07/18/20 [History Last Taken 01/08/21] gabapentin 800 mg PO TID 01/02/21 [History Last Taken 01/08/21] hydroxyzine HCl 50 - 100 mg PO BID PRN 01/02/21 [History Last Taken 01/08/21] oxycodone 10 mg PO Q4H PRN 5 Days #20 tab 01/03/21 [Rx Last Taken Unknown] Allergy/AdvReac Type Severity Reaction Status Date / Time sulfamethoxazole Allergy Other Verified 02/25/21 17:46 [From Bactrim] trimethoprim [From Bactrim] Allergy Other Verified 02/25/21 17:46 Metronidazole HCl AdvReac Unknown Verified 02/25/21 17:46 [From Flagyl] Family History Mother CAD (coronary artery disease) Uncle CAD (coronary artery disease) Father Cancer Surgical History (Updated 02/25/21 @ 18:02 by Vivek Perez) History of right knee surgery History of ventral hernia repair Previous back surgery Social History (Updated 02/25/21 @ 20:[address] Tammy Steinberg MD) household members: spouse housing: house Smoking Status: Current every day smoker tobacco type: cigarettes Smoking packs per day: 1 Smoking cigarettes per day: 20.0 alcohol intake: former substance use type: does not use and marijuana do you feel safe at home: Yes ROS Constitutional Constitutional: Denies fever(s) ENT HEENT: Denies dizziness Cardiovascular Cardiovascular: Denies chest pain Respiratory/Chest Respiratory/Chest: Denies shortness of breath at rest Gastrointestinal Gastrointestinal: Reports abdominal pain and nausea; Denies constipation, diarrhea, heartburn, hematemesis or melena Genitourinary Genitourinary: Denies burning urination Musculoskeletal Musculoskeletal: Reports back pain Integumentary Integumentary: Denies rash Neurologic Neurologic: Denies focal weakness Endocrine Endocrinology: Denies palpitations Hematologic/Lymphatic Hematologic/Lymphatic: Denies easy bleeding or easy bruising Physical Exam Const alert, oriented x3 and no apparent distress HEENT normocephalic and head/scalp atraumatic Resp normal respiratory effort Cardio regular rate GI soft to palpation; Negative for non-distended Palpation: tender LLQ; Negative for guarding Extremity no clubbing, cyanosis or edema Neuro CN's II-XII intact bilaterally Psych mental status grossly normal Lab / Micro Data Result Diagrams: 02/26/21 04:10 02/26/21 04:10 Labs: Laboratory Results - last 24 hr 02/25/21 18:06: WBC 12.3 H, RBC 4.31 L, Hgb 13.1, Hct 38.1 L, MCV 88.4, MCH 30.4, MCHC 34.4, RDW Std Deviation 46.0 H, RDW Coeff of Rudolph 14.2, Plt Count 561 H, MPV 9.2, Immature Gran % (Auto) 0.500, Neut % (Auto) 49.4, Lymph % (Auto) 36.5, Mineral % (Auto) 9.3, Eos % (Auto) 4.0, Baso % (Auto) 0.3, Absolute Neuts (auto) 6.1, Absolute Lymphs (auto) 4.49, Nucleated RBC % 0 02/25/21 18:06: Sodium 141, Potassium 4.4, Chloride 111 H, Carbon Dioxide 27.0, Anion Gap 3 L, BUN 12, Creatinine 0.76, Estim Creat Clear Calc 129.35, Est GFR (MDRD) Af Amer 142, Est GFR (MDRD) Non-Af 117, BUN/Creatinine Ratio 15.7, Glucose 110 H, Calcium 8.5 02/25/21 18:06: Lactic Acid 1.3 02/25/21 18:06: Ferritin 77, Total Bilirubin 0.20, Direct Bilirubin < 0.05, AST 10 L, ALT 23, Alkaline Phosphatase 77, Lactate Dehydrogenase 162, Troponin I High Sens 8, C-React Prot Ext Range 7.61 H, Total Protein 6.3 L, Albumin 3.1 L, Globulin 3.2 02/25/21 18:06: B-Natriuretic Peptide 53.4 02/25/21 18:06: Procalcitonin < 0.04 02/25/21 19:20: Urine Color Yellow, Urine Clarity Clear, Urine pH 6.0, Ur S pecific [place] 1.020, Urine Protein Negative, Urine Glucose (UA) Normal, Urine Ketones Negative, Urine Occult Blood Negative, Urine Nitrite Negative, Urine Bilirubin Negative, Urine Urobilinogen Normal, Ur Leukocyte Esterase Negative, Urine RBC 0 SEEN, Urine WBC 0 SEEN, Ur Squamous Epith Cells 0-5 SEEN, Urine Bacteria 0 SEEN, Urine Mucus 0 SEEN 02/25/21 20:16: D-Dimer Quant (PE/DVT) 0.40 02/26/21 04:10: WBC 8.2, RBC 4.17 L, Hgb 12.4 L, Hct 38.0 L, MCV 91.1, MCH 29.7, MCHC 32.6 D, RDW Std Deviation 48.1 H, RDW Coeff of Rudolph 14.5, Plt Count 538 H, MPV 9.0, Immature Gran % (Auto) 0.600, Neut % (Auto) 36.4 L, Lymph % (Auto) 48.6 H, Mineral % (Auto) 8.0, Eos % (Auto) 6.0 H, Baso % (Auto) 0.4, Absolute Neuts (auto) 3.0, Absolute Lymphs (auto) 3.96, Nucleated RBC % 0 02/26/21 04:10: Sodium 143, Potassium 3.8, Chloride 112 H, Carbon Dioxide 28.0, Anion Gap 3 L, BUN 8, Creatinine 0.63 L, Estim Creat Clear Calc 151.28, Est GFR (MDRD) Af Amer 176, Est GFR (MDRD) Non-Af 146, BUN/Creatinine Ratio 12.7, Glucose 108 H, Calcium 8.0 L, Total Bilirubin 0.30, AST 8 L, ALT 19, Alkaline Phosphatase 69, Total Protein 5.5 L, Albumin 2.6 L, Globulin 2.9, Albumin/Globulin Ratio 0.9 Micro: Microbiology 02/25/21 19:20 Urine, Clean Catch Legionella Antigen - Final 02/25/21 19:20 Urine, Clean Catch Streptococcus pneumoniae Antigen (M - Final Radiology Impression Abdomen/Pelvis CT 02/25/21 18:13 IMPRESSION: Mild proximal sigmoid diverticulitis. No abscess or pneumoperitoneum. Electronically Signed: Zhen Matias MD ([place]) at 18:57 EST , Service support , Charges/Coding Visit Charges Inpatient E&M: 48318 Init Hosp L3
[2021-02-26] MEDS: tiZANidine HCl 2 MG Tablet 4 MG PO ×4 (08:30→22:10)
[2021-02-26] MEDS: Ondansetron 4 MG/2 ML Vial IV (08:30)
[2021-02-26] MEDS: 0.9% Saline Lock 10 ML Syringe IV ×6 (08:31→19:51)
--- NOTE | 2021-02-26 12:11 | PN.HOSP_ITS ---
Subjective Subjective still with profound LLQ abdominal tenderness. Objective Data Objective Data Vital Signs: Vital Signs Temp Pulse Resp BP Pulse Ox 35.9 C L 69 18 133/93 H 99 02/26/21 08:19 02/26/21 08:19 02/26/21 08:19 02/26/21 08:19 02/26/21 08:19 Oxygen Delivery Method Room Air Weight: 120.2 kg Body Mass Index (BMI) 36.8 Intake & Output: Intake and Output for Last 24 Hours 02/24/21 02/25/21 02/26/21 23:59 23:59 23:59 Intake Total 510 / 510 1213.75 / 1213.75 Output Total 1600 / 1600 Balance 510 / 510 -386.25 / -386.25 Lab / Micro Data Result Diagrams: 02/26/21 04:10 02/26/21 04:10 Labs: Laboratory Results - last 24 hr 02/25/21 18:06: WBC 12.3 H, RBC 4.31 L, Hgb 13.1, Hct 38.1 L, MCV 88.4, MCH 30.4, MCHC 34.4, RDW Std Deviation 46.0 H, RDW Coeff of Rudolph 14.2, Plt Count 561 H, MPV 9.2, Immature Gran % (Auto) 0.500, Neut % (Auto) 49.4, Lymph % (Auto) 36.5, Alfalfa % (Auto) 9.3, Eos % (Auto) 4.0, Baso % (Auto) 0.3, Absolute Neuts (auto) 6.1, Absolute Lymphs (auto) 4.49, Nucleated RBC % 0 02/25/21 18:06: Sodium 141, Potassium 4.4, Chloride 111 H, Carbon Dioxide 27.0, Anion Gap 3 L, BUN 12, Creatinine 0.76, Estim Creat Clear Calc 129.35, Est GFR (MDRD) Af Amer 142, Est GFR (MDRD) Non-Af 117, BUN/Creatinine Ratio 15.7, Glucose 110 H, Calcium 8.5 02/25/21 18:06: Lactic Acid 1.3 02/25/21 18:06: Ferritin 77, Total Bilirubin 0.20, Direct Bilirubin < 0.05, AST 10 L, ALT 23, Alkaline Phosphatase 77, Lactate Dehydrogenase 162, Troponin I High Sens 8, C-React Prot Ext Range 7.61 H, Total Protein 6.3 L, Albumin 3.1 L, Globulin 3.2 02/25/21 18:06: B-Natriuretic Peptide 53.4 02/25/21 18:06: Procalcitonin < 0.04 02/25/21 19:20: Urine Color Yellow, Urine Clarity Clear, Urine pH 6.0, Ur Specific [place] 1.020, Urine Protein Negative, Urine Glucose (UA) Normal, Urine Ketones Negative, Urine Occult Blood Negative, Urine Nitrite Negative, Urine Bilirubin Negative, Urine Urobilinogen Normal, Ur Leukocyte Esterase Negative, Urine RBC 0 SEEN, Urine WBC 0 SEEN, Ur Squamous Epith Cells 0-5 SEEN, Urine Bacteria 0 SEEN, Urine Mucus 0 SEEN 02/25/21 20:16: D-Dimer Quant (PE/DVT) 0.40 02/26/21 04:10: WBC 8.2, RBC 4.17 L, Hgb 12.4 L, Hct 38.0 L, MCV 91.1, MCH 29.7, MCHC 32.6 D, RDW Std Deviation 48.1 H, RDW Coeff of Rudolph 14.5, Plt Count 538 H, MPV 9.0, Immature Gran % (Auto) 0.600, Neut % (Auto) 36.4 L, Lymph % (Auto) 48.6 H, Al[place]alfa % (Auto) 8.0, Eos % (Auto) 6.0 H, Baso % (Auto) 0.4, Absolute Neuts (auto) 3.0, Absolute Lymphs (auto) 3.96, Nucleated RBC % 0 02/26/21 04:10: Sodium 143, Potassium 3.8, Chloride 112 H, Carbon Dioxide 28.0, Anion Gap 3 L, BUN 8, Creatinine 0.63 L, Estim Creat Clear Calc 151.28, Est GFR (MDRD) Af Amer 176, Est GFR (MDRD) Non-Af 146, BUN/Creatinine Ratio 12.7, Glucose 108 H, Calcium 8.0 L, Total Bilirubin 0.30, AST 8 L, ALT 19, Alkaline Phosphatase 69, Total Protein 5.5 L, Albumin 2.6 L, Globulin 2.9, Albumin/Globulin Ratio 0.9 Micro: Microbiology 02/25/21 19:20 Urine, Clean Catch Legionella Antigen - Final 02/25/21 19:20 Urine, Clean Catch Streptococcus pneumoniae Antigen (M - Final Radiography Diagnostic Testing: Radiology Impression Abdomen/Pelvis CT 02/25/21 18:13 IMPRESSION: Mild proximal sigmoid diverticulitis. No abscess or pneumoperitoneum. Electronically Signed: Zhen Matias MD ([place]) at 18:57 EST , Service support , Physical Exam Const alert HEENT head/scalp atraumatic Head and Scalp: normocephalic Resp normal respiratory effort, no retractions, no use of accessory muscles and clear to auscultation bilaterally Cardio regular rate, regular rhythm, S1 normal heart sound and S2 normal heart sound GI normal to inspection, nondistended, normoactive bowel sounds and soft to palpation GI Narrative: slightly tender in LLQ Skin no rashes or lesions noted Neuro Sensorium / Orientation: awake and alert Assessment & Plan Assessment/Plan (1) Acute diverticulitis: PLAN: 1. acute recurrent sigmoid diverticulitis * Has not adequately responded to conservative tmt * surgery following and Dr. Correa to evaluate 02/27, but surgery may be delayed to outpt * since it has been recurrent, would be prudent to rule out other process. Check stool for C. diff, stool cultures. * Other possibilities could be IBD. * continue pip/tazo 2. VTE prophylaxis: LMWH Charges/Coding Visit Charges Inpatient E&M: 85614 Subs Hosp L2
[2021-02-26] MEDS: Enoxaparin 30 MG/0.3 ML Syringe SC ×2 (14:00→22:09)
--- NOTE | 2021-02-26 20:06 | NURSING ---
Staff noted several empty jello and icee containers in pt trash, along with lornadoone wrap. This Nurse asked pt if he was eating cookies pt stated my ate that. Advised pt importance of clear liquid diet, if abdominal pain continues to be severe pt needs to reduce oral intake. pt stated understanding.
[2021-02-26] MEDS: traZODone 100 MG Tablet PO (22:10)
[2021-02-27] VITALS (9 sets, daily range): BP systolic 113–146; BP diastolic 70–83; PULSE 70–91; RESP 16–20; TEMP 36.7–37; O2SAT 93–97
[2021-02-27] MEDS: 0.9% Saline Lock 10 ML Syringe IV ×3 (01:16→20:48)
[2021-02-27] MEDS: HYDROmorphone 1 MG/ML Syringe IV ×5 (01:16→20:37)
[2021-02-27] MEDS: Acetaminophen 325 MG Tablet 650 MG PO ×5 (05:11→20:46)
[2021-02-27 05:17] LABS: Absolute Neutrophil Count 7.6 X10^3/uL (2.0-7.7); Basophil# 0.03 X10^3/uL; Basophil% 0.3 % (0-1); Eosinophil# 0.38 X10^3/uL; Eosinophils% 3.4 % (0-5); Hematocrit 39.7 % (40-54); Hemoglobin 12.8 g/dL (13.0-16.5); Lymphocyte % 19.7 % (19-41); Mean Corp Hgb Conc 32.2 g/dL (32-36); Mean Corpuscular Hgb 29.6 pg (27.0-32.0); Mean Corpuscular Volume 91.7 fL (80-94); Mean Platelet Vol. 8.8 fl (6.2-12.0); Monocyte% 8.1 % (0-10); NRBC Flagged by Analyzer 0 % (0-5); Neutrophil # 7.59 X10^3/uL (2.7-7.7); Platelet Count 556 K/mm3 (150-450); RBC Distribution Width CV 14.6 % (11.6-14.6); RBC Distribution Width SD 48.9 fl (35.1-43.9); Red Blood Count 4.33 M/mm3 (4.6-6.2); White Blood Count 11.2 K/mm3 (4.4-11.0)
[2021-02-27] MEDS: Ondansetron 4 MG/2 ML Vial IV (05:20)
[2021-02-27] MEDS: 0.9% Normal Saline 1,000 ML 125 ML IV ×3 (05:20→20:37)
[2021-02-27] MEDS: Gabapentin 800 MG Tablet PO ×3 (05:21→20:46)
[2021-02-27 05:51] LABS: ALB/GLOB Ratio 0.9 RATIO (0.9-2.4); AST(SGOT) 9 U/L (15-37); Alanine Aminotransfer ALT/SGPT 18 U/L (16-61); Albumin, Serum 2.8 g/dL (3.2-5.0); Alkaline Phosphatase 68 U/L (45-117); Anion Gap 3 (5-15); BUN 3 mg/dL (7-18); BUN/Creat Ratio 3.7 RATIO (10-20); Calcium,Total 8.5 mg/dL (8.5-10.1); Chloride 108 mmol/L (98-107); Creatinine, Serum 0.81 mg/dL (0.70-1.30); EST Glomerular Filtration Rate 109 mL/min (>60); Est Glom Filt Rate - Afr Amer 131 mL/min (>60); Estimated Creatinine Clearance 121.37 ml/min; Globulin 3.1 g/dL (2.2-4.2); Glucose 89 mg/dL (74-106); Potassium 4.2 mmol/L (3.5-5.1); Protein, Total 5.9 g/dL (6.4-8.2); Sodium Level 141 mmol/L (136-145)
[2021-02-27] MEDS: oxyCODONE 5 MG Tablet 10 MG PO (06:26)
[2021-02-27] MEDS: Ipratropium/Albuterol Sulfate 3 ML AMPUL.NEB INHALATION ×3 (07:11→19:46)
--- NOTE | 2021-02-27 08:07 | PCM.PN.SRG ---
Subjective Subjective Patient is complaining of 7 out of 10 abdominal pain in the left lower quadrant Objective Data Objective Data Vital Signs: Vital Signs Temp Pulse Resp BP Pulse Ox 98.5 F 91 20 H 130/83 H 93 02/27/21 01:34 02/27/21 07:11 02/27/21 07:11 02/27/21 01:34 02/27/21 07:11 Oxygen Delivery Method Room Air Weight: 268 lb 1.314 oz Body Mass Index (BMI) 36.8 Intake & Output: Intake and Output for Last 24 Hours 02/25/21 02/26/21 02/27/21 23:59 23:59 23:59 Intake Total 510 / 510 5940.00 / 5940.00 Output Total 1600 / 1600 Balance 510 / 510 4340.00 / 4340.00 Lab / Micro Data Result Diagrams: 02/27/21 05:00 02/27/21 05:00 Labs: Laboratory Results - last 24 hr 02/27/21 05:00: WBC 11.2 H, RBC 4.33 L, Hgb 12.8 L, Hct 39.7 L, MCV 91.7, MCH 29.6, MCHC 32.2, RDW Std Deviation 48.9 H, RDW Coeff of Rudolph 14.6, Plt Count 556 H, MPV 8.8, Immature Gran % (Auto) 0.500, Neut % (Auto) 68.0, Lymph % (Auto) 19.7, [place] % (Auto) 8.1, Eos % (Auto) 3.4, Baso % (Auto) 0.3, Absolute Neuts (auto) 7.6, Absolute Lymphs (auto) 2.20, Nucleated RBC % 0 02/27/21 05:00: Sodium 141, Potassium 4.2, Chloride 108 H, Carbon Dioxide 30.0, Anion Gap 3 L, BUN 3 L, Creatinine 0.81, Estim Creat Clear Calc 121.37, Est GFR (MDRD) Af Amer 131, Est GFR (MDRD) Non-Af 109, BUN/Creatinine Ratio 3.7 L, Glucose 89, Calcium 8.5, Total Bilirubin 0.30, AST 9 L, ALT 18, Alkaline Phosphatase 68, Total Protein 5.9 L, Albumin 2.8 L, Globulin 3.1, Albumin/Globulin Ratio 0.9 Micro: Microbiology 02/25/21 19:20 Urine, Clean Catch Legionella Antigen - Final 02/25/21 19:20 Urine, Clean Catch Streptococcus pneumoniae Antigen (M - Final Physical Exam Const oriented x3 Resp normal respiratory effort Cardio regular rhythm GI soft to palpation Palpation: tender LLQ Assessment & Plan Assessment/Plan (1) Acute diverticulitis: PLAN: Patient is having ongoing issues with his smoldering diverticulitis. He was admitted with pain in the left lower quadrant and a CT scan which showed mild diverticulitis as it has for the last few weeks. I had planned on doing his sigmoid colectomy about 2 weeks ago but this was canceled due to active Covid infection. Patient is reporting no Covid symptoms at the current time only left lower quadrant abdominal pain. Unfortunately due to the schedule I am unable to add him on for sigmoid colectomy this week but I can have him added on for Saturday morning at 730. The patient is still complaining of severe pain so I have decreased his diet to sips and chips until his pain improves. I have added scheduled Tylenol and Toradol. The goal would be to discharge the patient home on antibiotics once his pain improves and have him follow-up electively on Saturday for surgery. Kg Correa MD Pager: [facility] [address] [place] [address], [address] [place] [address] Office:
[2021-02-27] MEDS: Ketorolac 30 MG/ML Syringe 15 MG IV ×3 (08:21→20:47)
[2021-02-27] MEDS: Enoxaparin 30 MG/0.3 ML Syringe SC ×2 (09:18→20:45)
[2021-02-27] MEDS: tiZANidine HCl 2 MG Tablet 4 MG PO ×4 (09:18→20:46)
--- NOTE | 2021-02-27 10:10 | CASEMGMT ---
RN MAGAN Face to Face with patient for initial transition planning/care coordination assessment. RN CM introduced self and role at [facility]. Patient lying in bed, alert and oriented. Patient willing to participate in assessment and is able to answer all questions appropriately. Care providers, pharmacy, and demographics verified. Patient wishes to discharge home, denies need for home health at this time. Patient states he has no further needs or concerns at this time. CM to follow for discharge planning needs that may arise. PCP: Liz Specialists: Sunny Mcguire Pharmacy: [facility] Insurance: [employer] Prescription Benefit: yes Living Will/HPOA: none LNOK: significant other Living Arrangements: Patient lives with significant other in a first floor apartment with no steps. Patient states he is independent at home. Transportation: Girlfriend DME/HHC: Patient states he has walker at home. Patient denies pervious HHC or SNF Disposition Plan: Patient to discharge home with family support and follow-up plans in place. Mely FRANK, RN, CM
--- NOTE | 2021-02-27 12:57 | NURSING ---
at 1200 rounding and 1300 rounding pt sleeping, snoring-resp are 16, even and non labored
--- NOTE | 2021-02-27 13:49 | WOUNDNOTE ---
wound photo: left thigh
--- NOTE | 2021-02-27 14:24 | PN.HOSP_ITS ---
Subjective Subjective Patient still complains of abdominal pain. He has chronic back pain and was on high dose of Dilaudid before which got better after lumbar spine decompression surgery. Objective Data Objective Data Vital Signs: Vital Signs Temp Pulse Resp BP Pulse Ox 98.0 F 72 16 131/71 H 94 02/27/21 12:45 02/27/21 13:13 02/27/21 13:13 02/27/21 12:45 02/27/21 12:45 Oxygen Delivery Method Room Air Weight: 268 lb 1.314 oz Body Mass Index (BMI) 36.8 Intake & Output: Intake and Output for Last 24 Hours 02/25/21 02/26/21 02/27/21 23:59 23:59 23:59 Intake Total 510 / 510 5940.00 / 5940.00 3093.09 / 3093.09 Output Total 1600 / 1600 Balance 510 / 510 4340.00 / 4340.00 3093.09 / 3093.09 Lab / Micro Data Result Diagrams: 02/27/21 05:00 02/27/21 05:00 Labs: Laboratory Results - last 24 hr 02/27/21 05:00: WBC 11.2 H, RBC 4.33 L, Hgb 12.8 L, Hct 39.7 L, MCV 91.7, MCH 29.6, MCHC 32.2, RDW Std Deviation 48.9 H, RDW Coeff of Rudolph 14.6, Plt Count 556 H, MPV 8.8, Immature Gran % (Auto) 0.500, Neut % (Auto) 68.0, Lymph % (Auto) 19.7, [place] % (Auto) 8.1, Eos % (Auto) 3.4, Baso % (Auto) 0.3, Absolute Neuts ( auto) 7.6, Absolute Lymphs (auto) 2.20, Nucleated RBC % 0 02/27/21 05:00: Sodium 141, Potassium 4.2, Chloride 108 H, Carbon Dioxide 30.0, Anion Gap 3 L, BUN 3 L, Creatinine 0.81, Estim Creat Clear Calc 121.37, Est GFR (MDRD) Af Amer 131, Est GFR (MDRD) Non-Af 109, BUN/Creatinine Ratio 3.7 L, Glucose 89, Calcium 8.5, Total Bilirubin 0.30, AST 9 L, ALT 18, Alkaline Phosphatase 68, Total Protein 5.9 L, Albumin 2.8 L, Globulin 3.1, Albumin/Globulin Ratio 0.9 Micro: Microbiology 02/25/21 19:20 Urine, Clean Catch Legionella Antigen - Final 02/25/21 19:20 Urine, Clean Catch Streptococcus pneumoniae Antigen (M - Final Physical Exam Narrative General: Alert, Oriented x3, Cooperative HEENT: Atraumatic, PERRLA, EOMI, Normocephalic Oral: No Gingival or Mucosal Lesions/ Ulcerations Neck: Supple, No JVD, Negative Carotid Bruits Lungs: Air entry diminished in bilateral lung bases. No crepitation/rhonchi Cardiovascular: Regular rate, Regular Rhythm, Normal S1, Normal S2, No murmurs Abdomen: Mild tenderness in left lower quadrant. Bowel Sounds Present, Soft, Non-Distended : No renal angle tenderness. No suprapubic tenderness. Extremities: No edema, Capillary Refill Less than 3 Seconds Skin: No rashes, No breakdown Musculoskeletal: Chronic lumbar spinal tenderness. No Tenderness to Palpation of Joints or Extremities Neurological: Cranial nerves II-XII grossly intact, DTR 2+/4 Psych/Mental Status: Normal Affect, Appropriate. Assessment & Plan Assessment/Plan (1) Acute diverticulitis: PLAN: 1. acute recurrent sigmoid diverticulitis: The patient on IV Zosyn. He still complaining of abdominal pain although seems probably chronic abdominal pain/opioid dependence. Patient was seen by surgeon Dr. Coronado. He prefers discharge once abdominal pain is improved and call him Saturday for elective surgery. Diet is changed to sips and chips. Patient on Tylenol and Toradol. 2. Patient had recent COVID-19. 3. Multiple other comorbidities include chronic low back pain status post lumbar spinal surgery for lumbar spinal stenosis, GERD, chronic alcohol use in remission, COPD and ventral hernia VTE prophylaxis: LMWH Charges/Coding Visit Charges Inpatient E&M: 44015 Subs Hosp L2
[2021-02-27] MEDS: hydrOXYzine PAM 25 MG Capsule PO (16:10)
[2021-02-28] MEDS: oxyCODONE 5 MG Tablet 10 MG PO (01:28)
[2021-02-28] MEDS: Acetaminophen 325 MG Tablet 650 MG PO ×3 (01:28→08:46)
[2021-02-28 02:00] VITALS: BP 154/90; PULSE 66; RESP 16; TEMP 36.2; O2SAT 99
[2021-02-28] MEDS: HYDROmorphone 1 MG/ML Syringe IV ×4 (02:32→11:35)
[2021-02-28] MEDS: 0.9% Saline Lock 10 ML Syringe IV ×4 (02:33→11:36)
[2021-02-28] MEDS: 0.9% Normal Saline 1,000 ML 125 ML IV (04:08)
[2021-02-28] MEDS: Ketorolac 30 MG/ML Syringe 15 MG IV (05:57)
[2021-02-28] MEDS: Gabapentin 800 MG Tablet PO (05:57)
[2021-02-28 07:27] VITALS: PULSE 70; RESP 24; O2SAT 96
[2021-02-28] MEDS: Ipratropium/Albuterol Sulfate 3 ML AMPUL.NEB INHALATION (07:27)
--- NOTE | 2021-02-28 07:50 | PCS.PANDOC ---
PANDEMIC DOCUMENTATION INITIATED: Date: 11/21/2020 Time: 190
[2021-02-28 08:15] VITALS: BP 147/94; PULSE 77; RESP 18; TEMP 36.5; O2SAT 97
[2021-02-28] MEDS: Ondansetron 4 MG/2 ML Vial IV (08:40)
[2021-02-28] MEDS: Enoxaparin 30 MG/0.3 ML Syringe SC (08:47)
[2021-02-28] MEDS: tiZANidine HCl 2 MG Tablet 4 MG PO (08:48)
--- NOTE | 2021-02-28 09:18 | PN.SURG_ITS ---
Subjective Subjective Patient is still complaining of left lower quadrant pain Objective Data Objective Data Vital Signs: Vital Signs Temp Pulse Resp BP Pulse Ox 97.7 F L 77 18 147/94 H 97 02/28/21 08:15 02/28/21 08:15 02/28/21 08:15 02/28/21 08:15 02/28/21 08:15 Oxygen Delivery Method Room Air Weight: 261 lb 11.019 oz Body Mass Index (BMI) 36.8 Intake & Output: Intake and Output for Last 24 Hours 02/26/21 02/27/21 02/28/21 23:59 23:59 23:59 Intake Total 5940.00 / 5940.00 5608.59 / 5608.59 1022.25 / 1022.25 Output Total 1600 / 1600 Balance 4340.00 / 4340.00 5608.59 / 5608.59 1022.25 / 1022.25 Lab / Micro Data Result Diagrams: 02/27/21 05:00 02/27/21 05:00 Micro: Microbiology 02/25/21 19:20 Urine, Clean Catch Legionella Antigen - Final 02/25/21 19:20 Urine, Clean Catch Streptococcus pneumoniae Antigen (M - Final Physical Exam Const oriented x3 and no apparent distress Resp normal respiratory effort Assessment & Plan Assessment/Plan (1) Acute diverticulitis: PLAN: I suspect partially this is opioid dependence as the patient does have an opioid dependence issue in the past and his found a bottle of Percocet he was taking along with the hospital medications yesterday. I believe his diverticulitis is mild in nature and can wait until surgery Saturday. I timi mmend advancing him to clear liquids until his pain subsides. If at all possible he will be discharged between now and then in follow-up for surgery Saturday. Kg Correa MD Pager: [facility] [address] [place] [address], [address] [place] [address] Office:
--- NOTE | 2021-02-28 10:15 | PCM.DC ---
Discharge Instructions Diet Discharge Diet: - (soft diet) Activity Weight Bearing Status: Weight bearing as tolerated Dressing / Incision Call your doctor if you observe: Fever of 101 or Higher, Coldness, Increased Pain, Numbness or Tingling, Change in Color, Inability to urinate, Inability to have a bowel movement, Shortness of breath, Dizziness, Fainting spells, Swelling in the ankles, Chest pain, Prolonged hiccupping, Increased palpitations (irregular heartbeat), Calf discomfort and Uncontrolled pain Follow Up Care Test Results: Test results from this visit will be discussed in further detail at your follow-up appointment, if applicable. Discharge Plan Admission Admit Date/Time: 02/25/21 19:46 Primary Reason for Your Visit: acute on Recurrent diverticulitis Attending Provider: Joseluis Amin Primary Care Provider: Jimbo Hill Consulting Providers: Loretta High Discharge Orders/Prescriptions Prescriptions: New amoxicillin-pot clavulanate [Augmentin] 875-125 mg tablet 1 tab PO BID Qty: 12 RF: 0 Continued topiramate 25 mg tablet 50 mg PO BID RF: 0 tizanidine 4 mg tablet 4 mg PO 4X/DAY RF: 0 lansoprazole 30 MG capsule 30 mg PO DAILY RF: 0 albuterol sulfate 1 PUFF inhaler 1 - 2 puff INHALATION Q4H PRN PRN (Reason: Cough) RF: 0 albuterol sulfate 2.5 MG/3 ML solution for nebulization 2.5 mg INHALATION Q4H PRN PRN (Reason: Sob &/Or Wheezing) RF: 0 trazodone 50 MG tablet 100 mg PO QHS PRN (Reason: Sleep) RF: 0 hydroxyzine HCl 50 mg Tablet 50 - 100 mg PO BID PRN (Reason: Anxiety) RF: 0 gabapentin 800 mg Tablet 800 mg PO TID RF: 0 Changed oxycodone 5 mg tablet 5 mg PO Q4H PRN (Reason: pain) 5 Days Qty: 20 RF: 0 Referrals / Follow Up: Kg Correa MD [STAFF PHYSICIAN] - In 1 Week (Advised to call Dr. Coronado follow-up surgery on Saturday, 03/06 in the morning.) Jimbo Hill DO [Primary Care Provider] - Within 2 Weeks Disposition Disposition (needs filled in before D/C Order can be placed): Home, Self Care
[2021-02-28 10:23] VITALS: BP 135/70
--- NOTE | 2021-02-28 10:25 | PCM.DC.SUM ---
Providers Date of Admission: 02/25/21 Primary Care Physician: Dr. Jimbo Hill, Consultations 02/25/21 20:46 Consult: General Surgery Routine Consulting Provider: Loretta High Reason for Consult: Recurrent diverticulitis, supposed to have sig colectomy per Sunny EMERGENT Consult: No MD Notified: Yes Date Notified: 02/26/21 Time Notified: 06:06 Method of Notification: Text 02/26/21 19:20 Consult: Onc/Wound/waste transportation technician Routine Comment: Reason For Visit: ACUTE DIVERTICULITIS Diagnosis Discharge Diagnosis (1) Acute diverticulitis: Status: Acute Code(s): K57.92 - Diverticulitis of intestine, part unspecified, without perforation or abscess without bleeding Medications at Discharge Home Medications lansoprazole 30 mg PO DAILY 12/05/16 albuterol sulfate 1 - 2 puff INHALATION Q4H PRN PRN 03/02/17 trazodone 100 mg PO QHS PRN 04/09/20 albuterol sulfate 2.5 mg INHALATION Q4H PRN PRN 04/12/20 topiramate 25 mg tablet 50 mg PO BID 06/06/20 tizanidine 4 mg tablet 4 mg PO 4X/DAY 07/18/20 gabapentin 800 mg PO TID 01/02/21 hydroxyzine HCl 50 - 100 mg PO BID PRN 01/02/21 amoxicillin-pot clavulanate [Augmentin] 1 tab PO BID #12 tab 02/28/21 oxycodone 5 mg PO Q4H PRN 5 Days #20 tab 02/28/21 Hospital Course Summary of Care Provided Hospital Course: This 46-year-old male with history of diverticulitis for about 2 months and on antibiotics was admitted with severe abdominal pain for 1 day prior to admission. He denied fever,o vomiting or GI bleed. 1. acute recurrent sigmoid diverticulitis: The patient on IV Zosyn. He still complaining of abdominal pain although seems probably chronic abdominal pain/opioid dependence. Patient was seen by surgeon Dr. Correa. He prefers discharge once abdominal pain is improved and call him Saturday for elective surgery. Patient on Tylenol and Toradol. On clear liquid advance to soft diet, mashed potato/scrambled egg. Discussed with surgeon and surgery team will call him tomorrow or Saturday to give instructions regarding bowel prep and time to come to the OR on Saturday. His surgery is scheduled at 7:30 AM on 03/06. 2. Patient had recent COVID-19. 3. Multiple other comorbidities include chronic low back pain status post lumbar spinal surgery for lumbar spinal stenosis, GERD, chronic alcohol use in remission, COPD and ventral hernia VTE prophylaxis: LMWH Discharge medication reconciliation done. Discharge follow-up instructions completed. Discharge process discussed with the patient and all questions were answered to patient's satisfaction. Discharged on 6 more days of antibiotic to complete total of 10 days. Rest as mentioned above Total time spent, exact 35 minutes on discharge meds reconciliation, examination, coordination of care with nurses and ancillary staff, review of imaging and blood test and discussion with the patient on follow-up instructions Physical Exam Narrative Patient looks comfortable. He is sleeping in the room. Denies excessive pain and agrees to go home. General: Alert, Oriented x3, Cooperative HEENT: Atraumatic, PERRLA, EOMI, Normocephalic Oral: No Gingival or Mucosal Lesions/ Ulcerations Neck: Supple, No JVD, Negative Carotid Bruits Lungs: Air entry diminished in bilateral lung bases. No crepitation/rhonchi Cardiovascular: Regular rate, Regular Rhythm, Normal S1, Normal S2, No murmurs Abdomen: Mild tenderness to left lower quadrant on deep palpation. Bowel Sounds Present, Soft, Non-Distended : No renal angle tenderness. No suprapubic tenderness. Extremities: No edema, Capillary Refill Less than 3 Seconds Skin: No rashes, No breakdown Musculoskeletal: Chronic lumbar spinal tenderness. No Tenderness to Palpation of Joints or Extremities Neurological: Cranial nerves II-XII grossly intact, DTR 2+/4 Psych/Mental Status: Normal Affect, Appropriate. Weight / BMI Weight Weight: 261 lb 11.019 oz Body Mass Index (BMI) 36.8 ABG / Lab / Microbiology Data Result Diagrams: 02/27/21 05:00 02/27/21 05:00 Microbiology: Microbiology 02/25/21 19:20 Urine, Clean Catch Legionella Antigen - Final 02/25/21 19:20 Urine, Clean Catch Streptococcus pneumoniae Antigen (M - Final D/C Instructions Discharge Diet: - (soft diet) Weight Bearing Status: Weight bearing as tolerated Call your doctor if you observe: Fever of 101 or Higher, Coldness, Increased Pain, Numbness or Tingling, Change in Color, Inability to urinate, Inability to have a bowel movement, Shortness of breath, Dizziness, Fainting spells, Swelling in the ankles, Chest pain, Prolonged hiccupping, Increased palpitations (irregular heartbeat), Calf discomfort and Uncontrolled pain Meaningful Use Info Meaningful Use Diagnoses (Choose all that apply): None applicable Discharge Plan Admission Admit Date/Time: 02/25/21 19:46 Primary Reason for Your Visit: acute on Recurrent diverticulitis Attending Provider: Joseluis Amin Primary Care Provider: Jimbo Hill Consulting Providers: Loretta High Discharge Orders/Prescriptions Prescriptions: New amoxicillin-pot clavulanate [Augmentin] 875-125 mg tablet 1 tab PO BID Qty: 12 RF: 0 Continued topiramate 25 mg tablet 50 mg PO BID RF: 0 tizanidine 4 mg tablet 4 mg PO 4X/DAY RF: 0 lansoprazole 30 MG capsule 30 mg PO DAILY RF: 0 albuterol sulfate 1 PUFF inhaler 1 - 2 puff INHALATION Q4H PRN PRN (Reason: Cough) RF: 0 albuterol sulfate 2.5 MG/3 ML solution for nebulization 2.5 mg INHALATION Q4H PRN PRN (Reason: Sob &/Or Wheezing) RF: 0 trazodone 50 MG tablet 100 mg PO QHS PRN (Reason: Sleep) RF: 0 hydroxyzine HCl 50 mg Tablet 50 - 100 mg PO BID PRN (Reason: Anxiety) RF: 0 gabapentin 800 mg Tablet 800 mg PO TID RF: 0 Changed oxycodone 5 mg tablet 5 mg PO Q4H PRN (Reason: pain) 5 Days Qty: 20 RF: 0 Referrals / Follow Up: Kg Correa MD [STAFF PHYSICIAN] - In 1 Week (Advised to call Dr. Coronado follow-up surgery on Saturday, 03/06 in the morning.) Jimbo Hill DO [Primary Care Provider] - Within 2 Weeks Disposition Disposition (needs filled in before D/C Order can be placed): Home, Self Care Charges/Coding Visit Charges Inpatient E&M: 68377 Disch Hosp
[2021-03-01 12:01] LABS: Magnesium 1.9 mg/dL (1.6-2.6)
== END 2021-02-28 11:56 | disposition home or self-care (01) | DRG 244 ==
LOC: ED 19:36 → MS2 19:59
PROVIDERS: Anesthesiology; Admitting Provider Family Medicine; Emergency Provider Emergency Medicine; PCP Family Medicine; Visit Provider Internal Medicine
DX: K57.32 Diverticulitis of large intestine without perforation or abscess without bleeding (principal); M48.061 Spinal stenosis, lumbar region without neurogenic claudication; G89.4 Chronic pain syndrome; G62.9 Polyneuropathy, unspecified; G25.81 Restless legs syndrome; I10 Essential (primary) hypertension; J44.9 Chronic obstructive pulmonary disease, unspecified; K21.9 Gastro-esophageal reflux disease without esophagitis; F11.20 Opioid dependence, uncomplicated; F10.11 Alcohol abuse, in remission; Y90.9 Presence of alcohol in blood, level not specified; F17.210 Nicotine dependence, cigarettes, uncomplicated; E66.9 Obesity, unspecified; Z68.36 Body mass index [BMI] 36.0-36.9, adult; Z79.899 Other long term (current) drug therapy; Z86.16 Personal history of COVID-19; Z92.22 Personal history of monoclonal drug therapy
CPT/HCPCS: 36415; 74176; 80048; 80053; 80076; 81001; 82728; 83605; 83615; 83735; 83880; 84145; 84484; 85025; 85379; 86140; 87449; 94640; 99251; 99284; 99406; J7030; J7050; A4216; G0463; J2405

== ENCOUNTER 2021-03-06 05:13 | Inpatient (IN) | payer MEDICAID, SELFPAY ==
[2021-03-06] VITALS (28 sets, daily range): BP systolic 120–193; BP diastolic 82–115; PULSE 76–103; RESP 16–32; TEMP 36.3–37.7; O2SAT 94–100; BMI 34.6; BMI 34.5
--- NOTE | 2021-03-06 | COL_PTH ---
PATIENT: RAJAT FITCH LOC: MS3 U#:[id number] AGE/SX: 46/M ROOM: NV308 RE03/06/[address]: Dr. Kg Correa MD : 1975 BED: 1 DIS: 03/09/2021 SPEC #: [id number] RECD: 03/06/21 13:05 STATUS: JONAH AGRAWAL #: [id number] ABDIAZIZ: 03/06/21 00:[address]: Kg Correa DEPT: SURGICAL PATHOLOGY RECD BY: Kevyn Solomon ENTERED: 03/06/21 13:05 SP TYPE: COLON OTHR DR: Dr. Jimbo Hill DO Tissues: A - Colon, NOS B - Colon Donuts Procedures: Surgery Specimen Level III Surgery Specimen Level V HEADER OPERATION: ERAS, laparoscopic, sigmoid colectomy PRE-OP DIAGNOSIS: Diverticulitis TISSUE SUBMITTED: A. Sigmoid colon, B. Sigmoid and rectal donut MICROSCOPIC DIAGNOSIS A. Sigmoid colon, colectomy: Diverticulosis. B. Sigmoid and rectal donut: Donut with suture, no pathologic diagnosis. Donut with staple with mucosal congestion and hemorrhage. DANIELA:ezra 03/08/2021 MICROSCOPIC DESCRIPTION Slides are reviewed. GROSS DESCRIPTION A - Received in fixative is one container labeled with the patient's name and designated sigmoid colon. The specimen consists of a segment of colon with attached pericolonic adipose tissue measuring 26 cm in length. Both resection margins are stapled. No mucosal lesion is identified. More dictation will follow after fixation. / DANIELA:ezra 03/06/21 Sections reveal multiple diverticula. No obviously ruptured diverticula are noted. Sections of the pericolonic adipose tissue do not reveal any obviously enlarged lymph nodes. Turner Machine Operator sections are submitted in five cassettes as follows: 1 ? resection margin, 2-4 ? diverticula, 5 ? pericolonic adipose tissue. 03/07/21 B - Received in fixative is one container labeled with the patient's name and designated sigmoid and rectal donut. The specimen consists of two donuts. One donut measures 2.5 x 2 x 1 cm. Multiple sutures are noted. The second donut measures 2.5 x 2 x 1 cm. Multiple jade are noted. Turner Machine Operator sections are submitted in two cassettes as follows: 1 ? donut with suture, 2 ? donut with staple. / DANIELA:ezra 03/06/21 TC:5 CPT: 96609 x2, 38901
[2021-03-06] MEDS: Gabapentin 600 MG Tablet PO (06:01)
[2021-03-06] MEDS: Acetaminophen 500 MG Tablet 1000 MG PO ×2 (06:01→17:42)
[2021-03-06] MEDS: Lactated Ringers 1,000 ML 40 ML IV ×4 (06:07→16:55)
[2021-03-06 06:36] LABS: Bedside Glucose 114 mg/dL (70-110)
--- NOTE | 2021-03-06 06:55 | PCM.HP.BLA ---
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: No Is patient in pain?: Yes (LLQ abd) Allergies sulfamethoxazole [From Bactrim] Allergy (Verified 02/08/21 08:15) Other trimethoprim [From Bactrim] Allergy (Verified 02/08/21 08:15) Other Metronidazole HCl [From Flagyl] Adverse Reaction (Verified 02/08/21 08:15) Unknown Medications lansoprazole 30 mg PO DAILY 12/05/16 [History Confirmed 02/08/21] albuterol sulfate 1 - 2 puff INHALATION Q4H PRN PRN 03/02/17 [History Confirmed 02/08/21] ondansetron HCl 4 mg tablet 4 mg PO Q8H PRN 02/05/20 [History Confirmed 02/08/21] trazodone 100 mg PO QHS PRN 04/09/20 [History Confirmed 02/08/21] albuterol sulfate 2.5 mg INHALATION Q4H PRN PRN 04/12/20 [History Confirmed 02/08/21] topiramate 25 mg tablet 25 mg PO BID 06/06/20 [History Confirmed 02/08/21] tizanidine 4 mg tablet 4 mg PO 4X/DAY 07/18/20 [History Confirmed 02/08/21] gabapentin 800 mg PO TID 01/02/21 [History Confirmed 02/08/21] hydroxyzine HCl 50 - 100 mg PO BID PRN 01/02/21 [History Confirmed 02/08/21] oxycodone 10 mg PO Q4H PRN 5 Days #20 tab 01/03/21 [Rx Confirmed 02/08/21] dicyclomine 20 mg PO BID #14 tab 02/06/21 [Rx Confirmed 02/08/21] amoxicillin 875 mg-potassium clavulanate 125 mg tablet 1 tab PO BID 7 Days #14 tab 02/08/21 [Rx Confirmed 02/08/21] neomycin 500 mg tablet 500 mg PO .COMPLEX #6 tab 02/08/21 [Rx Confirmed 02/08/21] PFSH Medical History Acute bronchitis Alcohol abuse, in remission Anxiety Chest pain Chronic low back pain COPD (chronic obstructive pulmonary disease) COPD exacerbation Cough Diverticulitis Fusion of lumbar spine GERD (gastroesophageal reflux disease) History of diverticulitis of colon History of stress test Hypertension Obesity (BMI 30-39.9) Postoperative abdominal pain Restless legs Spinal stenosis of lumbar region Tobacco abuse Ventral hernia Wears contact lenses Wears dentures Wheezing Surgical History History of right knee surgery History of ventral hernia repair Previous back surgery S/P parathyroidectomy Family History Mother CAD (coronary artery disease) Uncle CAD (coronary artery disease) Father Cancer Social History household members: spouse housing: house Smoking Status: Current every day smoker tobacco type: cigarettes alcohol intake: former substance use type: does not use and marijuana do you feel safe at home: Yes HPI HPI HPI: RAJAT FITCH, is a 46 M who presents to the office today for continued left lower quadrant pain. Patient was recently admitted with diverticulitis and followed up in the office and had ongoing left lower quadrant pain. He was started on antibiotics but every time he stopped the antibiotics he has recurrence of the left lower quadrant pain. He recently had a CT scan which showed inflammation in the left lower quadrant and continued diverticulitis. ROS General General: Yes fatigue; No weight change, appetite, colon cancer, breast cancer or weakness HEENT HEENT: No difficulty swallowing, eye injury, eye surgery, swollen glands or hoarseness Endo Endocrine: No thyroid disease, diabetes mellitus, thyroid cancer, Hair loss, heat intolerance or cold intolerance Skin Skin: No rash or changing moles Breast Breast: No left breast lump, right breast lump, nipple discharge, breast pain, abnormal mammogram, abnormal US or breast enlargement Musc Musculoskeletal: Yes back problems and arthritis; No rheumatoid arthritis, gout or joint pain Cardio Cardiovascular: No murmur, pacemaker, heart disease, atrial fibrillation, high blood pressure, heart attack, heart stent, palpitations, shortness of breat with exertion or chest pain Psych Psychiatric: No depression, anxiety or hearing voices Resp Respiratory: No shortness of breath, No sleep apnea, No cough, Yes COPD, Yes asthma, No emphysema and No wheezing Gastro Gastrointestinal: Yes abdominal pain, Yes nausea or vomiting, No diarrhea, No constipation, No blood in stool, Yes acid reflux, No hemorrhoids, No ulcers, No gallbladder problem and No black,tarry stools John Hematologic: No blood thinners, No blood disorders, No bleeding, No anemia and No blood clots Neuro Neurologic: No system reviewed and no additional complaints, except as documented, No as per HPI, No abnormal gait, No abnormal hearing, No abnormal movements, No abnormal speech, No behavioral changes, No burning sensations, No confusion, No convulsions, No disequilibrium, No dizziness, No localized weakness, No frequent falls, No headache(s), No lack of coordination, No loss of vision, No memory loss, Yes numbness, No other visual disturbances, No radicular pain, No restless legs, No sensory deficit, No syncope, Yes tingling, No tremor(s), No weakness and No other Exam Const General: cooperative Orientation: alert and oriented x3 HENMT Head: normal to inspection Neck Neck: normal visual inspection and full ROM Chest Chest palpation & inspection: normal inspection of the chest Resp Effort & Inspection: normal respiratory effort Auscultation: clear to auscultation bilaterally Cardio Rate: regular rate Rhythm: regular rhythm GI Inspection: non-distended Palpation: soft and tender in the LLQ Skin General: no rashes or lesions noted Neuro General: patient alert and patient oriented x3 Extrem General: full ROM Psych Appearance: grossly normal Mental Status: mental status grossly normal Assessment and Plan Assessment and Plan (1) Diverticulitis: Status: Acute Plan - Dr. Kg Correa MD: The patient seems to be having smoldering diverticulitis which will not fully resolved. Patient has ongoing left lower quadrant pain and CT scan continues to show diverticulitis. I recommend the patient have a sigmoid colectomy. I do not believe this will resolve on its own. I discussed laparoscopic sigmoid resection with the patient in detail. I discussed the procedure as well as the risks including not limited to bleeding, infection, injury to other organs such as the small bowel bladder or ureters or colon. I also discussed anastomotic leak and possibility of unnoticed proximal colon cancer as the colonoscopy was unable to be performed before surgery. I will give him antibiotics to last until surgery and plan for sigmoid colectomy next week. Kg Correa MD Pager: [facility] [address] [phone] Office: The patient was readmitted without a bout of diverticulitis. Patient also was diagnosed with Covid recently. I discussed that both of these increases risk of morbidity from the surgery. Patient has not had any Covid symptoms for the last 2 weeks but he is still experiencing left lower quadrant pain. Plan for laparoscopic sigmoid colectomy today. Kg Correa MD Pager: [facility] [address] [phone] Office:
[2021-03-06] MEDS: Lubricating Jelly 60 GM Tube 30 GM (08:08)
[2021-03-06] MEDS: BUPIVACAINE LIPOSOME/PF 20 ML VIAL OPERA.SITE (11:03)
--- NOTE | 2021-03-06 12:26 | PCM.OPRPT ---
Problems Associated Problem List Diagnoses (1) Acute diverticulitis: Report of Operation Date of Procedure: 03/06/21 Pre-Operative Diagnosis: Chronic diverticulitis Post-Operative Diagnosis: Same Surgery/Procedure Performed:: Laparoscopic sigmoid colectomy with release of splenic flexure Specimen's removed: Sigmoid colon Description of Procedure: Patient was brought back to the operating room and general anesthesia was induced.Lisa catheter was placed and the Rectal area was irrigated with a Betadine solution. The abdomen was then prepped and draped in usual sterile fashion.A midline incision was made in the superior abdomen and using Visiport technique a 5 mm port was placed into the abdomen. The abdomen was insufflated to 15 mmHg. Laparoscopic tap block was performed using Exparel under laparoscopic visualization. Patient was placed in steep Trendelenburg position. 5 mm ports placed in the left upper quadrant right upper quadrant and 12 mm port into the right lower quadrant.The diseased section of colon was identified and superior to this the lateral colon attachments were taken down using Enseal. Next the colon was dissected inferiorly until the rectum was reached. The rectum was identified and a window in the rectal mesocolon was created and a stapler was used to staple across the rectum. Next the patient was placed into reverse Trendelenburg position and laparoscopically the splenic flexure was taken down.This mobilized the colon enough to reach to the pelvis. The proximal sigmoid colon was then divided with a stapler and the specimen was moved to side. The staple line easily reach the pelvis.Next the mesentery to the specimen was taken down using Enseal. There is good hemostasis. An incision was then made Inferior to the umbilicus and deepened the fascia which was then divided and the abdomen was entered. A wound protector was placed. The specimen was delivered through the incision and then the distal colon was delivered through the incision. The staple line was removed and sizers were used to select a 33 EEA stapler. The anvil was placed into the distal colon and a pursestring 0 Prolene suture was placed. This was then returned to the abdomen and the wound protector was replaced and the abdomen was reinsufflated. Well-lubricated sizers were then placed through the rectum as well as the 33 EEA stapler. The point was brought out of the stapler through the staple line. The anvil was placed over the point and it was closed to the green line and fired. Stapler was removed and the donuts were intact. Next the colon was compressed and air was insufflated through the rectum and there was a good air leak test with no leaking. Next the pelvis was irrigated and suctioned dry. The pelvis was inspected and there was no active bleeding going on. All the ports were removed from the abdomen and the wound protector was removed. The air was allowed to desufflate from the abdomen. Gown and gloves were changed of all staff and then the fascia was closed in Running fashion starting from the top and bottom using a #1 PDS meeting in the middle. Subcutaneous tissue was irrigated and suctioned dry. The incision was injected with local anesthetic. The fascia of the right lower quadrant 12 mm port was closed with 0 Vicryl suture. All the skin incisions were then injected with local anesthetic and closed with interrupted Monocryl sutures. The midline incision was closed with interrupted 4-0 Monocryl as well. Bandages were placed and the patient was taken to PACU in stable condition with Lisa in place. Patient tolerated the procedure well. Admit VTE Documentation VTE Mechan Device Prophylaxis: SCD's
--- NOTE | 2021-03-06 14:48 | EKG12_ITS ---
Test Reason : Blood Pressure : / mmHG Vent. Rate : 096 BPM Atrial Rate : 096 BPM P-R Int : 166 ms QRS Dur : 104 ms QT Int : 370 ms P-R-T Axes : 052 -12 062 degrees QTc Int : 467 ms Normal sinus rhythm Normal ECG When compared with ECG of 18-APR-2020 12:10, QT has lengthened Confirmed by SHEYLA LYNCH, RAMU ([id number]), web content editor APOLINAR BOWIE ([id number]) on 03/14/2021 9:59:24 AM Referred By: Kg Correa Confirmed By:SANNA CARRION MD
--- NOTE | 2021-03-06 16:08 | SUR.PHASEI ---
CELL PHONE GIVEN TO PT IN PACU.
--- NOTE | 2021-03-06 17:03 | NURSING ---
Pt still very groggy. does awaken and answers questions appropriately but quickly falls back to sleep. abdominal dressing is D&I and 3 lap sites intact. the right lower lap site with very small amount of old dry drainage. no discomfort noted at this time.
[2021-03-06] MEDS: tiZANidine HCl 2 MG Tablet 4 MG PO ×2 (17:41→22:03)
[2021-03-06] MEDS: Gabapentin 800 MG Tablet PO ×2 (17:43→22:03)
--- NOTE | 2021-03-06 18:36 | NURSING ---
Pt requesting pain medications for severe pain but quickly falls to sleep. will monitor. no pain meds given at this time.
--- NOTE | 2021-03-06 18:45 | RAD_ITS ---
STUDY: X-RAY CHEST REASON FOR EXAM: Male, 46 years old. CHEST PAIN and quot;lung pain and quot; TECHNIQUE: XR Chest 1 View COMPARISON: None FINDINGS: There is no demonstrated pleural abnormality. There is bilateral infiltrate. Normal size heart. Normal mediastinum and iris. Normal visualized pulmonary arteries. Normal visualized aortic arch and descending thoracic aorta. Normal visualized thoracic spine. Normal visualized ribs, clavicles, and shoulders. There is no demonstrated abnormality of the visualized soft tissue structures of the upper abdomen. RAD/Chest 1 View (Portable) IMPRESSION: There is bilateral infiltrate. Electronically Signed: Chang Coates MD at 19:46 EST , Service support ,
[2021-03-06] MEDS: HYDROmorphone 1 MG/ML Syringe IV (22:03)
[2021-03-06] MEDS: Magnesium Chloride 64 MG Delay Rel.Tablet 128 MG PO (22:03)
[2021-03-06] MEDS: Docusate Sodium 100 MG Capsule PO (22:03)
[2021-03-06] MEDS: traZODone 100 MG Tablet PO (22:03)
--- NOTE | 2021-03-06 23:27 | PCS.PANDOC ---
PANDEMIC DOCUMENTATION INITIATED: Date: 11/21/2020 Time: 190 Emergency documentation initiated 03/06/21 @ 1900
[2021-03-07] MEDS: Acetaminophen 500 MG Tablet 1000 MG PO ×4 (01:20→17:58)
[2021-03-07 02:00] VITALS: BP 113/76; PULSE 86; RESP 16; TEMP 36.9; O2SAT 93
[2021-03-07] MEDS: 0.9% Saline Lock 10 ML Syringe IV ×2 (04:26→14:47)
[2021-03-07] MEDS: HYDROmorphone 1 MG/ML Syringe IV ×4 (04:26→18:42)
[2021-03-07] MEDS: Gabapentin 800 MG Tablet PO ×3 (05:57→22:17)
--- NOTE | 2021-03-07 07:01 | PCM.PN.SRG ---
Subjective Subjective complaining of pain and cough Objective Data Objective Data Vital Signs: Vital Signs Temp Pulse Resp BP Pulse Ox 98.4 F 86 16 113/76 93 03/07/21 02:00 03/07/21 02:00 03/07/21 02:00 03/07/21 02:00 03/07/21 02:00 Oxygen Flow Rate (L/min) 4 Oxygen Delivery Method Room Air Weight: 248 lb Body Mass Index (BMI) 34.5 Intake & Output: Intake and Output for Last 24 Hours 03/05/21 03/06/21 03/07/21 23:59 23:59 23:59 Intake Total 1537 / 1612 571.67 / 571.67 Output Total 2700 / 4300 2200 / 2200 Balance -1163 / -2688 -1628.33 / -1628.33 Radiography Diagnostic Testing: Radiology Impression Chest X-Ray 03/06/21 18:45 IMPRESSION: There is bilateral infiltrate. Electronically Signed: Chang Coates MD at 19:46 EST , Service support , Physical Exam Const oriented x3 and no apparent distress Resp normal respiratory effort Cardio regular rate GI soft to palpation Palpation: tender Assessment & Plan Assessment/Plan (1) Acute diverticulitis: PLAN: patient had lap sigmoid resection yesterday. Waiting on labs, no bowel function. Good UOP, will DC brown. Pt reporting productive cough and I will order sputum culture. Encourage ambulation and IS use. Continue to await bowel function and control pain. Kg Correa
[2021-03-07 07:14] LABS: Hematocrit 42.3 % (40-54); Hemoglobin 14.4 g/dL (13.0-16.5); Mean Corpuscular Hgb 30.4 pg (27.0-32.0); Mean Corpuscular Volume 89.2 fL (80-94); Mean Platelet Vol. 9.2 fl (6.2-12.0); Platelet Count 540 K/mm3 (150-450); RBC Distribution Width CV 15.4 % (11.6-14.6); RBC Distribution Width SD 50.4 fl (35.1-43.9); Red Blood Count 4.74 M/mm3 (4.6-6.2)
[2021-03-07 07:45] VITALS: BP 143/83; PULSE 74; RESP 16; TEMP 36.4; O2SAT 97
[2021-03-07 07:49] LABS: Anion Gap 9 (5-15); BUN 10 mg/dL (7-18); BUN/Creat Ratio 13.5 RATIO (10-20); Calcium,Total 9.1 mg/dL (8.5-10.1); Chloride 108 mmol/L (98-107); Creatinine, Serum 0.74 mg/dL (0.70-1.30); EST Glomerular Filtration Rate 121 mL/min (>60); Est Glom Filt Rate - Afr Amer 146 mL/min (>60); Estimated Creatinine Clearance 132.85 ml/min; Glucose 102 mg/dL (74-106); Sodium Level 139 mmol/L (136-145)
[2021-03-07] MEDS: Ketorolac 30 MG/ML Syringe 15 MG IV ×3 (07:49→22:18)
[2021-03-07] MEDS: oxyCODONE 5 MG Tablet PO ×4 (07:49→22:19)
[2021-03-07] MEDS: Docusate Sodium 100 MG Capsule PO ×2 (07:50→22:17)
[2021-03-07] MEDS: Enoxaparin 40 MG/0.4 ML Syringe SC (07:50)
[2021-03-07] MEDS: tiZANidine HCl 2 MG Tablet 4 MG PO ×4 (07:51→22:19)
[2021-03-07] MEDS: Pantoprazole Sodium 20 MG Tablet PO ×2 (07:55→22:18)
--- NOTE | 2021-03-07 09:54 | NURSING ---
Pt sitting up in chair. called out d/t dressing to abdomen saturated. there was a large amount of bloody drainage noted on the ABD pad. blood on gown as well. removed ABD pad. steri strips remain in place. no active oozing noted. patient denies much abdominal pain at this time. applied new ABD pads and secured with Medipore tape. pt tolerated well. Let JOSE L Saini know.
--- NOTE | 2021-03-07 09:55 | CASEMGMT ---
Pt screened with [facility] Palliative Care Screening Tool due to readmission, pt did not meet criteria.
--- NOTE | 2021-03-07 10:04 | CASEMGMT ---
JOSE L CARRERO Readmission Note Previous Admission: 02/25/21-02/28/21 Diagnosis: diverticulitis DC Disposition: Home Current Admission Presentation: Planned surgery for lap sigmoid colectomy Pt dc'd on 02/28/21 with oral antibiotics to home to follow up with for elective surgery. JOSE L CARRERO in to pt room. Pt states he called Dr. Correa's office, he actually was not seen and surgery had been scheduled d/t ongoing abd pain. Pt reports he did take his medications as directed. Pt does not anticipate any needs at dc. JOSE L CARRERO to follow. DC PLAN:Home with support
[2021-03-07 10:30] VITALS: O2SAT 97
--- NOTE | 2021-03-07 13:30 | CASEMGMT ---
Social Work Note SW updated that pt's significant other is requesting SW assist pt with complete Social Security Disability. SW printed off information for pt on how to apply, will provide to pt. Mely Higgins MEDICAL TECHNOLOGIST, BUSINESS DEVELOPMENT COORDINATOR
--- NOTE | 2021-03-07 13:48 | CASEMGMT ---
Social Work Pt's girlfriend had requested assist in pt completing disability paperwork. SW provided to pt on how to apply. SW remains available for any further social service needs. MASHA Escobar
[2021-03-07 13:50] VITALS: BP 125/54; PULSE 90; RESP 16; TEMP 36.8; O2SAT 95
[2021-03-07] MEDS: Lactated Ringers 1,000 ML 40 ML IV ×2 (18:46→18:51)
[2021-03-07] MEDS: Lactated Ringers 500 ML 999 ML IV (19:16)
[2021-03-07 21:59] VITALS: BP 125/74; PULSE 86; RESP 18; TEMP 36.9; O2SAT 95
[2021-03-07] MEDS: traZODone 100 MG Tablet PO (22:19)
[2021-03-08] MEDS: HYDROmorphone 1 MG/ML Syringe IV ×5 (01:01→23:34)
[2021-03-08] MEDS: Lactated Ringers 1,000 ML 80 ML IV ×3 (01:02→23:33)
[2021-03-08] MEDS: Acetaminophen 500 MG Tablet 1000 MG PO ×4 (01:03→17:15)
[2021-03-08 03:10] VITALS: BP 108/64; PULSE 82; RESP 18; TEMP 37.1; O2SAT 95
[2021-03-08] MEDS: Gabapentin 800 MG Tablet PO ×3 (05:21→20:58)
[2021-03-08] MEDS: Ketorolac 30 MG/ML Syringe 15 MG IV ×3 (05:21→20:56)
[2021-03-08] MEDS: oxyCODONE 5 MG Tablet PO ×4 (05:24→20:58)
[2021-03-08 05:58] LABS: Absolute Lymphocyte Count 3.27 X10^3/uL (0.83-4.51); Absolute Neutrophil Count 8.8 X10^3/uL (2.0-7.7); Basophil# 0.04 X10^3/uL; Basophil% 0.3 % (0-1); Eosinophil# 0.24 X10^3/uL; Eosinophils% 1.7 % (0-5); Hemoglobin 10.6 g/dL (13.0-16.5); Lymphocyte # 3.27 X10^3/ul (0.83-4.51); Lymphocyte % 23.8 % (19-41); Mean Corp Hgb Conc 33.1 g/dL (32-36); Mean Corpuscular Hgb 30.1 pg (27.0-32.0); Mean Corpuscular Volume 90.9 fL (80-94); Mean Platelet Vol. 9.3 fl (6.2-12.0); Monocyte# 1.35 X10^3/uL; Monocyte% 9.8 % (0-10); NRBC Flagged by Analyzer 0 % (0-5); Neutrophil # 8.77 X10^3/uL (2.7-7.7); Platelet Count 433 K/mm3 (150-450); RBC Distribution Width CV 15.4 % (11.6-14.6); RBC Distribution Width SD 50.6 fl (35.1-43.9); Red Blood Count 3.52 M/mm3 (4.6-6.2); White Blood Count 13.7 K/mm3 (4.4-11.0)
[2021-03-08 06:12] LABS: Anion Gap 5 (5-15); BUN 25 mg/dL (7-18); Calcium,Total 8.5 mg/dL (8.5-10.1); Chloride 107 mmol/L (98-107); Creatinine, Serum 0.96 mg/dL (0.70-1.30); EST Glomerular Filtration Rate 89 mL/min (>60); Est Glom Filt Rate - Afr Amer 108 mL/min (>60); Glucose 90 mg/dL (74-106); Potassium 3.8 mmol/L (3.5-5.1); Sodium Level 137 mmol/L (136-145)
--- NOTE | 2021-03-08 07:40 | PCM.PN.SRG ---
Subjective Subjective Patient had bleeding from his incision yesterday. This was believed to be skin edge bleeding. Patient did not have any further bleeding overnight. Patient describes his pain as 7 out of 10 although he is soft and nontender. Patient has not urinated since his Lisa came out yesterday but he was refusing straight catheterization all night long. Patient reports he is passing flatus and did have 2 small bowel movements. Objective Data Objective Data Vital Signs: Vital Signs Temp Pulse Resp BP Pulse Ox 98.8 F 82 18 108/64 95 03/08/21 03:10 03/08/21 03:10 03/08/21 03:10 03/08/21 03:10 03/08/21 03:10 Oxygen Flow Rate (L/min) 4 Oxygen Delivery Method Room Air Weight: 248 lb 0.003 oz Body Mass Index (BMI) 34.5 Intake & Output: Intake and Output for Last 24 Hours 03/06/21 03/07/21 03/08/21 23:59 23:59 23:59 Intake Total 1537 / 1662 2129.00 / 2129.00 50 / 50 Output Total 2700 / 4300 2200 / 2200 Balance -1163 / -2638 -71.00 / -71.00 50 / 50 Lab / Micro Data Result Diagrams: 03/08/21 05:10 03/08/21 05:10 Labs: Laboratory Results - last 24 hr 03/07/21 06:20: Sodium 139, Potassium 4.0, Chloride 108 H, Carbon Dioxide 22.0, Anion Gap 9, BUN 10, Creatinine 0.74, Estim Creat Clear Calc 132.85, Est GFR (MDRD) Af Amer 146, Est GFR (MDRD) Non-Af 121, BUN/Creatinine Ratio 13.5, Glucose 102, Calcium 9.1 03/08/21 05:10: WBC 13.7 H, RBC 3.52 L, Hgb 10.6 L, Hct 32.0 L, MCV 90.9, MCH 30.1, MCHC 33.1, RDW Std Deviation 50.6 H, RDW Coeff of Rudolph 15.4 H, Plt Count 433, MPV 9.3, Immature Gran % (Auto) 0.400, Neut % (Auto) 64.0, Lymph % (Auto) 23.8, [place] % (Auto) 9.8, Eos % (Auto) 1.7, Baso % (Auto) 0.3, Absolute Neuts (auto) 8.8 H, Absolute Lymphs (auto) 3.27, Nucleated RBC % 0 03/08/21 05:10: Sodium 137, Potassium 3.8, Chloride 107, Carbon Dioxide 25.0, Anion Gap 5, BUN 25 H, Creatinine 0.96, Estim Creat Clear Calc 102.40, Est GFR (MDRD) Af Amer 108, Est GFR (MDRD) Non-Af 89, BUN/Creatinine Ratio 26.0 H, Glucose 90, Calcium 8.5 Micro: Microbiology 03/07/21 10:20 Sputum, Expectorated/Coughed Gram Stain - Final Physical Exam Resp normal respiratory effort Cardio regular rate and regular rhythm GI soft to palpation Inspection: Negative for abdominal distention Assessment & Plan Assessment/Plan (1) History of diverticulitis of colon: PLAN: The patient had some bleeding from his incision yesterday and a pressure dressing was applied and this stopped the bleeding. I change his dressing this morning there is no active bleeding. His incision is clean and dry. His hemoglobin did come from 14 down to 10 and I will recheck at noon today to make sure this is not trending downward still. His abdomen is soft and there is no guarding or distention so I do not believe he is intra-abdominal bleeding. Patient is very comfortable although he is rating his pain is a 7 out of 10. Patient has not urinated since having his Lisa removed yesterday morning. He was refusing straight catheterization overnight. I ordered him Flomax this morning and the patient reports that he is passing flatus and had 2 small bowel movements I will start a clear liquid diet. If he does not urinate in 1 hour I will absolutely insist on straight catheterization. Kg Correa MD Pager: [facility] [address] [place] [address], [address] [place] [address] Office:
[2021-03-08] MEDS: Tamsulosin HCl 0.4 MG Capsule 0.8 MG PO (08:40)
[2021-03-08 09:33] VITALS: BP 126/75; PULSE 79; RESP 18; TEMP 36.7; O2SAT 98
[2021-03-08] MEDS: Docusate Sodium 100 MG Capsule PO ×2 (09:34→20:58)
[2021-03-08] MEDS: Pantoprazole Sodium 20 MG Tablet PO ×2 (09:34→20:58)
[2021-03-08] MEDS: tiZANidine HCl 2 MG Tablet 4 MG PO ×4 (09:34→20:58)
[2021-03-08] MEDS: Enoxaparin 40 MG/0.4 ML Syringe SC (09:35)
[2021-03-08] MEDS: 0.9% Saline Lock 10 ML Syringe IV ×3 (12:09→23:34)
[2021-03-08 12:21] LABS: Hematocrit 31.4 % (40-54); Hemoglobin 10.3 g/dL (13.0-16.5)
[2021-03-08 13:01] VITALS: BP 96/73; PULSE 72; RESP 16; TEMP 36.4; O2SAT 96
[2021-03-08 18:29] VITALS: BP 102/63; PULSE 74; RESP 16; TEMP 36.7; O2SAT 94
[2021-03-08 20:45] VITALS: BP 124/77; PULSE 78; RESP 18; TEMP 37.1; O2SAT 98
[2021-03-08] MEDS: traZODone 100 MG Tablet PO (20:58)
[2021-03-09] MEDS: Acetaminophen 500 MG Tablet 1000 MG PO ×3 (00:06→12:23)
[2021-03-09 02:51] VITALS: BP 133/87; PULSE 67; RESP 18; TEMP 36.6; O2SAT 96
[2021-03-09] MEDS: oxyCODONE 5 MG Tablet PO ×3 (02:55→12:23)
[2021-03-09] MEDS: hydrOXYzine PAM 25 MG Capsule PO (02:55)
[2021-03-09] MEDS: Ketorolac 30 MG/ML Syringe 15 MG IV (06:03)
[2021-03-09] MEDS: Gabapentin 800 MG Tablet PO (06:04)
[2021-03-09 06:56] LABS: Absolute Lymphocyte Count 3.25 X10^3/uL (0.83-4.51); Absolute Neutrophil Count 5.6 X10^3/uL (2.0-7.7); Basophil# 0.04 X10^3/uL; Basophil% 0.4 % (0-1); Eosinophils% 7.6 % (0-5); Hematocrit 30.2 % (40-54); Hemoglobin 10.5 g/dL (13.0-16.5); Lymphocyte # 3.25 X10^3/ul (0.83-4.51); Lymphocyte % 30.8 % (19-41); Mean Corp Hgb Conc 34.8 g/dL (32-36); Mean Corpuscular Hgb 31.2 pg (27.0-32.0); Mean Corpuscular Volume 89.6 fL (80-94); Mean Platelet Vol. 9.3 fl (6.2-12.0); Monocyte# 0.87 X10^3/uL; Monocyte% 8.2 % (0-10); NRBC Flagged by Analyzer 0 % (0-5); Neutrophil # 5.55 X10^3/uL (2.7-7.7); Neutrophil % 52.6 % (47-70); Platelet Count 411 K/mm3 (150-450); RBC Distribution Width CV 14.6 % (11.6-14.6); RBC Distribution Width SD 47.9 fl (35.1-43.9); Red Blood Count 3.37 M/mm3 (4.6-6.2); White Blood Count 10.6 K/mm3 (4.4-11.0)
[2021-03-09 07:11] LABS: Anion Gap 6 (5-15); BUN 17 mg/dL (7-18); BUN/Creat Ratio 23.4 RATIO (10-20); Calcium,Total 8.9 mg/dL (8.5-10.1); Chloride 111 mmol/L (98-107); Creatinine, Serum 0.73 mg/dL (0.70-1.30); EST Glomerular Filtration Rate 124 mL/min (>60); Est Glom Filt Rate - Afr Amer 150 mL/min (>60); Estimated Creatinine Clearance 134.67 ml/min; Glucose 90 mg/dL (74-106); Potassium 3.8 mmol/L (3.5-5.1); Sodium Level 141 mmol/L (136-145)
[2021-03-09] MEDS: Docusate Sodium 100 MG Capsule PO (07:51)
[2021-03-09] MEDS: tiZANidine HCl 2 MG Tablet 4 MG PO (07:51)
[2021-03-09] MEDS: Enoxaparin 40 MG/0.4 ML Syringe SC (07:52)
[2021-03-09] MEDS: Pantoprazole Sodium 20 MG Tablet PO (07:52)
--- NOTE | 2021-03-09 08:08 | PCM.PN.SRG ---
Subjective Subjective no further bleeding from incision overnight. Tolerated transitional diet. Had more loose BMs. Objective Data Objective Data Vital Signs: Vital Signs Temp Pulse Resp BP Pulse Ox 97.8 F 67 18 133/87 H 96 03/09/21 02:51 03/09/21 02:51 03/09/21 02:51 03/09/21 02:51 03/09/21 02:51 Oxygen Flow Rate (L/min) 4 Oxygen Delivery Method Room Air Weight: 248 lb 0.003 oz Body Mass Index (BMI) 34.5 Intake & Output: Intake and Output for Last 24 Hours 03/07/21 03/08/21 03/09/21 23:59 23:59 23:59 Intake Total 2129.00 / 2129.00 2931.33 / 2931.33 Output Total 2200 / 2200 1075 / 1075 900 / 900 Balance -71.00 / -71.00 1856.33 / 1856.33 -900 / -900 Lab / Micro Data Result Diagrams: 03/09/21 06:10 03/09/21 06:10 Labs: Laboratory Results - last 24 hr 03/08/21 12:11: Hgb 10.3 L, Hct 31.4 L 03/09/21 06:10: WBC 10.6, RBC 3.37 L, Hgb 10.5 L, Hct 30.2 L, MCV 89.6, MCH 31.2, MCHC 34.8 D, RDW Std Deviation 47.9 H, RDW Coeff of Rudolph 14.6, Plt Count 411, MPV 9.3, Immature Gran % (Auto) 0.400, Neut % (Auto) 52.6, Lymph % (Auto) 30.8, [place] % (Auto) 8.2, Eos % (Auto) 7.6 H, Baso % (Auto) 0.4, Absolute Neuts (auto) 5.6, Absolute Lymphs (auto) 3.25, Nucleated RBC % 0 03/09/21 06:10: Sodium 141, Potassium 3.8, Chloride 111 H, Carbon Dioxide 24.0, Anion Gap 6, BUN 17, Creatinine 0.73, Estim Creat Clear Calc 134.67, Est GFR (MDRD) Af Amer 150, Est GFR (MDRD) Non-Af 124, BUN/Creatinine Ratio 23.4 H, Glucose 90, Calcium 8.9 Micro: Microbiology 03/07/21 10:20 Sputum, Expectorated/Coughed Gram Stain - Final 03/07/21 10:20 Sputum, Expectorated/Coughed Respiratory Culture - Preliminary Appears to be normal respiratory baldo. Further studies to follow. Physical Exam Const oriented x3 and no apparent distress GI soft to palpation Inspection: Negative for abdominal distention Assessment & Plan Assessment/Plan (1) History of diverticulitis of colon: PLAN: Tolerating diet, no further bleeding from incision and Hb stable. Plan for DC today. Kg Correa
--- NOTE | 2021-03-09 08:11 | PCM.DC.SUM ---
Providers Date of Admission: 03/06/21 Primary Care Physician: Dr. Jimbo Hill DO Reason For Visit: LAP SIGMOID COLECTOMY Diagnosis Discharge Diagnosis (1) History of diverticulitis of colon: Status: Chronic Code(s): Z87.19 - Personal history of other diseases of the digestive system Medications at Discharge Home Medications albuterol sulfate 1 - 2 puff INHALATION Q4H PRN PRN 03/02/17 trazodone 100 mg PO QHS 04/09/20 albuterol sulfate 2.5 mg INHALATION Q4H PRN PRN 04/12/20 tizanidine 4 mg tablet 4 mg PO 4X/DAY 07/18/20 gabapentin 800 mg PO TID 01/02/21 hydroxyzine HCl 50 - 100 mg PO BID PRN 01/02/21 amoxicillin-pot clavulanate [Augmentin] 1 tab PO BID 03/01/21 ondansetron HCl [Zofran] 4 mg PO Q6H PRN 03/01/21 oxycodone 5 - 10 mg PO Q4H PRN PRN 5 Days #30 tab 03/09/21 Hospital Course Summary of Care Provided Hospital Course: Patient had elective sigmoid colectomy. Following surgery he was admitted to the floor and brown was removed the next day. Once he started passing flatus diet was initiated and advanced, There was some mild bleeding from his incision site which stopped with pressure dressing. Weight / BMI Weight Weight: 248 lb 0.003 oz Body Mass Index (BMI) 34.5 ABG / Lab / Microbiology Data Result Diagrams: 03/09/21 06:10 03/09/21 06:10 Laboratory: Laboratory Results - last 24 hr 03/08/21 12:11: Hgb 10.3 L, Hct 31.4 L 03/09/21 06:10: WBC 10.6, RBC 3.37 L, Hgb 10.5 L, Hct 30.2 L, MCV 89.6, MCH 31.2, MCHC 34.8 D, RDW Std Deviation 47.9 H, RDW Coeff of Rudolph 14.6, Plt Count 411, MPV 9.3, Immature Gran % (Auto) 0.400, Neut % (Auto) 52.6, Lymph % (Auto) 30.8, [place] % (Auto) 8.2, Eos % (Auto) 7.6 H, Baso % (Auto) 0.4, Absolute Neuts (auto) 5.6, Absolute Lymphs (auto) 3.25, Nucleated RBC % 0 03/09/21 06:10: Sodium 141, Potassium 3.8, Chloride 111 H, Carbon Dioxide 24.0, Anion Gap 6, BUN 17, Creatinine 0.73, Estim Creat Clear Calc 134.67, Est GFR (MDRD) Af Amer 150, Est GFR (MDRD) Non-Af 124, BUN/Creatinine Ratio 23.4 H, Glucose 90, Calcium 8.9 Microbiology: Microbiology 03/07/21 10:20 Sputum, Expectorated/Coughed Gram Stain - Final 03/07/21 10:20 Sputum, Expectorated/Coughed Respiratory Culture - Preliminary Appears to be normal respiratory baldo. Further studies to follow. D/C Instructions Discharge Diet: Light diet - advance as tolerated Discharge Activity: May Not Drive (for 2-3 days or while taking narcotic pain meds.) and May Shower Lifting Restrictions: 20 pounds for 4 weeks. Additional Activity Instructions: Climbing stairs is fine, walking is encouraged. Sitting in bed may be uncomfortable. Sitting up using your lateral muscles (sitting up sideways) is usually more comfortable. Pain medications may cause nausea, you should typically eat light foods as you take your pain medications. Pain medications may also cause constipation. If you have difficulty with this, discuss with your doctor. Call your doctor if your incision/area has: Continuous Slow Oozing, Sudden Increased Bleeding, Increased Pain/ Swelling, Increased Redness and Foul Smelling Discharge Call your doctor if you observe: Fever of 101 or Higher Suture Line Care: Avoid Pulling/Pushing and Avoid Pinching/Bending Change Dressing in: Daily Cleanse incision/area with: Soap & Water Please Follow Up With: Kg Correa MD When: Call to make 1 week follow up appt [phone] Meaningful Use Info Meaningful Use Diagnoses (Choose all that apply): None applicable Discharge Plan Admission Admit Date/Time: 03/06/21 05:13 Attending Provider: Kg Correa Primary Care Provider: Jimbo Hill Discharge Orders/Prescriptions Prescriptions: New oxycodone 5 mg Tablet 5 - 10 mg PO Q4H PRN PRN (Reason: Pain Score 4-10) 5 Days Qty: 30 RF: 0 Continued tizanidine 4 mg tablet 4 mg PO 4X/DAY RF: 0 albuterol sulfate 1 PUFF inhaler 1 - 2 puff INHALATION Q4H PRN PRN (Reason: Cough) RF: 0 albuterol sulfate 2.5 MG/3 ML solution for nebulization 2.5 mg INHALATION Q4H PRN PRN (Reason: Sob &/Or Wheezing) RF: 0 trazodone 50 MG tablet 100 mg PO QHS RF: 0 hydroxyzine HCl 50 mg Tablet 50 - 100 mg PO BID PRN (Reason: Anxiety) RF: 0 gabapentin 800 mg Tablet 800 mg PO TID RF: 0 ondansetron HCl [Zofran] 4 mg Tablet 4 mg PO Q6H PRN (Reason: Nausea) RF: 0 Discontinued lansoprazole 30 MG capsule 30 mg PO DAILY RF: 0 oxycodone 5 mg tablet 10 mg PO 4X/DAY RF: 0 No Action amoxicillin-pot clavulanate [Augmentin] 875-125 mg tablet 1 tab PO BID RF: 0 Referrals / Follow Up: Jimbo Hill DO [Primary Care Provider] - Disposition Disposition (needs filled in before D/C Order can be placed): Home, Self Care
[2021-03-09 08:23] VITALS: BP 122/71; PULSE 75; RESP 16; TEMP 37.1; O2SAT 94
[2021-03-09] MEDS: HYDROmorphone 1 MG/ML Syringe IV (09:59)
[2021-03-09] MEDS: 0.9% Saline Lock 10 ML Syringe IV (10:02)
[2021-03-09 12:19] VITALS: BP 114/71; PULSE 70; RESP 20; TEMP 36.4; O2SAT 95
[2021-03-09 12:45] VITALS: BP 114/71; PULSE 70; RESP 20; TEMP 36.4; O2SAT 95
== END 2021-03-09 14:09 | disposition home or self-care (01) | DRG 231 ==
LOC: ACINP 05:16 → MS3 15:36
PROVIDERS: Admitting Provider Surgery; PCP Family Medicine; Referring Provider Surgery; Visit Provider Surgery
PROC: 0DTN0ZZ Resection of Sigmoid Colon, Open Approach (ICD-10-PCS; CPT 44204; principal; 2021-03-06 07:05)
DX: K57.32 Diverticulitis of large intestine without perforation or abscess without bleeding (principal); L76.22 Postprocedural hemorrhage of skin and subcutaneous tissue following other procedure; Y83.8 Other surgical procedures as the cause of abnormal reaction of the patient, or of later complication, without mention of misadventure at the time of the procedure; F10.11 Alcohol abuse, in remission; F41.9 Anxiety disorder, unspecified; J44.9 Chronic obstructive pulmonary disease, unspecified; E66.9 Obesity, unspecified; Z68.34 Body mass index [BMI] 34.0-34.9, adult; G89.29 Other chronic pain; Z79.899 Other long term (current) drug therapy; F17.210 Nicotine dependence, cigarettes, uncomplicated; Z86.16 Personal history of COVID-19
CPT/HCPCS: 36415; 71045; 80048; 82962; 85014; 85018; 85025; 85027; 87070; 87205; 88304; 88307; 93005; 94762; 99251; 99406; J7120; A4216; C1760; G0463; J2405

== ENCOUNTER 2021-03-10 17:03 | Emergency (ER) | payer MEDICAID, SELFPAY ==
[2021-03-10 17:03] VITALS: BP 151/84; PULSE 86; RESP 16; TEMP 36.4; O2SAT 99; BMI 34.8
--- NOTE | 2021-03-10 19:25 | CT_ITS ---
EXAM: CT Abdomen and Pelvis With Intravenous Contrast CLINICAL INDICATION: 46 years old, Male; post op pain TECHNIQUE: Helically acquired images were obtained of the abdomen and pelvis with intravenous contrast. This CT exam was performed using one or more of the following dose reduction techniques: automated exposure control, adjustment of the mA and/or kV according to patient size, and/or use of iterative reconstruction technique. This report was created using [employer] report generation technology. CONTRAST: IV 100mL Isovue-370 COMPARISON: None. FINDINGS: Lower thorax: Linear atelectasis or fibrosis in the lung bases. No cardiomegaly. No significant pericardial effusion. ABDOMEN: Liver: Unremarkable. Homogeneous. No focal mass. Gallbladder and bile ducts: Unremarkable. No calcified gallstones. No gallbladder distention or wall edema. No intra- or extrahepatic biliary ductal dilation. Pancreas: Unremarkable. No focal cystic or solid mass. Spleen: Unremarkable. Normal size without focal cystic or solid mass. Adrenals: Unremarkable. No nodules. Kidneys and ureters: Unremarkable. Normal renal size and position. No hydronephrosis. Stomach and bowel: Fecal retention in the colon consistent with constipation. Postop changes in the rectum. No stomach or bowel distention. No focal inflammatory change. PELVIS: Appendix: Normal appendix. Bladder: Bladder wall thickening which may be due to the decompressed state of the bladder or due to cystitis. Reproductive: Unremarkable as visualized. No mass. ABDOMEN and PELVIS: Intraperitoneal space: Unremarkable. No ascites or other fluid collection. No free air. Bones/joints: Postop changes lumbar spine. No suspicious lytic or blastic abnormality. Soft tissues: 5.4 x 4.8 x 10 cm hematoma in the subcutaneous fat of the ventral pelvis. Surrounding edema. No discrete abdominal or pelvic wall hernia. Vasculature: Unremarkable. Abdominal aorta is non-dilated. Lymph nodes: Unremarkable. No enlarged lymph nodes. CT/Abdomen/Pelvis W IV Cont ONLY IMPRESSION: 1. Fecal retention in the colon consistent with constipation. 2. Bladder wall thickening which may be due to the decompressed state of the bladder or due to cystitis. 3. 5.4 x 4.8 x 10 cm hematoma in the subcutaneous fat of the ventral pelvis. Surrounding edema. Electronically Signed: Anup Thornton MD at 22:04 EST Tel , Service support ,
[2021-03-10] MEDS: Morphine 4 MG/ML Syringe IV ×2 (19:33→22:33)
[2021-03-10 19:40] LABS: Absolute Lymphocyte Count 3.46 X10^3/uL (0.83-4.51); Absolute Neutrophil Count 4.5 X10^3/uL (2.0-7.7); Basophil# 0.05 X10^3/uL; Basophil% 0.5 % (0-1); Eosinophil# 0.76 X10^3/uL; Hematocrit 30.7 % (40-54); Lymphocyte # 3.46 X10^3/ul (0.83-4.51); Lymphocyte % 36.3 % (19-41); Mean Corp Hgb Conc 32.6 g/dL (32-36); Mean Corpuscular Hgb 29.8 pg (27.0-32.0); Mean Corpuscular Volume 91.4 fL (80-94); Mean Platelet Vol. 9.5 fl (6.2-12.0); Monocyte# 0.74 X10^3/uL; Monocyte% 7.8 % (0-10); NRBC Flagged by Analyzer 0 % (0-5); Neutrophil # 4.48 X10^3/uL (2.7-7.7); Neutrophil % 47.1 % (47-70); Platelet Count 507 K/mm3 (150-450); RBC Distribution Width CV 14.7 % (11.6-14.6); Red Blood Count 3.36 M/mm3 (4.6-6.2); White Blood Count 9.5 K/mm3 (4.4-11.0)
[2021-03-10 19:43] LABS: Bacteria 0 SEEN /hpf (None Seen); Mucous, Urine 0 SEEN /hpf (<or=2+); Red Blood Cells-Urine 0 SEEN /hpf (0-5); Squamous Epithelial Cells - UA 0 SEEN /hpf (0-5); White Blood Cells 0 SEEN /hpf (0-5)
[2021-03-10 19:45] LABS: Color, Urine Yellow (Yellow); Glucose, Dipstick Normal (Normal); Ketone-Dipstick Negative (Negative); Leukocyte Esterase-Dipstick Negative /ul (Negative); Nitrite-Dipstick Negative (Negative); Occult Blood-Urine Negative /ul (Negative); Protein-Dipstick Negative (Negative); Specific Gravity, Urine 1.025 (1.002-1.030); Urine Bilirubin Dipstick Negative (Negative); Urine Clarity Clear (Clear); Urine Urobilinogen Normal (Normal)
[2021-03-10 19:49] LABS: Anion Gap 6 (5-15); BUN 8 mg/dL (7-18); BUN/Creat Ratio 11.5 RATIO (10-20); Chloride 110 mmol/L (98-107); Creatinine, Serum 0.69 mg/dL (0.70-1.30); EST Glomerular Filtration Rate 130 mL/min (>60); Est Glom Filt Rate - Afr Amer 158 mL/min (>60); Estimated Creatinine Clearance 142.48 ml/min; Glucose 103 mg/dL (74-106); Potassium 4.3 mmol/L (3.5-5.1); Sodium Level 141 mmol/L (136-145)
[2021-03-10 20:34] VITALS: BP 102/62; PULSE 70; RESP 16; O2SAT 95
--- NOTE | 2021-03-10 21:50 | ED.VIS.GI ---
HPI HPI - GI History of Present Illness Chief Complaint: Abd Pain Narrative Narrative: Patient with past medical history of diverticulitis had lap sigmoid resection done by Dr. Correa and was released from the hospital today. Patient states that he is having increasing pain but it has been having bowel movements. No fevers or chills. Of note, he states that he had numbness of his right hip and leg also. He called his surgeon who told him to come to the emergency department for evaluation of his continued, worsening abdominal pain postoperatively. He states that he had 18 inches of bowel removed on Saturday, 5 days ago and was discharged today. [facility] Medical History Acute bronchitis Alcohol abuse, in remission Alcohol use Anxiety Chest pain Chronic low back pain COPD (chronic obstructive pulmonary disease) COPD exacerbation Cough COVID Diverticulitis Fusion of lumbar spine GERD (gastroesophageal reflux disease) History of diverticulitis of colon History of diverticulitis of colon History of stress test Hypertension Migraines Obesity (BMI 30-39.9) Postoperative abdominal pain Restless legs Smoker Spinal stenosis of lumbar region Substance use Suture of skin wound Tobacco abuse Ventral hernia Wears contact lenses Wears dentures Wheezing Home Medications albuterol sulfate 1 - 2 puff INHALATION Q4H PRN PRN 03/02/17 [History Last Taken 01/03/21] trazodone 100 mg PO QHS 04/09/20 [History Last Taken 05/01/20] albuterol sulfate 2.5 mg INHALATION Q4H PRN PRN 04/12/20 [History Last Taken Unknown] tizanidine 4 mg tablet 4 mg PO 4X/DAY 07/18/20 [History Last Taken 01/08/21] gabapentin 800 mg PO TID 01/02/21 [History Last Taken 01/08/21] hydroxyzine HCl 50 - 100 mg PO BID PRN 01/02/21 [History Last Taken 01/08/21] amoxicillin-pot clavulanate [Augmentin] 1 tab PO BID 03/01/21 [History Last Taken Unknown] ondansetron HCl [Zofran] 4 mg PO Q6H PRN 03/01/21 [History Last Taken Unknown] oxycodone 5 - 10 mg PO Q4H PRN PRN 5 Days #30 tab 03/09/21 [Rx Last Taken Unknown] oxycodone-acetaminophen 1 tab PO Q4H PRN 03/10/21 [History Last Taken Unknown] Allergy/AdvReac Type Severity Reaction Status Date / Time sulfamethoxazole Allergy Other Verified 03/06/21 06:11 [From Bactrim] trimethoprim [From Bactrim] Allergy Other Verified 03/06/21 06:11 Metronidazole HCl AdvReac Unknown Verified 03/06/21 06:11 [From Flagyl] Family History Mother CAD (coronary artery disease) Uncle CAD (coronary artery disease) Father Cancer Surgical History History of colon resection History of right knee surgery History of ventral hernia repair Previous back surgery Social History household members: spouse housing: house Smoking Status: Current every day smoker tobacco type: cigarettes alcohol intake: former substance use type: does not use and marijuana do you feel safe at home: Yes ROS ROS ED ROS Narrative Constitutional: No fever, no chills. HEENT: No sore throat. No neck pain. No loss of vision. No rhinorrhea. Cardiovascular: No chest pain. No palpitations. No pedal edema. Respiratory: No cough, no shortness of breath. Abdominal: Bilateral lower quadrant abdominal pain. No nausea. No vomiting. No diarrhea. Genitourinary: No dysuria. No hematuria. Musculoskeletal: No myalgias. No arthralgias. Neurologic: No headaches. No dizziness. No lightheadedness. Numbness of right hip and leg. Skin: No rash. No change in color. Psychiatric: No depression. No anxiety. EXAM Physical Exam Narrative Exam Narrative: Afebrile. Vital signs noted. HEENT: Normocephalic. Atraumatic. PERRL, EOMI. Neck soft and supple. No point tenderness or step off. Cardiovascular: Regular rate and rhythm. No murmurs, rubs, or gallops appreciated. Respiratory: No tachypnea. Lungs clear to auscultation bilaterally. Gastrointestinal: Abdomen soft, mild diffuse tenderness bilateral lower quadrant, with normoactive bowel sounds. No rebound or guarding. Neurological: Awake. Alert. Nonfocal, nonlateralizing. Moves all extremities. Full range of motion right hip and right knee, flexion and extension mechanisms intact. Skin: No rash. Normal color. No pallor. Musculoskeletal: No pedal edema. Full range of motion extremities, mild tenderness to palpation right sciatic notch. Const Vital Signs: 03/10/21 17:03 03/10/21 20:34 Temperature 97.5 F L Temperature Source Temporal Pulse Rate 86 70 Respiratory Rate 16 16 Blood Pressure 151/84 H 102/62 Blood Pressure Mean 106 75 Pulse Ox 99 95 Oxygen Delivery Method Room Air MDM MDM MDM Narrative Medical decision making narrative: Patient has a normal white count of 9.5, hemoglobin stable at 10.0. Electrolyte panel is grossly unremarkable except for chloride slightly elevated at 110. Urinalysis shows no evidence of infection. CT of the abdomen and pelvis shows postop hematoma versus seroma that measures 5 cm x 5.1 cm x 8.6 cm. There are postoperative changes in the pelvis. There is distal bowel wall thickening. This was the preliminary read. Patient was discussed with Dr. Mario. She agrees with close outpatient discharge. I think his hip numbness is more from a sciatica. He will take his pain medications at home. He had been given 2 doses of morphine 4 mg intravenously here in the emergency department. Disposition is discharged home in stable condition. Lab Data Attestation: I reviewed the patient's lab results. Labs: Laboratory Results - last 24 hr 03/10/21 03/10/21 03/10/21 19:00 19:00 19:35 WBC 9.5 RBC 3.36 L Hgb 10.0 L Hct 30.7 L MCV 91.4 MCH 29.8 MCHC 32.6 D RDW Std Deviation 49.0 H RDW Coeff of Rudolph 14.7 H Plt Count 507 H MPV 9.5 Immature Gran % (Auto) 0.300 Neut % (Auto) 47.1 Lymph % (Auto) 36.3 [place] % (Auto) 7.8 Eos % (Auto) 8.0 H Baso % (Auto) 0.5 Absolute Neuts (auto) 4.5 Absolute Lymphs (auto) 3.46 Nucleated RBC % 0 Sodium 141 Potassium 4.3 Chloride 110 H Carbon Dioxide 25.0 Anion Gap 6 BUN 8 Creatinine 0.69 L Estim Creat Clear Calc 142.48 Est GFR (MDRD) Af Amer 158 Est GFR (MDRD) Non-Af 130 BUN/Creatinine Ratio 11.5 Glucose 103 Calcium 9.0 Urine Color Yellow Urine Clarity Clear Urine pH 5.0 Ur Specific [place] 1.025 Urine Protein Negative Urine Glucose (UA) Normal Urine Ketones Negative Urine Occult Blood Negative Urine Nitrite Negative Urine Bilirubin Negative Urine Urobilinogen Normal Ur Leukocyte Esterase Negative Urine RBC 0 SEEN Urine WBC 0 SEEN Ur Squamous Epith Cells 0 SEEN Urine Bacteria 0 SEEN Urine Mucus 0 SEEN Discharge Plan Triage Chief Complaint: Abd Pain ED Provider: Moe Saavedra Dx/Rx/DC Orders Clinical Impression: Abdominal wall seroma, Status post colectomy, Abdominal pain, Sciatica Instructions: ED Pain, Acute, Uncertain Cause, ED Sciatica, ED Seroma, Postsurgical Prescriptions: No Action tizanidine 4 mg tablet 4 mg PO 4X/DAY RF: 0 albuterol sulfate 1 PUFF inhaler 1 - 2 puff INHALATION Q4H PRN PRN (Reason: Cough) RF: 0 albuterol sulfate 2.5 MG/3 ML solution for nebulization 2.5 mg INHALATION Q4H PRN PRN (Reason: Sob &/Or Wheezing) RF: 0 trazodone 50 MG tablet 100 mg PO QHS RF: 0 hydroxyzine HCl 50 mg Tablet 50 - 100 mg PO BID PRN (Reason: Anxiety) RF: 0 gabapentin 800 mg Tablet 800 mg PO TID RF: 0 ondansetron HCl [Zofran] 4 mg Tablet 4 mg PO Q6H PRN (Reason: Nausea) RF: 0 amoxicillin-pot clavulanate [Augmentin] 875-125 mg tablet 1 tab PO BID RF: 0 oxycodone 5 mg Tablet 5 - 10 mg PO Q4H PRN PRN (Reason: Pain Score 4-10) 5 Days Qty: 30 RF: 0 oxycodone-acetaminophen 10-325 mg tablet 1 tab PO Q4H PRN (Reason: Back Pain) RF: 0 Primary Care Provider: Jimbo Hill Referrals: Jimbo Hill DO [Primary Care Provider] - Disposition Disposition: Home, Self Care
[2021-03-10 22:35] VITALS: BP 106/69; PULSE 66; RESP 16; O2SAT 95
[2021-03-10 22:40] VITALS: BP 106/69; PULSE 67; RESP 16; O2SAT 97
== END 2021-03-10 22:41 | disposition home or self-care (01) ==
PROVIDERS: Emergency Provider Emergency Medicine; PCP Family Medicine
DX: S30.1XXA Contusion of abdominal wall, initial encounter (principal); M54.30 Sciatica, unspecified side; G89.18 Other acute postprocedural pain; F17.210 Nicotine dependence, cigarettes, uncomplicated; J44.9 Chronic obstructive pulmonary disease, unspecified; F41.9 Anxiety disorder, unspecified; G43.909 Migraine, unspecified, not intractable, without status migrainosus; Z90.49 Acquired absence of other specified parts of digestive tract; Z79.899 Other long term (current) drug therapy; X58.XXXA Exposure to other specified factors, initial encounter
CPT/HCPCS: 74177; 80048; 81001; 85025; 96374; 96376; 99282; Q9967; A4216

== ENCOUNTER 2021-03-21 20:06 | Emergency (ER) | payer MEDICAID, SELFPAY ==
[2021-03-21 20:07] VITALS: BP 153/106; PULSE 80; RESP 14; TEMP 36.8; O2SAT 97; BMI 35.5
[2021-03-21 20:09] VITALS: BP 153/106; PULSE 80; RESP 14; TEMP 36.8; O2SAT 97
[2021-03-21] MEDS: Ondansetron 4 MG/2 ML Vial IV (23:16)
[2021-03-21] MEDS: 0.9% Normal Saline 1,000 ML 999 ML IV (23:16)
[2021-03-21] MEDS: HYDROmorphone 1 MG/ML Syringe IV (23:16)
[2021-03-21 23:23] VITALS: BP 129/87; PULSE 74; RESP 16; TEMP 36.7; O2SAT 96
--- NOTE | 2021-03-21 23:30 | EDS_ITS ---
HPI History of Present Illness Chief Complaint: Abd Pain Narrative Narrative: Patient is a 46-year-old male who states he underwent colectomy with anastomosis 2 weeks ago secondary to diverticulitis. He reports he was doing okay but around 11:00 or noon today began with left lower quadrant abdominal pain. He states that he is also had no bowel movements today but is passing gas. He states that he was going to wait and call his surgeon tomorrow but the patient's pain continued to increase and secondary to this presents for evaluation [facility] Medical History Acute bronchitis Alcohol abuse, in remission Alcohol use Anxiety Chest pain Chronic low back pain COPD (chronic obstructive pulmonary disease) COPD exacerbation Cough COVID Diverticulitis Fusion of lumbar spine GERD (gastroesophageal reflux disease) History of diverticulitis of colon History of diverticulitis of colon History of stress test Hypertension Migraines Obesity (BMI 30-39.9) Postoperative abdominal pain Restless legs Smoker Spinal stenosis of lumbar region Substance use Suture of skin wound Tobacco abuse Ventral hernia Wears contact lenses Wears dentures Wheezing Home Medications albuterol sulfate 1 - 2 puff INHALATION Q4H PRN PRN 03/02/17 [History Last Taken 01/03/21] trazodone 100 mg PO QHS 04/09/20 [History Last Taken 05/01/20] albuterol sulfate 2.5 mg INHALATION Q4H PRN PRN 04/12/20 [History Last Taken Unknown] tizanidine 4 mg tablet 4 mg PO 4X/DAY 07/18/20 [History Last Taken 01/08/21] gabapentin 800 mg PO TID 01/02/21 [History Last Taken 01/08/21] hydroxyzine HCl 50 - 100 mg PO BID PRN 01/02/21 [History Last Taken 01/08/21] ondansetron HCl [Zofran] 4 mg PO Q6H PRN 03/01/21 [History Last Taken Unknown] oxycodone 5 - 10 mg PO Q4H PRN PRN 5 Days #30 tab 03/09/21 [Rx Last Taken Unknown] oxycodone-acetaminophen 1 tab PO Q4H PRN 03/10/21 [History Last Taken Unknown] Allergy/AdvReac Type Severity Reaction Status Date / Time sulfamethoxazole Allergy Other Verified 03/21/21 20:09 [From Bactrim] trimethoprim [From Bactrim] Allergy Other Verified 03/21/21 20:09 Metronidazole HCl AdvReac Unknown Verified 03/21/21 20:09 [From Flagyl] Family History Mother CAD (coronary artery disease) Uncle CAD (coronary artery disease) Father Cancer Surgical History History of colon resection History of right knee surgery History of ventral hernia repair Previous back surgery Social History household members: spouse housing: house Smoking Status: Current every day smoker tobacco type: cigarettes alcohol intake: former substance use type: does not use and marijuana do you feel safe at home: Yes ROS ROS ED Constitutional Constitutional ED: Denies chills or fever(s) ENT ENT ED: Denies sore throat Cardiovascular Cardiovascular: Denies chest pain Respiratory/Chest Respiratory/Chest: Denies cough or dyspnea Gastrointestinal Gastrointestinal: Reports abdominal pain and constipation; Denies diarrhea, nausea or vomiting Genitourinary Genitourinary ED: Denies dysuria Musculoskeletal Musculoskeletal: Denies myalgias Integumentary Denies rash Neurologic Neurologic: Denies headache(s) Hematologic/Lymphatic Hematologic/Lymphatic: Denies easy bleeding or easy bruising EXAM Physical Exam Const Vital Signs: 03/21/21 20:07 03/21/21 20:09 03/21/21 23:23 Temperature 98.2 F 98.2 F 98.1 F Temperature Source Temporal Temporal Oral Pulse Rate 80 80 74 Respiratory Rate 14 14 16 Blood Pressure 153/106 H 153/106 H 129/87 H Blood Pressure Mean 121 121 101 Pulse Ox 97 97 96 Oxygen Delivery Method Room Air Room Air Room Air 03/22/21 01:42 Temperature 97.8 F Temperature Source Oral Pulse Rate 68 Respiratory Rate 14 Blood Pressure 120/78 Blood Pressure Mean 92 Pulse Ox 96 Oxygen Delivery Method Room Air Positive well nourished and well developed General Appearance ED: well developed HEENT Reports moist mucous membranes Eyes PERRL and EOMs intact bilaterally Neck supple Resp normal respiratory effort and clear to auscultation bilaterally Cardio regular rate and regular rhythm Rate: other Other Details: Radial pulses are +2-4 bilaterally are equal and symmetric GI non-distended GI Narrative: Abdomen is obese soft and nondistended with hypoactive bowel sounds. There is pain with palpation in the midepigastric and left lower quadrant region but no voluntary guarding or rigidity. Patient does have postsurgical incision to the midline lower abdomen with mild dehiscence and faint ooze of blood but no surrounding secondary changes to suggest infection. No pulsatile mass Palpation: soft Extremity normal to inspection Neuro oriented x3 and CN's II-XII intact bilaterally Sensorium / Orientation: alert Motor Exam: strength 5/5 throughout Psych mental status grossly normal Skin no rashes or lesions noted Skin Narrative: Wound dehiscence to the mid abdomen as documented above MDM MDM MDM Narrative Medical decision making narrative: Patient presented to the ER with a n onsurgical abdomen but with his recent history there was concern for underlying infectious process ischemic gut or even a leakage of his anastomosis so basic lab work and a CT scan. Blood work revealed no clinically significant findings and the CT scan showed a postoperative seroma/hematoma but otherwise no obvious infectious process. I discussed the case with his surgeon based on the recent procedure and he agrees that there is no need for readmission or surgical process at this time. Therefore patient was advised to continue his normal medications and follow-up with his surgeon as well as a sharepoint specialist as his recurrent pain could be coming from his low back. However at this time as work- up is negative for any type of postsurgical infection or obstructive process he can be discharged Lab Data Attestation: I reviewed the patient's lab results. Labs: Laboratory Results - last 24 hr 03/21/21 03/21/21 03/21/21 22:53 23:16 23:16 WBC 11.1 H RBC 3.91 L Hgb 12.0 L Hct 35.6 L MCV 91.0 MCH 30.7 MCHC 33.7 RDW Std Deviation 51.1 H RDW Coeff of Rudolph 15.4 H Plt Count 778 H* MPV 8.4 Immature Gran % (Auto) 1.100 H Neut % (Auto) 54.4 Lymph % (Auto) 30.9 [place] % (Auto) 6.9 Eos % (Auto) 5.9 H Baso % (Auto) 0.8 Absolute Neuts (auto) 6.0 Absolute Lymphs (auto) 3.42 Nucleated RBC % 0 Diff Path Review May foll Platelet Estimate MKD INC Sodium 141 Potassium 4.0 Chloride 110 H Carbon Dioxide 26.0 Anion Gap 5 BUN 11 Creatinine 0.76 Estim Creat Clear Calc 129.35 Est GFR (MDRD) Af Amer 142 Est GFR (MDRD) Non-Af 117 BUN/Creatinine Ratio 14.5 Glucose 92 Lactic Acid 1.0 Calcium 9.0 Total Bilirubin 0.20 Direct Bilirubin < 0.05 AST 16 ALT 20 Alkaline Phosphatase 70 Total Protein 6.7 Albumin 3.3 Globulin 3.4 Lipase 226 Radiography Diagnostic Testing: Clinical Impression(s) from Imaging Studies Abdomen/Pelvis CT 03/22/21 23:03 IMPRESSION: Questionable incisional hematoma versus inflammatory process versus high-density seroma along the incision line at the anterior subcutaneous fat/infraumbilical region. This may be further assessed with ultrasound to evaluate resolution. Mild nonspecific inflammation along the prevertebral region at the lumbosacral junction, likely postoperative. No focal fluid collection to suggest abscess. No bowel obstruction or focal inflammatory process rather gastrointestinal tract. No free air within the abdomen. No distinct fistulous tract into the intra-abdominal region seen. Electronically Signed: Radha Acevedo MD at 1:27 EST , Service support , Discharge Plan Triage Chief Complaint: Abd Pain ED Provider: [facility] Dx/Rx/DC Orders Clinical Impression: Postoperative abdominal pain, Postoperative seroma Instructions: ED Abdominal Pain Unkn Cause Male..., ED Seroma, Postsurgical Prescriptions: No Action tizanidine 4 mg tablet 4 mg PO 4X/DAY RF: 0 albuterol sulfate 1 PUFF inhaler 1 - 2 puff INHALATION Q4H PRN PRN (Reason: Cough) RF: 0 albuterol sulfate 2.5 MG/3 ML solution for nebulization 2.5 mg INHALATION Q4H PRN PRN (Reason: Sob &/Or Wheezing) RF: 0 trazodone 50 MG tablet 100 mg PO QHS RF: 0 hydroxyzine HCl 50 mg Tablet 50 - 100 mg PO BID PRN (Reason: Anxiety) RF: 0 gabapentin 800 mg Tablet 800 mg PO TID RF: 0 ondansetron HCl [Zofran] 4 mg Tablet 4 mg PO Q6H PRN (Reason: Nausea) RF: 0 oxycodone 5 mg Tablet 5 - 10 mg PO Q4H PRN PRN (Reason: Pain Score 4-10) 5 Days Qty: 30 RF: 0 oxycodone-acetaminophen 10-325 mg tablet 1 tab PO Q4H PRN (Reason: Back Pain) RF: 0 Primary Care Provider: Jimbo Hill Referrals: Jimbo Hill DO [Primary Care Provider] - Disposition Disposition: Home, Self Care
[2021-03-21 23:42] LABS: Absolute Lymphocyte Count 3.42 X10^3/uL (0.83-4.51); Basophil# 0.09 X10^3/uL; Basophil% 0.8 % (0-1); Eosinophil# 0.65 X10^3/uL; Eosinophils% 5.9 % (0-5); Hematocrit 35.6 % (40-54); Lymphocyte # 3.42 X10^3/ul (0.83-4.51); Lymphocyte % 30.9 % (19-41); Mean Corp Hgb Conc 33.7 g/dL (32-36); Mean Corpuscular Hgb 30.7 pg (27.0-32.0); Mean Platelet Vol. 8.4 fl (6.2-12.0); Monocyte# 0.76 X10^3/uL; Monocyte% 6.9 % (0-10); NRBC Flagged by Analyzer 0 % (0-5); Neutrophil # 6.04 X10^3/uL (2.7-7.7); Neutrophil % 54.4 % (47-70); POSITIVE COUNT YES; Platelet Count 778 K/mm3 (150-450); RBC Distribution Width CV 15.4 % (11.6-14.6); RBC Distribution Width SD 51.1 fl (35.1-43.9); Red Blood Count 3.91 M/mm3 (4.6-6.2); White Blood Count 11.1 K/mm3 (4.4-11.0)
[2021-03-21 23:48] LABS: Differential Indicated SCAN CRITERIA MET
[2021-03-22 00:11] LABS: Platelet Estimate MKD INC (ADEQ)
[2021-03-22 00:20] LABS: AST(SGOT) 16 U/L (15-37); Alanine Aminotransfer ALT/SGPT 20 U/L (16-61); Albumin, Serum 3.3 g/dL (3.2-5.0); Alkaline Phosphatase 70 U/L (45-117); Anion Gap 5 (5-15); BUN 11 mg/dL (7-18); BUN/Creat Ratio 14.5 RATIO (10-20); Bilirubin, Direct < 0.05 mg/dL (0.00-0.30); Chloride 110 mmol/L (98-107); Creatinine, Serum 0.76 mg/dL (0.70-1.30); EST Glomerular Filtration Rate 117 mL/min (>60); Est Glom Filt Rate - Afr Amer 142 mL/min (>60); Estimated Creatinine Clearance 129.35 ml/min; Globulin 3.4 g/dL (2.2-4.2); Glucose 92 mg/dL (74-106); Lipase 226 U/L (73-393); Protein, Total 6.7 g/dL (6.4-8.2); Sodium Level 141 mmol/L (136-145)
[2021-03-22] MEDS: HYDROmorphone 1 MG/ML Syringe IV (00:52)
[2021-03-22 01:42] VITALS: BP 120/78; PULSE 68; RESP 14; TEMP 36.6; O2SAT 96
[2021-03-22 14:04] LABS: Pathologist Review Reviewed
--- NOTE | 2021-03-22 23:03 | CT_ITS ---
STUDY: CT ABDOMEN AND PELVIS WITH CONTRAST REASON FOR EXAM: Male, 46 years old. post operaive abdominal pain / ? Anastomosis leak RADIATION DOSAGE (If Supplied By Facility): CTDIvol = ( 22.49 ) mGy, DLP = ( 1617.00 ) mGycm TECHNIQUE: Transaxial images were obtained from the dome of the diaphragm to the symphysis pubis without oral contrast. Oral and amp; IV Gastrografin and amp; 100mL Isovue-370 was administered. Sagittal and coronal images were reconstructed. Individualized dose optimization techniques were used for this CT. COMPARISON: None. FINDINGS: Mild posterior dependent atelectasis otherwise lung bases are clear. The visualized portions of the heart are within normal limits. Normal liver. Normal gallbladder and extrahepatic biliary system. Normal spleen. Normal pancreas. Normal bilateral adrenal glands. Normal right kidney. Normal left kidney. Normal visualized stomach. Normal small intestine. Operative changes of the level of the sigmoid colon. The appendix is visualized and appears normal. There is diffuse atherosclerotic calcification of the abdominal aorta, without a demonstrated aneurysm. Normal inferior vena cava. Normal retroperitoneum. Normal urinary bladder. High density structure at the anterior subcutaneous fat at the level of the infraumbilical region measuring approximately 4.7 x 4.3 cm in axial dimension by 8.0 cm, most compatible with hematoma. Status post anterior and posterior fusion from L4 to S1. Mild nonspecific stranding along the prevertebral and sacral region at the lumbosacral junction, likely postoperative. CT/Abdomen/Pelvis WITH Contrast IMPRESSION: Questionable incisional hematoma versus inflammatory process versus high-density seroma along the incision line at the anterior subcutaneous fat/infraumbilical region. This may be further assessed with ultrasound to evaluate resolution. Mild nonspecific inflammation along the prevertebral region at the lumbosacral junction, likely postoperative. No focal fluid collection to suggest abscess. No bowel obstruction or focal inflammatory process rather gastrointestinal tract. No free air within the abdomen. No distinct fistulous tract into the intra-abdominal region seen. Electronically Signed: Radha Acevedo MD at 1:27 EST , Service support ,
== END 2021-03-22 02:06 | disposition home or self-care (01) ==
PROVIDERS: Emergency Provider Emergency Medicine; PCP Family Medicine
DX: L76.34 Postprocedural seroma of skin and subcutaneous tissue following other procedure (principal); G89.18 Other acute postprocedural pain; I10 Essential (primary) hypertension; J44.9 Chronic obstructive pulmonary disease, unspecified; E66.9 Obesity, unspecified; F17.210 Nicotine dependence, cigarettes, uncomplicated; Z79.899 Other long term (current) drug therapy; Z86.16 Personal history of COVID-19
CPT/HCPCS: 74177; 80048; 80076; 83605; 83690; 85025; 96361; 96374; 96375; 96376; 99285; J7030; Q9967; A4216; J2405

== ENCOUNTER 2021-05-05 10:21 | Inpatient (IN) | payer MEDICAID, SELFPAY ==
[2021-05-05 10:22] VITALS: BP 159/106; PULSE 86; RESP 16; TEMP 35.8; O2SAT 99; BMI 34.8
[2021-05-05 11:35] VITALS: BP 160/90; PULSE 84; RESP 18; O2SAT 99
[2021-05-05 12:16] LABS: Absolute Lymphocyte Count 2.01 X10^3/uL (0.83-4.51); Absolute Neutrophil Count 4.2 X10^3/uL (2.0-7.7); Basophil# 0.07 X10^3/uL; Eosinophil# 0.41 X10^3/uL; Eosinophils% 5.7 % (0-5); Hematocrit 41.8 % (40-54); Hemoglobin 14.2 g/dL (13.0-16.5); Lymphocyte # 2.01 X10^3/ul (0.83-4.51); Lymphocyte % 27.9 % (19-41); Mean Corpuscular Hgb 30.1 pg (27.0-32.0); Mean Corpuscular Volume 88.7 fL (80-94); Mean Platelet Vol. 8.8 fl (6.2-12.0); Monocyte# 0.52 X10^3/uL; Monocyte% 7.2 % (0-10); NRBC Flagged by Analyzer 0 % (0-5); Neutrophil # 4.17 X10^3/uL (2.7-7.7); Neutrophil % 57.9 % (47-70); Platelet Count 514 K/mm3 (150-450); RBC Distribution Width CV 13.8 % (11.6-14.6); RBC Distribution Width SD 45.4 fl (35.1-43.9); Red Blood Count 4.71 M/mm3 (4.6-6.2); White Blood Count 7.2 K/mm3 (4.4-11.0)
[2021-05-05 12:30] LABS: Alcohol, Blood (Medical)-Serum < 3.0 mg/dL
[2021-05-05 12:31] LABS: Anion Gap 2 (5-15); BUN 10 mg/dL (7-18); BUN/Creat Ratio 13.5 RATIO (10-20); Calcium,Total 8.7 mg/dL (8.5-10.1); Chloride 110 mmol/L (98-107); Creatinine, Serum 0.74 mg/dL (0.70-1.30); EST Glomerular Filtration Rate 120 mL/min (>60); Est Glom Filt Rate - Afr Amer 146 mL/min (>60); Estimated Creatinine Clearance 132.85 ml/min; Glucose 100 mg/dL (74-106); Potassium 4.4 mmol/L (3.5-5.1); Sodium Level 140 mmol/L (136-145)
--- NOTE | 2021-05-05 12:31 | CM.ED ---
GALINDO Note Referral Source: MD Referral Reason: JOHNATHAN MEDLEY met with patient. Patient is here at the ED for admission to the [facility] program. Patient said that he went to [facility] yesterday for his assessment and the VICE PRESIDENT [employer] wanted him to come to the [facility] program for detox from the Dilaudid. Patient said that he is hoping to get off Dilaudid and get on Suboxone. Patient said that he wants the detox program to help me get through and then the [employer] will take over. 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 Patient reports he is prescribed Dilaudid 5 4 mg /day. Patient said that he has never been to detox before. SW explained the rules of the detox which include 1) no phones 2) no visitors and personal items will be locked up. Patient is in agreement with rules and stated he will sign contract. SW remains available if needs arise. GALINDO spoke to MD. Plan is to admit for detox GALINDO updated Addiction Therapist that patient is in the ED. Plan: [facility]
[2021-05-05 12:35] LABS: Amphetamine Urine VISTA NEGATIVE (<1000 ng/mL); Barbiturate Urine VISTA NEGATIVE (< 200 ng/mL); Benzodiazepine Urine VISTA NEGATIVE (< 200 ng/mL); Cocaine Urine VISTA NEGATIVE (< 300 ng/mL); Ecstacy Urine VISTA NEGATIVE (< 500 ng/mL); Methadone Urine VISTA NEGATIVE (< 300 ng/mL); PCP Urine VISTA NEGATIVE (< 25 ng/mL); THC Urine VISTA NEGATIVE (< 50 ng/mL); Vista UDS pH Range 7
--- NOTE | 2021-05-05 12:58 | EX.ED.SAOD ---
HPI History of Present Illness Chief Complaint: Substance Abuse Narrative Narrative: Patient with past medical history of chronic back pain presents for detox from Dilaudid. He states that he takes 4 mg of Dilaudid 5 times a day. It was suggested by his bank compliance officer that he seek treatment. He went to [facility] counseling center where he states the nurse practitioner told him to enter detox because the amount of opiates that he was taking was too high and she did not want to directly switch him to Suboxone. He presents for detox from opiates. He states he used to be addicted to alcohol, but quit drinking 2 years ago. He also used to take methamphetamines, and had a relapse this weekend where he used methamphetamines. However, he is presenting mainly for detox from Dilaudid. He gets this from his primary care physician for his chronic pain. He denies other symptoms. No suicidal ideation. [facility] Medical History Acute bronchitis Alcohol abuse, in remission Alcohol use Anxiety Chest pain Chronic low back pain COPD (chronic obstructive pulmonary disease) COPD exacerbation Cough COVID Diverticulitis Fusion of lumbar spine GERD (gastroesophageal reflux disease) History of diverticulitis of colon History of diverticulitis of colon History of stress test Hypertension Migraines Obesity (BMI 30-39.9) Postoperative abdominal pain Restless legs Smoker Spinal stenosis of lumbar region Substance use Suture of skin wound Tobacco abuse Ventral hernia Wears contact lenses Wears dentures Wheezing Home Medications albuterol sulfate 1 - 2 puff INHALATION Q4H PRN PRN 03/02/17 [History Last Taken 01/03/21] trazodone 100 mg PO QHS 04/09/20 [History Last Taken 05/01/20] albuterol sulfate 2.5 mg INHALATION Q4H PRN PRN 04/12/20 [History Last Taken Unknown] tizanidine 4 mg tablet 4 mg PO 4X/DAY 07/18/20 [History Last Taken 01/08/21] gabapentin 800 mg PO TID 01/02/21 [History Last Taken 01/08/21] hydroxyzine HCl 50 - 100 mg PO BID PRN 01/02/21 [History Last Taken 01/08/21] hydromorphone 4 mg tablet 4 mg PO PRN PRN tab 04/10/21 [History Last Taken Unknown] Allergy/AdvReac Type Severity Reaction Status Date / Time sulfamethoxazole Allergy Other Verified 05/05/21 10:23 [From Bactrim] trimethoprim [From Bactrim] Allergy Other Verified 05/05/21 10:23 Metronidazole HCl AdvReac Unknown Verified 05/05/21 10:23 [From Flagyl] Family History Mother CAD (coronary artery disease) Uncle CAD (coronary artery disease) Father Cancer Surgical History History of colon resection History of right knee surgery History of ventral hernia repair Previous back surgery Social History household members: spouse housing: house Smoking Status: Current every day smoker tobacco type: cigarettes alcohol intake: former substance use type: does not use and marijuana do you feel safe at home: Yes ROS ROS ED ROS Narrative Constitutional: No fever, no chills. HEENT: No sore throat. No neck pain. No loss of vision. No rhinorrhea. Cardiovascular: No chest pain. No palpitations. No pedal edema. Respiratory: No cough, no shortness of breath. Abdominal: No abdominal pain. No nausea. No vomiting. Genitourinary: No dysuria. No hematuria. Musculoskeletal: No myalgias. No arthralgias. Neurologic: No headaches. No dizziness. No lightheadedness. Skin: No rash. No change in color. Psychiatric: No depression. No anxiety. No suicidal ideation. EXAM Physical Exam Narrative Exam Narrative: Afebrile. Vital signs noted. HEENT: Normocephalic. Atraumatic. PERRL, EOMI. Neck soft and supple. No point tenderness or step off. Cardiovascular: Regular rate and rhythm. No murmurs, rubs, or gallops appreciated. Respiratory: No tachypnea. Lungs clear to auscultation bilaterally. Gastrointestinal: Abdomen soft, nontender, with normoactive bowel sounds. No rebound or guarding. Neurological: Awake. Alert. Nonfocal, nonlateralizing. Skin: No rash. Normal color. No pallor. Musculoskeletal: No pedal edema. Full range of motion extremities. Psychiatric: No suicidal ideation. No homicidal ideation. No hallucinations. No signs of active withdrawal. Const Vital Signs: 05/05/21 10:22 05/05/21 11:35 Temperature 96.5 F L Temperature Source Temporal Pulse Rate 86 84 Respiratory Rate 16 18 Blood Pressure 159/106 H 160/90 H Blood Pressure Mean 123 113 Pulse Ox 99 99 Oxygen Delivery Method Room Air Room Air MDM MDM MDM Narrative Medical decision making narrative: I consulted case management for Dilaudid detox. Baseline laboratories/medical screening labs will be obtained. He has normal white count 7.2, hemoglobin stable at 14.2. Electrolyte panel is grossly unremarkable except for chloride of 110. Ethyl alcohol is negative. Urine drug screen is positive for opiates which he states he takes. I discussed the patient with social work who discussed the patient with the air quality instrument specialist. Reportedly, she was aware and had already spoken with the nurse practitioner at [facility]. I then discussed the patient with Dr. Medina for admission for opiate detox. He is in stable condition. Lab Data Attestation: I reviewed the patient's lab results. Labs: Laboratory Results - last 24 hr 05/05/21 05/05/21 05/05/21 12:00 12:00 12:00 WBC 7.2 RBC 4.71 Hgb 14.2 Hct 41.8 MCV 88.7 MCH 30.1 MCHC 34.0 RDW Std Deviation 45.4 H RDW Coeff of Rudolph 13.8 Plt Count 514 H MPV 8.8 Immature Gran % (Auto) 0.300 Neut % (Auto) 57.9 Lymph % (Auto) 27.9 [place] % (Auto) 7.2 Eos % (Auto) 5.7 H Baso % (Auto) 1.0 Absolute Neuts (auto) 4.2 Absolute Lymphs (auto) 2.01 Nucleated RBC % 0 Sodium 140 Potassium 4.4 Chloride 110 H Carbon Dioxide 28.0 Anion Gap 2 L BUN 10 Creatinine 0.74 Estim Creat Clear Calc 132.85 Est GFR (MDRD) Af Amer 146 Est GFR (MDRD) Non-Af 120 BUN/Creatinine Ratio 13.5 Glucose 100 Calcium 8.7 Urine Opiates Screen Urine Methadone Screen Ur Barbiturates Screen Ur Phencyclidine Scrn Ur Amphetamines Screen U Methamphetamin-MDMA U Benzodiazepines Scrn Urine Cocaine Screen U Cannabinoids Screen Ur Drug Screen Comment Ethyl Alcohol < 3.0 05/05/21 12:15 WBC RBC Hgb Hct MCV MCH MCHC RDW Std Deviation RDW Coeff of Rudolph Plt Count MPV Immature Gran % (Auto) Neut % (Auto) Lymph % (Auto) [place] % (Auto) Eos % (Auto) Baso % (Auto) Absolute Neuts (auto) Absolute Lymphs (auto) Nucleated RBC % Sodium Potassium Chloride Carbon Dioxide Anion Gap BUN Creatinine Estim Creat Clear Calc Est GFR (MDRD) Af Amer Est GFR (MDRD) Non-Af BUN/Creatinine Ratio Glucose Calcium Urine Opiates Screen POSITIVE H Urine Methadone Screen NEGATIVE Ur Barbiturates Screen NEGATIVE Ur Phencyclidine Scrn NEGATIVE Ur Amphetamines Screen NEGATIVE U Methamphetamin-MDMA NEGATIVE U Benzodiazepines Scrn NEGATIVE Urine Cocaine Screen NEGATIVE U Cannabinoids Screen NEGATIVE Ur Drug Screen Comment Ethyl Alcohol Discharge Plan Dx/Rx/DC Orders Clinical Impression: Opiate addiction, Desire for detoxification Disposition Disposition: Acute Care Hospital [facility]
--- NOTE | 2021-05-05 14:13 | NURSING ---
MED SURG TRISTIAN DETOX FROM OPIATES
[2021-05-05 14:14] VITALS: BP 121/81; PULSE 64; RESP 16; TEMP 36.7; O2SAT 98
--- NOTE | 2021-05-05 15:22 | PCM.HP.STD ---
HPI - General General Date of Admission: 05/05/21 Date of Service: 05/05/21 Chief Complaint: Desire for opiate detoxification HPI Narrative RAJAT FITCH, is a 46 M who presented to the emergency department with multiple on 05/05/2021 requesting opiate detoxification. He reports he was seen earlier today [facility] for the [facility] of Sub[facility]one as it was suggested by his family preservation officer that he seek treatment. When he was seen there today the nurse practitioner told him to enter detox because the amount of opiates he was taking was too high and she was not comfortable switching him directly to Suboxone at that time. He has a history of alcohol addiction but quit drinking 2 years ago and states that he no longer drinks at all. He does smoke 1 to 2 packs of cigarettes daily he has periodically used methamphetamines and does state he relapsed last weekend and he is currently using oral Dilaudid 4 mg 5 times daily. His last dose was this morning at approximately 10 AM. In the last year he has had lumbar surgery as well as a colectomy for recurrent diverticulitis which failed conservative therapy and this was performed on 03/06/2021. He also had a ventral hernia repair on 01/03/2021 and a posterior lumbar fusion at L4-L5 and L5-S1 with internal segmental fixation on 04/26/2020. He reports that his primary care physician Dr. Hill has been prescribing his Dilaudid. An OAR[facility] report was reviewed and he was last prescribed hydromorphone by Dr. Hill on 04/28/2021 450 tablets which is a 30-day supply. In the emergency department his vital signs were stable without any abnormalities. A CBC was performed and was unremarkable other than a mild thrombocytosis with a platelet count of 514,000 his BMP is unremarkable. A toxicology screen was performed and was positive only for opiates. I discussed the case with Dr. Fagan from addiction medicine and given the fact that his last dose of Dilaudid was this morning at 10 AM, we would like pt to be in withdrawal before starting subutex and dose was delayed until am. I did give instructions for nursing to call the attending physician if the symptoms were bad prior to 8 AM when the dose is ordered or if his symptoms were not severe enough to initiate the buprenorphine at that time. [facility] Medical History (Updated 05/05/21 @ 15:[address] Anna Medina DO) Acute bronchitis Alcohol abuse Alcohol abuse, in remission Alcohol use Anxiety Chest pain Chronic low back pain COPD (chronic obstructive pulmonary disease) COPD exacerbation Cough COVID Diverticulitis Fusion of lumbar spine GERD (gastroesophageal reflux disease) History of diverticulitis of colon History of diverticulitis of colon History of stress test Hypertension Migraines Obesity (BMI 30-39.9) Postoperative abdominal pain Restless legs Smoker Spinal stenosis of lumbar region Substance abuse Substance use Suture of skin wound Tobacco abuse Ventral hernia Wears contact lenses Wears dentures Wheezing Home Medications albuterol sulfate 1 - 2 puff INHALATION Q4H PRN PRN 03/02/17 [History Last Taken 01/03/21] trazodone 100 mg PO QHS 04/09/20 [History Last Taken 05/01/20] albuterol sulfate 2.5 mg INHALATION Q4H PRN PRN 04/12/20 [History Last Taken Unknown] tizanidine 4 mg tablet 4 mg PO 4X/DAY 07/18/20 [History Last Taken 01/08/21] gabapentin 800 mg PO TID 01/02/21 [History Last Taken 01/08/21] hydroxyzine HCl 50 - 100 mg PO BID PRN 01/02/21 [History Last Taken 01/08/21] hydromorphone 4 mg tablet 4 mg PO PRN PRN tab 04/10/21 [History Last Taken Unknown] Allergy/AdvReac Type Severity Reaction Status Date / Time sulfamethoxazole Allergy Other Verified 05/05/21 10:23 [From Bactrim] trimethoprim [From Bactrim] Allergy Other Verified 05/05/21 10:23 Metronidazole HCl AdvReac Unknown Verified 05/05/21 10:23 [From Flagyl] Family History Mother CAD (coronary artery disease) Uncle CAD (coronary artery disease) Father Cancer Surgical History History of colon resection History of right knee surgery History of ventral hernia repair Previous back surgery Social History (Updated 05/05/21 @ 15:[address] Anna Medina DO) household members: spouse housing: house Smoking Status: Current every day smoker tobacco type: cigarettes Smoking packs per day: 2 Smoking cigarettes per day: 40.0 alcohol intake: former substance use type: amphetamines and opiates do you feel safe at home: Yes ROS Constitutional Constitutional: Denies anorexia, change in weight, chills, fatigue, fever(s), malaise, night sweats, weakness or other Eyes Eyes: Denies blurry vision, change in eye color, change in vision, discharge from eye(s), double vision, erythema, eye pain, loss of vision or other ENT HEENT: Denies abnormal hearing, dysphagia, ear pain, epistaxis, headache(s), hearing loss, nasal congestion, nasal discharge, post nasal drip, sinus pressure, sore throat or other Cardiovascular Cardiovascular: Denies chest pain, claudication, dyspnea on exertion, edema, lightheadedness, orthopnea, palpitations, paroxysmal nocturnal dyspnea, rapid heart rate, syncope or other Respiratory/Chest Respiratory/Chest: Denies cough, dyspnea, excessive phlegm production, hemoptysis, productive cough, shortness of breath at rest, shortness of breath with exertion, wheezing or other Gastrointestinal Gastrointestinal: Reports other Details: Abdominal seroma from previous abdominal surgery ; Denies abdominal pain, coffee ground emesis, constipation, diarrhea, dyspepsia, hematemesis, hematochezia, loose stools, melena, nausea or vomiting Genitourinary Genitourinary: Denies burning urination, difficulty urinating, dysuria, hematuria, nocturia, urinary frequency, urinary hesitancy, urinary incontinence, urinary urgency or other Musculoskeletal Musculoskeletal: Reports back pain Neurologic Neurologic: Denies abnormal gait, abnormal speech, confusion, disequilibrium, dizziness, focal weakness, headache(s), numbness, paresthesias, seizure-like activity, seizures, syncope, tingling, tremor(s) or other Psychiatric Psychiatric: Reports anxiety and depression; Denies homicidal ideation, suicidal ideation or other Endocrine Endocrinology: Denies change in body appearance, cold intolerance, excessive sweating, heat intolerance, polydipsia, polyuria or other Hematologic/Lymphatic Hematologic/Lymphatic: Denies anemia, easy bleeding, easy bruising, lymphadenopathy or other Allergic/Immunologic Allergic/Immunologic: Denies rhinitis, hives, eczemia, asthma or other Vital Signs Vital Signs Vital Signs: 05/05/21 10:22 05/05/21 11:35 05/05/21 14:14 Temperature 96.5 F L 98.0 F Temperature Source Temporal Oral Pulse Rate 86 84 64 Respiratory Rate 16 18 16 Blood Pressure 159/106 H 160/90 H 121/81 H Blood Pressure Mean 123 113 94 Pulse Ox 99 99 98 Oxygen Delivery Method Room Air Room Air Room Air Weight Weight: 113.398 kg Body Mass Index (BMI) 34.8 Physical Exam Const alert, oriented x3, no apparent distress, average body habitus and well nourished Constitutional Narrative: Obese white middle-aged male sitting up in bed, patient appears much older than stated age, no current signs of withdrawal General Appearance: cooperative HEENT normocephalic, head/scalp atraumatic, hearing grossly normal bilaterally and moist oral mucous membranes HEENT Narrative: Poor dentition, Mallampati 2-3 Resp normal respiratory effort, no retractions, no use of accessory muscles and clear to auscultation bilaterally Resp Narrative: Diffusely diminished but clear Auscultation: Negative for crackles, rales, rhonchi or wheezes Cardio regular rate, regular rhythm, S1 normal heart sound, S2 normal heart sound, no murmurs, no rub, no gallops, no clicks and no JVD GI normal to inspection, nondistended, normoactive bowel sounds, soft to palpation, non-tender and non-distended GI Narrative: Inferior midline abdominal incision with bandage in place-bandage removed and slight serosanguineous drainage from the proximal aspect no significant purulence Extremity normal to inspection and no clubbing, cyanosis or edema Peripheral Pulses: Yes pulses 2+ throughout Skin no rashes or lesions noted, no wounds, skin turgor normal, no jaundice, no petechiae and no mottling Neuro oriented x3, moves all extremities and no focal motor deficits Sensorium / Orientation: awake and alert Speech: speech normal Motor Exam: strength 5/5 throughout Psych Psych Narrative: Appears mildly anxious Results Lab / Micro Data Result Diagrams: 05/05/21 12:00 05/05/21 12:00 Labs: Laboratory Results - last 24 hr 05/05/21 12:00: WBC 7.2, RBC 4.71, Hgb 14.2, Hct 41.8, MCV 88.7, MCH 30.1, MCHC 34.0, RDW Std Deviation 45.4 H, RDW Coeff of Rudolph 13.8, Plt Count 514 H, MPV 8.8, Immature Gran % (Auto) 0.300, Neut % (Auto) 57.9, Lymph % (Auto) 27.9, Riley % (Auto) 7.2, Eos % (Auto) 5.7 H, Baso % (Auto) 1.0, Absolute Neuts (auto) 4.2, Absolute Lymphs (auto) 2.01, Nucleated RBC % 0 05/05/21 12:00: Sodium 140, Potassium 4.4, Chloride 110 H, Carbon Dioxide 28.0, Anion Gap 2 L, BUN 10, Creatinine 0.74, Estim Creat Clear Calc 132.85, Est GFR (MDRD) Af Amer 146, Est GFR (MDRD) Non-Af 120, BUN/Creatinine Ratio 13.5, Glucose 100, Calcium 8.7 05/05/21 12:00: Ethyl Alcohol < 3.0 05/05/21 12:15: Urine Opiates Screen POSITIVE H, Urine Methadone Screen NEGATIVE, Ur Barbiturates Screen NEGATIVE, Ur Phencyclidine Scrn NEGATIVE, Ur Amphetamines Screen NEGATIVE, U Methamphetamin-MDMA NEGATIVE, U Benzodiazepines Scrn NEGATIVE, Urine Cocaine Screen NEGATIVE, U Cannabinoids Screen NEGATIVE, Ur Drug Screen Comment Micro: Microbiology 05/05/21 12:00 Nasal Secretion SARS-CoV-2 Antigen (Rapid) - Final Assessment & Plan Assessment/Plan (1) Opiate addiction: (2) Desire for detoxification: (3) Thrombocytosis: PLAN: Opiate addiction with desire for detoxification -Patient is currently taking Dilaudid 4 mg 5 times daily that is being prescribed by his primary care physician -Went to for detox and the [employer] there was concerned about placing him directly on Suboxone with the amount he is using and sent him to the emergency department -Discussed case with Dr. Fagan and she recommended starting Subutex when the patient was having pretty significant withdrawal symptoms--> given the fact he is having no withdrawal symptoms at this time I will delay the Subutex taper initiation until tomorrow morning and nursing communication orders have been placed -Supportive medications available -180 is consulted Thrombocytosis -Appears to be mild with platelet count of 514,000 -Continue to monitor -CBC in a.m. Tobacco abuse -Patient smokes 2 packs of cigarettes a day -Nicotine patch ordered -Recommend cessation COPD -Recommend tobacco cessation -As needed albuterol nebulizers Chronic low back pain/neuropathy -Here for detox from opiates -Continue muscle relaxants -Continue home gabapentin Recent colectomy for sigmoid diverticulitis with small seroma -Still with some drainage from the proximal aspect of the wound -We will consult wound care -Continue bandaging -Surgery was performed by Dr. Correa History of polysubstance abuse -History of alcohol abuse-quit 2 years ago -Ongoing intermittent issues with methamphetamines -Last use was last weekend -Tox screen on admission was negative for amphetamines -Current opiate addiction History of lumbar fusion -Patient follows with Dr. Cortez Obesity -BMI is 36.5 -Recommend weight loss -Complicates treatment, prognosis, outcomes Hypertension -Patient has documented history of hypertension but is not on any medications currently DVT prophylaxis -Low risk -Early ambulation protocol CODE STATUS -Full code as per discussion with the patient in the emergency department Charges/Coding Visit Charges Inpatient E&M: 88696 Init Hosp L2
[2021-05-05 15:37] VITALS: BMI 36.5
[2021-05-05 15:41] VITALS: BP 124/88; PULSE 66; RESP 16; TEMP 36.6; O2SAT 97
[2021-05-05 15:55] VITALS: O2SAT 98
[2021-05-05] MEDS: Acetaminophen 325 MG Tablet 650 MG PO (17:12)
[2021-05-05] MEDS: tiZANidine HCl 2 MG Tablet 4 MG PO ×2 (17:13→20:33)
[2021-05-05] MEDS: hydrOXYzine PAM 25 MG Capsule 50 MG PO (17:13)
[2021-05-05 20:31] VITALS: BP 144/86; PULSE 86; RESP 19; TEMP 36.9; O2SAT 98
[2021-05-05] MEDS: Nystatin Powder 15gm Bottle 1 APPLIC TOPICAL (20:34)
[2021-05-05] MEDS: Gabapentin 800 MG Tablet PO (20:34)
[2021-05-05] MEDS: traZODone 100 MG Tablet PO (20:35)
[2021-05-05] MEDS: Buprenorphine HCl 2 MG TAB.SUBL SL (21:26)
[2021-05-06] MEDS: Buprenorphine HCl 2 MG TAB.SUBL SL ×3 (05:00→21:00)
[2021-05-06] MEDS: Gabapentin 800 MG Tablet PO ×3 (06:00→22:00)
[2021-05-06] MEDS: Nystatin Powder 15gm Bottle 1 APPLIC TOPICAL ×2 (06:00→14:00)
[2021-05-06] MEDS: hydrOXYzine PAM 25 MG Capsule 50 MG PO ×2 (09:10→15:18)
[2021-05-06] MEDS: tiZANidine HCl 2 MG Tablet 4 MG PO ×4 (10:00→22:00)
[2021-05-06] MEDS: Pantoprazole Sodium 40 MG Tablet PO (12:55)
[2021-05-06] MEDS: Acetaminophen 325 MG Tablet 650 MG PO (15:18)
[2021-05-06] MEDS: cloNIDine HCl 0.1 MG Tablet PO (16:55)
[2021-05-06 21:00] VITALS: BP 120/79; PULSE 65; RESP 16; TEMP 36.6; O2SAT 95
[2021-05-06] MEDS: traZODone 100 MG Tablet PO (22:00)
[2021-05-07 05:00] VITALS: BP 118/65; PULSE 64; RESP 16; TEMP 36.6; O2SAT 96
[2021-05-07] MEDS: Buprenorphine HCl 2 MG TAB.SUBL SL ×3 (05:10→20:50)
[2021-05-07] MEDS: Gabapentin 800 MG Tablet PO ×3 (05:11→20:50)
[2021-05-07] MEDS: cloNIDine HCl 0.1 MG Tablet PO ×2 (05:11→19:15)
[2021-05-07 09:00] VITALS: PULSE 70; RESP 18; O2SAT 95
[2021-05-07 11:00] VITALS: BP 139/80; PULSE 60; RESP 18; TEMP 36.6; O2SAT 95
[2021-05-07] MEDS: Pantoprazole Sodium 40 MG Tablet PO (11:03)
[2021-05-07] MEDS: tiZANidine HCl 2 MG Tablet 4 MG PO ×4 (11:03→20:50)
--- NOTE | 2021-05-07 14:10 | PN.HOSP_ITS ---
Subjective Subjective Patient was seen and examined today, he is walking in the [place], he does not appear to be nervous or anxious. He states he has talked with the addiction social customer services supervisor yesterday. His plan is still to do intensive outpatient program. Objective Data Objective Data Vital Signs: Vital Signs Temp Pulse Resp BP Pulse Ox 98 F 60 18 139/80 H 95 05/07/21 11:00 05/07/21 11:00 05/07/21 11:00 05/07/21 11:00 05/07/21 11:00 Oxygen Delivery Method Room Air Weight: 118.841 kg Body Mass Index (BMI) 36.5 Lab / Micro Data Result Diagrams: 05/05/21 12:00 05/05/21 12:00 Micro: Microbiology 05/05/21 12:00 Nasal Secretion SARS-CoV-2 Antigen (Rapid) - Final Physical Exam Const alert, oriented x3, no apparent distress and healthy appearing General Appearance: cooperative, well kempt and well developed Orientation / Consciousness: awake, oriented to person, oriented to place and oriented to time HEENT normocephalic, head/scalp atraumatic and moist oral mucous membranes Head and Scalp: normocephalic Eyes PERRL, EOMs intact bilaterally and conjunctivae normal Neck nuchal rigidity, supple, no JVD, thyroid normal and no carotid bruits General: trachea midline Resp normal respiratory effort, no retractions, no use of accessory muscles and clear to auscultation bilaterally Auscultation: Negative for rales, rhonchi or wheezes Cardio regular rate, regular rhythm, S1 normal heart sound, S2 normal heart sound, no murmurs, no rub and no gallops GI normal to inspection, nondistended, normoactive bowel sounds, soft to palpation, non-tender and non-distended Extremity normal to inspection and no clubbing, cyanosis or edema Skin no rashes or lesions noted and skin turgor normal General Skin Exam: no breakdown Neuro oriented x3, CN's II-XII intact bilaterally, no focal motor deficits and no sensory deficits noted Sensorium / Orientation: awake and alert Speech: speech normal Psych thought process normal and affect normal Assessment & Plan Assessment/Plan (1) Opiate addiction: PLAN: #1. Opiate withdrawal-patient appears to be stable at this time, continue Subutex #2 chronic opiate addiction-patient plans on doing outpatient intensive program #3 degenerative disc disease of the lumbar spine-patient is currently on gabapentin and Zanaflex #4 COPD-patient is on as needed albuterol aerosol treatments Charges/Coding Visit Charges Inpatient E&M: 24778 Subs Hosp L2
[2021-05-07 17:00] VITALS: BP 127/86; PULSE 80; RESP 18; TEMP 36.6; O2SAT 95
[2021-05-07] MEDS: hydrOXYzine PAM 25 MG Capsule 50 MG PO (17:37)
[2021-05-07] MEDS: traZODone 100 MG Tablet PO (20:50)
[2021-05-07 21:00] VITALS: BP 127/79; PULSE 69; RESP 16; TEMP 36.5; O2SAT 94
[2021-05-08 05:00] VITALS: BP 127/78; PULSE 67; RESP 16; TEMP 36.5; O2SAT 94
[2021-05-08] MEDS: Acetaminophen 325 MG Tablet 650 MG PO (05:15)
[2021-05-08] MEDS: cloNIDine HCl 0.1 MG Tablet PO ×2 (05:15→12:37)
[2021-05-08] MEDS: hydrOXYzine PAM 25 MG Capsule 50 MG PO ×2 (05:15→12:33)
[2021-05-08] MEDS: Gabapentin 800 MG Tablet PO (05:15)
[2021-05-08 09:40] VITALS: BP 120/64; PULSE 73; RESP 16; TEMP 36.7; O2SAT 95
[2021-05-08] MEDS: Buprenorphine HCl 2 MG TAB.SUBL SL (09:41)
[2021-05-08] MEDS: tiZANidine HCl 2 MG Tablet 4 MG PO (09:44)
[2021-05-08] MEDS: Pantoprazole Sodium 40 MG Tablet PO (09:45)
--- NOTE | 2021-05-08 10:03 | ADDICTION ---
This worker met with pt to discuss d/c planning. Pt will meet with Jolene at [facility] directly after discharge to begin MAT. Pt did not indicate a need for transportation.
--- NOTE | 2021-05-08 11:34 | PCM.DC ---
Discharge Instructions Diet Discharge Diet: No restrictions Activity Discharge Activity: Return to Normal Activity Weight Bearing Status: Full weight bearing Follow Up Care Test Results: Test results from this visit will be discussed in further detail at your follow-up appointment, if applicable. Discharge Plan Admission Admit Date/Time: 05/05/21 14:08 Primary Reason for Your Visit: opiate detox Attending Provider: Jimbo Price Primary Care Provider: Jimbo Hill Discharge Orders/Prescriptions Prescriptions: Continued tizanidine 4 mg tablet 4 mg PO 4X/DAY RF: 0 albuterol sulfate 1 PUFF inhaler 1 - 2 puff INHALATION Q4H PRN PRN (Reason: Cough) RF: 0 albuterol sulfate 2.5 MG/3 ML solution for nebulization 2.5 mg INHALATION Q4H PRN PRN (Reason: Sob &/Or Wheezing) RF: 0 trazodone 50 MG tablet 100 mg PO QHS RF: 0 hydroxyzine HCl 50 mg Tablet 50 - 100 mg PO BID PRN (Reason: Anxiety) RF: 0 gabapentin 800 mg Tablet 800 mg PO TID RF: 0 Discontinued hydromorphone 4 mg tablet 4 mg PO PRN PRN (Reason: Pain) RF: 0 Referrals / Follow Up: Jimbo Hill DO [Primary Care Provider] - Within 2 Weeks Disposition Disposition (needs filled in before D/C Order can be placed): Home, Self Care
--- NOTE | 2021-05-08 11:45 | DS.PCM_ITS ---
Providers Date of Admission: 05/05/21 Date of Discharge: 05/08/21 Primary Care Physician: Dr. Jimbo Hill DO Reason For Visit: OPIATE DETOX Diagnosis Discharge Diagnosis (1) Opiate addiction: Status: Acute Code(s): F11.20 - Opioid dependence, uncomplicated Plan: #1 Opiate withdrawal #2 Chronic opiate addiction #3 Degenerative disc disease of the lumbar spine #4 COPD Medications at Discharge Home Medications albuterol sulfate 1 - 2 puff INHALATION Q4H PRN PRN 03/02/17 trazodone 100 mg PO QHS 04/09/20 albuterol sulfate 2.5 mg INHALATION Q4H PRN PRN 04/12/20 tizanidine 4 mg tablet 4 mg PO 4X/DAY 07/18/20 gabapentin 800 mg PO TID 01/02/21 hydroxyzine HCl 50 - 100 mg PO BID PRN 01/02/21 Hospital Course Operations None Procedures None Summary of Care Provided Minutes Spent on Discharge: Hospital Course: This 46-year-old white male male was seen in the emergency room at [facility] requesting services for detox from oral Dilaudid. Labs performed in the emergency room were unremarkable except for a positive tox screen for opiates. Patient was admitted to [place] [id number], orders were entered using the opiate addiction order set, patient had no untoward events during his hospitalization. He was seen by addiction social work specialist and arrangements were made for the patient to go to an intensive outpatient program at the time of di scharge from the hospital. On 05/08/2021, patient was seen and examined: On examination he appeared in good health and spirits. Vital signs as documented. Skin warm and dry and without overt rashes. Neck without JVD, neck was supple, trachea midline, thyroid was normal. Lungs clear bilaterally, normal air movement was noted. Heart exam notable for regular rhythm, normal sounds and absence of murmurs, rubs or gallops. Abdomen unremarkable and without evidence of organomegaly, masses, or abdominal aortic enlargement. Bowel sounds are present, abdomen is not distended. Extremities nonedematous, no cyanosis was noted, no clubbing was noted. Neuro: Cranial nerves II through XII are grossly intact, no focal motor deficits were noted, sensation to light touch and pinprick intact, motor exam 5/ 5 throughout. Psych: Patient is alert and oriented x3, he does not appear anxious or depressed, he does not appear agitated. On 05/08/2021, patient was seen and examined and felt to be stable for discharge. Weight / BMI Weight Weight: 118.841 kg Body Mass Index (BMI) 36.5 ABG / Lab / Microbiology Data Result Diagrams: 05/05/21 12:00 05/05/21 12:00 Microbiology: Microbiology 05/05/21 12:00 Nasal Secretion SARS-CoV-2 Antigen (Rapid) - Final D/C Instructions Discharge Diet: No restrictions Weight Bearing Status: Full weight bearing Meaningful Use Info Meaningful Use Diagnoses (Choose all that apply): None applicable Discharge Plan Admission Admit Date/Time: 05/05/21 14:08 Primary Reason for Your Visit: opiate detox Attending Provider: Jimbo Price Primary Care Provider: Jimbo Hill Discharge Orders/Prescriptions Prescriptions: Continued tizanidine 4 mg tablet 4 mg PO 4X/DAY RF: 0 albuterol sulfate 1 PUFF inhaler 1 - 2 puff INHALATION Q4H PRN PRN (Reason: Cough) RF: 0 albuterol sulfate 2.5 MG/3 ML solution for nebulization 2.5 mg INHALATION Q4H PRN PRN (Reason: Sob &/Or Wheezing) RF: 0 trazodone 50 MG tablet 100 mg PO QHS RF: 0 hydroxyzine HCl 50 mg Tablet 50 - 100 mg PO BID PRN (Reason: Anxiety) RF: 0 gabapentin 800 mg Tablet 800 mg PO TID RF: 0 Discontinued hydromorphone 4 mg tablet 4 mg PO PRN PRN (Reason: Pain) RF: 0 Referrals / Follow Up: Jimbo Hill DO [Primary Care Provider] - Within 2 Weeks Disposition Disposition (needs filled in before D/C Order can be placed): Home, Self Care Charges/Coding Visit Charges Inpatient E&M: 49506 Disch Hosp
[2021-05-08 12:38] VITALS: BP 127/78; PULSE 80; RESP 18; TEMP 36.7; O2SAT 95
[2021-05-08 13:05] VITALS: BP 155/67; PULSE 102; RESP 18; TEMP 37.1; O2SAT 96
== END 2021-05-08 12:55 | disposition home or self-care (01) | DRG 773 ==
LOC: ED 14:10 → MS3 14:35
PROVIDERS: Admitting Provider Internal Medicine; Emergency Provider Emergency Medicine; PCP Family Medicine; Visit Provider Internal Medicine
DX: F11.23 Opioid dependence with withdrawal (principal); D75.839 Thrombocytosis, unspecified; J44.9 Chronic obstructive pulmonary disease, unspecified; K57.32 Diverticulitis of large intestine without perforation or abscess without bleeding; M51.36 Other intervertebral disc degeneration, lumbar region; F17.210 Nicotine dependence, cigarettes, uncomplicated; G62.9 Polyneuropathy, unspecified; I10 Essential (primary) hypertension; E66.9 Obesity, unspecified; G89.29 Other chronic pain; Z68.36 Body mass index [BMI] 36.0-36.9, adult
CPT/HCPCS: 80048; 80307; 82077; 85025; 87426; 99251; 99283; 99406; G0463

== ENCOUNTER → 2021-05-24 14:15 | Outpatient (CLI) | payer MEDICAID, SELFPAY ==
[2021-05-24 18:40] LABS: ALB/GLOB Ratio 1.1 RATIO (0.9-2.4); AST(SGOT) 19 U/L (15-37); Alanine Aminotransfer ALT/SGPT 26 U/L (16-61); Alkaline Phosphatase 99 U/L (45-117); Anion Gap 5 (5-15); BUN 11 mg/dL (7-18); BUN/Creat Ratio 13.8 RATIO (10-20); Calcium,Total 9.2 mg/dL (8.5-10.1); Chloride 103 mmol/L (98-107); EST Glomerular Filtration Rate 111 mL/min (>60); Est Glom Filt Rate - Afr Amer 134 mL/min (>60); Globulin 3.7 g/dL (2.2-4.2); Glucose 94 mg/dL (74-106); Potassium 4.2 mmol/L (3.5-5.1); Protein, Total 7.7 g/dL (6.4-8.2); Sodium Level 135 mmol/L (136-145)
[2021-05-25 08:52] LABS: Hepatitis B Surface Antibody Non-Reactive; Hepatitis B Surface Antigen Non-Reactive (Nonreactive); Hepatitis C Antibody Non-Reactive (Nonreactive)
== END ==
PROVIDERS: PCP Family Medicine
DX: F11.20 Opioid dependence, uncomplicated (principal); F15.20 Other stimulant dependence, uncomplicated; F10.21 Alcohol dependence, in remission
CPT/HCPCS: 36415; 80053; 86706; 86803; 87340

== ENCOUNTER 2021-07-30 20:46 | Emergency (ER) | payer MEDICAID, SELFPAY ==
[2021-07-30 20:46] VITALS: BP 141/90; PULSE 75; RESP 16; TEMP 36.6; O2SAT 95; BMI 39.0
[2021-07-30 20:57] VITALS: O2SAT 93
--- NOTE | 2021-07-30 21:06 | RAD_ITS ---
INDICATION: dyspnea EXAMINATION/TECHNIQUE: X-RAY - XR Chest 1 View COMPARISON: CT chest 04/10/2020 and chest x-ray 04/09/2020 and 03/06/2021 FINDINGS: LINES/DEVICES: None. LUNGS: Subtle, right greater than left, bibasilar hazy interstitial markings and reticular opacities without definite alveolar consolidation. No pleural effusion, nodule or pneumothorax. MEDIASTINUM AND CARDIOVASCULAR STRUCTURES: Normal size and contour of the cardiomediastinal silhouette. No evidence of pulmonary vascular congestion. BONES AND SOFT TISSUES: No abnormality within limits of the exam. RAD/Chest 1 View (Portable) IMPRESSION: 1. Bibasilar peribronchial infiltrates, right greater than left. Electronically Signed: Julian Leonard DO at 22:16 EDT ,
--- NOTE | 2021-07-30 21:06 | EKG12_ITS ---
Test Reason : SOB Blood Pressure : / mmHG Vent. Rate : 067 BPM Atrial Rate : 067 BPM P-R Int : 158 ms QRS Dur : 112 ms QT Int : 416 ms P-R-T Axes : 038 006 047 degrees QTc Int : 439 ms Normal sinus rhythm Normal ECG Confirmed by HIRAM LYNCH, FAREED ([id number]), state editor APOLINAR BOWIE ([id number]) on 08/01/2021 11:14:43 AM Referred By: Confirmed By:FAREED GANDHI MD
--- NOTE | 2021-07-30 21:08 | EDS_ITS ---
HPI History of Present Illness Chief Complaint: Shortness of Breath Detail of Chief Complaint: Shortness of breath that got worse today Informant: patient Narrative Narrative: Patient presents to the emergency department chief complaint of s hortness of breath. He complains of pain in his chest with breathing. He has had lung pain for about a week. Patient does have history of COPD. He does have a cough but is mostly nonproductive. He did have COVID in February 2021. Patient denies any fevers. Patient is not on home O2. He denies recent travel or surgery. No history of PE or DVT. [facility] Medical History (Updated 07/30/21 @ 22:[address] Luiz Cameron, DO) Acute bronchitis Alcohol abuse Alcohol abuse, in remission Alcohol use Anxiety Chest pain Chronic low back pain COPD (chronic obstructive pulmonary disease) COPD exacerbation Cough COVID Desire for detoxification Diverticulitis Fusion of lumbar spine GERD (gastroesophageal reflux disease) History of diverticulitis of colon History of diverticulitis of colon History of stress test Hypertension Migraines Obesity (BMI 30-39.9) Opiate addiction Postoperative abdominal pain Restless legs Smoker Spinal stenosis of lumbar region Substance abuse Substance use Suture of skin wound Thrombocytosis Tobacco abuse Ventral hernia Wears contact lenses Wears dentures Wheezing Home Medications albuterol sulfate 1 - 2 puff INHALATION Q4H PRN PRN 03/02/17 [History Last Taken 01/03/21] trazodone 100 mg PO QHS 04/09/20 [History Last Taken 05/01/20] albuterol sulfate 2.5 mg INHALATION Q4H PRN PRN 04/12/20 [History Last Taken Unknown] tizanidine 4 mg tablet 4 mg PO 4X/DAY 07/18/20 [History Last Taken 01/08/21] gabapentin 800 mg PO TID 01/02/21 [History Last Taken 01/08/21] hydroxyzine HCl 50 - 100 mg PO BID PRN 01/02/21 [History Last Taken 01/08/21] buprenorphine-naloxone 1 ea SUBLINGUAL BID 07/30/21 [History Last Taken Unknown] buspirone 10 mg PO TID 07/30/21 [History Last Taken Unknown] lansoprazole [Prevacid] 30 mg PO DAILY 07/30/21 [History Last Taken Unknown] levofloxacin 750 mg PO DAILY #7 tab 07/30/21 [Rx Last Taken Unknown] ondansetron HCl 4 mg PO BID PRN 07/30/21 [History Last Taken Unknown] Allergy/AdvReac Type Severity Reaction Status Date / Time sulfamethoxazole Allergy Other Verified 07/30/21 20:48 [From Bactrim] trimethoprim [From Bactrim] Allergy Other Verified 07/30/21 20:48 Metronidazole HCl AdvReac Unknown Verified 07/30/21 20:48 [From Flagyl] Family History Mother CAD (coronary artery disease) Uncle CAD (coronary artery disease) Father Cancer Surgical History History of colon resection History of right knee surgery History of ventral hernia repair Previous back surgery Social History (Updated 05/05/21 @ 15:[address] Anna Medina DO) household members: spouse housing: house Smoking Status: Current every day smoker tobacco type: cigarettes alcohol intake: former substance use type: amphetamines and opiates do you feel safe at home: Yes ROS ROS ED Constitutional Constitutional ED: Reports systems reviewed and no addt'l complaints, except as documented; Denies body ache(s), change in weight or chills Eyes Eyes: Denies acute decrease in peripheral vision, change in vision, double vision or loss of vision ENT ENT ED: Reports none; Denies ear pain, lip swelling, loss taste/smell, neck pain, otalgia or sore throat Cardiovascular Cardiovascular: Reports none and chest pain; Denies abdominal pain, chest pain with activity, leg edema, lightheadedness, palpitations, rapid heart rate or syncope Respiratory/Chest Respiratory/Chest: Reports none, cough and dyspnea; Denies change in mental status, dry cough, hemoptysis, shortness of breath at rest or shortness of breath with exertion Gastrointestinal Gastrointestinal: Reports none; Denies abdominal pain, change in stool character, diarrhea, hematemesis, hematochezia, melena, rectal bleeding or vomiting Genitourinary Genitourinary ED: Reports none; Denies abdominal discomfort, anuria, dysuria, genital pain or polyuria Musculoskeletal Musculoskeletal: Reports none; Denies arthralgias, back pain, difficulty walking, extremity pain, muscle weakness or myalgias Integumentary Reports none; Denies abscess or rash Neurologic Neurologic: Reports none; Denies abnormal gait, confusion, focal weakness, frequent falls, headache(s), loss of vision, numbness, paresthesias, radicular pain, vertigo or weakness Psychiatric Psychiatric: Reports systems reviewed and no addt'l complaints, except as documented and none; Denies behavioral changes, confusion, difficulty concentrating, hallucinations, suicidal ideation, tactile hallucinations or visual hallucinations Endocrine Endocrinology: Denies none, cold intolerance, excessive sweating, fatigue or heat intolerance Hematologic/Lymphatic Hematologic/Lymphatic: Reports none; Denies anemia, easy bleeding or easy bruising Allergic/Immunologic Allergic/Immunologic ED: Denies as per HPI, none, lip swelling, mouth swelling, throat swelling, tongue swelling or hives EXAM Physical Exam Const Vital Signs: 07/30/21 20:46 07/30/21 20:57 Temperature 97.8 F Temperature Source Temporal Pulse Rate 75 Respiratory Rate 16 Respiratory Effort Short of Breath Labored Respiratory Depth Shallow Respiratory Pattern Normal Blood Pressure 141/90 H Blood Pressure Mean 107 Pulse Ox 95 Oxygen Delivery Method Room Air Room Air Positive well nourished and well developed General Appearance ED: well developed and NAD HEENT Reports TM's clear and moist mucous membranes normocephalic and atraumatic; Negative for trauma or tenderness Tympanic Membrane ED: Yes TM's clear Eyes PERRL and EOMs intact bilaterally General Eye ED: Negative for pale conjunctiva or scleral icterus Neck no lymphadenopathy, supple and no JVD General: Negative for tenderness Chest Wall inspection of chest normal and palpation of chest normal Chest: Negative for tenderness Resp normal respiratory effort and clear to auscultation bilaterally Resp Narrative: Patient with rales in the right lower lobe and rhonchi noted. No accessory muscle use or retractions. No conversational dyspnea Effort and Inspection: Negative for respiratory distress or pain with movement Auscultation: rales and rhonchi; Negative for wheezes or diminished lung sounds Cardio regular rate, regular rhythm, S1 normal heart sound, S2 normal heart sound and no murmurs Peripheral Pulses: pulses 2+ throughout GI normal to inspection, nondistended, normoactive bowel sounds, soft to palpation, non-tender, non-distended and no masses Back/Spine no CVA tenderness and no thoracic nor lumbar tenderness Extremity normal to inspection General Extremety ED: Negative for edema General Extremity: Negative for edema Neuro oriented x3, CN's II-XII intact bilaterally, no sensory deficits noted and gait normal Sensorium / Orientation: awake, alert, oriented to person, oriented to place and oriented to time Motor Exam: strength 5/5 throughout and strength abnormal Psych mental status grossly normal Skin no rashes or lesions noted and no wounds MDM MDM MDM Narrative Medical decision making narrative: IV line established on arrival. Patient was given DuoNeb aerosol. Lab work-up unremarkable. Chest x-ray shows bibasilar infiltrates right greater than left. Patient was started on Levaquin IV 750 mg x 1. At this point his vital signs are stable and he is not in any respiratory distress. Patient otherwise has normal lab values. I feel he can be discharged to home and treated as an outpatient. Patient is advised to return if increased difficulty breathing or condition should worsen anyway. Patient also has nebulizer at home as well as MDI. Lab Data Attestation: I reviewed the patient's lab results. Labs: Laboratory Results - last 24 hr 07/30/21 07/30/21 07/30/21 21:20 21:20 21:20 WBC 10.5 RBC 4.40 L Hgb 12.9 L Hct 38.4 L MCV 87.3 MCH 29.3 MCHC 33.6 RDW Std Deviation 50.0 H RDW Coeff of Rudolph 15.6 H Plt Count 438 MPV 8.7 Immature Gran % (Auto) 0.300 Neut % (Auto) 52.1 Lymph % (Auto) 33.0 Alpine % (Auto) 8.0 Eos % (Auto) 6.2 H Baso % (Auto) 0.4 Absolute Neuts (auto) 5.5 Absolute Lymphs (auto) 3.45 Nucleated RBC % 0 D-Dimer Quant (PE/DVT) < 0.27 L Sodium 138 Potassium 3.7 Chloride 106 Carbon Dioxide 28.0 Anion Gap 4 L BUN 14 Creatinine 0.82 Estim Creat Clear Calc 119.89 Est GFR (MDRD) Af Amer 130 Est GFR (MDRD) Non-Af 107 BUN/Creatinine Ratio 17.1 Glucose 103 Lactic Acid Calcium 8.4 L Troponin I High Sens 4 07/30/21 21:20 WBC RBC Hgb Hct MCV MCH MCHC RDW Std Deviation RDW Coeff of Rudolph Plt Count MPV Immature Gran % (Auto) Neut % (Auto) Lymph % (Auto) Alpine % (Auto) Eos % (Auto) Baso % (Auto) Absolute Neuts (auto) Absolute Lymphs (auto) Nucleated RBC % D-Dimer Quant (PE/DVT) Sodium Potassium Chloride Carbon Dioxide Anion Gap BUN Creatinine Estim Creat Clear Calc Est GFR (MDRD) Af Amer Est GFR (MDRD) Non-Af BUN/Creatinine Ratio Glucose Lactic Acid 0.8 Calcium Troponin I High Sens Radiography Chest X-Ray - ED: 1 View Diagnostic Testing: Clinical Impression(s) from Imaging Studies Chest X-Ray 07/30/21 21:06 IMPRESSION: 1. Bibasilar peribronchial infiltrates, right greater than left. Electronically Signed: Julian Leonard DO at 22:16 EDT , 1 view chest ray obtained interpreted by myself as right lower lobe infiltrate. Radiology felt there was bilateral infiltrates right greater than left. EKG Initial EKG: Attestation: I personally reviewed and interpreted this EKG as follows: Comments: Sinus rhythm with rate of 67 bpm with no acute ST segment changes Discharge Plan Triage Chief Complaint: Shortness of Breath ED Provider: Luiz Cameron Dx/Rx/DC Orders Clinical Impression: Pneumonia, Acute dyspnea Instructions: ED Dyspnea, ED Pneumonia (Adult) Prescriptions: New levofloxacin 750 mg tablet 750 mg PO DAILY Qty: 7 RF: 0 No Action tizanidine 4 mg tablet 4 mg PO 4X/DAY RF: 0 albuterol sulfate 1 PUFF inhaler 1 - 2 puff INHALATION Q4H PRN PRN (Reason: Cough) RF: 0 albuterol sulfate 2.5 MG/3 ML solution for nebulization 2.5 mg INHALATION Q4H PRN PRN (Reason: Sob &/Or Wheezing) RF: 0 trazodone 50 MG tablet 100 mg PO QHS RF: 0 hydroxyzine HCl 50 mg Tablet 50 - 100 mg PO BID PRN (Reason: Anxiety) RF: 0 gabapentin 800 mg Tablet 800 mg PO TID RF: 0 buprenorphine-naloxone 8-2 mg film 1 ea sublingual BID RF: 0 buspirone 10 mg tablet 10 mg PO TID RF: 0 lansoprazole [Prevacid] 30 mg Capsule,Delayed Release(Dr/Ec) 30 mg PO DAILY RF: 0 ondansetron HCl 4 mg tablet 4 mg PO BID PRN (Reason: Nausea) RF: 0 Primary Care Provider: Jimbo Hill Referrals: Jimbo Hill DO [Primary Care Provider] - 3-5 Days Disposition Disposition: Home, Self Care
[2021-07-30] MEDS: Ipratropium/Albuterol Sulfate 3 ML AMPUL.NEB INHALATION (21:22)
[2021-07-30] MEDS: 0.9% Normal Saline 1,000 ML 150 ML IV (21:27)
[2021-07-30] MEDS: Ondansetron 4 MG/2 ML Vial IV (21:27)
[2021-07-30] MEDS: Morphine 4 MG/ML Syringe IV (21:27)
[2021-07-30 21:30] LABS: Absolute Lymphocyte Count 3.45 X10^3/uL (0.83-4.51); Absolute Neutrophil Count 5.5 X10^3/uL (2.0-7.7); Basophil# 0.04 X10^3/uL; Basophil% 0.4 % (0-1); Eosinophil# 0.65 X10^3/uL; Eosinophils% 6.2 % (0-5); Hematocrit 38.4 % (40-54); Hemoglobin 12.9 g/dL (13.0-16.5); Lymphocyte # 3.45 X10^3/ul (0.83-4.51); Mean Corp Hgb Conc 33.6 g/dL (32-36); Mean Corpuscular Hgb 29.3 pg (27.0-32.0); Mean Corpuscular Volume 87.3 fL (80-94); Mean Platelet Vol. 8.7 fl (6.2-12.0); Monocyte# 0.84 X10^3/uL; NRBC Flagged by Analyzer 0 % (0-5); Neutrophil # 5.46 X10^3/uL (2.7-7.7); Neutrophil % 52.1 % (47-70); Platelet Count 438 K/mm3 (150-450); RBC Distribution Width CV 15.6 % (11.6-14.6); White Blood Count 10.5 K/mm3 (4.4-11.0)
[2021-07-30 21:49] LABS: Anion Gap 4 (5-15); BUN 14 mg/dL (7-18); BUN/Creat Ratio 17.1 RATIO (10-20); Calcium,Total 8.4 mg/dL (8.5-10.1); Chloride 106 mmol/L (98-107); Creatinine, Serum 0.82 mg/dL (0.70-1.30); D-Dimer Quantitative (DVT/PE) < 0.27 FEU/ug/m (0.27-0.49); EST Glomerular Filtration Rate 107 mL/min (>60); Est Glom Filt Rate - Afr Amer 130 mL/min (>60); Estimated Creatinine Clearance 119.89 ml/min; Glucose 103 mg/dL (74-106); Potassium 3.7 mmol/L (3.5-5.1); Sodium Level 138 mmol/L (136-145); Troponin-I HS 4 pg/mL (3.0-78.0)
[2021-07-30 21:58] LABS: Lactic Acid 0.8 mmol/L (0.4-1.9)
[2021-07-30] MEDS: levoFLOXacin IV 750 MG/150 ML BAG 100 MG IV (22:27)
[2021-07-30 22:39] VITALS: BP 144/75; PULSE 84; RESP 18; O2SAT 93
== END 2021-07-31 00:09 | disposition home or self-care (01) ==
PROVIDERS: Emergency Provider Emergency Medicine; PCP Family Medicine; Visit Provider Emergency Medicine
DX: J18.9 Pneumonia, unspecified organism (principal); J44.9 Chronic obstructive pulmonary disease, unspecified; I10 Essential (primary) hypertension; E66.9 Obesity, unspecified; F41.9 Anxiety disorder, unspecified; F17.210 Nicotine dependence, cigarettes, uncomplicated; Z79.899 Other long term (current) drug therapy; Z86.16 Personal history of COVID-19
CPT/HCPCS: 71045; 80048; 83605; 84484; 85025; 85379; 87040; 87428; 93005; 96365; 96366; 96375; 99284; J7030; J2405

== ENCOUNTER 2021-08-10 22:21 | Emergency (ER) | payer MEDICAID, SELFPAY ==
[2021-08-10 22:22] VITALS: BP 153/105; PULSE 72; RESP 15; TEMP 36.4; O2SAT 100; BMI 39.0
--- NOTE | 2021-08-10 22:43 | EKG12_ITS ---
Test Reason : CP Blood Pressure : / mmHG Vent. Rate : 070 BPM Atrial Rate : 070 BPM P-R Int : 146 ms QRS Dur : 108 ms QT Int : 406 ms P-R-T Axes : 038 001 065 degrees QTc Int : 438 ms Normal sinus rhythm Normal ECG Confirmed by DONNIE LYNCH, NICOLE ([id number]), non linear editor APOLINAR BOWIE ([id number]) on 08/14/2021 1:45:08 PM Referred By: USMAN Confirmed By:NICOLE FIELDS MD
--- NOTE | 2021-08-10 22:44 | ED.VIS.CHEST ---
HPI History of Present Illness Chief Complaint: Chest Pain Narrative Narrative: Patient with past medical history of COPD, chronic low back pain, takes Suboxone, is a smoker, presents with midsternal chest pain that radiates to his jaw and left arm that started approximately an hour and a half ago while he was sitting. He states he has been sweaty all day. He denies any shortness of breath. No nausea or vomiting. No exacerbating or alleviating factors. He used to take blood pressure medication but states that he no longer required it. He last had a stress test on his heart over a year ago for medical clearance for his back surgery. He relates family history that his grandmother and uncle had heart attacks at an early age. He presents because of the chest pain and pressure along with the numbness of his left arm. [facility] Medical History Acute bronchitis Alcohol abuse Alcohol abuse, in remission Alcohol use Anxiety Chest pain Chronic low back pain COPD (chronic obstructive pulmonary disease) COPD exacerbation Cough COVID Desire for detoxification Diverticulitis Fusion of lumbar spine GERD (gastroesophageal reflux disease) History of diverticulitis of colon History of diverticulitis of colon History of stress test Hypertension Migraines Obesity (BMI 30-39.9) Opiate addiction Postoperative abdominal pain Restless legs Smoker Spinal stenosis of lumbar region Substance abuse Substance use Suture of skin wound Thrombocytosis Tobacco abuse Ventral hernia Wears contact lenses Wears dentures Wheezing Home Medications albuterol sulfate 1 - 2 puff INHALATION Q4H PRN PRN 03/02/17 [History Last Taken 01/03/21] trazodone 100 mg PO QHS 04/09/20 [History Last Taken 05/01/20] albuterol sulfate 2.5 mg INHALATION Q4H PRN PRN 04/12/20 [History Last Taken Unknown] tizanidine 4 mg tablet 4 mg PO 4X/DAY 07/18/20 [History Last Taken 01/08/21] gabapentin 800 mg PO TID 01/02/21 [History Last Taken 01/08/21] hydroxyzine HCl 50 - 100 mg PO BID PRN 01/02/21 [History Last Taken 01/08/21] buprenorphine-naloxone 1 ea SUBLINGUAL BID 07/30/21 [History Last Taken Unknown] buspirone 10 mg PO TID 07/30/21 [History Last Taken Unknown] lansoprazole [Prevacid] 30 mg PO DAILY 07/30/21 [History Last Taken Unknown] ondansetron HCl 4 mg PO BID PRN 07/30/21 [History Last Taken Unknown] prednisone 20 mg PO DAILY 08/10/21 [History Last Taken Unknown] Allergy/AdvReac Type Severity Reaction Status Date / Time sulfamethoxazole Allergy Other Verified 08/10/21 22:24 [From Bactrim] trimethoprim [From Bactrim] Allergy Other Verified 08/10/21 22:24 Metronidazole HCl AdvReac Unknown Verified 08/10/21 22:24 [From Flagyl] Family History Mother CAD (coronary artery disease) Uncle CAD (coronary artery disease) Father Cancer Surgical History History of colon resection History of right knee surgery History of ventral hernia repair Previous back surgery Social History household members: spouse housing: house Smoking Status: Current every day smoker tobacco type: cigarettes alcohol intake: former substance use type: amphetamines and opiates do you feel safe at home: Yes ROS ROS ED ROS Narrative Constitutional: No fever, no chills. No diaphoresis but felt sweaty all day. HEENT: No sore throat. No neck pain. No loss of vision. No rhinorrhea. Cardiovascular: Positive chest pain and pressure radiating to left arm and left jaw. No palpitations. No pedal edema. Respiratory: No cough, no shortness of breath. Abdominal: No abdominal pain. No nausea. No vomiting. Genitourinary: No dysuria. No hematuria. Musculoskeletal: No myalgias. No arthralgias. Neurologic: No headaches. No dizziness. No lightheadedness. Skin: No rash. No change in color. Psychiatric: No depression. No anxiety. EXAM Physical Exam Narrative Exam Narrative: Afebrile. Vital signs noted. HEENT: Normocephalic. Atraumatic. PERRL, EOMI. Neck soft and supple. No point tenderness or step off. Cardiovascular: Regular rate and rhythm. No murmurs, rubs, or gallops appreciated. Respiratory: No tachypnea. Lungs clear to auscultation bilaterally. Gastrointestinal: Abdomen soft, nontender, with normoactive bowel sounds. No rebound or guarding. Neurological: Awake. Alert. Nonfocal, nonlateralizing. Skin: No rash. Normal color. No pallor. Musculoskeletal: No pedal edema. Full range of motion extremities. Const Vital Signs: 08/10/21 22:22 08/10/21 22:27 08/10/21 23:14 Temperature 97.5 F L Temperature Source Temporal Pulse Rate 72 70 Respiratory Rate 15 Respiratory Effort Normal Blood Pressure 153/105 H 141/96 H Blood Pressure Mean 121 Pulse Ox 100 Oxygen Delivery Method Room Air 08/10/21 23:32 Temperature Temperature Source Pulse Rate 61 Respiratory Rate 18 Respiratory Effort Blood Pressure 139/91 H Blood Pressure Mean 107 Pulse Ox 97 Oxygen Delivery Method Room Air Heart Score History: Moderately Suspicious ECG: Normal Age: >45 - <65 years Risk Factors: 1 or 2 Risk Factors Troponin: </= Normal Limit Score: 3 MDM MDM MDM Narrative Medical decision making narrative: Chest pain work-up was pursued. His EKG demonstrates normal sinus rhythm at 70 bpm without ectopy or acute ST changes. No STEMI. CBC shows elevated white count of 18.8 I think is nonspecific. Hemoglobin 14.7, normal hematocrit of 43.3. Platelet count is elevated at 548. His electrolyte panel is grossly unremarkable except for low anion gap of 4, initial high-sensitivity troponin is less than 3. Chest x-ray interpreted by myself/ED physician shows no acute process, no pneumothorax or pneumonia. Patient tolerated only 1 nitroglycerin tablet. He was also administered aspirin. Upon repeat examination he states he feels the same. Smoking cessation was discussed. We will repeat his troponin at 2 hours. However, patient did not want to wait for his second troponin. He wanted to sign out AGAINST MEDICAL ADVICE. I feel he has a capacity to make this decision. While there is a risk of heart attack, stroke, permanent disability, and , and change from current lifestyle, he still wishes to sign out AGAINST MEDICAL ADVICE. He did not wait for any discharge instructions. Disposition is signed out AGAINST MEDICAL ADVICE. He was in stable condition. Lab Data Attestation: I reviewed the patient's lab results. Labs: Laboratory Results - last 24 hr 08/10/21 08/10/21 22:54 22:54 WBC 18.8 H RBC 4.95 Hgb 14.7 Hct 43.3 MCV 87.5 MCH 29.7 MCHC 33.9 RDW Std Deviation 53.8 H RDW Coeff of Rudolph 17.0 H Plt Count 548 H MPV 8.4 Immature Gran % (Auto) 0.600 Neut % (Auto) 64.0 Lymph % (Auto) 27.0 Park % (Auto) 6.9 Eos % (Auto) 1.2 Baso % (Auto) 0.3 Absolute Neuts (auto) 12.0 H Absolute Lymphs (auto) 5.07 H Nucleated RBC % 0 Anisocytosis 1+ Sodium 138 Potassium 4.1 Chloride 104 Carbon Dioxide 30.0 Anion Gap 4 L BUN 16 Creatinine 0.89 Estim Creat Clear Calc 110.46 Est GFR (MDRD) Af Amer 119 Est GFR (MDRD) Non-Af 98 BUN/Creatinine Ratio 18.0 Glucose 89 Calcium 9.2 Troponin I High Sens < 3 L Radiography Diagnostic Testing: Clinical Impression(s) from Imaging Studies Chest X-Ray 08/10/21 23:05 IMPRESSION: No acute radiographic abnormalities. Electronically Signed: Rigo Yung MD at 23:28 EDT , Discharge Plan Triage Chief Complaint: Chest Pain ED Provider: Moe Saavedra Dx/Rx/DC Orders Clinical Impression: Chest pain, Left against medical advice Instructions: ED Chest Pain, Uncertain Cause Prescriptions: No Action tizanidine 4 mg tablet 4 mg PO 4X/DAY RF: 0 albuterol sulfate 1 PUFF inhaler 1 - 2 puff INHALATION Q4H PRN PRN (Reason: Cough) RF: 0 albuterol sulfate 2.5 MG/3 ML solution for nebulization 2.5 mg INHALATION Q4H PRN PRN (Reason: Sob &/Or Wheezing) RF: 0 trazodone 50 MG tablet 100 mg PO QHS RF: 0 hydroxyzine HCl 50 mg Tablet 50 - 100 mg PO BID PRN (Reason: Anxiety) RF: 0 gabapentin 800 mg Tablet 800 mg PO TID RF: 0 buprenorphine-naloxone 8-2 mg film 1 ea sublingual BID RF: 0 buspirone 10 mg tablet 10 mg PO TID RF: 0 lansoprazole [Prevacid] 30 mg Capsule,Delayed Release(Dr/Ec) 30 mg PO DAILY RF: 0 ondansetron HCl 4 mg tablet 4 mg PO BID PRN (Reason: Nausea) RF: 0 prednisone 20 mg tablet 20 mg PO DAILY RF: 0 Primary Care Provider: Jimbo Hill Referrals: Jimbo Hill DO [Primary Care Provider] - 1-2 Days if not improving Disposition Disposition: Against Medical Advice
[2021-08-10 23:04] LABS: Absolute Lymphocyte Count 5.07 X10^3/uL (0.83-4.51); Basophil# 0.05 X10^3/uL; Basophil% 0.3 % (0-1); Eosinophil# 0.22 X10^3/uL; Eosinophils% 1.2 % (0-5); Hematocrit 43.3 % (40-54); Hemoglobin 14.7 g/dL (13.0-16.5); Lymphocyte # 5.07 X10^3/ul (0.83-4.51); Mean Corp Hgb Conc 33.9 g/dL (32-36); Mean Corpuscular Hgb 29.7 pg (27.0-32.0); Mean Corpuscular Volume 87.5 fL (80-94); Mean Platelet Vol. 8.4 fl (6.2-12.0); Monocyte% 6.9 % (0-10); NRBC Flagged by Analyzer 0 % (0-5); POSITIVE DIFFERENTIAL YES; Platelet Count 548 K/mm3 (150-450); RBC Distribution Width SD 53.8 fl (35.1-43.9); Red Blood Count 4.95 M/mm3 (4.6-6.2); White Blood Count 18.8 K/mm3 (4.4-11.0)
--- NOTE | 2021-08-10 23:05 | RAD_ITS ---
INDICATION: chest pain EXAMINATION/TECHNIQUE: X-RAY - XR Chest 1 View COMPARISON: 07/30/2020. FINDINGS: The lungs are clear. The cardiomediastinal silhouette is unremarkable. No pleural effusion or pneumothorax. No acute osseous abnormalities. RAD/Chest 1 View (Portable) IMPRESSION: No acute radiographic abnormalities. Electronically Signed: Rigo Yung MD at 23:28 EDT ,
[2021-08-10] MEDS: Aspirin 81 MG TAB.CHEW 324 MG PO (23:13)
[2021-08-10 23:14] VITALS: BP 141/96; PULSE 70
[2021-08-10] MEDS: Nitroglycerin SL (ED/IMG/CATH) 0.4 MG TABLET SL (23:14)
[2021-08-10 23:17] LABS: Differential Indicated SCAN CRITERIA MET
[2021-08-10 23:22] LABS: Anion Gap 4 (5-15); BUN 16 mg/dL (7-18); Calcium,Total 9.2 mg/dL (8.5-10.1); Chloride 104 mmol/L (98-107); Creatinine, Serum 0.89 mg/dL (0.70-1.30); EST Glomerular Filtration Rate 98 mL/min (>60); Est Glom Filt Rate - Afr Amer 119 mL/min (>60); Estimated Creatinine Clearance 110.46 ml/min; Glucose 89 mg/dL (74-106); Potassium 4.1 mmol/L (3.5-5.1); Sodium Level 138 mmol/L (136-145); Troponin-I HS (w/2H Reflex) < 3 pg/mL (3.0-78.0)
[2021-08-10 23:28] LABS: Anisocytosis 1+
[2021-08-10 23:32] VITALS: BP 139/91; PULSE 61; RESP 18; O2SAT 97
--- NOTE | 2021-08-11 00:55 | ED.RN ---
Pt calls out expressing he wants to leave. This RN goes to assess the situation and explain that the patient still has further testing ordered. Pt states he does not want to stay, he feels better and wants his IV out now. Dr Saavedra notified. Pt agrees to risks of leaving AMA and signs the form. Pt ambulates self out of room with friend/family and exits the department.
[2021-08-11 00:57] LABS: Reflex Troponin-HS? (from REC) Y
[2021-08-11 00:59] VITALS: BP 133/80; PULSE 61; RESP 16; O2SAT 94
== END 2021-08-11 01:01 | disposition left against medical advice (07) ==
PROVIDERS: Emergency Provider Emergency Medicine; PCP Family Medicine; Visit Provider Emergency Medicine
DX: R07.9 Chest pain, unspecified (principal); J44.9 Chronic obstructive pulmonary disease, unspecified; Z53.29 Procedure and treatment not carried out because of patient's decision for other reasons; I10 Essential (primary) hypertension; M48.061 Spinal stenosis, lumbar region without neurogenic claudication; G89.29 Other chronic pain; E66.9 Obesity, unspecified; K21.9 Gastro-esophageal reflux disease without esophagitis; F41.9 Anxiety disorder, unspecified; F17.210 Nicotine dependence, cigarettes, uncomplicated; Z68.39 Body mass index [BMI] 39.0-39.9, adult; Z79.899 Other long term (current) drug therapy; Z86.16 Personal history of COVID-19
CPT/HCPCS: 71045; 80048; 84484; 85025; 93005; 99285; A4216

== ENCOUNTER 2021-08-11 20:29 | Emergency (ER) | payer MEDICAID, SELFPAY ==
[2021-08-11 20:30] VITALS: BP 176/91; PULSE 74; RESP 16; TEMP 36.6; O2SAT 94; BMI 39.9
--- NOTE | 2021-08-11 20:47 | EKG12_ITS ---
Test Reason : CP Blood Pressure : / mmHG Vent. Rate : 076 BPM Atrial Rate : 076 BPM P-R Int : 140 ms QRS Dur : 096 ms QT Int : 396 ms P-R-T Axes : 073 059 076 degrees QTc Int : 445 ms Normal sinus rhythm Normal ECG Confirmed by DONNIE LYNCH, NICOLE ([id number]), editorial clerk APOLINAR BOWIE ([id number]) on 08/14/2021 1:21:19 PM Referred By: ANGELICA Confirmed By:NICOLE FIELDS MD
--- NOTE | 2021-08-11 20:57 | ED.VIS.CHEST ---
HPI History of Present Illness Chief Complaint: Chest Pain Narrative Narrative: 46-year-old male presenting with chest pain. Patient states he was here last night with the same pain. He states he signed out AMA last night and went home. He has had constant pain overnight in the left side of his chest since then. This radiates up into the left side of the neck. Patient denies any cough, fever, chills. He denies nausea, vomiting. He states that sometimes he feels lightheaded. Patient is a smoker and states he has been smoking less since he is not felt good. He has history of COPD, hypertension. He states he has no known coronary artery disease. No history of DVT/PE. Patient does state that he currently has a headache. He states he has a history of headaches in the past. He is not formally diagnosed with migraines. [facility] Medical History Acute bronchitis Alcohol abuse Alcohol abuse, in remission Alcohol use Anxiety Chest pain Chronic low back pain COPD (chronic obstructive pulmonary disease) COPD exacerbation Cough COVID Desire for detoxification Diverticulitis Fusion of lumbar spine GERD (gastroesophageal reflux disease) History of diverticulitis of colon History of diverticulitis of colon History of stress test Hypertension Migraines Obesity (BMI 30-39.9) Opiate addiction Postoperative abdominal pain Restless legs Smoker Spinal stenosis of lumbar region Substance abuse Substance use Suture of skin wound Thrombocytosis Tobacco abuse Ventral hernia Wears contact lenses Wears dentures Wheezing Home Medications albuterol sulfate 1 - 2 puff INHALATION Q4H PRN PRN 03/02/17 [History Last Taken 01/03/21] trazodone 100 mg PO QHS 04/09/20 [History Last Taken 05/01/20] albuterol sulfate 2.5 mg INHALATION Q4H PRN PRN 04/12/20 [History Last Taken Unknown] tizanidine 4 mg tablet 4 mg PO 4X/DAY 07/18/20 [History Last Taken 01/08/21] gabapentin 800 mg PO TID 01/02/21 [History Last Taken 01/08/21] hydroxyzine HCl 50 - 100 mg PO BID PRN 01/02/21 [History Last Taken 01/08/21] buprenorphine-naloxone 1 ea SUBLINGUAL BID 07/30/21 [History Last Taken Unknown] buspirone 10 mg PO TID 07/30/21 [History Last Taken Unknown] lansoprazole [Prevacid] 30 mg PO DAILY 07/30/21 [History Last Taken Unknown] ondansetron HCl 4 mg PO BID PRN 07/30/21 [History Last Taken Unknown] prednisone 20 mg PO DAILY 08/10/21 [History Last Taken Unknown] Allergy/AdvReac Type Severity Reaction Status Date / Time sulfamethoxazole Allergy Other Verified 08/11/21 20:33 [From Bactrim] trimethoprim [From Bactrim] Allergy Other Verified 08/11/21 20:33 Metronidazole HCl AdvReac Unknown Verified 08/11/21 20:33 [From Flagyl] Family History Mother CAD (coronary artery disease) Uncle CAD (coronary artery disease) Father Cancer Surgical History History of colon resection History of right knee surgery History of ventral hernia repair Previous back surgery Social History household members: spouse housing: house Smoking Status: Current every day smoker tobacco type: cigarettes alcohol intake: former substance use type: amphetamines and opiates do you feel safe at home: Yes ROS ROS ED Constitutional Constitutional ED: Denies chills or fever(s) Eyes Eyes: Denies blurry vision or change in vision ENT ENT ED: Denies rhinorrhea or sore throat Cardiovascular Cardiovascular: Reports as per HPI Respiratory/Chest Respiratory/Chest: Denies cough or dyspnea Gastrointestinal Gastrointestinal: Denies abdominal pain, nausea or vomiting Genitourinary Genitourinary ED: Denies dysuria or hematuria Musculoskeletal Musculoskeletal: Denies arthralgias or myalgias Integumentary Denies rash Neurologic Neurologic: Reports headache(s); Denies paresthesias or weakness EXAM Physical Exam Const Vital Signs: 08/11/21 20:30 08/11/21 21:43 08/11/21 21:44 Temperature 97.8 F Temperature Source Temporal Pulse Rate 74 72 14 L Respiratory Rate 16 19 H Blood Pressure 176/91 H 121/67 H 121/67 H Blood Pressure Mean 119 85 Pulse Ox 94 99 Oxygen Delivery Method Room Air Room Air 08/11/21 21:53 08/11/21 21:58 Temperature Temperature Source Pulse Rate 73 65 Respiratory Rate Blood Pressure 126/89 H 126/65 H Blood Pressure Mean Pulse Ox Oxygen Delivery Method Positive well developed General Appearance ED: well developed and NAD; Negative for pallor HEENT Reports moist mucous membranes normocephalic and atraumatic Eyes PERRL and EOMs intact bilaterally General Eye ED: Negative for pale conjunctiva or scleral icterus Neck no lymphadenopathy and supple Chest Wall inspection of chest normal and palpation of chest normal Resp normal respiratory effort Effort and Inspection: respiratory distress Cardio regular rate and regular rhythm Extremity normal to inspection General Extremety ED: Negative for edema or tenderness General Extremity: Negative for edema Neuro oriented x3 and CN's II-XII intact bilaterally Sensorium / Orientation: awake and alert Psych mental status grossly normal Skin General Skin Exam: Negative for jaundice or pallor Heart Score History: Slightly/Non-Suspicious ECG: Normal Age: >45 - <65 years Risk Factors: 1 or 2 Risk Factors Troponin: </= Normal Limit Score: 2 MDM MDM MDM Narrative Medical decision making narrative: This is a 46-year-old male with no history of cardiac disease presenting with chest pain for the second time in 2 days. Apparently he signed out AMA yesterday and has had continuous pain since that time in the left side of the chest. He has developed a headache since then. He states he has no diagnosis of migraine but has headaches frequently. He had a head in the past which was negative for any acute findings. Patient given Reglan and Benadryl for headache pain. While asking the patient previous cardiac medical history. He states none that I know of. I tried to confirm with the patient that he has no known cardiac history and is not diagnosed with any however became very agitated. The patient has not made eye contact to hold interview. He became quite agitated with any sort of questioning. I obtained an EKG and on my interpretation this is a normal sinus rhythm with a ventricular rate of 76 bpm without sign of ischemic change or dysrhythmia. Chest x-ray on my interpretation shows no acute cardiopulmonary process and the radiologist does agree. I compared this was previous chest x-ray and there are no acute interval findings. On reevaluation the pain is still complaining of pain in his chest and states now it is radiating down his arm and into his left leg. At this point I ordered a CT of the brain and a CTA of the chest abdomen pelvis with the patient's subjective symptoms. Patient was given nitroglycerin for chest pain. We will reevaluate the patient. It does appear that the patient has had a stress test in April 2020 which was negative. Patient had a leukocytosis of greater than 18 yesterday however his CBC shows a white blood cell count 8.4 today. Platelets 605. Renal function is normal. Potassium slightly elevated at 5.2 but there is moderate hemolysis. I do not believe he needs acute treatment for this. High-sensitivity troponin is less than 3 and there is no significant interval change from yesterday and the patient has constant pain since then. I do not believe he needs a delta troponin. CT brain is negative for acute intercranial process. Patient's headache improved with Reglan and Benadryl. CTA of the chest abdomen pelvis does not identify any pulmonary emboli, aortic dissection, other acute pathology. Patient counseled on all findings. I believe he safe for discharge home at this time. Impression: 1. Chest pain noncardiac 2. Headache Lab Data Attestation: I reviewed the patient's lab results. Labs: Laboratory Results - last 24 hr 08/11/21 08/11/21 08/11/21 20:48 20:48 21:18 WBC 8.4 RBC 5.35 Hgb 15.6 Hct 47.7 MCV 89.2 MCH 29.2 MCHC 32.7 RDW Std Deviation 55.9 H RDW Coeff of Rudolph 17.5 H Plt Count 605 H MPV 9.0 Immature Gran % (Auto) 1.200 H Neut % (Auto) 73.4 H Lymph % (Auto) 19.6 [place] % (Auto) 4.8 Eos % (Auto) 0.8 Baso % (Auto) 0.2 Absolute Neuts (auto) 6.2 Absolute Lymphs (auto) 1.64 Nucleated RBC % 0 Sodium 137 Potassium 5.2 H Chloride 108 H Carbon Dioxide 24.0 Anion Gap 5 BUN 14 Creatinine 0.87 Estim Creat Clear Calc 113.00 Est GFR (MDRD) Af Amer 122 Est GFR (MDRD) Non-Af 101 BUN/Creatinine Ratio 16.1 Glucose 124 H Calcium 9.4 Troponin I High Sens < 3 L Ethyl Alcohol < 3.0 Radiography Diagnostic Testing: Clinical Impression(s) from Imaging Studies Brain CT 08/11/21 21:09 IMPRESSION: 1. Normal unenhanced CT scan of the brain. 2. No evidence of intracranial mass lesions or metastatic disease. 3. No infarcts, hemorrhage or hematomas. 4. Normal calvarium. 5. No acute or chronic sinusitis--normal paranasal sinuses. Electronically Signed: Willi Taylor MD at 22:14 EDT , Chest X-Ray 08/11/21 21:10 IMPRESSION: 1. No active cardiopulmonary disease. 2. No interval change since previous study of 08/10/2021. Electronically Signed: Willi Taylor MD at 21:29 EDT , Chest/Abdomen/Pelvis CTA 08/11/21 21:10 IMPRESSION: 1. No active cardiopulmonary disease.. 2. No pulmonary thromboembolism. 3. No evidence of a thoracic or abdominal aortic dissection or aneurysm. 4. Normal origins of the celiac, superior mesenteric, inferior mesenteric, and renal arteries. 5. No active cardiopulmonary disease. 6. Contracted gallbladder without gallstones. 7. No pancreatitis or pancreatic mass lesions. 8. No obstructive uropathy. 9. Mild constipation. 10. No appendicitis, diverticulitis, colitis, or intestinal obstruction. 11. Normal osseous structures. Electronically Signed: Willi Taylor MD at 22:22 EDT , Discharge Plan Triage Chief Complaint: Chest Pain ED Provider: Venkata Bowers Dx/Rx/DC Orders Instructions: Self-Care for Headaches, ED Chest Pain, Noncardiac Prescriptions: No Action tizanidine 4 mg tablet 4 mg PO 4X/DAY RF: 0 albuterol sulfate 1 PUFF inhaler 1 - 2 puff INHALATION Q4H PRN PRN (Reason: Cough) RF: 0 albuterol sulfate 2.5 MG/3 ML solution for nebulization 2.5 mg INHALATION Q4H PRN PRN (Reason: Sob &/Or Wheezing) RF: 0 trazodone 50 MG tablet 100 mg PO QHS RF: 0 hydroxyzine HCl 50 mg Tablet 50 - 100 mg PO BID PRN (Reason: Anxiety) RF: 0 gabapentin 800 mg Tablet 800 mg PO TID RF: 0 buprenorphine-naloxone 8-2 mg film 1 ea sublingual BID RF: 0 buspirone 10 mg tablet 10 mg PO TID RF: 0 lansoprazole [Prevacid] 30 mg Capsule,Delayed Release(Dr/Ec) 30 mg PO DAILY RF: 0 ondansetron HCl 4 mg tablet 4 mg PO BID PRN (Reason: Nausea) RF: 0 prednisone 20 mg tablet 20 mg PO DAILY RF: 0 Primary Care Provider: Jimbo Hill Referrals: Jimbo Hill DO [Primary Care Provider] - Disposition Disposition: Home, Self Care
[2021-08-11] MEDS: DiphenhydrAMINE 50 MG/ML Syringe 25 MG IV (21:02)
[2021-08-11] MEDS: Metoclopramide 10 MG/2 ML Vial IV (21:06)
--- NOTE | 2021-08-11 21:09 | CT_ITS ---
STUDY: CT BRAIN WITHOUT CONTRAST ENHANCEMENT OF 2126 HOURS AND 08/11/2021 REASON FOR EXAM: 46-year-old male with headache. RADIATION DOSAGE (If Supplied By Facility): CTDIvol = ( 44.99 ) mGy, DLP = ( 897.86 ) mGycm TECHNIQUE: Transaxial CT imaging of the brain was performed without administration of intravenous contrast material. COMPARISON: No relevant priors. FINDINGS: No subdural, epidural, intracerebral hematoma, hemorrhage or contusion. No ischemic or hemorrhagic cerebral infarction. No intracranial neoplasms. Normal posterior fossa. Normal sella and pituitary. Normal calvarium without linear or depressed skull fractures. Normal paranasal sinuses; no evidence of an acute or chronic sinusitis. CT/Brain/Head without Contrast IMPRESSION: 1. Normal unenhanced CT scan of the brain. 2. No evidence of intracranial mass lesions or metastatic disease. 3. No infarcts, hemorrhage or hematomas. 4. Normal calvarium. 5. No acute or chronic sinusitis--normal paranasal sinuses. Electronically Signed: Willi Taylor MD at 22:14 EDT ,
--- NOTE | 2021-08-11 21:10 | RAD_ITS ---
STUDY: AP PORTABLE UPRIGHT CHEST OF 2108 HOURS ON 08/11/2021 REASON FOR EXAM: 46-year-old male with chest pain. TECHNIQUE: A single view portable AP upright chest x-ray was performed per protocol. COMPARISON: 08/10/2021.. FINDINGS: Normal osseous structures. No cardiomegaly or heart failure. No pulmonary infiltrates, atelectasis, effusion, or pulmonary mass lesions. No pneumonia, pneumonitis or bronchitis. No interval change since the previous study of 08/10/2021. RAD/Chest 1 View (Portable) IMPRESSION: 1. No active cardiopulmonary disease. 2. No interval change since previous study of 08/10/2021. Electronically Signed: Willi Taylor MD at 21:29 EDT ,
--- NOTE | 2021-08-11 21:10 | CT_ITS ---
EXAMINATION: CTA CHEST, ABDOMEN AND PELVIS WITH CONTRAST OF 2131 HOURS ON 08/11/2021 INDICATION: 46-year-old male with chest pain. TECHNIQUE: A CTA of the chest, abdomen, and pelvis is obtained with sagittal and coronal reconstructed MIP views. Three-dimensional surface rendered sequence of the thoracic and abdominal aorta was obtained. A radiation dose optimization technique was used for this scan. 100 mL of Isovue-370. Oral contrast: None. COMPARISON: None. FINDINGS: CT CHEST: THORACIC AORTA: No atheromatous disease, no aneurysmal changes or dissection. ABDOMINAL AORTA: No aneurysm or dissection. No significant atheromatous disease. The iliac arteries are unremarkable. No findings of pulmonary thromboembolism. LUNGS: The lungs are well-expanded without acute or chronic changes. No effusions or pneumothorax. MEDIASTINUM: The thyroid gland is normal. No mediastinal or hilar adenopathy. HEART: Heart is normal size. No pericardial effusion. No CAD. CT ABDOMEN AND PELVIS: LIVER: The liver enhances homogeneously. No masses identified. GALLBLADDER: The CBD is normal. Degenerative gallbladder without gallstones. SPLEEN: Normal. PANCREAS: No masses or inflammation. No pancreatitis or pancreatic mass lesions ADRENAL GLANDS: Normal. KIDNEYS AND URETERS: The kidneys both enhance appropriately. There are normal size and shape. No hydronephrosis or nephrolithiasis. No renal masses or cysts. No obstructive uropathy. STOMACH: Normal. SMALL BOWEL: No abnormal distention of the small bowel. MESENTERY: No mesenteric inflammation. No ascites. COLON: No significant diverticulosis, masses or inflammation. The colon otherwise is normal. No diverticulitis, colitis, or intestinal obstruction. Constipation. APPENDIX: The appendix is visualized and normal. IVC: Normal. RETROPERITONEUM: No retroperitoneal lymphadenopathy. PELVIC STRUCTURES: Normal bladder. SOFT TISSUES ABDOMEN: The anterior abdominal wall is normal. SOFT TISSUE CHEST: The extrathoracic soft tissues are normal. BONES: No fractures or significant degenerative disease. CT/CTA Chst, Abd, Pel W and/or WO IMPRESSION: 1. No active cardiopulmonary disease.. 2. No pulmonary thromboembolism. 3. No evidence of a thoracic or abdominal aortic dissection or aneurysm. 4. Normal origins of the celiac, superior mesenteric, inferior mesenteric, and renal arteries. 5. No active cardiopulmonary disease. 6. Contracted gallbladder without gallstones. 7. No pancreatitis or pancreatic mass lesions. 8. No obstructive uropathy. 9. Mild constipation. 10. No appendicitis, diverticulitis, colitis, or intestinal obstruction. 11. Normal osseous structures. Electronically Signed: Willi Taylor MD at 22:22 EDT ,
[2021-08-11 21:42] LABS: Absolute Lymphocyte Count 1.64 X10^3/uL (0.83-4.51); Absolute Neutrophil Count 6.2 X10^3/uL (2.0-7.7); Basophil# 0.02 X10^3/uL; Basophil% 0.2 % (0-1); Eosinophil# 0.07 X10^3/uL; Eosinophils% 0.8 % (0-5); Hematocrit 47.7 % (40-54); Hemoglobin 15.6 g/dL (13.0-16.5); Lymphocyte # 1.64 X10^3/ul (0.83-4.51); Lymphocyte % 19.6 % (19-41); Mean Corp Hgb Conc 32.7 g/dL (32-36); Mean Corpuscular Hgb 29.2 pg (27.0-32.0); Mean Corpuscular Volume 89.2 fL (80-94); Monocyte% 4.8 % (0-10); NRBC Flagged by Analyzer 0 % (0-5); Neutrophil # 6.15 X10^3/uL (2.7-7.7); Neutrophil % 73.4 % (47-70); Platelet Count 605 K/mm3 (150-450); RBC Distribution Width CV 17.5 % (11.6-14.6); RBC Distribution Width SD 55.9 fl (35.1-43.9); Red Blood Count 5.35 M/mm3 (4.6-6.2); White Blood Count 8.4 K/mm3 (4.4-11.0)
[2021-08-11 21:43] VITALS: BP 121/67; PULSE 72; RESP 19; O2SAT 99
[2021-08-11 21:44] VITALS: BP 121/67; PULSE 14
[2021-08-11] MEDS: Nitroglycerin SL (ED/IMG/CATH) 0.4 MG TABLET SL ×3 (21:44→21:58)
[2021-08-11 21:46] LABS: Alcohol, Blood (Medical)-Serum < 3.0 mg/dL
[2021-08-11 21:53] VITALS: BP 126/89; PULSE 73
[2021-08-11 21:58] VITALS: BP 126/65; PULSE 65
[2021-08-11 22:00] LABS: Anion Gap 5 (5-15); BUN 14 mg/dL (7-18); BUN/Creat Ratio 16.1 RATIO (10-20); Calcium,Total 9.4 mg/dL (8.5-10.1); Chloride 108 mmol/L (98-107); Creatinine, Serum 0.87 mg/dL (0.70-1.30); EST Glomerular Filtration Rate 101 mL/min (>60); Est Glom Filt Rate - Afr Amer 122 mL/min (>60); Glucose 124 mg/dL (74-106); Potassium 5.2 mmol/L (3.5-5.1); Sodium Level 137 mmol/L (136-145); Troponin-I HS < 3 pg/mL (3.0-78.0)
[2021-08-11 22:36] VITALS: BP 121/93; PULSE 60; RESP 14; O2SAT 99
== END 2021-08-11 22:38 | disposition home or self-care (01) ==
PROVIDERS: Emergency Provider Student in an Organized Health Care Education/Training Program; PCP Family Medicine; Visit Provider Student in an Organized Health Care Education/Training Program
DX: R07.89 Other chest pain (principal); J44.9 Chronic obstructive pulmonary disease, unspecified; I10 Essential (primary) hypertension; R51.9 Headache, unspecified; E66.9 Obesity, unspecified; K21.9 Gastro-esophageal reflux disease without esophagitis; F41.9 Anxiety disorder, unspecified; F17.210 Nicotine dependence, cigarettes, uncomplicated; Z79.899 Other long term (current) drug therapy; Z86.16 Personal history of COVID-19; Z82.49 Family history of ischemic heart disease and other diseases of the circulatory system
CPT/HCPCS: 70450; 71045; 71275; 74174; 80048; 82077; 84484; 85025; 93005; 96374; 96375; 99285; Q9967; A4216

== ENCOUNTER 2021-10-30 19:27 | Emergency (ER) | payer MEDICAID, SELFPAY ==
--- NOTE | 2021-10-30 19:25 | RAD_ITS ---
STUDY: X-RAY - RIGHT KNEE REASON FOR EXAM: Male, 46 years old. Pain. TECHNIQUE: 3 view(s) of the knee. COMPARISON: None. FINDINGS: Normal visualized distal femur. There is a screw transfixing the tibial tuberosity. Normal proximal fibula. Normal proximal tibiofibular articulation. There is no acute fracture, dislocation or destructive osseous pathology. Normal medial femorotibial compartment. Normal lateral femorotibial compartment. Normal patellofemoral articulation. There is a moderate volume joint effusion. The soft tissue structures are unremarkable. RAD/Knee 3 Views IMPRESSION: 1. Moderate suprapatellar joint effusion without acute abnormality. 2. Metallic screws through the tibial tuberosity. Question patellar tendon repair. Electronically Signed: Nakul Loja DO at 20:49 EDT ,
[2021-10-30 19:27] VITALS: BP 177/97; PULSE 76; RESP 16; TEMP 36.6; O2SAT 98; BMI 36.2
--- NOTE | 2021-10-30 20:13 | ED.VIS.LOWEX ---
HPI History of Present Illness Chief Complaint: Lower Extremity Injury Informant: patient Narrative Narrative: 46-year-old male presenting to the emergency room with 3 to 4 days of right knee pain and swelling. Patient states that not quite 20 years ago he had a surgery in [place]. He is not completely sure what they did. He states that he had been doing well until few days ago when he developed swelling and pain. He notes the pain is pretty much circumferential. He does not do any sharon or work on his knees. He states he is normally on his feet a lot. He denies any history of gout pseudogout. No fevers. No redness or rashes. [facility] Medical History Acute bronchitis Alcohol abuse Alcohol abuse, in remission Alcohol use Anxiety Chest pain Chronic low back pain COPD (chronic obstructive pulmonary disease) COPD exacerbation Cough COVID Desire for detoxification Diverticulitis Fusion of lumbar spine GERD (gastroesophageal reflux disease) History of diverticulitis of colon History of diverticulitis of colon History of stress test Hypertension Migraines Obesity (BMI 30-39.9) Opiate addiction Postoperative abdominal pain Restless legs Smoker Spinal stenosis of lumbar region Substance abuse Substance use Suture of skin wound Thrombocytosis Tobacco abuse Ventral hernia Wears contact lenses Wears dentures Wheezing Home Medications albuterol sulfate 90 mcg/actuation aerosol inhaler 1 - 2 puff inhalation Q4H PRN PRN Cough 03/02/17 [History Last Taken 01/03/21] trazodone 50 mg tablet 100 mg PO QHS SLEEP 04/09/20 [History Last Taken 05/01/20] albuterol sulfate 2.5 mg/3 mL (0.083 %) solution for nebulization 2.5 mg inhalation Q4H PRN PRN Sob &/Or Wheezing 04/12/20 [History Last Taken Unknown] tizanidine 4 mg tablet 4 mg PO 4X/DAY Back pain 07/18/20 [History Last Taken 01/08/21] gabapentin 800 mg tablet 800 mg PO TID Back pain 01/02/21 [History Last Taken 01/08/21] hydroxyzine HCl 50 mg tablet 50 - 100 mg PO BID PRN Anxiety 01/02/21 [History Last Taken 01/08/21] buprenorphine 8 mg-naloxone 2 mg sublingual film 1 ea sublingual BID 07/30/21 [History Last Taken Unknown] buspirone 10 mg tablet 10 mg PO TID 07/30/21 [History Last Taken Unknown] lansoprazole 30 mg capsule,delayed release (Prevacid) 30 mg PO DAILY 07/30/21 [History Last Taken Unknown] ondansetron HCl 4 mg tablet 4 mg PO BID PRN Nausea 07/30/21 [History Last Taken Unknown] prednisone 20 mg tablet 20 mg PO DAILY 08/10/21 [History Last Taken Unknown] ketorolac 10 mg tablet 10 mg PO Q8H PRN pain 5 days #15 tabs 10/30/21 [Rx Last Taken Unknown] prednisone 20 mg tablet 40 mg PO DAILY #10 TABLETS 10/30/21 [Rx Last Taken Unknown] Allergy/AdvReac Type Severity Reaction Status Date / Time sulfamethoxazole Allergy Other Verified 10/30/21 19:29 [From Bactrim] trimethoprim [From Bactrim] Allergy Other Verified 10/30/21 19:29 Metronidazole HCl AdvReac Unknown Verified 10/30/21 19:29 [From Flagyl] Family History Mother CAD (coronary artery disease) Uncle CAD (coronary artery disease) Father Cancer Surgical History History of colon resection History of right knee surgery History of ventral hernia repair Previous back surgery Social History household members: spouse housing: house Smoking Status: Current every day smoker tobacco type: cigarettes alcohol intake: former substance use type: amphetamines and opiates do you feel safe at home: Yes ROS ROS ED Constitutional Constitutional ED: Denies chills or weight loss Eyes Eyes: Denies change in vision or diplopia ENT ENT ED: Denies ear pain, rhinorrhea or sore throat Cardiovascular Cardiovascular: Denies chest pain, orthopnea, palpitations or racing heartbeat Respiratory/Chest Respiratory/Chest: Denies cough, dyspnea or orthopnea Gastrointestinal Gastrointestinal: Denies abdominal pain, diarrhea, nausea or vomiting Genitourinary Genitourinary ED: Denies dysuria, hematuria or urinary frequency Musculoskeletal Musculoskeletal: Reports other Details: See history of present illness ; Denies arthralgias or myalgias Integumentary Denies abscess or rash Neurologic Neurologic: Denies headache(s) or weakness Psychiatric Psychiatric: Denies anxiety, depression, suicidal ideation or suicidal thoughts Endocrine Endocrinology: Denies polydipsia, polyphagia or polyuria Allergic/Immunologic Allergic/Immunologic ED: Denies mouth swelling, tongue swelling or urticaria EXAM Physical Exam Const Vital Signs: 10/30/21 19:27 Temperature 97.8 F Temperature Source Temporal Pulse Rate 76 Respiratory Rate 16 Blood Pressure 177/97 H Blood Pressure Mean 123 Pulse Ox 98 Oxygen Delivery Method Room Air Positive well nourished and well developed General Appearance ED: well developed HEENT Reports normocephalic, head/scalp atraumatic and moist mucous membranes Eyes PERRL and EOMs intact bilaterally Neck no lymphadenopathy, supple and no JVD Resp normal respiratory effort and clear to auscultation bilaterally Cardio regular rate, regular rhythm and no murmurs GI normal to inspection, nondistended, normoactive bowel sounds and non-tender Palpation: soft Back/Spine no CVA tenderness and normal ROM Extremity Extremity Narrative: There is some swelling of the suprapatellar bursa. There does not appear to be a joint effusion. Ligaments are stable. There is erythema or increased warmth. General Extremety ED: Negative for edema General Extremity: Negative for edema Neuro oriented x3 and CN's II-XII intact bilaterally Sensorium / Orientation: alert Motor Exam: strength 5/5 throughout Psych mental status grossly normal Mood & Affect: Negative for depressed or tearful Skin no rashes or lesions noted and no wounds MDM MDM MDM Narrative Medical decision making narrative: My interpretation of the plain films of the right knee is suprapatellar swelling no effusion. Patient was placed in Anam wrap started on anti-inflammatories and short course of prednisone. If not improvement follow-up with orthopedics. Radiography Diagnostic Testing: Clinical Impression(s) from Imaging Studies Knee X-Ray 10/30/21 19:25 IMPRESSION: 1. Moderate suprapatellar joint effusion without acute abnormality. 2. Metallic screws through the tibial tuberosity. Question patellar tendon repair. Electronically Signed: Nakul Loja DO at 20:49 EDT Reading Location ID and State: [facility] / [place] Tel [phone], Service support , Discharge Plan Triage Chief Complaint: Lower Extremity Injury ED Provider: Janes French Dx/Rx/DC Orders Clinical Impression: Suprapatellar bursitis of right knee Instructions: What Is Bursitis? Prescriptions: New prednisone 20 MG tablet 40 mg PO DAILY Qty: 10 0RF ketorolac 10 mg tablet 10 mg PO Q8H PRN (Reason: pain) 5 Days Qty: 15 0RF No Action tizanidine 4 mg tablet 4 mg PO 4X/DAY albuterol sulfate 1 PUFF inhaler 1 - 2 puff INHALATION Q4H PRN PRN (Reason: Cough) albuterol sulfate 2.5 MG/3 ML solution for nebulization 2.5 mg INHALATION Q4H PRN PRN (Reason: Sob &/Or Wheezing) trazodone 50 MG tablet 100 mg PO QHS hydroxyzine HCl 50 mg Tablet 50 - 100 mg PO BID PRN (Reason: Anxiety) gabapentin 800 mg Tablet 800 mg PO TID buprenorphine-naloxone 8-2 mg film 1 ea sublingual BID Label Comments: PLACE 1 STRIP UNDER THE TONGUE TWICE DAILY buspirone 10 mg tablet 10 mg PO TID Label Comments: TAKE 1 TABLET BY MOUTH THREE TIMES DAILY lansoprazole [Prevacid] 30 mg Capsule,Delayed Release(Dr/Ec) 30 mg PO DAILY ondansetron HCl 4 mg tablet 4 mg PO BID PRN (Reason: Nausea) Label Comments: One tablet by mouth twice daily as needed prednisone 20 mg tablet 20 mg PO DAILY Primary Care Provider: Jimbo Hill Referrals: Jimbo Hill DO [Primary Care Provider] - Milton Montelongo MD [STAFF PHYSICIAN] - As Needed (For Orthopedics) Disposition Disposition: Home, Self Care
[2021-10-30] MEDS: Ketorolac 60 MG/2 ML Vial IM (21:21)
[2021-10-30] MEDS: predniSONE 20 MG Tablet 60 MG PO (21:22)
== END 2021-10-30 21:37 | disposition home or self-care (01) ==
PROVIDERS: Emergency Provider Emergency Medicine; PCP Family Medicine; Visit Provider Emergency Medicine
DX: M70.51 Other bursitis of knee, right knee (principal); J44.9 Chronic obstructive pulmonary disease, unspecified; X58.XXXA Exposure to other specified factors, initial encounter; I10 Essential (primary) hypertension; E66.9 Obesity, unspecified; F17.210 Nicotine dependence, cigarettes, uncomplicated; Z68.36 Body mass index [BMI] 36.0-36.9, adult; Z79.899 Other long term (current) drug therapy; Z86.16 Personal history of COVID-19
CPT/HCPCS: 73562; 96372; 99283

== ENCOUNTER → 2021-11-30 | Outpatient (CLI) | payer MEDICAID, SELFPAY ==
[2021-11-30 11:57] LABS: Absolute Lymphocyte Count 2.93 X10^3/uL (0.83-4.51); Absolute Neutrophil Count 3.6 X10^3/uL (2.0-7.7); Basophil# 0.07 X10^3/uL; Basophil% 0.9 % (0-1); Eosinophil# 0.58 X10^3/uL; Eosinophils% 7.5 % (0-5); Hematocrit 42.1 % (40-54); Hemoglobin 14.3 g/dL (13.0-16.5); Lymphocyte # 2.93 X10^3/ul (0.83-4.51); Lymphocyte % 37.7 % (19-41); Mean Corpuscular Hgb 30.5 pg (27.0-32.0); Mean Corpuscular Volume 89.8 fL (80-94); Mean Platelet Vol. 9.1 fl (6.2-12.0); Monocyte# 0.54 X10^3/uL; Monocyte% 6.9 % (0-10); NRBC Flagged by Analyzer 0 % (0-5); Neutrophil % 46.4 % (47-70); Platelet Count 514 K/mm3 (150-450); RBC Distribution Width CV 14.6 % (11.6-14.6); RBC Distribution Width SD 48.5 fl (35.1-43.9); Red Blood Count 4.69 M/mm3 (4.6-6.2); White Blood Count 7.8 K/mm3 (4.4-11.0)
[2021-11-30 12:12] LABS: Hemoglobin A1c 5.6 % (3.8-5.6)
[2021-11-30 12:22] LABS: AST(SGOT) 18 U/L (15-37); Alanine Aminotransfer ALT/SGPT 27 U/L (16-61); Albumin, Serum 3.5 g/dL (3.2-5.0); Alkaline Phosphatase 100 U/L (45-117); Anion Gap 6 (5-15); BUN 15 mg/dL (7-18); BUN/Creat Ratio 18.5 RATIO (10-20); Calcium,Total 9.1 mg/dL (8.5-10.1); Chloride 105 mmol/L (98-107); Cholesterol 161 mg/dL (200); Creatinine, Serum 0.81 mg/dL (0.70-1.30); EST Glomerular Filtration Rate 108 mL/min (>60); Est Glom Filt Rate - Afr Amer 131 mL/min (>60); Globulin 3.4 g/dL (2.2-4.2); Glucose 123 mg/dL (74-106); High Density Lipoprotein 28 mg/dL; Potassium 3.8 mmol/L (3.5-5.1); Protein, Total 6.9 g/dL (6.4-8.2); Sodium Level 137 mmol/L (136-145); Thyroid Stim Hormone (TSH) 1.58 uIU/mL (0.358-3.74); Triglycerides 246 mg/dL; Very Low Density Lipoprotein 49 mg/dL (5-40)
== END | disposition home or self-care (01) ==
LOC: MTLAB 09:35
PROVIDERS: PCP Family Medicine; Referring Provider Family Medicine; Visit Provider Family Medicine
DX: Z00.00 Encounter for general adult medical examination without abnormal findings (principal); E16.2 Hypoglycemia, unspecified
CPT/HCPCS: 36415; 80053; 80061; 83036; 84443; 85025

== ENCOUNTER → 2022-05-04 | Outpatient (CLI) | payer MEDICAID, SELFPAY ==
[2022-05-04 14:52] LABS: ALB/GLOB Ratio 1.5 RATIO (0.9-2.4); AST(SGOT) 16 U/L (15-37); Alanine Aminotransfer ALT/SGPT 38 U/L (16-61); Albumin, Serum 4.1 g/dL (3.2-5.0); Alkaline Phosphatase 96 U/L (45-117); Anion Gap 6 (5-15); BUN 13 mg/dL (7-18); BUN/Creat Ratio 16.4 RATIO (10-20); Calcium,Total 9.3 mg/dL (8.5-10.1); Chloride 104 mmol/L (98-107); EST Glomerular Filtration Rate 111 mL/min (>60); Est Glom Filt Rate - Afr Amer 134 mL/min (>60); Globulin 2.8 g/dL (2.2-4.2); Glucose 96 mg/dL (74-106); Potassium 4.3 mmol/L (3.5-5.1); Protein, Total 6.9 g/dL (6.4-8.2); Sodium Level 140 mmol/L (136-145)
== END | disposition home or self-care (01) ==
LOC: MTLAB 07:55
PROVIDERS: PCP Family Medicine; Referring Provider Family Medicine; Visit Provider Family Medicine
DX: Z51.81 Encounter for therapeutic drug level monitoring (principal)
CPT/HCPCS: 36415; 80053

== ENCOUNTER 2022-05-13 09:57 | Emergency (ER) | payer MEDICAID, SELFPAY ==
[2022-05-13] VITALS (11 sets, daily range): BP systolic 134–151; BP diastolic 67–101; PULSE 70–84; RESP 12–31; TEMP 36.6; O2SAT 91–98; BMI 40.1
--- NOTE | 2022-05-13 10:11 | RAD_ITS ---
STUDY: X-RAY CHEST REASON FOR EXAM: Male, 47 years old. Cough sob copd TECHNIQUE: PA and lateral views of the chest. COMPARISON: August 11, 2021 chest x-ray FINDINGS: There is lesser expansion of the lungs since prior study. There is linear density in the left greater than right lung base. There is no demonstrated pleural abnormality. Normal size heart. Normal mediastinum and iris. Normal visualized pulmonary arteries. Normal visualized aortic arch and descending thoracic aorta. There are diffuse degenerative changes of the visualized thoracic spine. Normal visualized ribs, clavicles, and shoulders. There is no demonstrated abnormality of the visualized soft tissue structures of the upper abdomen. RAD/Chest PA and Lateral IMPRESSION: Lower lobe atelectasis. No definitive focal consolidation. Electronically Signed: Cha Ramirez MD at 11:19 EST ,
--- NOTE | 2022-05-13 10:12 | EKG12_ITS ---
Test Reason : SOB Blood Pressure : / mmHG Vent. Rate : 070 BPM Atrial Rate : 070 BPM P-R Int : 142 ms QRS Dur : 106 ms QT Int : 384 ms P-R-T Axes : 046 -02 054 degrees QTc Int : 414 ms Normal sinus rhythm Normal ECG Confirmed by NICOLE FIELDS MD ([id number]), development editor APOLINAR BOWIE ([id number]) on 05/14/2022 12:59:54 PM Referred By: LAVELLE Confirmed By:NICOLE FIELDS MD
--- NOTE | 2022-05-13 10:13 | ED.VIS.DYS ---
HPI History of Present Illness Chief Complaint: Shortness of Breath Informant: patient Onset/Context/Timing Onset: Days (3-4) Context: gradual and onset Timing: Continuous Quality: Positive for Wheezing Current Severity: Severe Maximum Severity: Severe Worsened by: Exertion and Coughing Relieved by: Albuterol (Partially and temporarily) Associated Symptoms cough Chest Pain: Positive for Tightness Narrative Narrative: Patient started having a cough and increased COPD symptoms several days ago, within a day or 2 he saw his PCP and was diagnosed clinically with a COPD exacerbation and started on a prednisone taper as well as an antibiotic. He has been on those for 2 days, and this morning was the beginning of the third day, he already took those doses. He was started on 40 mg daily of prednisone. He states despite all of this, he is getting worse and he is very short of breath and had severe chest tightness as well. No history of cardiac disease. He is not on home oxygen. He denies any fevers or chills or obvious exposures to other persons with illness. His cough is nonproductive. No GI symptoms. No recent travel out of the area. No leg pain or swelling. He states he has been using only a rescue albuterol inhaler, and he has been really using it a lot because it helps very little and he lost his nebulizer machine remotely, his doctor prescribed him a new one when he saw him before the weekend, however his insurance will not cover it, he found a place where he can purchase one at a reasonable mendez but it is Saturday today and he will not be able to get that until Saturday at the earliest. [facility] Medical History Acute bronchitis Alcohol abuse Alcohol abuse, in remission Alcohol use Anxiety Chest pain Chronic low back pain COPD (chronic obstructive pulmonary disease) COPD exacerbation Cough COVID Desire for detoxification Diverticulitis Fusion of lumbar spine GERD (gastroesophageal reflux disease) History of diverticulitis of colon History of diverticulitis of colon History of stress test Hypertension Migraines Obesity (BMI 30-39.9) Opiate addiction Postoperative abdominal pain Restless legs Smoker Spinal stenosis of lumbar region Substance abuse Substance use Suture of skin wound Thrombocytosis Tobacco abuse Ventral hernia Wears contact lenses Wears dentures Wheezing Home Medications albuterol sulfate 90 mcg/actuation aerosol inhaler 1 - 2 puff inhalation Q4H PRN PRN Cough 03/02/17 [History Last Taken 01/03/21] albuterol sulfate 2.5 mg/3 mL (0.083 %) solution for nebulization 2.5 mg inhalation Q4H PRN PRN Sob &/Or Wheezing 04/12/20 [History Last Taken Unknown] tizanidine 4 mg tablet 4 mg PO 4X/DAY Back pain 07/18/20 [History Last Taken 01/08/21] gabapentin 800 mg tablet 800 mg PO TID Back pain 01/02/21 [History Last Taken 01/08/21] hydroxyzine HCl 50 mg tablet 50 - 100 mg PO BID PRN Anxiety 01/02/21 [History Last Taken 01/08/21] lansoprazole 30 mg capsule,delayed release (Prevacid) 30 mg PO DAILY 07/30/21 [History Last Taken Unknown] diclofenac potassium 50 mg tablet 50 mg PO 04/23/22 [History Last Taken Unknown] mometasone-formoterol HFA 200 mcg-5 mcg/actuation aerosol inhaler (Dulera) 2 puff inhalation 04/23/22 [History Last Taken Unknown] diclofenac potassium 50 mg tablet 50 mg PO BID PRN pain #60 tabs 04/27/22 [Rx Last Taken Unknown] Allergy/AdvReac Type Severity Reaction Status Date / Time sulfamethoxazole Allergy Other Verified 05/13/22 09:57 [From Bactrim] trimethoprim [From Bactrim] Allergy Other Verified 05/13/22 09:57 Metronidazole HCl AdvReac Unknown Verified 05/13/22 09:57 [From Flagyl] Family History Mother CAD (coronary artery disease) Uncle CAD (coronary artery disease) Father Cancer Surgical History History of colon resection History of right knee surgery History of ventral hernia repair Previous back surgery Social History household members: spouse housing: house Smoking Status: Current every day smoker tobacco type: cigarettes alcohol intake: former substance use type: amphetamines and opiates do you feel safe at home: Yes ROS ROS ED Constitutional Constitutional ED: Denies chills or fever(s) Eyes Eyes: Denies change in vision or diplopia ENT ENT ED: Reports rhinorrhea; Denies sore throat Cardiovascular Cardiovascular: Reports as per HPI and chest pain; Denies leg edema, lightheadedness or palpitations Respiratory/Chest Respiratory/Chest: Reports as per HPI, chest tightness, cough and dyspnea; Denies sputum Gastrointestinal Gastrointestinal: Denies abdominal pain, diarrhea, nausea or vomiting Genitourinary Genitourinary ED: Denies dysuria or hematuria Musculoskeletal Musculoskeletal: Denies back pain, myalgias or neck pain Integumentary Denies abscess or rash Neurologic Neurologic: Denies headache(s), paresthesias or weakness Psychiatric Psychiatric: Denies anxiety or suicidal thoughts EXAM Physical Exam Const Vital Signs: 05/13/22 09:58 05/13/22 10:08 05/13/22 10:15 Temperature 97.8 F Temperature Source Temporal Pulse Rate 78 72 Respiratory Rate 18 27 H Respiratory Effort Short of Breath Nasal Flaring Respiratory Depth Shallow Blood Pressure 151/101 H 134/89 H Blood Pressure Mean 117 104 Pulse Ox 93 95 Oxygen Delivery Method Room Air Room Air Room Air Fraction of Inspired Oxygen (FIO2) 05/13/22 10:15 05/13/22 10:15 05/13/22 11:10 Temperature 97.9 F Temperature Source Temporal Pulse Rate 70 80 84 Respiratory Rate 29 H 28 H 31 H Respiratory Effort Respiratory Depth Blood Pressure 134/89 H Blood Pressure Mean 104 Pulse Ox 95 91 Oxygen Delivery Method Room Air Fraction of Inspired Oxygen (FIO2) 21 05/13/22 11:23 05/13/22 11:45 05/13/22 12:00 Temperature 97.8 F Temperature Source Temporal Pulse Rate 83 79 Respiratory Rate 24 H 18 Respiratory Effort Respiratory Depth Blood Pressure 141/76 H Blood Pressure Mean 97 Pulse Ox 92 93 Oxygen Delivery Method Room Air Room Air Fraction of Inspired Oxygen (FIO2) 05/13/22 13:00 05/13/22 13:14 05/13/22 13:20 Temperature 97.8 F Temperature Source Temporal Pulse Rate 78 75 Respiratory Rate 16 19 H 26 H Respiratory Effort Non-Labored Respiratory Depth Blood Pressure 143/78 H Blood Pressure Mean 99 Pulse Ox 93 95 Oxygen Delivery Method Room Air Room Air Fraction of Inspired Oxygen (FIO2) 05/13/22 14:00 Temperature Temperature Source Pulse Rate 78 Respiratory Rate 22 H Respiratory Effort Respiratory Depth Blood Pressure 143/67 H Blood Pressure Mean Pulse Ox 95 Oxygen Delivery Method Fraction of Inspired Oxygen (FIO2) Positive well nourished and well developed General Appearance ED: well developed and NAD HEENT Reports moist mucous membranes normocephalic and atraumatic Eyes PERRL and EOMs intact bilaterally Neck full ROM, no lymphadenopathy, supple and no JVD Resp Resp Narrative: Mild-moderate respiratory distress. Speaking in 1-5 word sentences. Diffuse expiratory wheezing and prolonged expiratory phase, possibly few rhonchi left base only. Trachea midline. Breath sounds equal bilaterally. Cardio regular rate, regular rhythm and no murmurs Rate: Negative for tachycardic GI non-tender and non-distended Auscultation: normoactive bowel sounds Palpation: soft Back/Spine no CVA tenderness General Back: other FROM Extremity normal to inspection General Extremety ED: Negative for edema, pulses abnormal or tenderness General Extremity: Negative for edema or pulses abnormal Neuro oriented x3, CN's II-XII intact bilaterally and no sensory deficits noted Sensorium / Orientation: awake and alert Motor Exam: strength 5/5 throughout Psych mental status grossly normal Skin no rashes or lesions noted and no wounds MDM MDM MDM Narrative Medical decision making narrative: In work-up, 2 view chest x-ray my interpretation shows no acute pneumonia. Radiology in agreement. His cardiac work-up is negative with a normal EKG my interpretation. Mild leukocytosis but he has been on prednisone for the last several days which could contribute to that. Rest of his work-up unremarkable. My concern is his work of effort and the amount of wheezing. Therefore I treated him aggressively with a round of aerosols in addition to subcutaneous terbutaline, an additional dose of steroids/Solu-Medrol, morphine for his pain after the other treatments did not help his chest tightness, which appears to be more likely pulmonary and not cardiac, and a trial of BiPAP which he did not tolerate that this was discontinued to avoid breath stacking. I did an ABG, it does not show significant CO2 retention, he is not hypoxic, and his pH is normal. I had ordered epinephrine, but he was feeling improved and jittery from the albuterol's and he did not want the epinephrine which we held/canceled and did not give. He was ambulatory to and from the restroom with no hypoxemia, mild dyspnea but no more respiratory distress. I offered admission but he really prefers to go home. I do not think we need to change his pharmacologic treatment, and he is getting a nebulizer to use tomorrow. Give him another duo nebulizer treatment after couple hours and he is ambulatory well without distress/hypoxemia. Close outpatient follow-up advised and he is welcome to return for reevaluation if he is getting worse. Lab Data Attestation: I reviewed the patient's lab results. Labs: Laboratory Results - last 24 hr 05/13/22 05/13/22 10:15 10:15 WBC 12.4 H RBC 4.79 Hgb 14.7 Hct 44.1 MCV 92.1 MCH 30.7 MCHC 33.3 RDW Std Deviation 49.3 H RDW Coeff of Rudolph 14.6 Plt Count 483 H MPV 8.6 Immature Gran % (Auto) 0.700 Neut % (Auto) 70.5 H Lymph % (Auto) 20.5 [place] % (Auto) 4.5 Eos % (Auto) 3.2 Baso % (Auto) 0.6 Absolute Neuts (auto) 8.7 H Absolute Lymphs (auto) 2.55 Nucleated RBC % 0 Sodium 140 Potassium 4.3 Chloride 108 H Carbon Dioxide 25.0 Anion Gap 7 BUN 14 Creatinine 0.84 Estim Creat Clear Calc 115.79 Est GFR (MDRD) Af Amer 127 Est GFR (MDRD) Non-Af 105 BUN/Creatinine Ratio 16.7 Glucose 127 H Calcium 9.0 Troponin I High Sens 7 ABG Data ABG results: ABG 05/13/22 11:18 Specimen Type ART Sample Site R Radial pH 7.41 Bicarbonate Actual 23.5 Total CO2 25 Base Excess -1 O2 Saturation 94 L ABG pCO2 37.1 ABG pO2 69 L Gavino Test Positive O2 Delivery Device Room Air Radiography Chest X-Ray - ED: 2 View, Read by ED Physician and No Infiltrates Diagnostic Testing: Clinical Impression(s) from Imaging Studies Chest X-Ray 05/13/22 10:11 IMPRESSION: Lower lobe atelectasis. No definitive focal consolidation. Electronically Signed: Cha Ramirez MD at 11:19 EST , Rhythm Strip Rhythm Strip: Sinus Rhythm Rate: 70 Ectopy: None EKG Initial EKG: Attestation: I personally reviewed and interpreted this EKG as follows: Interpretation: Sinus Rhythm and No Acute Injury Pattern Comments: normal EKG Prior EKG tracings: available for review Prior: Unchanged Discharge Plan Triage Chief Complaint: Shortness of Breath ED Provider: Champ Christian Dx/Rx/DC Orders Clinical Impression: COPD with acute exacerbation Instructions: ED COPD Flare Prescriptions: No Action tizanidine 4 mg tablet 4 mg PO 4X/DAY diclofenac potassium 50 mg tablet 50 mg PO Label Comments: TAKE 1 TABLET BY MOUTH EVERY 8 TO 12 HOURS NEEDED FOR PAIN Dulera 200-5 mcg/actuation HFA aerosol inhaler 2 puff inhalation Label Comments: INHALE 2 PUFFS TWICE DAILY diclofenac potassium 50 mg tablet 50 mg PO BID PRN (Reason: pain) Qty: 60 0RF albuterol sulfate 1 PUFF inhaler 1 - 2 puff INHALATION Q4H PRN PRN (Reason: Cough) albuterol sulfate 2.5 MG/3 ML solution for nebulization 2.5 mg INHALATION Q4H PRN PRN (Reason: Sob &/Or Wheezing) hydroxyzine HCl 50 mg Tablet 50 - 100 mg PO BID PRN (Reason: Anxiety) gabapentin 800 mg Tablet 800 mg PO TID lansoprazole [Prevacid] 30 mg Capsule,Delayed Release(Dr/Ec) 30 mg PO DAILY Primary Care Provider: Jimbo Hill Referrals: Jimbo Hill DO [Primary Care Provider] - 1-2 Days if not improving Activity Restrictions/Additional Instructions: Continue the prescriptions you have as prescribed, we gave you a boost of steroids in the IV in the ER. You do not need a change of antibiotics since you do not currently have pneumonia. It would be reasonable to save your next oral dose of steroids until tomorrow instead of today if you have not taken today's dose already. Disposition Disposition: Home, Self Care Discharge Date/Time: 05/13/22 14:01
[2022-05-13] MEDS: Ipratropium/Albuterol Sulfate 3 ML AMPUL.NEB INHALATION ×2 (10:14→13:12)
[2022-05-13 10:20] LABS: Absolute Lymphocyte Count 2.55 X10^3/uL (0.83-4.51); Absolute Neutrophil Count 8.7 X10^3/uL (2.0-7.7); Basophil# 0.07 X10^3/uL; Basophil% 0.6 % (0-1); Eosinophils% 3.2 % (0-5); Hematocrit 44.1 % (40-54); Hemoglobin 14.7 g/dL (13.0-16.5); Lymphocyte # 2.55 X10^3/ul (0.83-4.51); Lymphocyte % 20.5 % (19-41); Mean Corp Hgb Conc 33.3 g/dL (32-36); Mean Corpuscular Hgb 30.7 pg (27.0-32.0); Mean Corpuscular Volume 92.1 fL (80-94); Mean Platelet Vol. 8.6 fl (6.2-12.0); Monocyte# 0.56 X10^3/uL; Monocyte% 4.5 % (0-10); NRBC Flagged by Analyzer 0 % (0-5); Neutrophil # 8.74 X10^3/uL (2.7-7.7); Neutrophil % 70.5 % (47-70); Platelet Count 483 K/mm3 (150-450); RBC Distribution Width CV 14.6 % (11.6-14.6); RBC Distribution Width SD 49.3 fl (35.1-43.9); Red Blood Count 4.79 M/mm3 (4.6-6.2); White Blood Count 12.4 K/mm3 (4.4-11.0)
[2022-05-13] MEDS: Albuterol 2.5 MG/3 ML VIAL.NEB. INHALATION ×3 (10:20→11:27)
[2022-05-13] MEDS: Terbutaline 1 MG/ML Vial 0.25 MG SC (10:20)
[2022-05-13 10:38] LABS: Anion Gap 7 (5-15); BUN 14 mg/dL (7-18); BUN/Creat Ratio 16.7 RATIO (10-20); Chloride 108 mmol/L (98-107); Creatinine, Serum 0.84 mg/dL (0.70-1.30); EST Glomerular Filtration Rate 105 mL/min (>60); Est Glom Filt Rate - Afr Amer 127 mL/min (>60); Estimated Creatinine Clearance 115.79 ml/min; Glucose 127 mg/dL (74-106); Potassium 4.3 mmol/L (3.5-5.1); Sodium Level 140 mmol/L (136-145); Troponin-I HS 7 pg/mL (3.0-78.0)
--- NOTE | 2022-05-13 11:24 | CPS ---
Patient taken off BiPAP, complaining of increased pressure/pain in epigastric area.
[2022-05-13 11:26] LABS: Allen Test Positive; Base Excess -1 mmol/L (-2 to +2); Bicarbonate 23.5 mmol/L (22-26); Blood Gas Specimen Type ART; O2 Delivery Device Room Air; PO2 69 mmHG (75-100); SITE R Radial; SO2 94 % (95-99); Total Carbon Dioxide 25 mmol/L; pCO2 37.1 mmHg (35-45); pH 7.41 (7.35-7.45)
[2022-05-13] MEDS: Morphine 4 MG/ML Syringe IV (12:13)
[2022-05-13] MEDS: MethylPREDNISolone 125 MG/2 ML Vial IV (12:13)
--- NOTE | 2022-05-13 12:21 | ED.RN ---
PT TOOK OFF BIPAP AND IS REFUSING TO WEAR IT AT THIS TIME. PT STATES THAT IT HURTS HIM AND HE IS UNABLE TO TAKE A SMALL BREATH.
[2022-05-13] MEDS: oxyCODONE 5 MG Tablet PO (13:56)
== END 2022-05-13 14:01 | disposition home or self-care (01) ==
PROVIDERS: Emergency Provider Emergency Medicine; PCP Family Medicine; Visit Provider Emergency Medicine
DX: J44.1 Chronic obstructive pulmonary disease with (acute) exacerbation (principal); I10 Essential (primary) hypertension; F17.210 Nicotine dependence, cigarettes, uncomplicated; Z79.899 Other long term (current) drug therapy; Z86.16 Personal history of COVID-19
CPT/HCPCS: G0463; 94640; 36600; 71046; 80048; 82803; 84484; 85025; 87428; 93005; 94002; 94668; 96374; 96375; 99252; 99285; A4216

== ENCOUNTER 2022-07-18 11:58 | Emergency (ER) | payer MEDICAID, SELFPAY ==
[2022-07-18 11:58] VITALS: BP 148/100; PULSE 76; RESP 20; TEMP 36.4; O2SAT 97; BMI 39.6
--- NOTE | 2022-07-18 12:17 | EKG12_ITS ---
Test Reason : SOB Blood Pressure : / mmHG Vent. Rate : 075 BPM Atrial Rate : 075 BPM P-R Int : 142 ms QRS Dur : 102 ms QT Int : 392 ms P-R-T Axes : 034 -14 029 degrees QTc Int : 437 ms Normal sinus rhythm Normal ECG Confirmed by CORA JURADO ([id number]), index editor APOLINAR BOWIE ([id number]) on 07/24/2022 7:29:31 AM Referred By: CORY Confirmed By:CORA JURADO
--- NOTE | 2022-07-18 12:18 | EDS_ITS ---
HPI History of Present Illness Chief Complaint: Shortness of Breath Informant: patient and spouse/S.O. Onset/Context/Timing Onset: Month(s) Context: gradual Timing: Continuous Current Severity: Mild Maximum Severity: Moderate Worsened by: Exertion and Coughing Relieved by: Albuterol Associated Symptoms cough and clear sputum; Negative for fever or sore throat Chest Pain: Positive for None; Negative for Continuous or Pleuritic Narrative Narrative: 47-year-old male history of hypertension, COPD without home oxygen with aerosol treatments at home. States has been short of breath for months. Has been coughing primarily of clear sputum. No chest pain. No hemoptysis. No leg pain or swelling. No history of DVT or PE. Denies any fever or chills. States that shortness of breath is just not improving. Denies any recent hospitalization or surgery. He did recently travel to [place] but he is having shortness of breath well before that. PE Risk Factors: Negative for Cancer, OCP + Smoking + > 35, Prior DVT or PE, Recent immobilization, Recent surgery or Recent travel Prior similar symptoms: Yes Recent Illness/Hospitalization: No PFSH PFSH Medical History Acute bronchitis Alcohol abuse Alcohol abuse, in remission Alcohol use Anxiety Chest pain Chronic low back pain COPD (chronic obstructive pulmonary disease) COPD exacerbation Cough COVID Desire for detoxification Diverticulitis Fusion of lumbar spine GERD (gastroesophageal reflux disease) History of diverticulitis of colon History of diverticulitis of colon History of stress test Hypertension Migraines Obesity (BMI 30-39.9) Opiate addiction Postoperative abdominal pain Restless legs Smoker Spinal stenosis of lumbar region Substance abuse Substance use Suture of skin wound Thrombocytosis Tobacco abuse Ventral hernia Wears contact lenses Wears dentures Wheezing Home Medications albuterol sulfate 90 mcg/actuation aerosol inhaler 1 - 2 puff inhalation Q4H PRN PRN Cough 03/02/17 [History Last Taken 01/03/21] albuterol sulfate 2.5 mg/3 mL (0.083 %) solution for nebulization 2.5 mg inhalation Q4H PRN PRN Sob &/Or Wheezing 04/12/20 [History Last Taken Unknown] tizanidine 4 mg tablet 4 mg PO 4X/DAY Back pain 07/18/20 [History Last Taken 01/08/21] gabapentin 800 mg tablet 800 mg PO TID Back pain 01/02/21 [History Last Taken 01/08/21] hydroxyzine HCl 50 mg tablet 50 - 100 mg PO BID PRN Anxiety 01/02/21 [History Last Taken 01/08/21] lansoprazole 30 mg capsule,delayed release (Prevacid) 30 mg PO DAILY 07/30/21 [History Last Taken Unknown] diclofenac potassium 50 mg tablet 50 mg PO 04/23/22 [History Last Taken Unknown] mometasone-formoterol HFA 200 mcg-5 mcg/actuation aerosol inhaler (Dulera) 2 puff inhalation 04/23/22 [History Last Taken Unknown] diclofenac potassium 50 mg tablet 50 mg PO BID PRN pain #60 tabs 04/27/22 [Rx Last Taken Unknown] Allergy/AdvReac Type Severity Reaction Status Date / Time sulfamethoxazole Allergy Other Verified 07/18/22 12:00 [From Bactrim] trimethoprim [From Bactrim] Allergy Other Verified 07/18/22 12:00 Metronidazole HCl AdvReac Unknown Verified 07/18/22 12:00 [From Flagyl] Family History Mother CAD (coronary artery disease) Uncle CAD (coronary artery disease) Father Cancer Surgical History History of colon resection History of right knee surgery History of ventral hernia repair Previous back surgery Social History household members: spouse housing: house Smoking Status: Current every day smoker tobacco type: cigarettes alcohol intake: former substance use type: amphetamines and opiates do you feel safe at home: Yes ROS ROS ED ROS Narrative Cough. Shortness of breath. Review of Systems ROS Unobtainable: Denies due to encephalopathy Constitutional Constitutional ED: Denies chills or fever(s) Eyes Eyes: Denies blurry vision ENT ENT ED: Denies ear pain Cardiovascular Cardiovascular: Denies chest pain or palpitations Respiratory/Chest Respiratory/Chest: Reports cough and dyspnea Gastrointestinal Gastrointestinal: Denies abdominal pain Musculoskeletal Musculoskeletal: Denies arthralgias Integumentary Denies abscess Neurologic Neurologic: Denies headache(s) Psychiatric Psychiatric: Denies anxiety or depression Endocrine Endocrinology: Denies cold intolerance Hematologic/Lymphatic Hematologic/Lymphatic: Denies easy bleeding Allergic/Immunologic Allergic/Immunologic ED: Denies mouth swelling EXAM Physical Exam Narrative Exam Narrative: Well-appearing 47-year-old male. Vital signs stable afebrile. Pulse ox 97% on room air no signs hypoxia. He is in no distress. H EENT exam unremarkable. Neck nontender. No JVD. Lungs scattered expiratory wheezes. No rales or rhonchi. Equal symmetrical. Heart regular rhythm rate of 75 no murmur. Chest wall nontender. Abdomen soft nontender. He had a prior hernia repair. Currently there is no signs of hernia. No distention. No peritoneal signs. Moving all 4 extremities. Calves are nontender without edema or cords. Neurologically is awake and alert with no focal motor deficits. Const Vital Signs: 07/18/22 11:58 07/18/22 12:29 07/18/22 12:31 Temperature 97.6 F L Temperature Source Temporal Pulse Rate 76 77 Respiratory Rate 20 H 28 H Respiratory Effort Respiratory Pattern Tachypnea Blood Pressure 148/100 H Blood Pressure Mean 116 Pulse Ox 97 Oxygen Delivery Method Room Air Room Air 07/18/22 12:52 07/18/22 14:08 Temperature Temperature Source Pulse Rate Respiratory Rate Respiratory Effort Short of Breath Respiratory Pattern Blood Pressure Blood Pressure Mean Pulse Ox 95 Oxygen Delivery Method Room Air Positive well nourished, well developed and obese; Negative for cachectic, contractures or unkempt General Appearance ED: well developed and NAD; Negative for unkempt, cachectic, contractures or pallor Nutritional Appearance: obese; Negative for cachectic HEENT Reports moist mucous membranes; Denies dry mucous membranes atraumatic; Negative for trauma or tenderness Mouth ED: No dry mucous membranes Mouth: No dry mucous membranes Eyes PERRL and EOMs intact bilaterally General Eye ED: Negative for pale conjunctiva or scleral icterus Neck no lymphadenopathy, supple, no meningeal signs and no JVD General: Negative for tenderness Lymph Lymphatic: Negative for other Chest Wall Chest: Negative for other Resp normal respiratory effort and No clear to auscultation bilaterally Effort and Inspection: Negative for pain with movement Auscultation: wheezes; Negative for rales or rhonchi Cardio regular rate, regular rhythm, S1 normal heart sound, S2 normal heart sound and no murmurs Rate: Negative for bradycardia or tachycardic Rhythm: Negative for abnormal rhythm GI non-tender, non-distended and no masses Inspection: Negative for other Auscultation: normoactive bowel sounds Palpation: soft; Negative for tender or guarding Back/Spine no CVA tenderness and normal to inspection General Back: Negative for CVA tenderness Extremity normal to inspection General Extremety ED: Negative for edema or tenderness General Extremity: Negative for edema Neuro oriented x3, CN's II-XII intact bilaterally and no sensory deficits noted Sensorium / Orientation: alert, oriented to person, oriented to place and oriented to time; Negative for orientation impaired, confused, lethargic or stuporous Speech: speech normal Motor Exam: strength 5/5 throughout Psych mental status grossly normal Appearance: Negative for unkempt Attitude: No agitated Mood & Affect: Negative for depressed or anxious Thought Process: normal thought process Skin no wounds and skin turgor normal General Skin Exam: Negative for jaundice or pallor Lesions: no lesions Rashes: no rashes Trauma: Negative for abrasion MDM MDM MDM Narrative Medical decision making narrative: 70-year-old male with COPD not on home oxygen but has home aerosols. Continues to smoke a pack a day. Complaining of shortness of breath. No chest pain. No hemoptysis. No history of DVT or PE or any significant risk factors. Is been short of breath for months. We treated with DuoNeb and albuterol aerosols. P.o. prednisone and undergo a work-up. Chest x-ray and labs. Along with an EKG and troponin. Symptoms I went back and reevaluated the patient around 1 to 10 PM. I informed he was anxious. He stated that he wanted to leave. He stated no one is doing anything. I told him that we are just waiting for his labs to return I had not had a chance to check them yet. He had only been here about 2 hours and 15 minutes. He stated he wanted his IV out. I asked him to give me a few minutes and I was done with the current patient then I would recheck his labs to see if they returned and be back in to speak with him. He started to tear his own IV out, I believe the nurses assisted him so it would not cause significant bleeding and he left without being discharged. I will attempt to call him to go over his test results with him. History & Record Review Discussion w/independent historian: Patient and Family Additional record(s) reviewed:: Prior inpatient record, Prior outpatient record, Prior ED visit and Prior labs Lab Data Attestation: I reviewed the patient's lab results. Lab results narrative: CBC normal. White count 8.4. H&H of 15 and 46. Platelets are elevated 653. Electrolytes unremarkable gap of 3. BUN is 6 creatinine 0.7. Glucose 99. Troponin was 7. Chest x-ray was negative. EKG was unremarkable. Labs: Laboratory Results - last 24 hr 07/18/22 07/18/22 12:30 12:30 WBC 8.4 RBC 5.15 Hgb 15.8 Hct 46.3 MCV 89.9 MCH 30.7 MCHC 34.1 RDW Std Deviation 47.1 H RDW Coeff of Rudolph 14.2 Plt Count 653 H MPV 8.6 Immature Gran % (Auto) 0.400 Neut % (Auto) 62.0 Lymph % (Auto) 27.9 [place]orte % (Auto) 5.2 Eos % (Auto) 3.8 Baso % (Auto) 0.7 Absolute Neuts (auto) 5.2 Absolute Lymphs (auto) 2.35 Nucleated RBC % 0 Sodium 138 Potassium 3.6 Chloride 108 H Carbon Dioxide 27.0 Anion Gap 3 L BUN 6 L Creatinine 0.79 Estim Creat Clear Calc 123.12 Est GFR (MDRD) Af Amer 136 Est GFR (MDRD) Non-Af 112 BUN/Creatinine Ratio 7.6 L Glucose 99 Calcium 9.9 Troponin I High Sens 7 Radiography Chest X-Ray - ED: 1 View, Read by ED Physician, Read by Radiologist, Normal, Heart, Lungs, Mediastinum, Bony Structures, No Acute Disease and Chronic Changes Diagnostic Testing: Clinical Impression(s) from Imaging Studies Chest X-Ray 07/18/22 12:55 IMPRESSION: No acute pulmonary process Electronically Signed: Franklyn Kaufman MD at 13:28 EDT , Chest x-ray, portable, single view interpreted by myself and the radiologist shows no acute abnormality. Normal cardiac silhouette. No infiltrate. No effusion. Rhythm Strip Rhythm Strip: Sinus Rhythm Rate: 75 Ectopy: None EKG Initial EKG: Attestation: I personally reviewed and interpreted this EKG as follows: Interpretation: Sinus Rhythm and No Acute Injury Pattern Comments: Normal sinus rhythm rate of 75 no acute signs of [place] no ischemia. Unchanged from a prior EKG from May. Prior EKG tracings: available for review Prior: Unchanged Discharge Plan Triage Chief Complaint: Shortness of Breath ED Provider: Eric Trejo Dx/Rx/DC Orders Clinical Impression: Acute dyspnea, History of COPD, Eloped from emergency department Prescriptions: No Action tizanidine 4 mg tablet 4 mg PO 4X/DAY diclofenac potassium 50 mg tablet 50 mg PO Label Comments: TAKE 1 TABLET BY MOUTH EVERY 8 TO 12 HOURS NEEDED FOR PAIN Dulera 200-5 mcg/actuation HFA aerosol inhaler 2 puff inhalation Label Comments: INHALE 2 PUFFS TWICE DAILY diclofenac potassium 50 mg tablet 50 mg PO BID PRN (Reason: pain) Qty: 60 0RF albuterol sulfate 1 PUFF inhaler 1 - 2 puff INHALATION Q4H PRN PRN (Reason: Cough) albuterol sulfate 2.5 MG/3 ML solution for nebulization 2.5 mg INHALATION Q4H PRN PRN (Reason: Sob &/Or Wheezing) hydroxyzine HCl 50 mg Tablet 50 - 100 mg PO BID PRN (Reason: Anxiety) gabapentin 800 mg Tablet 800 mg PO TID lansoprazole [Prevacid] 30 mg Capsule,Delayed Release(Dr/Ec) 30 mg PO DAILY Primary Care Provider: Jimbo Hill Referrals: Jimbo Hill DO [Primary Care Provider] -
[2022-07-18] MEDS: Ipratropium/Albuterol Sulfate 3 ML AMPUL.NEB INHALATION (12:26)
[2022-07-18 12:29] VITALS: PULSE 77; RESP 28
[2022-07-18 12:43] LABS: Absolute Lymphocyte Count 2.35 X10^3/uL (0.83-4.51); Absolute Neutrophil Count 5.2 X10^3/uL (2.0-7.7); Basophil# 0.06 X10^3/uL; Basophil% 0.7 % (0-1); Eosinophil# 0.32 X10^3/uL; Eosinophils% 3.8 % (0-5); Hematocrit 46.3 % (40-54); Hemoglobin 15.8 g/dL (13.0-16.5); Lymphocyte # 2.35 X10^3/ul (0.83-4.51); Lymphocyte % 27.9 % (19-41); Mean Corp Hgb Conc 34.1 g/dL (32-36); Mean Corpuscular Hgb 30.7 pg (27.0-32.0); Mean Corpuscular Volume 89.9 fL (80-94); Mean Platelet Vol. 8.6 fl (6.2-12.0); Monocyte# 0.44 X10^3/uL; Monocyte% 5.2 % (0-10); NRBC Flagged by Analyzer 0 % (0-5); Neutrophil # 5.23 X10^3/uL (2.7-7.7); Platelet Count 653 K/mm3 (150-450); RBC Distribution Width CV 14.2 % (11.6-14.6); RBC Distribution Width SD 47.1 fl (35.1-43.9); Red Blood Count 5.15 M/mm3 (4.6-6.2); White Blood Count 8.4 K/mm3 (4.4-11.0)
[2022-07-18] MEDS: predniSONE 20 MG Tablet 60 MG PO (12:48)
--- NOTE | 2022-07-18 12:55 | RAD_ITS ---
STUDY: X-RAY CHEST REASON FOR EXAM: Male, 47 years old. chest pain TECHNIQUE: Single AP portable view of the chest. COMPARISON: 05/13/2022 FINDINGS: EKG leads overlie the chest The lungs are clear and expanded. There is no demonstrated pleural abnormality. Normal size heart. Normal mediastinum and iris. Normal visualized pulmonary arteries. Normal visualized aortic arch and descending thoracic aorta. Normal visualized thoracic spine. Normal visualized ribs, clavicles, and shoulders. There is no demonstrated abnormality of the visualized soft tissue structures of the upper abdomen. RAD/Chest 1 View (Portable) IMPRESSION: No acute pulmonary process Electronically Signed: Franklyn Kaufman MD at 13:28 EDT ,
[2022-07-18 12:57] LABS: Anion Gap 3 (5-15); BUN 6 mg/dL (7-18); BUN/Creat Ratio 7.6 RATIO (10-20); Calcium,Total 9.9 mg/dL (8.5-10.1); Chloride 108 mmol/L (98-107); Creatinine, Serum 0.79 mg/dL (0.70-1.30); EST Glomerular Filtration Rate 112 mL/min (>60); Est Glom Filt Rate - Afr Amer 136 mL/min (>60); Estimated Creatinine Clearance 123.12 ml/min; Glucose 99 mg/dL (74-106); Potassium 3.6 mmol/L (3.5-5.1); Sodium Level 138 mmol/L (136-145); Troponin-I HS 7 pg/mL (3.0-78.0)
[2022-07-18 14:08] VITALS: O2SAT 95
--- NOTE | 2022-07-18 14:12 | ED.RN ---
PT COMES INTO HALLWAY, AND STARTS SHOUTING WHAT IS HAPPENING, IT WANT TO GET OUT OF HERE. THIS PLACE IS WORTHLESS. DR. WATKINS AT BEDSIDE EXPLAINS TO PATIENT THAT HE JUST NEEDS TO REVIEW HIS INFORMATION AND THAT HE WILL BE IN TO SPEAK WITH THE PATIENT. PT SCREAMING ITS BEEN HOURS, THIS IS A JOKE. DR. WATKINS EXPLAINING TO PATIENT THAT HE WILL TAKE CARE OF PATIENT. PT REPORTS HE WANTS HIS IV REMOVED. IV D/C PER INDIRA DOMINGO. PT DRESSES SELF AND AMBULATES OUT OF DEPARTMENT PRIOR TO RE-EVAL OR D/C INSTRUCTIONS.
== END 2022-07-18 16:28 | disposition left against medical advice (07) ==
LOC: ED 12:43
PROVIDERS: Emergency Provider Emergency Medicine; PCP Family Medicine; Visit Provider Emergency Medicine
DX: R06.00 Dyspnea, unspecified (principal); F17.210 Nicotine dependence, cigarettes, uncomplicated; E66.9 Obesity, unspecified; Z86.16 Personal history of COVID-19
CPT/HCPCS: 71045; 80048; 84484; 85025; 93005; 94640; 99284; A4216

== ENCOUNTER → 2023-03-05 | Outpatient (CLI) | payer MEDICAID, SELFPAY ==
--- NOTE | 2023-03-05 11:27 | RAD_ITS ---
STUDY: X-RAY - ABDOMEN/PELVIS REASON FOR EXAM: Male, 48 years old. Left upper quadrant pain. TECHNIQUE: Single AP view of the abdomen / pelvis on 3 images. COMPARISON: None. FINDINGS: Normal visualized lung bases. Normal bowel gas pattern with air seen to the rectosigmoid. Moderate to marked amount of feces in the colon. . The visualized liver, spleen and kidneys are grossly normal in size and morphology. Normal soft tissue structures. Lower lumbosacral fusion. Mild arthrosis of both hips. RAD/Abdomen Single View IMPRESSION: Moderate to marked amount of feces in the colon. No other abnormality. Electronically Signed: Alvaro Knott MD at 14:45 EST ,
[2023-03-05 12:16] LABS: Absolute Lymphocyte Count 3.37 X10^3/uL (0.83-4.51); Absolute Neutrophil Count 5.2 X10^3/uL (2.0-7.7); Basophil# 0.07 X10^3/uL; Basophil% 0.7 % (0-1); Eosinophil# 0.48 X10^3/uL; Eosinophils% 4.9 % (0-5); Hematocrit 45.3 % (40-54); Hemoglobin 15.1 g/dL (13.0-16.5); Lymphocyte # 3.37 X10^3/ul (0.83-4.51); Lymphocyte % 34.7 % (19-41); Mean Corp Hgb Conc 33.3 g/dL (32-36); Mean Corpuscular Hgb 30.2 pg (27.0-32.0); Mean Corpuscular Volume 90.6 fL (80-94); Monocyte# 0.57 X10^3/uL; Monocyte% 5.9 % (0-10); NRBC Flagged by Analyzer 0 % (0-5); Neutrophil % 53.6 % (47-70); Platelet Count 615 K/mm3 (150-450); RBC Distribution Width CV 13.6 % (11.6-14.6); RBC Distribution Width SD 45.5 fl (35.1-43.9); White Blood Count 9.7 K/mm3 (4.4-11.0)
[2023-03-05 12:32] LABS: ALB/GLOB Ratio 1.1 RATIO (0.9-2.4); AST(SGOT) 19 U/L (15-37); Alanine Aminotransfer ALT/SGPT 23 U/L (16-61); Albumin, Serum 3.8 g/dL (3.2-5.0); Alkaline Phosphatase 90 U/L (45-117); Anion Gap 3 (5-15); BUN 6 mg/dL (7-18); BUN/Creat Ratio 8.2 RATIO (10-20); Calcium,Total 9.2 mg/dL (8.5-10.1); Chloride 106 mmol/L (98-107); Creatinine, Serum 0.74 mg/dL (0.70-1.30); EST Glomerular Filtration Rate 121 mL/min (>60); Est Glom Filt Rate - Afr Amer 146 mL/min (>60); Globulin 3.4 g/dL (2.2-4.2); Glucose 87 mg/dL (74-106); Potassium 4.1 mmol/L (3.5-5.1); Protein, Total 7.2 g/dL (6.4-8.2); Sodium Level 136 mmol/L (136-145)
== END | disposition home or self-care (01) ==
PROVIDERS: PCP Nurse Practitioner Family; Referring Provider Nurse Practitioner Family; Visit Provider Nurse Practitioner Family
DX: R10.12 Left upper quadrant pain (principal)
CPT/HCPCS: 36415; 74018; 80053; 85025

== ENCOUNTER → 2023-03-20 | Outpatient (CLI) | payer MEDICAID, SELFPAY ==
--- NOTE | 2023-03-20 11:30 | RAD_ITS ---
STUDY: X-RAY CHEST REASON FOR EXAM: Male, 48 years old. Cough with COPD TECHNIQUE: PA and lateral views of the chest. COMPARISON: Comparison is made with prior study dated July 18, 2022. FINDINGS: The lungs are clear and expanded. There is no demonstrated pleural abnormality. Normal size heart. Normal mediastinum and iris. Normal visualized pulmonary arteries. Normal visualized aortic arch and descending thoracic aorta. There are degenerative changes of the visualized thoracic spine. Normal visualized ribs, clavicles, and shoulders. There is no demonstrated abnormality of the visualized soft tissue structures of the upper abdomen. RAD/Chest PA and Lateral IMPRESSION: No acute abnormality is seen. Electronically Signed: George Garcia MD at 12:09 [facility] ,
== END | disposition home or self-care (01) ==
PROVIDERS: PCP Family Medicine; Referring Provider Physician Assistant Surgical; Visit Provider Physician Assistant Surgical
DX: J44.9 Chronic obstructive pulmonary disease, unspecified (principal)
CPT/HCPCS: 71046

== ENCOUNTER → 2023-04-04 | Outpatient (CLI) | payer MEDICAID, SELFPAY ==
--- OUTSIDE RECORDS SUMMARY | 2023-04-04 07:45 | XMS RPT_ITS | CCD ---
Author Name Unknown Address [address] [place] [address] Organization [facility] Care Team Providers Care Hair Stylist Name Role Phone Jose Augustessskye Mcmillan Unavailable Unavailable DR CHRISTINA HILL DO A Primary Care Physician MARIIA DR CHRISTINA BLISS A Primary Care Physician CORNELIO BLISS NIDCONSTANTIN Attending Unavailable [facility] DR CHRISTINA BLISS A Primary Care Unavailab le Allergies Allergy Classification Reported Allergen(s) Allergy Type Date of Onset Reaction(s) Facility (1 source) baclofen Drug Allergy 5 Syncope [facility] Work Phone: (1 source) metroNIDAZOLE Drug Allergy Bad taste in mouth, taste buds sore [facility] Work Phone: (3 sources) metroNIDAZOLE; Translations: [metronidazole] Drug Allergy [facility] Medications Current Medications Medication Drug Class(es) Dates Sig (Normalized) Sig (Original) lansoprazole 30 mg delayed release oral capsule (9 sources) Proton Pump Inhibitor Start: 10-31-2019 Prevacid 30 mg oral delayed release capsule Dose : 90 mg = 3 cap(s), Oral, qDay, # 90 cap(s), 0 Refill(s) Start Date: 10/31/19 Status: Ordered Completed/Discontinued Medications Medication Drug Class(es) Dates Sig (Normalized) Sig (Original) acetaminophen 325 mg / oxyCODONE hydrochloride 10 mg oral tablet (3 sources) Opioid Agonist Start: 01-11-2015 take 1 tablet by mouth every four to six hours as needed for pain PERCOCET 10-325 MG TABS One tablet by mouth every 4-6 hours as needed for severe pain OXYCODONE-ACETAMIN TIMOEN [id number] Christina Hill DO Problems Active Problems Problem Classification Problem Date Documented Date Episodic/Chronic Abdominal pain (3 sources) Left lower quadrant pain; Translations: [Abdominal pain] Onset: 03-10-2023 Resolved: 01-06-2014 04-28-2013 Episodic Alcohol-related disorders (2 sources) Alcohol abuse; Translations: [Alcohol abuse, uncomplicated] Resolved: 01-11-2015 02-03-2013 Chronic Anxiety disorders (3 sources) Social phobia; Translations: [Panic disorder] Onset: 02-03-2013 02-03-2013 Chronic Chronic obstructive pulmonary disease and bronchiectasis (4 sources) Chronic obstructive lung disease; Translations: [Chronic obstructive pulmonary disease, unspecified] Onset: 01-06-2014 01-06-2014 Chronic Diverticulosis and diverticulitis (3 sources) Diverticular disease 12-31-2013 Chronic Essential hypertension (1 source) Hypertensive disorder; Translations: [Essential (primary) hypertension] Onset: 01-06-2014 01-06-2014 Chronic Other nutritional; endocrine; and metabolic disorders (1 source) Morbid obesity; Translations: [Morbid (severe) obesity due to excess calories] Onset: 02-11-2015 02-11-2015 Chronic Pneumonia (5 sources) Pneumonia; Translations: [Pneumonia, unspecified organism] Onset: 01-06-2014 Resolved: 04-26-2014 04-26-2014 Episodic Spondylosis; intervertebral disc disorders; other back problems (2 sources) Intervertebral disc disorder of lumbar region with myelopathy; Translations: [Arthritis of spine] Onset: 01-06-2014 01-06-2014 Chronic Spondylosis; intervertebral disc disorders; other back problems (8 sources) Neck pain; Translations: [Backache] Onset: 04-28-2014 Resolved: 04-30-2014 05-17-2014 Episodic Substance-related disorders (4 sources) Tobacco dependence syndrome; Translations: [Substance abuse] Onset: 01-13-2014 Resolved: 02-13-2015 01-13-2014 Chronic Unclassified (1 source) Long-term drug therapy; Translations: [Other director long term care (current) drug therapy] Onset: 02-12-2014 02-15-2014 Past or Other Problems Problem Classification Problem Date Documented Da te Episodic/Chronic Diabetes mellitus without complication (1 source) Hyperglycemia; Translations: [Hyperglycemia, unspecified] Onset: 06-10-2015 06-10-2015 Episodic Headache, including migraine (1 source) Tension-type headache; Translations: [Tension-type headache, unspecified, not intractable] Onset: 04-26-2014 Resolved: 04-28-2014 04-26-2014 Episodic Other connective tissue disease (2 sources) Cramp; Translations: [Pain in lower limb] Onset: 04-26-2014 Resolved: 01-25-2015 04-26-2014 Episodic Other nervous system disorders (1 source) Chronic pain syndrome; Translations: [Chronic pain syndrome] Onset: 02-11-2015 02-11-2015 Episodic Syncope (2 sources) Syncope and collapse; Translations: [Syncope and collapse] Onset: 05-28-2014 Resolved: 06-10-2015 05-28-2014 Episodic Unclassified (2 sources) General examination of patient ; Translations: [Encounter for other general examination] Onset: 02-03-2013 Resolved: 01-06-2014 01-06-2014 Unclassified (1 source) Influenza vaccination ; Translations: [Encounter for immunization] Onset: 02-11-2015 Resolved: 02-13-2015 02-11-2015 Unclassified (1 source) Exposure to 2019 novel coronavirus; Translations: [Contact with and (suspected) exposure to COVID19] Onset: 02-14-2021 Results Test Name Value Interpretation Reference Range Facil ity Vital Signs Date Time Vital Sign Value Performing Clinician Facility 03-10-2023 10:51-0500 Diastolic Blood Pressure Non-Invasive 83 mm[Hg] [facility] DTTUJAA DO [facility] 03-10-2023 10:51-0500 Heart rate 66 /min [facility] DTTUJAA DO [facility] 03-10-2023 10:51-0500 [facility] rate 12 /[facility] 03-10-2023 10:51-0500 Systolic Blood Pressure Non-Invasive 144 mm[Hg] NIDAL CHOUJAA DO [facility] 03-10-2023 08:48-0500 Body temperature 98.78 [degF] NIDAL CHOUJAA DO [facility] 03-10-2023 08:48-0500 Diastolic Blood Pressure Non-Invasive 96 mm[Hg] NIDAL CHOUJAA DO [facility] 03-10-2023 08:48-0500 Heart rate 84 /min NIDAL CHOUJAA DO [facility] 03-10-2023 08:48-0500 Respiratory rate 16 /min NIDAL CHOUJAA DO [facility] 03-10-2023 08:48-0500 Systolic Blood Pressure Non-Invasive 132 mm[Hg] NIDAL CHOUJAA DO [facility] 02-14-2021 15:33-0500 Body temperature 98.06 [degF] CELE CERNA MD [facility] 02-14-2021 15:33-0500 Diastolic blood pressure 80 mm[Hg] CELE CERNA MD [facility] 02-14-2021 15:33-0500 Heart rate 76 /min CELE CERNA MD [facility] 02-14-2021 15:33-0500 Respiratory rate 20 /min CELE CERNA MD [facility] 02-14-2021 15:33-0500 Systolic blood pressure 127 mm[Hg] CELE CERNA MD [facility] 02-12-2021 17:24-0500 Body temperature 98.78 [degF] BRANDAN MCDANIEL MD [facility] 02-12-2021 17:24-0500 Diastolic blood pressure 90 mm[Hg] BRANDAN MCDANIEL MD [facility] 02-12-2021 17:24-0500 Heart rate 98 /min BRANDAN MCDANIEL MD [facility] 02-12-2021 17:24-0500 Respiratory rate 16 /min BRANDAN MCDANIEL MD [facility] 02-12-2021 17:24-0500 Systolic blood pressure 135 mm[Hg] BRANDAN MCDANIEL MD [facility] 06-10-2015 09:05-0500 BMI (Body Mass Index) 40.87 kg/m2 [facility] Work Phone: 06-10-2015 09:05-0500 Body Temperature 98.4 [degF] [facility] Work Phone: 06-10-2015 09:05-0500 BP Diastolic 96 mm[Hg] [facility] Work Phone: 06-10-2015 09:05-0500 BP Systolic 178 mm[Hg] [facility] Work Phone: 06-10-2015 09:05-0500 BSA (Body Surface Area) 2.4 m2 [facility] Work Phone: 06-10-2015 09:05-0500 Pulse (Heart Rate) 98 /min [facility] Work Phone: 06-10-2015 09:05-0500 Respiratory Rate 18 /min [facility] Work Phone: 06-10-2015 09:05-0500 Weight 127.37 kg [facility] Work Phone: 04-26-2014 08:59-0500 BP Diastolic 88 mm[Hg] [facility] Work Phone: 04-26-2014 08:59-0500 BP Systolic 138 mm[Hg] [facility] Work Phone: 01-06-2014 08:24-0400 Height 176.53 cm [facility] Work Phone: Encounters Encounter Date Encounter Type Care Provider Facility Start: 03-10-2023 End: 03-10-2023 Emergency department patient visit KARLOS GRIMES Facility:B Start: 03-10-2023 End: 03-10-2023 Emergency department patient visit KARLOS GRIMES DO [facility] Start: 02-14-2021 End: 02-14-2021 Emergency department patient visit CELE CERNA MD [facility] Start: 02-12-2021 End: 02-12-2021 Emergency department patient visit BRANDAN MCDANIEL MD [facility] Procedures Date Procedure Procedure Detail Performing Clinician Start: 06-10-2015 End: 06-13-2015 *VUDS Urine Drug Screen Christina Hill DO Work Phone: Start: 02-03-2013 End: 03-16-2013 *UA - Urinalysis w/o Micro Suma Arnett MD None (qualifier value) BRANDAN MCDANIEL MD Plan of Treatment Date Care Activity Detail Author Start: 04-18-2017 End: 04-18-2017 Appointment Appointment [facility] Phone: Start: 06-10-2015 End: 06-13-2015 *VUDS Urine Drug Screen *VUDS Urine Drug Screen [facility] Work Phone: Start: 01-11-2015 End: 01-11-2015 Dup-scan xtr veins complete bilateral study Venous Doppler LE Left [facility] Phone: Start: 05-17-2014 End: 02-01-2015 Other Referral Other Referral [facility] Phone: Start: 05-17-2014 End: 05-17-2014 Radex spine cervical 2 or 3 views X-Ray, Spine, Cervical [facility] Phone: Start: 03-18-2014 End: 02-01-2015 Other Referral Other Referral [facility] Phone: Start: 02-24-2014 End: 02-24-2014 Chest x-ray X-Ray, Chest, PA & Lateral [facility] Phone: Start: 02-03-2014 End: 02-03-2014 Follow up Appt 3 weeks Follow up Appt 3 weeks [facility] Phone: Start: 01-27-2014 End: 02-01-2015 Pain Management Pain Management [facility] Phone: Start: 01-13-2014 End: 01-13-2014 Follow Up Appt 2 weeks Follow Up Appt 2 weeks [facility] Phone: Start: 01-13-2014 End: 01-13-2014 Physical Therapy General Physical Therapy [facility], [address] [place] [address], [id number] [facility] Phone: Start: 01-06-2014 End: 01-06-2014 Follow up Appt 1 week Follow up Appt 1 week [facility] Phone: Start: 01-06-2014 End: 02-01-2015 Pain Management Pain Management Jackie Weaver, [address] [place] [address], [address], [place], [address] [facility] Work Phone: Start: 02-03-2013 End: 02-03-2013 *CMP Complete Metabolic Panel *CMP Complete Metabolic Panel [facility] Phone: Start: 02-03-2013 End: 03-16-2013 *UA - Urinalysis w/o Micro *UA - Urinalysis w/o Micro [facility] Phone: Start: 02-03-2013 End: 02-03-2013 CBC W Auto Differential panel - Blood *CBC without Diff [facility] Phone: Start: 02-03-2013 End: 02-03-2013 Lipid panel [AGGREGATE] *Lipid Profile [facility] Phone: Start: 02-03-2013 End: 02-03-2013 Thyroid stimulating hormone (TSH) *TSH [facility] Phone: Immunizations Immunization Date Immunization Notes Care Provider Fa [facility] 02-12-2021 tetanus toxoid, redu jluis diphtheria toxoid, and acellular pertussis vaccine, adsorbed; Translations: [Boostrix (Tdap)] BRANDAN MCDANIEL MD [facility] Payers Date Payer Category Payer Unknown [id number] 1975 Unknown [id number] Social History Date Type Detail Facility Start: 09-22-2019 Heavy tobacco smoker (finding) [facility] Never [facility] Sex Assigned At [facility] Functional Status Date Assessment Result Facility 03-10-2023 Functional Status Independent [facility] 03-10-2023 Functional Status Repositions self [facility] Mental Status Date Assessment Result Facility 03-10-2023 Mental Status Orientation Oriented x 4 [facility] Clinical Note 03-13-2023 Note Date & Type Note Facility 03-13-2023 Note . MICRO - Microbiology PROCEDURE: Urine Culture [*1] SOURCE: Urine, Clean Catch BODY SITE: COLLECTED DATE/TIME: 03/10/2023 09:12 EST RECEIVED DATE/TIME: 03/11/2023 08:16 EST START DATE/TIME: 03/11/2023 08:17 EST FREE TEXT SOURCE: FINAL REPORTS Final Report [] Verified Date/Time/Personnel: 03/13/2023 08:13 EST <10,000 cfu/ml. No Significant growth. Sensitivity not indicated. PRELIMINARY REPORTS Preliminary Report [] Verified Date/Time/Personnel: 03/12/2023 10:16 EST No growth to date Performing Locations *1: This test was performed at: [facility], [address] [place] [address], [facility] , [place] hospital ([place]) Evaluation + Plan note 03-10-2023 Note Date & Type Note Facility 03-10-2023 Evaluation + Plan note Diagnostic Tests PendingUrine Culture 03/10/23 [facility] Hospital Discharge instructions 03-10-2023 Note Date & Type Note Facility 03-10-2023 Hospital Discharg e instructions Patient Education 03/10/2023 11:37:09 Abdominal Pain, Unknown Cause, (Male) Unknown Causes of Abdominal Pain (Male) Based on your visit today, the exact cause of your abdominal pain is not clear. Your exam and tests don't suggest a dangerous cause at this time. However, the signs of a serious problem may take more time to appear. Although your evaluation was reassuring today, sometimes early in the course of many conditions, exam and lab tests can appear normal. Therefore, it is important for you to watch for any new symptoms or worsening of your condition. It may not be obvious what caused your symptoms. Pay attention to things that do seem to make your symptoms worse or better and discuss this with your doctor when you follow up. The evaluation of abdominal pain in the emergency department may only require an exam by the doctor or it may include blood, urine or imaging studies, depending on many factors. Sometimes exams and tests can identify a cause but in many cases, a clear cause is not found. Further testing at follow up visits may help to suggest a clear diagnosis. Home care Rest as much as you can until your next exam. Try to avoid any medicines (unless otherwise directed by your doctor), foods, activities, or other factors that may have contributed to your symptoms. Try to eat foods that you know that you have tolerated well in the past. Certain diets may be recommended for some conditions that cause abdominal pain. However, since the cause of your symptoms may not be clear, discuss your diet more with your healthcare provider or specialist for further recommendations. If you have diarrhea, it may help to avoid dairy (lactose) for the time being. A low fat, low fiber diet can also help. Eating several small meals per day as opposed to 2 or 3 larger meals may help. Avoid dehydration. Make sure to drink plenty of water. Other options include broth, soup, gelatin, sports drinks, or other clear liquids. Watch closely for anything that may make your symptoms worse or better. Pay close attention to symptoms below that may mean your condition is getting worse. Follow-up care Follow up with your healthcare provider if your symptoms are not improving, or as advised. In some cases, you may need more testing. When to seek medical advice Call your healthcare provider right away if any of these occur: Pain is becoming worse You are unable to take your medicines or can't keep water down due to excessive vomiting Swelling of the abdomen Fever of 100.4 F (38 C) or higher, or as directed by your healthcare provider Blood in vomit or bowel movements (dark red or black color) Jaundice (yellow color of eyes and skin) New onset of weakness, dizziness or fainting New onset of chest, arm, back, neck or jaw pain 3119-[address] [employer] [place] [address], [place] [address]. All rights reserved. This information is not intended as a substitute for professional medical care. Always follow your healthcare professional's instructions. Follow Up Care 03/10/2023 08:31:15 With:CHRISTINA HILL DO Address: [address] [place] [address]- When:2-4 days [facility] Clinical Note 03-10-2023 Note Date & Type Note Facility 03-10-2023 Note Discharge Instructions Thank you for allowing [facility] to assist you with your healthcare needs. The following is important discharge information regarding your hospital visit. Diagnosis from Today's Visit Left sided abdominal pain Rib/trunk pain-swelling What to Do Next Instructions from Your Care Team Discharge Return to Work, School, or Sports (Return to Work, School, or Sports) - Ordered -- 03/11/23, May return to: work, 03/10/23 11:37:00 EST Post Acute Orders No qualifying data available. You Need to Schedule the Following Appointments Follow Up with CHRISTINA HILL DO When Within 2-4 days Where: [place] [address]- Allergies Flagyl Medications Please ask your primary doctor or pharmacist before taking any other medication not listed, including over the counter drugs, herbal medications, vitamins and or supplements as they may interact with your home medications. What How Much When Instructions Last Dose Unchanged lansoprazole (Prevacid 30 mg oral delayed release capsule) 3 cap by mouth Once a day Unchanged lansoprazole (Prevacid 30 mg oral delayed release capsule) 1 cap by mouth Once a day Please take this list to your next doctor s visit. Bring all medications you take, including over the counter medications, herbals and other supplements with you to your doctor s visit. Patients and families are reminded to discard old lists and to update any records with all medication providers or retail pharmacies. Education Materials Unknown Causes of Abdominal Pain (Male) Based on your visit today, the exact cause of your abdominal pain is not clear. Your exam and tests don't suggest a dangerous cause at this time. However, the signs of a serious problem may take more time to appear. Although your evaluation was reassuring today, sometimes early in the course of many conditions, exam and lab tests can appear normal. Therefore, it is important for you to watch for any new symptoms or worsening of your condition. It may not be obvious what caused your symptoms. Pay attention to things that do seem to make your symptoms worse or better and discuss this with your doctor when you follow up. The evaluation of abdominal pain in the emergency department may only require an exam by the doctor or it may include blood, urine or imaging studies, depending on many factors. Sometimes exams and tests can identify a cause but in many cases, a clear cause is not found. Further testing at follow up visits may help to suggest a clear diagnosis. Home care Rest as much as you can until your next exam. Try to avoid any medicines (unless otherwise directed by your doctor), foods, activities, or other factors that may have contributed to your symptoms. Try to eat foods that you know that you have tolerated well in the past. Certain diets may be recommended for some conditions that cause abdominal pain. However, since the cause of your symptoms may not be clear, discuss your diet more with your healthcare provider or specialist for further recommendations. If you have diarrhea, it may help to avoid dairy (lactose) for the time being. A low fat, low fiber diet can also help. Eating several small meals per day as opposed to 2 or 3 larger meals may help. Avoid dehydration. Make sure to drink plenty of water. Other options include broth, soup, gelatin, sports drinks, or other clear liquids. Watch closely for anything that may make your symptoms worse or better. Pay close attention to symptoms below that may mean your condition is getting worse. Follow-up care Follow up with your healthcare provider if your symptoms are not improving, or as advised. In some cases, you may need more testing. When to seek medical advice Call your healthcare provider right away if any of these occur: Pain is becoming worse You are unable to take your medicines or can't keep water down due to excessive vomiting Swelling of the abdomen Fever of 100.4 F (38 C) or higher, or as directed by your healthcare provider Blood in vomit or bowel movements (dark red or black color) Jaundice (yellow color of eyes and skin) New onset of weakness, dizziness or fainting New onset of chest, arm, back, neck or jaw pain 2033-1931 [employer]. [address] [place] [address], [place] [address]. All rights reserved. This information is not intended as a substitute for professional medical care. Always follow your healthcare professional's instructions. Additional Information VACCINATE! IT SAVES LIVES! Members of the community who have not yet received the COVID-19 vaccine and would like to receive it can visit one of [facility] vaccine clinics. There are many vaccine clinic locations within the [facility]. For locations and available times, please visit www.[email or web address].[place].gov/. It is important to note that some COVID mobile vaccine clinics are held outdoors and may be canceled in rainy or stormy conditions. To learn more about pediatric vaccinations (ages 5-11), we invite you to visit the [facility] webpage. https://[email or web address].org/pages/2 [email or web address]-Zhhhd-Aenumtycxws-Frequently-Asked -Questions.html To learn more about the COVID-19 vaccine, we invite you to visit the CDC website for a list of frequently asked questions. https://www.cdc.gov/coronavirus/2019-n cov/vaccines/faq.html [email or web address] Patient Portal Access Instructions: Stay connected with your healthcare team and access your personal medical information anytime with the [email or web address] Patient Portal. If you would like a full copy of your medical records please contact the [facility] Medical Records Department Saturday through Saturday between 8a.m. and 4:30p.m. Please follow the directions below to access the portal: 1.Access the email account you provided upon registration to the hospital.2.Look for an invitation email from [facility].3.Open the email and access the invitation link: Accept Invitation to [email or web address].Fill in the required yo to create your account. Sign into [email or web address] with your username and password that you created in the above steps to stay up to date. You can then view a summary of results, a summary of your visits, and the ability to download your summaries to your computer or send the information securely to a physician. Remember that your healthcare information is confidential, so carefully consider who you will allow to register on the [facility] Patient Portal for access to your information. You can also access the [facility] Patient Portal on the [employer]. Simply click on Health Records under Health Data and then click on the [facility] logo. HOW TO SAFELY DISPOSE OF PRESCRIPTION MEDICATIONS Please use one of the following methods to safely dispose of your unused medications. 1.Use a drug disposal kit: the drug disposal pouch allows you to safely discard your old and unused drugs. Ask your nurse to give you one when you are discharged.2.Visit a local take-back location: Many local pharmacies and police departments have programs that collect old and unwanted prescription drugs. Call your local pharmacy or go to http://Hyperfair.Movirtu/4S3Hg2v to find one close to you.3.Make use of household items: Use cat litter or old coffee grounds to dispose medications if other options are not available. Mix your drugs with these household products, seal them in an airtight container and throw it into the garbage. Call [facility]: [phone] to be sure your drugs can be disposed of in this way. Some medicines may require a different approach.4.Never flush your medications down the toilet. IF YOU HAVE BEEN PRESCRIBED AN OPIOIDS FOR PAIN If you have been prescribed an opioid (such as hydrocodone, oxycodone or morphine), it is critical to understand the possible side effects and risks of opioid pain medications. Even when taken as directed, opioids can have several side effects including: Tolerance, meaning you might need to take more of a medication for the same pain relief. Nausea, vomiting and/or constipation. Sleepiness, dizziness, dry mouth, confusion, depression or itching. Physical dependence, meaning you have withdrawal symptoms when a medication is stopped ? this can develop within a few days. KNOW YOUR RESPONSIBILITIES It is important to know exactly how much and how often to take the opioid pain medications you are prescribed. Never take opioids in higher amounts or more often than prescribed. Do not combine opioids with alcohol or other drugs that cause drowsiness, such as benzodiazepines, also known as benzos, including diazepam and alprazolam, muscle relaxants or sleep aids. Never sell or share prescription opioids. This is illegal. Store opioids in a secure place and out of reach of others (including children, family, friends and visitors). The last page(s) of this document has been signed and retained as a CHART COPY Signatures Patient Education Materials Abdominal Pain, Unknown Cause, (Male) Medication Leaflets My discharge plan and instructions have been reviewed and explained to me and I,RAJAT FITCH understand my current condition and have read and understand these discharge instructions. I have received a written copy of the plan/instructions. If I have questions, I am aware that I should contact my doctor. 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 Multiplanar reformatted images are provided for review. Automated exposure control, iterative reconstruction, and/or weight based adjustment of the mA/kV was utilized to reduce the radiation dose to as low as reasonably achievable. COMPARISON: None. HISTORY: ORDERING SYSTEM PROVIDED HISTORY: Reason for Exam: pain FINDINGS: Lower lumbar postoperative changes are present with some metallic artifact from hardware. The lung bases are unremarkable. Liver, spleen, adrenal glands and pancreas are unremarkable. No kidney abnormality seen. No adenopathy, free air or free fluid is evident. The urinary bladder is grossly normal. There is a sigmoid anastomosis from previous surgery. Very minor scattered colonic diverticulosis is present, without diverticulitis. No other GI tract abnormality seen. The appendix is unremarkable. No additional contributory finding. IMPRESSION: No acute process. Interpreted by: Julian Dunn MD Preliminary Report By: Julian Dunn MD Electronically signed By Julian Dunn MD Dictated Date: 03/10/2023 10:53:25 AM Prelim Date: 03/10/2023 10:55:08 AM Sign Date: 03/10/2023 10:55:08 AM Ordering Provider: KARLOS GRIMES [facility] Discharge instructions 02-14-2021 Note Date & Type Note Facility 02-14-2021 Hospital Discharg e instructions Patient Education 02/14/2021 15:43:20 COVID-19 Prevent the Spread of COVID-19 If You Are Sick (08/25/2019)(CUSTOM) Prevent the Spread of COVID-19 If You Are Sick Accessible version: https://www.cdc.gov/coronaviru s/2019-ncov/fm-zdg-obb-sick/st poq-nsuc-pmhg.html If you are sick with COVID-19 or think you might have COVID-19, follow the steps below to help protect other people in your home and community. Stay home except to get medical care. Stay home. Most people with COVID-19 have mild illness and are able to recover at home without medical care. Do not leave your home, except to get medical care. Do not visit public areas. Take care of yourself. Get rest and stay hydrated. Get medical care when needed. Call your doctor before you go to their office for care. But, if you have trouble breathing or other concerning symptoms, call 911 for immediate help. Avoid public transportation, ride-sharing, or taxis. Separate yourself from other people and pets in your home. As much as possible, stay in a specific room and away from other people and pets in your home. Also, you should use a separate bathroom, if available. If you need to be around other people or animals in or outside of the home, wear a cloth face covering. See COVID-19 and Animals if you have questions about pets: https://www.cdc.gov/coronaviru s/2019ncov/faq.html#LLGGI26gto mals Monitor your symptoms. Common symptoms of COVID-19 include fever and cough. Trouble breathing is a more serious symptom that means you should get medical attention. Follow care instructions from your healthcare provider and local health department. Your local health authorities will give instructions on checking your symptoms and reporting information. If you develop emergency warning signs for COVID-19 get medical attention immediately. Emergency warning signs include*: Trouble breathing Persistent pain or pressure in the chest New confusion or not able to be woken Bluish lips or face *This list is not all inclusive. Please consult your medical provider for any other symptoms that are severe or concerning to you. Call 911 if you have a medical emergency. If you have a medical emergency and need to call 911, notify the bar finish operator that you have or think you might have, COVID-19. If possible, put on a facemask before medical help arrives Call ahead before visiting your doctor. Call ahead. Many medical visits for routine care are being postponed or done by phone or telemedicine. If you have a medical appointment that cannot be postponed, call your doctor s office. This will help the office protect themselves and other patients. If you are sick, wear a cloth covering over your nose and mouth. You should wear a cloth face covering over your nose and mouth if you must be around other people or animals, including pets (even at home). You don t need to wear the cloth face covering if you are alone. If you can t put on a cloth face covering (because of trouble breathing for example), cover your coughs and sneezes in some other way. Try to stay at least 6 feet away from other people. This will help protect the people around you. Note: During the COVID-19 pandemic, medical grade facemasks are reserved for healthcare workers and some first responders. You may need to make a cloth face covering using a scarf or bandana. Cover your coughs and sneezes. Cover your mouth and nose with a tissue when you cough or sneeze. Throw used tissues in a lined trash can. Immediately wash your hands with soap and water for at least 20 seconds. If soap and water are not available, clean your hands with an alcohol-based hand rust proofer that contains at least 60% alcohol. Clean your hands often. Wash your hands often with soap and water for at least 20 seconds. This is especially important after blowing your nose, coughing, or sneezing; going to the bathroom; and before eating or preparing food. Use hand rust proofer if soap and water are not available. Use an alcohol-based hand rust proofer with at least 60% alcohol, covering all surfaces of your hands and rubbing them together until they feel dry. Soap and water are the best option, especially if your hands are visibly dirty. \ Avoid touching your eyes, nose, and mouth with unwashed hands. Avoid sharing personal household items. Do not share dishes, drinking glasses, cups, eating utensils, towels, or bedding with other people in your home. Wash these items thoroughly after using them with soap and water or put them in the clerk general office. Clean all high-touch surfaces everyday. Clean and disinfect high-touch surfaces in your sick room and bathroom. Let someone else clean and disinfect surfaces in common areas, but not your bedroom and bathroom. If a caregiver or other person needs to clean and disinfect a sick person s bedroom or bathroom, they should do so on an as-needed basis. The caregiver/other person should wear a mask and wait as long as possible after the sick person has used the bathroom High-touch surfaces include phones, remote controls, counters, tabletops, doorknobs, bathroom fixtures, toilets, keyboards, tablets, and bedside tables. Clean and disinfect areas that may have blood, stool, or body fluids on them. Use household diesel instructor and disinfectants. Clean the area or item with soap and water or another detergent if it is dirty. Then use a household disinfectant. Be sure to follow the instructions on the label to ensure safe and effective use of the product. Many products recommend keeping the surface wet for several minutes to ensure germs are killed. Many also recommend precautions such as wearing gloves and making sure you have good ventilation during use of the product. Most EPA-registered household disinfectants should be effective. How to discontinue home isolation. People with COVID-19 who have stayed home (home isolated) can stop home isolation under the following conditions: If you will not have a test to determine if you are still contagious, you can leave home after these three things have happened: You have had no fever for at least 72 hours (that is three full days of no fever without the use of medicine that reduces fevers) AND other symptoms have improved (for example, when your cough or shortness of breath has improved) AND at least 10 days have passed since your symptoms first appeared. If you will be tested to determine if you are still contagious, you can leave home after these three things have happened: You no longer have a fever (without the use of medicine that reduces fevers) AND other symptoms have improved (for example, when your cough or shortness of breath has improved) AND you received two negative tests in a row, 24 hours apart. Your doctor will follow CDC guidelines. In all cases, follow the guidance of your healthcare provider and local health department. The decision to stop home isolation should be made in consultation with your healthcare provider and state and local health departments. Local decisions depend on local circumstances. cdc.gov/coronavirus Follow Up Care 02/14/2021 15:25:03 With:CHRISTINA HILL DO Address: [address] [place] [id number]- When:2-4 days [facility] Hospital Discharge instructions 02-12-2021 Note Date & Type Note Facility 02-12-2021 Hospital Discharg e instructions Patient Education 02/12/2021 19:05:01 Laceration, Extremity: Suture, Staple, or Tape Extremity Laceration: Stitches, [place], or Tape A laceration is a cut through the skin. If it is deep, it may require stitches or jade to close so it can heal. Minor cuts may be treated with surgical tape closures, or skin glue. X-rays may be done if something may have entered the skin through the cut. You may also need a tetanus shot if you are not up to date on this vaccine. Home care Follow the healthcare provider s instructions on how to care for the cut. Wash your hands with soap and warm water before and after caring for your wound. This is to help prevent infection. Keep the wound clean and dry. If a bandage was applied and it becomes wet or dirty, replace it. Otherwise, leave it in place for the first 24 hours, then change it once a day or as directed. If stitches or jade were used, clean the wound daily: oAfter removing the bandage, wash the area with soap and water. Use a wet cotton swab to loosen and remove any blood or crust that forms. oAfter cleaning, keep the wound clean and dry. Talk with your healthcare provider before putting any antibiotic ointment on the wound. Reapply the bandage. You may remove the bandage to shower as usual after the first 24 hours, but don't soak the area in water (no swimming) until the stitches or jade are removed. If surgical tape closures were used, keep the area clean and dry. If it becomes wet, blot it dry with a towel. Let the surgical tape fall off on its own. The healthcare provider may prescribe an antibiotic cream or ointment to prevent infection. He or she may also prescribe an antibiotic pill. Don't stop taking this medicine until you have finished it all or the provider tells you to stop. The provider may also prescribe medicine for pain. Follow the instructions for taking these medicines. Don't do activities that may reopen your wound. Follow-up care Follow up with your healthcare provider, or as advised. Most skin wounds heal within 10 days. But an infection may sometimes occur even with proper treatment. Check the wound daily for the signs of infection listed below. Stitches and jade should be removed within 7 to14 days. If surgical tape closures were used, you may remove them after 10 days if they have not fallen off by then. When to seek medical advice Call your healthcare provider right away if any of these occur: Wound bleeding not controlled by direct pressure Signs of infection, including increasing pain in the wound, increasing wound redness or swelling, or pus or bad odor coming from the wound Fever of 100.4 F (38 C) or higher, or as directed by your healthcare provider Stitches or jade come apart or fall out or surgical tape falls off before 7 days Wound edges reopen Wound changes colors Numbness occurs around the wound Decreased movement around the injured area [id number] [employer]. [address] [place] [address]. All rights reserved. This information is not intended as a substitute for professional medical care. Always follow your healthcare professional's instructions. Follow Up Care 02/12/2021 17:19:54 With:CHRISTINA HILL Address: [address] [place] [address]- Business (1) When:Within 1 Week(s) Comments:Follow-up in 7 to 10 days for wound check and suture removal.Daily wound care with dressing changes.Use Tylenol, Advil or Aleve for pain as needed.Watch for signs of infection.Return to the ED if symptoms worsen. [facility] Evaluation + Plan note Note Date & Type Note Facility Evaluation + Plan note No data available for this section [facility] Summary Purpose Family History No Family History Records FoundNo Family History Records Found No data available for this section No Family History Records Found Advance Directives No Advanced Directives Records FoundNo Advanced Directives Records FoundNo Advanced Directives Records Found Additional Source Comments (unrecognized sect ion and content) No Status Records FoundNo Status Records FoundNo Status Records Found INFORMATION SOURCE (unrecogn ized section and content) DATE CREATED AUTHOR AUTHOR'S ORGANIZ ATION 11/06/2019 [facility] DATE CREATED AUTHOR AUTHOR'S ORGANIZ ATION 03/14/2023 [facility] ([place]) Patient Care team informatio n (unrecognized section and content) Care Team Personnel Name: CHRISTINA HILL DO Member Role: Primary Care Physician Address: Address: [address] [place] [id number]- [place] Name: KARLOS GRIMES DO Position: ED Physician Member Role: Attending Physician Address: Address: [address] [place] [id number] Care Team Related Persons Name: JAQUAN FITCH FOR RECORDS PERTAINING TO PATIENTS WHO ARE OR HAVE BEEN ENROLLED IN A CHEMICAL DEPENDENCY/SUBSTANCEABUSE PROGRAM, SOME INFORMATION MAY BE OMITTED. This clinical summary was aggregated from multiple sources. Caution should be exercised in using it in the provision of clinical care. This summary normalizes information from multiple sources, and as a consequence, information in this document may materially change the coding, format and clinical context of patient data. In addition, data may be omitted in some cases. CLINICAL DECISIONS SHOULD BE BASED ON THE PRIMARY CLINICAL RECORDS. [facility]. provides no warranty or guarantee of the accuracy or completeness of information in this document.
--- NOTE | 2023-04-04 07:46 | NM_ITS ---
CLINICAL: 48-year-old male with history of diffuse arthralgia. WHOLE BODY 99m Tc MDP RADIONUCLIDE BONE SCINTIGRAPHY COMPARISON: None available FINDINGS: Following the intravenous administration of 27.4 mCi of 99m Tc MDP, whole body bone images reveal: 1. Increased tracer distribution is defined in the patellofemoral compartment of the left knee, medial tibial compartment of the right knee, the left ankle articulation, the posterior midline sacrum, the acromioclavicular and sternoclavicular compartments of both shoulders. 2. The remaining skeletal structures are scintigraphically unremarkable with normal-appearing renal images and urinary bladder activity identified. NM/Bone Scan Whole Body IMPRESSION: 1. The increase in tracer uptake defined in the bilateral knees, the left ankle, the sacrum and right-left shoulders is commensurate with degenerative arthrosis. Plain film radiography may be of benefit in the the right knee if clinically indicated. 2. There is no definitive scintigraphic evidence of articulation synovial inflammation on the present examination. Electronically Signed: Nathan Treadwell DO at 10:08 EST ,
== END | disposition home or self-care (01) ==
LOC: NM 07:42
PROVIDERS: PCP Family Medicine; Visit Provider Orthopaedic Surgery
DX: M54.6 Pain in thoracic spine (principal)
CPT/HCPCS: 78306; A9503

== ENCOUNTER → 2023-05-23 | Outpatient (CLI) | payer MEDICAID, SELFPAY ==
--- NOTE | 2023-05-23 07:58 | US_ITS ---
STUDY: ABDOMINAL ULTRASOUND REASON FOR EXAM: Male, 48 years old. LOWER ABD PAIN TECHNIQUE: Transabdominal ultrasound was performed with real-time and static cash scale imaging. TECHNICAL QUALITY: Adequate. COMPARISON: None. FINDINGS: Liver: The liver is mildly enlarged and measures 18 cm. There is increased echogenicity consistent with fatty infiltration. The bile ducts are within normal limits. There is hepatic color flow. The direction of portal flow is hepatopetal. There is no demonstrated mass lesion. Gallbladder: Normal distended gallbladder. The gallbladder wall measures 2.3 mm. There is a negative sonographic Kirkland''s sign. There is no pericholecystic fluid. There are no gallstones. Common Bile Duct (C.B.D.): The common bile duct measures 3.1 mm. Pancreas: Normal size of the head, body and tail of the pancreas. There is increased echogenicity of the pancreas. There is no demonstrated pancreatic mass or cyst. Spleen: Normal size of the spleen. The spleen measures 9.8 cm x 5 cm x 3.5 cm. Right Kidney: Normal size of the right kidney. The right kidney measures 10.3 cm x 6.9 cm x 6.4 cm. Normal renal cortex. The right cortex measures 1.4 cm. There is no demonstrated renal mass or cyst. There is no right hydronephrosis. Left Kidney: Normal size of the left kidney. The left kidney measures 12.5 cm x 6.9 cm x 6.1 cm. Normal renal cortex. The left cortex measures 1.7 cm. There is no demonstrated renal mass or cyst. There is no left hydronephrosis. I.V.C.: The IVC is patent. There is no ascites. US/Abdomen Complete IMPRESSION: Mild hepatomegaly and fatty infiltration of the liver. Electronically Signed: George Garcia MD at 10:[address] [facility] ,
--- OUTSIDE RECORDS SUMMARY | 2023-05-23 08:05 | XMS RPT_ITS | CCD ---
Author Name Unknown Address [address] [place] [address] Organization [facility] Care Team Providers Care Machine Rigger Name Role Phone Tootie Auguste Unavailable Unavailable DR CHRISTINA HILL DO A Primary Care Physician MARIIA DR CHRISTINA BLISS A Primary Care Physician CORNELIO BLISS NIDCONSTANTIN Attending Unavailable [facility] DR CHRISTINA BLISS A Primary Care Unavailab le Allergies Allergy Classification Reported Allergen(s) Allergy Type Date of Onset Reaction(s) Facility (1 source) baclofen Drug Allergy 5 Syncope [facility] Work Phone: (1 source) metroNIDAZOLE Drug Allergy Bad taste in mouth, taste buds sore [facility] Work Phone: (3 sources) metroNIDAZOLE; Translations: [metronidazole] Drug Allergy [facility] Medications Current Medications Medication Drug Class(es) Dates [...] as needed for severe pain OXYCODONE-ACETAMIN TIMOEN [id number] Christina Hill DO Problems Active Problems Problem [...] (1 source) Long-term drug therapy; Translations: [Other manager terminal (current) drug therapy] Onset: 02-12-2014 02-15-2014 Past [...] 10:51-0500 Diastolic Blood Pressure Non-Invasive 83 mm[Hg] [facility] Fiesta FrogUJAA DO [facility] 03-10-2023 10:51-0500 Heart rate 66 /min [facility] Fiesta FrogUJAA DO [facility] 03-10-2023 10:51-0500 Respiratory rate 12 /min [facility] 03-10-2023 10:51-0500 Systolic Blood Pressure Non-Invasive 144 mm[Hg] NIDAL CHOUJAA DO [facility] 03-10-2023 08:48-0500 Body temperature 98.78 [degF] NIDAL CHOUJAA DO [facility] 03-10-2023 08:48-0500 Diastolic Blood Pressure Non-Invasive 96 mm[Hg] NIDAL CHOUJAA DO [facility] 03-10-2023 08:48-0500 Heart rate 84 /min NIDAL CHOUJAA DO [facility] 03-10-2023 08:48-0500 Respiratory rate 16 /min NIDAL CHOUJAA DO [facility] 03-10-2023 08:48-0500 Systolic Blood Pressure Non-Invasive 132 mm[Hg] NIDAL CHOUJAA DO [facility] 02-14-2021 15:33-0500 Body temperature 98.06 [degF] CELE CERNA MD [facility] 02-14-2021 15:33-0500 Diastolic blood pressure 80 mm[Hg] CELE CERNA MD [facility] 02-14-2021 15:33-0500 Heart rate 76 /min CELE CERNA MD [facility] 02-14-2021 15:33-0500 Respiratory rate 20 /min CELE CERNA MD [facility] 02-14-2021 15:33-0500 Systolic blood pressure 127 mm[Hg] CELE CERNA MD [facility] 02-12-2021 17:24-0500 Body temperature 98.78 [degF] BRANDAN MCDANIEL MD [facility] 02-12-2021 17:24-0500 Diastolic blood pressure 90 mm[Hg] BRANDAN MCDANIEL MD [facility] 02-12-2021 17:24-0500 Heart rate 98 /min BRANDAN MCDANIEL MD [facility] 02-12-2021 17:24-0500 Respiratory rate 16 /min BRANDAN MCDANIEL MD [facility] 02-12-2021 17:24-0500 Systolic blood pressure 135 mm[Hg] BRANDAN MCDANIEL MD [facility] 06-10-2015 09:05-0500 BMI (Body Mass Index) 40.87 kg/m2 Tootie ConsortiEX [facility] Work Phone: 06-10-2015 09:05-0500 Body Temperature 98.4 [degF] Tootieskye Auguste [facility] Work Phone: 06-10-2015 09:05-0500 BP Diastolic 96 mm[Hg] Tootieskye Auguste [facility] Work Phone: 06-10-2015 09:05-0500 BP Systolic 178 mm[Hg] Tootieskye Auguste [facility] Work Phone: 06-10-2015 09:05-0500 BSA (Body Surface Area) 2.4 m2 [facility] Work Phone: 06-10-2015 09:05-0500 Pulse (Heart Rate) 98 /min Tootie York [facility] Work Phone: 06-10-2015 09:05-0500 Respiratory Rate 18 /min Tootie York [facility] Work Phone: 06-10-2015 09:05-0500 Weight 127.37 kg Tootie York [facility] Work Phone: 04-26-2014 08:59-0500 BP Diastolic 88 mm[Hg] Tootie York [facility] Work Phone: 04-26-2014 08:59-0500 BP Systolic 138 mm[Hg] Tootie York [facility] Work Phone: 01-06-2014 08:24-0400 Height 176.53 cm [facility]ie[facility]ogy [facility] Work Phone: Encounters Encounter Date Encounter Type Care Provider Facility Start: 03-10-2023 End: 03-10-2023 Emergency department patient visit KARLOS GRIMES Facility:B Start: 03-10-2023 End: 03-10-2023 Emergency department patient visit KARLOS GRIMES DO [facility] Start: 02-14-2021 End: 02-14-2021 Emergency department patient visit CELE CERNA MD [facility] Start: 02-12-2021 End: 02-12-2021 Emergency department patient visit BRANDAN MCDANIEL MD [facility] Procedures Date Procedure Procedure Detail Performing Clinician Start: 06-10-2015 End: 06-13-2015 *VUDS Urine Drug Screen Christina Hill DO Work Phone: Start: 02-03-2013 End: 03-16-2013 *UA - Urinalysis w/o Micro Suma Arnett MD None (qualifier value) BRANDAN MCDANIEL MD Plan of Treatment Date Care Activity Detail Author Start: 04-18-2017 End: 04-18-2017 Appointment Appointment [facility] Phone: Start: 06-10-2015 End: 06-13-2015 *VUDS Urine Drug Screen *[facility] Urine Drug Screen [facility] Work Phone: Start: 01-11-2015 End: 01-11-2015 Dup-scan xtr veins complete bilateral study Venous Doppler LE Left [facility] Phone: Start: 05-17-2014 End: 02-01-2015 Other Referral Other Referral [facility] Phone: Start: 05-17-2014 End: 05-17-2014 Radex spine cervical 2 or 3 views X-Ray, Spine, Cervical [facility] Phone: Start: 03-18-2014 End: 02-01-2015 Other Referral Other Referral [facility] Phone: Start: 02-24-2014 End: 02-24-2014 Chest x-ray X-Ray, Chest, PA & Lateral [facility] Phone: Start: 02-03-2014 End: 02-03-2014 Follow up Appt 3 weeks Follow up Appt 3 weeks [facility] Phone: Start: 01-27-2014 End: 02-01-2015 Pain Management Pain Management [facility] Phone: Start: 01-13-2014 End: 01-13-2014 Follow Up Appt 2 weeks Follow Up Appt 2 weeks [facility] Phone: Start: 01-13-2014 End: 01-13-2014 Physical Therapy General Physical Therapy [facility], [address] [place] [address], [id number] [facility] Phone: Start: 01-06-2014 End: 01-06-2014 Follow up Appt 1 week Follow up Appt 1 week [facility] Phone: Start: 01-06-2014 End: 02-01-2015 Pain Management Pain Management Jackie Weaver, [address] [place] [address], [address], [place], [address] [facility] Work Phone: Start: 02-03-2013 End: 02-03-2013 *CMP Complete Metabolic Panel *CMP Complete Metabolic Panel [facility] Phone: Start: 02-03-2013 End: 03-16-2013 *UA - Urinalysis w/o Micro *UA - Urinalysis w/o Micro [facility] Phone: Start: 02-03-2013 End: 02-03-2013 CBC W Auto Differential panel - Blood *CBC without Diff [facility] Phone: Start: 02-03-2013 End: 02-03-2013 Lipid panel [AGGREGATE] *Lipid Profile [facility] Phone: Start: 02-03-2013 End: 02-03-2013 Thyroid stimulating hormone (TSH) *TSH [facility] Phone: Immunizations Immunization Date Immunization Notes Care Provider [facility] 02-12-2021 tetanus toxoid, redu jluis diphtheria toxoid, and acellular pertussis vaccine, adsorbed; Translations: [Boostrix (Tdap)] BRANDAN MCDANIEL MD [facility] Payers Date Payer Category Payer Unknown [id number] 1975 Unknown [id number] Social History Date Type Detail Facility Start: 09-22-2019 Heavy tobacco smoker (finding) [facility] Never [facility] l [facility] Sex Assigned At [facility] Functional Status Date Assessment Result Facility 03-10-2023 Functional Status Independent [facility] 03-10-2023 Functional Status Repositions self [facility] Mental Status Date Assessment Result Facility 03-10-2023 Mental Status Orientation Oriented x 4 [facility] Clinical Note 03-13-2023 Note Date & Type [...] Locations *1: This test was performed at: [facility], [address] [place] [address], [facility] , [facility] ([place]) Evaluation + Plan note 03-10-2023 Note Date & Type Note Facility 03-10-2023 Evaluation + Plan note Diagnostic Tests PendingUrine Culture 03/10/23 [facility] Hospital Discharge instructions 03-10-2023 Note Date & [...] chest, arm, back, neck or jaw pain [id number] [employer] [address] [place] [address], [place] [address]. All rights reserved. This information is not intended as a substitute for professional medical care. Always follow your healthcare professional's instructions. Follow Up Care 03/10/2023 08:31:15 With:CHRISTINA HILL DO Address: [address] [place] [address]- When:2-4 days [facility] Clinical Note 03-10-2023 Note Date & Type Note Facility 03-10-2023 Note Discharge Instructions Thank you for allowing [facility] to assist you with your healthcare needs. [...] When Within 2-4 days Where: [place] [address]- Allergies Flagyl Medications Please ask your primary [...] chest, arm, back, neck or jaw pain [phone] [employer] [address] [place] [address], [place] [address]. All rights reserved. This information is not intended as a substitute for professional medical care. Always follow your healthcare professional's instructions. Additional Information VACCINATE! IT SAVES LIVES! Members of the community who have not yet received the COVID-19 vaccine and would like to receive it can visit one of [facility] vaccine clinics. There are many vaccine clinic locations within the [facility]. For locations and available times, please visit [email or web address] It is important to note that some COVID mobile vaccine clinics are held outdoors and may be canceled in rainy or stormy conditions. To learn more about pediatric vaccinations (ages 5-11), we invite you to visit the [facility] webpage. [email or web address]/pages/[email or web address]-Frequently-[email or web address] -Questions.html To learn more about the COVID-19 vaccine, we invite you to visit the CDC website for a list of frequently asked questions. https://www.cdc.gov/coronavirus/2019-n cov/vaccines/faq.html [facility] Patient Portal Access Instructions: Stay connected with your healthcare team and access your personal medical information anytime with the [facility] Patient Portal. If you would like a full copy of your medical records please contact the [facility] Medical Records Department Saturday through Saturday between 8a.m. and 4:30p.m. Please follow the directions below to access the portal: 1.Access the email account you provided upon registration to the hospital.2.Look for an invitation email from [facility].3.Open the email and access the invitation link: Accept Invitation to [facility]4.Fill in the required yo to create your account. Sign into www.[employer] with your username and password that you [...] your information. You can also access the [facility] Patient Portal on the [employer]. Simply click on Health Records under Health Data and then click on the [employer] logo. HOW TO SAFELY DISPOSE OF PRESCRIPTION [...] Call your local pharmacy or go to [email or web address] to find one close to you.3.Make use of household items: Use cat litter or old coffee grounds to dispose medications if other options are not available. Mix your drugs with these household products, seal them in an airtight container and throw it into the garbage. Call [facility]: [phone] to be sure your drugs can be [...] aware that I should contact my doctor. 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 Signature: _ Date/Time: Relationship to Patient: Witness Name/Signature: Date/Time: [facility] Clinical Note 03-10-2023 Note Date & Type [...] 03/10/2023 10:55:08 AM Ordering Provider: KARLOS GRIMES [facility] Discharge instructions 02-14-2021 Note Date & Type Note Facility 02-14-2021 Hospital Discharg e instructions Patient Education 02/14/2021 15:43:20 COVID-19 Prevent the Spread of COVID-19 If You Are Sick (08/25/2019)(CUSTOM) Prevent the Spread of COVID-19 If You Are Sick Accessible version: https://www.cdc.gov/coronaviru s/2019-ncov/mb-xnc-zkd-sick/st zvj-clyu-sckv.html If you are sick with COVID-19 or [...] if you have questions about pets: https://www.cdc.gov/coronaviru s/2019ncov/faq.html#BPZTG96prv mals Monitor your symptoms. Common symptoms of [...] and need to call 911, notify the cylinder machine operator pulp drier that you have or think you might [...] clean your hands with an alcohol-based hand configuration management architect that contains at least 60% alcohol. Clean your hands often. Wash your hands often with soap and water for at least 20 seconds. This is especially important after blowing your nose, coughing, or sneezing; going to the bathroom; and before eating or preparing food. Use hand configuration management architect if soap and water are not available. Use an alcohol-based hand configuration management architect with at least 60% alcohol, covering all [...] and water or put them in the lighting specialist. Clean all high-touch surfaces everyday. Clean and [...] or body fluids on them. Use household wire coiner and disinfectants. Clean the area or item [...] Care 02/14/2021 15:25:03 With:CHRISTINA HILL DO Address: [address] [place] [address]- When:2-4 days [facility] Hospital Discharge instructions 02-12-2021 Note Date & Type Note Facility 02-12-2021 Hospital Discharg e instructions Patient Education 02/12/2021 19:05:01 Laceration, Extremity: Suture, Staple, or Tape Extremity Laceration: Stitches, Laurel, or Tape A laceration is a cut [...] wound Decreased movement around the injured area [phone] [employer] [address] [place] [address]. All rights reserved. This information is not intended as a substitute for professional medical care. Always follow your healthcare professional's instructions. Follow Up Care 02/12/2021 17:19:54 With:CHRISTINA HILL Address: [address] [place] [address]- Business (1) When:Within 1 Week(s) Comments:Follow-up in 7 to 10 days for wound check and suture removal.Daily wound care with dressing changes.Use Tylenol, Advil or Aleve for pain as needed.Watch for signs of infection.Return to the ED if symptoms worsen. [facility] Evaluation + Plan note Note Date & Type Note Facility Evaluation + Plan note No data available for this section [facility] Summary Purpose Family History No Family History [...] DATE CREATED AUTHOR AUTHOR'S ORGANIZ ATION 11/06/2019 [facility] DATE CREATED AUTHOR AUTHOR'S ORGANIZ ATION 03/14/2023 [facility] ([place]) Patient Care team informatio n (unrecognized section and content) Care Team Personnel Name: CHRISTINA HILL DO Member Role: Primary Care Physician Address: Address: [address] [place] [address]- [place] Name: KARLOS GRIMES DO Position: ED Physician Member Role: Attending Physician Address: Address: [address] [place] [address] Care Team Related Persons Name: JAQUAN FITCH [...] BE BASED ON THE PRIMARY CLINICAL RECORDS. [facility]. provides no warranty or guarantee of the accuracy or completeness of information in this document.
== END | disposition home or self-care (01) ==
LOC: US 07:56
PROVIDERS: PCP Family Medicine; Referring Provider Family Medicine; Visit Provider Family Medicine
DX: R10.9 Unspecified abdominal pain (principal)
CPT/HCPCS: 76700

== ENCOUNTER → 2024-01-08 | Outpatient (CLI) | payer MEDICAID, SELFPAY ==
--- NOTE | 2024-01-08 11:55 | RAD_ITS ---
INDICATION: constipation COMPARISON: None. FINDINGS: 2 frontal views of the abdomen. Left pelvic bowel suture line. Nonobstructive bowel gas pattern. No obvious free air. No definite suspicious calcifications. No mass appreciated. Lumbosacral orthopedic hardware without obvious hardware complication. Upper pelvic surgical clips. RAD/Abdomen Single View IMPRESSION: Unremarkable abdomen. Electronically Signed: Kg Pavon MD at 21:24 EDT ,
== END | disposition home or self-care (01) ==
LOC: LAB 11:49 → RAD 11:49
PROVIDERS: PCP Family Medicine; Referring Provider Student in an Organized Health Care Education/Training Program; Visit Provider Student in an Organized Health Care Education/Training Program
DX: K59.00 Constipation, unspecified (principal)
CPT/HCPCS: 74018

== ENCOUNTER 2024-01-22 09:05 | Day surgery (SDC) | payer MEDICAID, SELFPAY ==
--- NOTE | 2024-01-22 09:21 | PCM.PRE.AN2 ---
ASA Classification* ASA Classification ASA Classification: 2 Assessment & Plan Anesthesia* Anesthesia Assessment Anesthesia Assessment: Discussed sedation and/or anesthesia options, risks, benefits, and alternatives with patient/parents/legal guardian/POA. Questions invited. The patient/parents/legal guardian/POA seems to understand and agrees to proceed with anesthesia plan. Reviewed the physical assessment, medical history, allergy history and patient home medications list prior to surgery/procedure/anesthetic and documented any changes. Performed airway and anesthesia risk assessments. Anesthesia Type Anesthesia Type: MAC Anesthesia Focused Assessment* Airway Assessment Mouth opens: >3 cm Mallampati Score: II Focused Labs Anesthesia Preop lab: CBC WBC 9.7 K/mm3 (4.4-11.0) 03/05/23 11:01 RBC 5.00 M/mm3 (4.6-6.2) 03/05/23 11:01 Hgb 15.1 g/dL (13.0-16.5) 03/05/23 11:01 Hct 45.3 % (40-54) 03/05/23 11:01 Plt Count 615 K/mm3 (150-450) H 03/05/23 11:01 CHEMISTRY Potassium 4.1 mmol/L (3.5-5.1) 03/05/23 11:01 Sodium 136 mmol/L (136-145) 03/05/23 11:01 Magnesium 1.9 mg/dL (1.6-2.6) 02/27/21 05:00 BUN 6 mg/dL (7-18) L 03/05/23 11:01 Creatinine 0.74 mg/dL (0.70-1.30) 03/05/23 11:01 Glucose 87 mg/dL (74-106) 03/05/23 11:01 POC Glucose 114 mg/dL (70-110) H 03/06/21 06:00 TSH 1.58 uIU/mL (0.358-3.74) 11/30/21 09:38 COAG PT 13.4 SECONDS (11.7-14.9) 08/14/16 05:00 Pre-Assessment Diagnosis/Proposed Procedure Planned Operative Procedure(s): COLONOSCOPY, EGD Anesthesia History Anesthesia History - creative recruiter: Anesthesia History - creative recruiter Hx Hospitalization No 01/20/24 09:43 Any Problems With Anesthesia No: PT STATES HARD TO SEDATE 01/20/24 09:43 Cholinesterase deficiency No 01/20/24 09:43 You/Your Family Experience No 01/20/24 09:43 fever (hyperthermia) with Relationship Recent Exposure to Contagious No 04/24/22 11:28 Disease Does patient have nerve No 01/20/24 09:43 stimulator Patient instructed to have device shut off --Does patient have Pacemaker or ICD? When Was Last Pacemaker Check QUESTION #4 FULL TEXT: You/Your Family Experience fever (hyperthermia) with Anesthesia Last Oral Intake Last Oral intake: Last Oral Intake NPO since Meds taken in AM with sips of water? Meds patient instructed to take am of surgery PONV PONV - creative recruiter: PONV - creative recruiter Female No 01/20/24 09:43 HX of Motion Sickness No 01/20/24 09:43 HX of N/V After Surgery No 01/20/24 09:43 Non-Smoker No 01/20/24 09:43 Duration of Surgery greater No 01/20/24 09:43 than 60 minutes Number of Risk Factors PONV Score Height & Weight Height & Weight: Anesthesia: Height & Weight Height 5 ft 11 in 03/20/23 11:29 Respiratory Assessment Respiratory Assessment - creative recruiter: Respiratory Tract Infection Hx - creative recruiter Hx Respiratory Tract Infection No 01/20/24 09:43 STOP Sleep Apnea STOP Sleep Apnea - creative recruiter: STOP Sleep Apnea - creative recruiter Hx Hypertension No 01/20/24 09:43 Hx Sleep Apnea No 01/20/24 09:43 CPAP No 04/24/22 11:28 BIPAP No 04/24/22 11:28 Do you snore loudly (louder No 01/20/24 09:43 than talking or can be heard Do you often feel tired/ No 01/20/24 09:43 fatigued/ sleepy during daytime? Has anyone observed you stop No 01/20/24 09:43 breathing during sleep? STOP Results Negative 01/20/24 09:43 QUESTION #5 FULL TEXT : Do you snore loudly (louder than talking or can be heard through closed doors)? 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 Specify any problems Hx of Preganancy in last 3 N/A 01/20/24 09:43 Months Nurse Filling Out Transfusion [email or web address] 01/20/24 09:43 & Questions: Date: 01/20/24 01/20/24 09:43 Time: 09:47 01/20/24 09:43 Patient unable to answer at this time (ie. confused, unrespo /Reproduction History /Reproductive History - creative recruiter: /Reproductive Hx- creative recruiter Hx Now Gestational Age (in weeks): EDC: Hx Hx Para Hx Section SAB No 04/24/22 11:28 PFSH Medical History Marijuana use Heartburn Shortness of breath on exertion Thrombocytosis Substance abuse Alcohol abuse Desire for detoxification Opiate addiction COVID Smoker Migraines Alcohol use Substance use Suture of skin wound History of diverticulitis of colon Diverticulitis Wears contact lenses Wears dentures Anxiety History of stress test Restless legs Ventral hernia Fusion of lumbar spine Postoperative abdominal pain Spinal stenosis of lumbar region Wheezing Cough Acute bronchitis Chest pain COPD exacerbation COPD (chronic obstructive pulmonary disease) Hypertension Obesity (BMI 30-39.9) History of diverticulitis of colon Tobacco abuse Alcohol abuse, in remission GERD (gastroesophageal reflux disease) Chronic low back pain Home Medications ?Medication ?Instructions ?Recorded ?Last Taken ?Type albuterol sulfate 90 mcg/actuation 1 - 2 puff inhalation Q4H PRN PRN 03/02/17 01/03/21 History aerosol inhaler Cough albuterol sulfate 2.5 mg/3 mL 2.5 mg inhalation Q4H PRN PRN Sob 04/12/20 Unknown History (0.083 %) solution for nebulization &/Or Wheezing tizanidine 4 mg tablet 4 mg PO 4X/DAY Back pain 07/18/20 01/08/21 History gabapentin 800 mg tablet 800 mg PO TID Back pain 01/02/21 01/08/21 History hydroxyzine HCl 50 mg tablet 50 - 100 mg PO BID PRN Anxiety 01/02/21 01/08/21 History lansoprazole 30 mg capsule,delayed 30 mg PO DAILY 07/30/21 Unknown History release (Prevacid) mometasone-formoterol HFA 200 2 puff inhalation BID 04/23/22 Unknown History mcg-5 mcg/actuation aerosol inhaler (Dulera) buprenorphine 2 mg-naloxone 0.5 mg 1 film buccal DAILY 09/26/22 Unknown History sublingual film (Suboxone) ondansetron HCl 4 mg tablet 4 mg PO BID PRN nausea and vomiting 09/26/22 Unknown History tiotropium bromide 18 mcg capsule 1 cap inhalation QDAY 12/27/23 Unknown History with inhalation device (Spiriva with HandiHaler) Allergy/AdvReac Type Severity Reaction Status Date / Time sulfamethoxazole (From Allergy Other Verified 01/20/24 09:41 Bactrim) trimethoprim (From Bactrim) Allergy Other Verified 01/20/24 09:41 Metronidazole HCl (From AdvReac Unknown Verified 01/20/24 09:41 Flagyl) Family History Mother CAD (coronary artery disease) Uncle CAD (coronary artery disease) Father Cancer Surgical History History of colon resection History of ventral hernia repair Previous back surgery History of right knee surgery Social History household members: spouse housing: house Smoking Status: Current every day smoker tobacco type: cigarettes alcohol intake: former substance use type: amphetamines and opiates do you feel safe at home: Yes Review of Systems (Anesthesia) ROS Narrative System reviewed and no additional complaints, except as documented.
--- NOTE | 2024-01-22 09:25 | HP.PCM_ITS ---
History and Physical Date of Admission: 01/22/24 HPI HPI Chief Complaint: Abdominal pain Details: RAJAT FITCH, is a 48 M who presents to the office today for establishment with [facility]. Patient has a PMHx of diverticulitis, OA, COPD, and GERD. He has been having worsening abdominal pain over the past couple of months. His pain is mostly epigastric and in the LUQ. He has had multiple abdominal surgeries including a partial colectomy for diverticulitis is 2020. He is unsure if his pain is related to these surgeries or diverticulitis. He also has daily nausea and takes zofran for this. He does not really complain of heartburn but he does feel both liquid and solid foods getting stuck in his esophagus. He has constipation that started after he was put on Suboxone. He has never tried medications for the constipation. His last colonoscopy was in 2019 with recommendation for repeat in 5 years. Exam Const General: cooperative and comfortable Nutritional Appearance: average body habitus and well nourished HENMT Head: normal to inspection Ears: hearing grossly normal bilaterally Nose: external nose normal Face and sinus: normal facial exam Eyes General: appearance normal, both eyes and all related structures Neck Neck: normal visual inspection Chest Chest palpation & inspection: normal inspection of the chest Resp Effort & Inspection: normal respiratory effort GI Inspection: normal to inspection Skin General: no rashes or lesions noted Neuro General: patient alert Extrem General: normal to inspection Psych Affect: normal affect Assessment and Plan Assessment and Plan (1) GERD (gastroesophageal reflux disease): Status: Chronic Qualifiers: Esophagitis presence: esophagitis presence not specified Qualified Code(s): K21.9 - Gastro-esophageal reflux disease without esophagitis Comment: ON MED (2) Abdominal pain: Status: Resolved (3) Constipation: Status: Acute (4) Dysphagia: Status: Acute Plan: Pt is a 48 yo male here today for establishment with [facility]. He has been having worsening pain in the epigastric region and LUQ. He has had numerous surgeries on his abdomen for diverticulitis and hernia repairs. He has dysphagia with feelings of food getting stuck in his lower esophagus. He also has daily nausea occasionally refractory to zofran. I recommended we get an EGD to rule out any stricture, GERD or esophageal motility disorder. He also has complaints of constipation since lluvia on suboxone. He does not use medications for constipation. I recommended he started daily fiber supplement and miralax as needed. 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 We will also have him undergo colonoscopy as last one was in 2020 and recommendation was for 5 years. -EGD and colonopscopy -Consider GES -Start fiber supplement and miralax as needed -f/u in 3 months Coding Level of Care Code Off vis,new,level 4 Diagnoses Gastroesophageal reflux disease, esophagitis presence not specified K21.9 Esophagitis presence: esophagitis presence not specified Abdominal pain R10.9 Constipation K59.00 Dysphagia R13.10 I have examined the patient and the H&P has been reviewed. There are no clinical changes since date of exam.
[2024-01-22 09:27] VITALS: BP 131/92; RESP 18; TEMP 36.8; O2SAT 93; BMI 37.2
--- NOTE | 2024-01-22 10:00 | IMM_PTH ---
PATIENT: RAJAT FITCH LOC: EN U#:[id number] AGE/SX: 49/M ROOM: RE01/22/[address]: Dr. Jarvis Becerra DO : 1975 BED: DIS: 01/22/2024 SPEC #: [id number] RECD: 01/23/24 08:17 STATUS: JONAH REQ #: [id number] ABDIAZIZ: 01/22/24 10:[address]: Jarvis Becerra DEPT: IMMUNOHISTOCHEMISTRY RECD BY: Scott Cruz ENTERED: 01/23/24 08:17 SP TYPE: IMMUNO OTHR DR: Dr. Jimbo Hill DO Tissues: B - Gastric mucous membrane A - Esophagus, NOS Procedures: H Pylori (initial) P53 (initial) KI-67 (add) PHYSICIAN & INSTITUTION [place] [id number] SPECIMEN INFORMATION: Tissue Source: A- Distal esophagus biopsy B- Gastric antrum biopsy Clinical Info: GERD, abdominal pain, constipation, dysphagia Specimen Number: [id number] A, B CPT code: 85319c2,74043 METHODOLOGY: Deparaffinized sections of prefer/formalin-fixed tissue or PAP/DQ stained slides are incubated with monoclonal/polyclonal antibodies/oligonucleotide probes. Localization is made via biotin free immunoperoxidase method. Appropriate controls are performed and reacted as expected. Results on target cell population are indicated in the following table: RESULTS: ANTIBODY / CLONE RESULT Block A P53 (DO-7) negative (null pattern) Ki-67 (30-9) positive, very low Block B H Pylori (polyclonal) negative These tests were developed and their performance characteristics determined by [facility]. They may not have been cleared or approved by the U.S. Food and Drug Administration. The FDA has determined that such clearance or approval is not necessary. The above immunohistochemical/dualISH markers are ordered and reviewed by the Pathologist. INTERPRETATION: A. Distal esophagus, biopsy: Negative for dysplasia. B. Gastric antrum, biopsy: Negative for Helicobacter pylori organisms. 01/27/2024
--- NOTE | 2024-01-22 10:00 | COLBX_PTH ---
PATIENT: RAJAT FITCH LOC: EN U#:[id number] AGE/SX: 49/M ROOM: RE01/22/[address]: Dr. Jarvis Becerra DO : 1975 BED: DIS: 01/22/2024 SPEC #: [id number] RECD: 01/22/24 14:00 STATUS: JONAH TANJA #: [id number] ABDIAZIZ: 01/22/24 10:[address]: Jarvis Becerra DEPT: SURGICAL PATHOLOGY RECD BY: Noah Munoz ENTERED: 01/23/24 07:25 SP TYPE: COLON BX OTHR DR: Dr. Jimbo Hill DO Tissues: A - Esophagus, NOS B - Gastric mucous membrane C - Cecum, NOS Procedures: Surgery Specimen Level IV HEADER OPERATION: Colonoscopy, biopsy, esophageal dilatation PRE-OP DIAGNOSIS: GERD, abdominal pain, constipation, dysphagia TISSUE SUBMITTED: A- Distal esophagus biopsy, B- Gastric antrum biopsy, C- Cecal polyp biopsy MICROSCOPIC DIAGNOSIS A. Distal esophagus, biopsy: Fragments of gastroesophageal mucosa with focal intestinal metaplasia (goblet cell metaplasia) consistent with Gardner's esophagus. Chronic inflammation. Negative for dysplasia. See comment. B. Gastric antrum, biopsy: Mild gastritis. See microscopic description and comment. C. Cecal polyp, biopsy: Fragments of tubular adenoma. 01/24/2024 COMMENT A. Alcian blue/PAS stain with matched control is used in the evaluation of the specimen. Immunohistochemistry ([id number]) for P53 and Ki-67 is being performed and results will be reported separately. B. The results of immunohistochemistry for Helicobacter pylori will be reported separately ([id number]). MICROSCOPIC DESCRIPTION Slides are reviewed. B. The specimen shows fragments of gastric mucosa with chronic inflammatory cell infiltrates in the lamina propria consisting of lymphocytes and plasma cells, consistent with mild chronic gastritis. GROSS DESCRIPTION A. Received in fixative is one container labeled with the patient's name and designated Distal esophagus biopsy. The specimen consists of two irregular fragments of light viera soft tissue that in aggregate measure 0.6 x 0.3 x 0.1 cm. The specimen is totally submitted in one cassette. B. Received in fixative is one container labeled with the patient's name and designated Gastric antrum biopsy. The specimen consists of one irregular fragment of light viera soft tissue that measures 0.3 x 0.3 x 0.1 cm. The specimen is totally submitted in one cassette. C. Received in fixative is one container labeled with the patient's name and designated Cecal polyp biopsy. The specimen consists of two irregular fragments of light viera soft tissue that in aggregate measure 0.5 x 0.3 x 0.1 cm. The specimen is totally submitted in one cassette. SJ.mr 01/23/2024 TC:2 CPT:45111e5,20905
[2024-01-22 11:01] VITALS: BP 106/76; BP 131/92; PULSE 80; RESP 18; TEMP 36.6; O2SAT 91
[2024-01-22 11:05] VITALS: BP 106/75; BP 131/92; PULSE 78; RESP 16; O2SAT 91
--- NOTE | 2024-01-22 11:09 | PCM.POST.ANE ---
Anesthesia: Postop Eval I Current Vital Signs Temperature: 98 F Pulse Rate: 78 Blood Pressure: 106/76 Respiratory Rate: 18 Pulse Ox: 95 Oxygen Delivery Method: Room Air Assessment Airway patent: Yes Spontaneous unlabored respirations: Yes Mental status: Awake and Calm nausea: No Vomiting: No Anesthesia Complication: No Fluid Hydration Crystalloid volume administer (ml): 40 Total IV fluid infused: 40 Progress Note Anesthesia document: Postop Eval 1 completed: Yes
[2024-01-22 11:10] VITALS: BP 106/76; BP 110/74; BP 131/92; PULSE 73; PULSE 78; RESP 16; RESP 18; TEMP 36.6; O2SAT 94; O2SAT 95
[2024-01-22 11:14] VITALS: BP 109/79; BP 131/92; PULSE 74; RESP 16; TEMP 36.6; O2SAT 94
[2024-01-22 11:32] VITALS: BP 131/92
--- NOTE | 2024-01-22 17:39 | PCM.POSTANE2 ---
Anesthesia Postop Eval I Sum Postop Eval Completion status Anesthesia document: Postop Eval 1 completed: Yes Anesthesia Postop Eval I Summary Anesthesia Postop Eval I Summary: Anesthesia Postop Eval I: Assessment Summary Airway patent Yes 01/22/24 11:10 [email or web address] Spontaneous unlabored Yes 01/22/24 11:10 [email or web address] respirations Mental status Awake,Calm 01/22/24 11:10 [email or web address] nausea No 01/22/24 11:10 [email or web address] Vomiting No 01/22/24 11:10 [email or web address] Anesthesia Postop Eval I: Fluid Summary Crystalloid volume administer 40 01/22/24 11:10 [email or web address] (ml) Colloids volume administered ( ml) Blood Product volume administered (ml) Total IV fluid infused 40 01/22/24 11:10 [email or web address] Anesthesia Postop Eval I: Summary Notes Anesthesia Complication No 01/22/24 11:10 [email or web address] Anesthesia Complication Comment: Post-operative progress note Anesthesia: Postop Eval II Evaluation Mental status: Awake and Calm Pain Level: 0 nausea: No Vomiting: No Complications Anesthesia Complication: No
--- NOTE | 2024-01-27 15:26 | OP.CCLET_ITS ---
01/22/[address] [facility] [place] [address] Re : Upper GI endoscopy procedure for Nick Barnes Dear Dr. Hill This procedure was performed on Monday, January 22, 2024. My impressions and recommendations are as follows: Impressions : - Benign-appearing esophageal stenosis. Dilated. - Z-line irregular, 40 cm from the incisors. Biopsied. - Hiatal hernia. - A medium amount of food (residue) in the stomach. - Normal first portion of the duodenum. Recommendations : - Discharge patient to home. - Resume previous diet. - Continue present medications. - Await pathology results. My findings are described in the full procedure note, which is enclosed. If I can be of further assistance, please feel free to contact me at . Sincerely, Jarvis Becerra, 01/22/2024 11:04:10 AM This report has been signed electronically.
--- NOTE | 2024-01-27 15:26 | OP.COLON_ITS ---
Patient Name: Nick Barnes Procedure Date: 01/22/2024 10:43 AM Date of : 1975 Age: 49 Procedure: Colonoscopy Indications: Screening for colorectal malignant neoplasm Providers: Jarvis Becerra DO Referring MD: Jimbo Hill Medicines: Monitored Anesthesia Care Patient Profile: This is a 49 year old male. Refer to note in patient chart for documentation of history and physical. Patient has symptoms of acute dysphagia and dysphagia with both liquids and solids. Last Colonoscopy: date unknown. Unable to locate last colonoscopy report. Complications: No immediate complications. Procedure: Pre-Anesthesia Assessment: - Prior to the procedure, a History and Physical was performed, and patient medications and allergies were reviewed. The patient is competent. The risks and benefits of the procedure and the sedation options and risks were discussed with the patient. All questions were answered and informed consent was obtained. Patient identification and proposed procedure were verified by the physician in the pre-procedure area. Mental Status Examination: alert and oriented. Airway Examination: normal oropharyngeal airway and neck mobility. Respiratory Examination: clear to auscultation. CV Examination: normal. Prophylactic Antibiotics: The patient does not require prophylactic antibiotics. Prior Anticoagulants: The patient has taken no anticoagulant or antiplatelet agents. ASA Grade Assessment: II - A patient with mild systemic disease. After reviewing the risks and benefits, the patient was deemed in satisfactory condition to undergo the procedure. The anesthesia plan was to use monitored anesthesia care (MAC). Immediately prior to administration of medications, the patient was re-assessed for adequacy to receive sedatives. The heart rate, respiratory rate, oxygen saturations, blood pressure, adequacy of pulmonary ventilation, and response to care were monitored throughout the procedure. The physical status of the patient was re-assessed after the procedure. After I obtained informed consent, the scope was passed under direct vision. Throughout the procedure, the patient's blood pressure, pulse, and oxygen saturations were monitored continuously. The Colonoscope was introduced through the anus and advanced to the cecum, identified by appendiceal orifice and ileocecal valve. The colonoscopy was performed without difficulty. The patient tolerated the procedure well. The quality of the bowel preparation was adequate. The ileocecal valve, appendiceal orifice, and rectum were photographed. Scope In: 10:45:37 AM Scope Withdrawal Time 0 hours 8 minutes 46 seconds Scope Out: 10:56:41 AM Total Procedure Duration Time 0 hours 11 minutes 4 seconds Findings: The perianal and digital rectal examinations were normal. There was evidence of a prior end-to-end colo-colonic anastomosis in the sigmoid colon. This was patent. A 7 mm polyp was found in the cecum. The polyp was sessile. The polyp was removed with a jumbo cold forceps. Resection and retrieval were complete. Verification of patient identification for the specimen was done. Estimated blood loss was minimal. Multiple small and large-mouthed diverticula were found in the recto-sigmoid colon and sigmoid colon. Impression: - Patent end-to-end colo-colonic anastomosis. - One 7 mm polyp in the cecum, removed with a jumbo cold forceps. Resected and retrieved. - Diverticulosis in the recto-sigmoid colon and in the sigmoid colon. Recommendation: - Discharge patient to home. - Resume previous diet. - Continue present medications. - Await pathology results. - Repeat colonoscopy in 5 years for surveillance. Procedure Code(s): --- Professional --- 69349, Colonoscopy, flexible; with biopsy, single or multiple CPT copyright 2021 [employer]. All rights reserved. The codes documented in this report are preliminary and upon salesperson toy trains and accessories review may be revised to meet current compliance requirements. Jarvis Becerra DO 01/22/2024 11:07:32 AM This report has been signed electronically. Number of Addenda: 0 Note Initiated On: 01/22/2024 10:43 AM
--- NOTE | 2024-01-27 15:26 | OP.CCLET_ITS ---
01/22/2024 Jimbo Hlil [address] [facility] [place] [address] Re : Colonoscopy procedure for Nick Cameron Dear Dr. Hill This procedure was performed on Monday, January 22, 2024. My impressions and recommendations are as follows: Impressions : - Patent end-to-end colo-colonic anastomosis. - One 7 mm polyp in the cecum, removed with a jumbo cold forceps. Resected and retrieved. - Diverticulosis in the recto-sigmoid colon and in the sigmoid colon. Recommendations : - Discharge patient to home. - Resume previous diet. - Continue present medications. - Await pathology results. - Repeat colonoscopy in 5 years for surveillance. My findings are described in the full procedure note, which is enclosed. If I can be of further assistance, please feel free to contact me at . Sincerely, Jarvis Becerra, 01/22/2024 11:07:32 AM This report has been signed electronically.
--- NOTE | 2024-01-27 15:26 | OP.EGD_ITS ---
Patient Name: Nikc Barnes Procedure Date: 01/22/2024 10:26 AM Date of : 1975 Age: 49 Procedure: Upper GI endoscopy Indications: Dyspepsia, Dysphagia Providers: Jarvis Becerra DO Referring MD: Jimbo Hill Medicines: Monitored Anesthesia Care Patient Profile: This is a 49 year old male. Refer to note in patient chart for documentation of history and physical. Patient has symptoms of acute dysphagia and dysphagia with both liquids and solids. Complications: No immediate complications. Procedure: Pre-Anesthesia Assessment: - Prior to the procedure, a History and Physical was performed, and patient medications and allergies were reviewed. The patient is competent. The risks and benefits of the procedure and the sedation options and risks were discussed with the patient. All questions were answered and informed consent was obtained. Patient identification and proposed procedure were verified by the physician in the pre-procedure area. Mental Status Examination: alert and oriented. Airway Examination: normal oropharyngeal airway and neck mobility. Respiratory Examination: clear to auscultation. CV Examination: normal. Prophylactic Antibiotics: The patient does not require prophylactic antibiotics. Prior Anticoagulants: The patient has taken no anticoagulant or antiplatelet agents. ASA Grade Assessment: II - A patient with mild systemic disease. After reviewing the risks and benefits, the patient was deemed in satisfactory condition to undergo the procedure. The anesthesia plan was to use monitored anesthesia care (MAC). Immediately prior to administration of medications, the patient was re-assessed for adequacy to receive sedatives. The heart rate, respiratory rate, oxygen saturations, blood pressure, adequacy of pulmonary ventilation, and response to care were monitored throughout the procedure. The physical status of the patient was re-assessed after the procedure. After obtaining informed consent, the endoscope was passed under direct vision. Throughout the procedure, the patient's blood pressure, pulse, and oxygen saturations were monitored continuously. The Colonoscope was introduced through the mouth, and advanced to the second part of duodenum. The upper GI endoscopy was accomplished without difficulty. The patient tolerated the procedure well. Scope In: 10:37:40 AM Scope Out: 10:43:16 AM Total Procedure Duration Time 0 hours 5 minutes 36 seconds Findings: One benign-appearing, intrinsic moderate stenosis was found 23 cm from the incisors. The stenosis was traversed. A guidewire was placed and the scope was withdrawn. Dilation was performed with a Savary dilator with no resistance at 60 Fr. The dilation site was examined and showed moderate improvement in luminal narrowing. Estimated blood loss was minimal. The Z-line was irregular and was found 40 cm from the incisors. Biopsies were taken with a cold forceps for histology. Verification of patient identification for the specimen was done. Estimated blood loss was minimal. A hiatal hernia was present. A medium amount of food (residue) was found in the gastric body. The first portion of the duodenum was normal. Impression: - Benign-appearing esophageal stenosis. Dilated. - Z-line irregular, 40 cm from the incisors. Biopsied. - Hiatal hernia. - A medium amount of food (residue) in the stomach. - Normal first portion of the duodenum. Recommendation: - Discharge patient to home. - Resume previous diet. - Continue present medications. - Await pathology results. Procedure Code(s): --- Professional --- 45260, Esophagogastroduodenoscopy, flexible, transoral; with insertion of guide wire followed by passage of dilator(s) through esophagus over guide wire 14088, 59,51, Esophagogastroduodenoscopy, flexible, transoral; with biopsy, single or multiple CPT copyright 2021 [employer]. All rights reserved. The codes documented in this report are preliminary and upon orthotics prosthetics technician review may be revised to meet current compliance requirements. Jarvis Becerra DO 01/22/2024 11:04:10 AM This report has been signed electronically. Number of Addenda: 0 Note Initiated On: 01/22/2024 10:26 AM
== END 2024-01-22 11:33 | disposition home or self-care (01) ==
LOC: EN 09:06 → AC 09:10
PROVIDERS: PCP Family Medicine; Referring Provider Family Medicine; Visit Provider Internal Medicine Gastroenterology
PROC: 0DJD8ZZ Inspection of Lower Intestinal Tract, Via Natural or Artificial Opening Endoscopic (ICD-10-PCS; CPT 45378; principal; 2024-01-22 09:55)
DX: Z12.11 Encounter for screening for malignant neoplasm of colon (principal); J44.9 Chronic obstructive pulmonary disease, unspecified; K44.9 Diaphragmatic hernia without obstruction or gangrene; K57.30 Diverticulosis of large intestine without perforation or abscess without bleeding; K21.9 Gastro-esophageal reflux disease without esophagitis; D12.0 Benign neoplasm of cecum; K29.70 Gastritis, unspecified, without bleeding; K22.2 Esophageal obstruction; Z79.51 Long term (current) use of inhaled steroids
CPT/HCPCS: 43239; 45380; 43248; 88305; 88341; 88342; A4216; C1769; J2405